=== PATIENT | male | born 1995 | race Caucasian/White ===

== ENCOUNTER 2017-01-10 23:06 | Emergency (ER) | payer OTHER ==
[~2017-01-10] VITALS: Ht 170.2 cm; Wt 64.5 kg
[~2017-01-10 23:06] MED LIST: FLUT9.9S NAS; LEVO500C PO; ONDA4TAB7 PO; PROC10TA PO; PROM12.59 RECTALLY; SCOP1PAT TD; UBID50TA3 PO
[2017-01-10 23:09] VITALS: Ht 170.2 cm; Wt 64.5 kg
--- NOTE | 2017-01-10 23:09 | NUR ---
ROOM PT AMBULATORY TO ROOM 5 FROM LOBBY FATHER WITH PT AND HE DOES ALL THE TALKING FOR THE PT
--- NOTE | 2017-01-10 23:13 | NUR ---
BATHROOM PT REPORTS HE NEEDS TO HAVE A BM UP TO BATHROOM
--- OUTSIDE RECORDS SUMMARY | 2017-01-10 23:13 | XMS REPORT ---
Author Author GENERATED, SYSTEM Organization Unknown Address Unknown Phone Unavailable Care Team Providers Care Repulping Supervisor Name Role Phone MD [facility], [facility] [phone] Reason For Visit Chief Complaint VOMITING Social History Functional Status Vital Signs Results Chemistry from 08/31/2016 1:56 PMSODIUM 139 MMOL/L (136-145 MMOL/L) POTASSIUM 4.0 MMOL/L (3.5-5.1 MMOL/L) CHLORIDE 103 MMOL/L (98-107 MMOL/L) TCO2 23.2 MMOL/L (21.0-32.0 MMOL/L) *ANION GAP 12.8 MMOL/L (8.0-16.0 MMOL/L) BUN 12 MG/DL (7-18 MG/DL) CREATININE 1.12 MG/DL (0.70-1.30 MG/DL) *BUN/CREATININE RATIO 10.7 (9.1-17.0 ) GLUCOSE 117 MG/DL H (65-99 MG/DL) *GFR EST NON AFR ICELANDIC >90 ML/MIN *GFR EST AFR AMER >90 ML/MIN CALCIUM 10.0 MG/DL (8.5-10.1 MG/DL) BILIRUBIN TOTAL 1.20 MG/DL H (0.20-1.00 MG/DL) TOTAL PROTEIN 8.6 GM/DL H (6.4-8.2 GM/DL) ALBUMIN 5.3 GM/DL H (3.4-5.0 GM/DL) *GLOBULIN 3.3 GM/DL (2.3-3.5 GM/DL) *A/G RATIO 1.6 MG/DL (1.5-2.2 MG/DL) ALK PHOS 66 U/L (46-116 U/L) ALT (SGPT) 34 U/L (14-59 U/L) AST (SGOT) 17 U/L (15-37 U/L) LIPASE 84 U/L (73-393 U/L) Hematology from 08/31/2016 1:56 PMWBC 7.2 X10e3/UL (3.6-11.2 X10e3/UL) RBC 5.22 X10e6/UL (4.06-5.63 X10e6/UL) HEMOGLOBIN 16.5 G/DL H (12.5-16.3 G/DL) HEMATOCRIT 47.4 % H (36.7-47.1 %) *MCV 90.8 FL (80.0-100.0 FL) *MCH 31.6 PG (27.0-33.0 PG) *MCHC 34.8 G/DL (32.0-36.0 G/DL) *RDW 14.3 % (12.3-17.0 %) *RDWSD 45.5 (37.1-47.8 ) PLATELET 210 X10e3/UL (159-386 X10e3/UL) *MPV 9.5 FL (7.4-10.4 FL) AUTOMATED DIFF PERFORMED SEGS 77.3 % *LYMPHOCYTES 16.6 % *MONOCYTES 5.3 % *EOSINOPHILS 0.2 % *BASOPHILS 0.6 % *ABSOLUTE NEUTROPHILS 5.60 X10e3/UL (1.80-7.80 X10e3/UL) *ABSOLUTE LYMPHOCYTES 1.20 X10e3/UL (1.00-3.00 X10e3/UL) *ABSOLUTE MONOCYTES 0.40 X10e3/UL (0.30-1.00 X10e3/UL) *ABSOLUTE EOSINOPHILS 0.00 X10e3/UL (0.00-0.50 X10e3/UL) *ABSOLUTE BASOPHILS 0.00 X10e3/UL (0.00-0.20 X10e3/UL) Urinalysis from 08/31/2016 3:00 PM*URINE COLOR YELLOW (STRAW/YELL/DK YELL ) *URINE APPEARANCE CLEAR (CLEAR ) URINE PH >9.0 (5.0-8.0 ) URINE SPECIFIC GRAVITY 1.015 (<=1.005->=1.030 ) *URINE GLUCOSE NEGATIVE MG/DL (NEGATIVE MG/DL) *URINE BILIRUBIN NEGATIVE (NEGATIVE ) *URINE KETONES 40 MG/DL A (NEGATIVE MG/DL) *URINE BLOOD TRACE-INTACT A (NEGATIVE ) *URINE PROTEIN TRACE MG/DL A (NEGATIVE MG/DL) *URINE UROBILINOGEN 0.2 EU/DL (0.2-1.0 EU/DL) *URINE NITRITES NEGATIVE (NEGATIVE ) *URINE LEUKOCYTES NEGATIVE (NEGATIVE ) *MICROSCOPIC EXAM PERFORMED PERFORMED *WBC URINE 0-1 /HPF (0-5 /HPF) *RBC URINE 1-5 /HPF A (0-1 /HPF) *SQUAMOUS EP. CELLS FEW /LPF (NEG-FEW /LPF) *MUCOUS THREADS MANY /LPF A (NEGATIVE /LPF) *AMORP. PHOS KOSTA MODERATE /HPF (NEGATIVE /HPF) Problems Encounter Diagnosis No relevant problems exist. Additional Problems * Fall Risk Comment:Problem resolved by [facility] Workflow upon Discharge, Status: Resolved. * Nausea & Vomiting Comment:Problem resolved by [facility] Workflow upon Discharge , Status:Resolved. Encounters Encounter Diagnosis No relevant problems exist. Plan of Care Procedures No relevant procedures performed. Immunizations * INFLUEN VACC (GLAXO) (FLUARIX (GLAXO), [employer], Lot # [id number]); Administered 08/05/2016 11:22 AM; 1 DOSE=0.5 ML, INTRAMUSCL Hospital Course Hospital Discharge Instructions Allergies, Adverse Reactions, Alerts * Latex Allergy has not been assessed. * IV Contrast Allergy has not been assessed. * No Known Drug Allergies. Medication Medication reconciliation has not been performed.
--- OUTSIDE RECORDS SUMMARY | 2017-01-10 23:13 | XMS REPORT ---
Author Author GENERATED, SYSTEM Organization Unknown Address Unknown Phone Unavailable Care Team Providers Care Underground Mine Superintendent Name Role Phone MD MISTRY VERLIN [phone] Reason For Visit Reason for Visit from 08/03/2016 11:24 PM:* Pt Stated Reason for Adm : Nausea, Intractable Vomiting Chief Complaint INTRACTABLE NAUSEA VOMITING Social History Social History from 08/05/2016 10:52 AM:* Tobacco Use? : Never Smoker Social History from 08/03/2016 11:24 PM:* Tobacco Use? : Never Smoker Functional Status Functional Status from 08/05/2016 7:30 AM:* LOC : Alert * Oriented To : Person,Place,Time * Weight Bearing Status : Full * Assist Level : Independent * # Assists : Independent Functional Status from 08/04/2016 7:15 PM:* LOC : Alert * Oriented To : Person,Place,Time,Event * Weight Bearing Status : Full * Assist Level : Independent * # Assists : Independent Functional Status from 08/04/2016 7:20 AM:* LOC : Alert * Oriented To : Person,Place,Time * Weight Bearing Status : Full * Assist Level : Partial * # Assists : 1 Functional Status from 08/03/2016 11:24 PM:* LOC : Alert * Oriented To : Person,Place,Time,Event * Weight Bearing Status : Full * Assist Level : Independent * # Assists : Independent Vital Signs Hospital Vital Signs from 08/05/2016 11:29 AM:* Heart Rate : 75 Hospital Vital Signs from 08/05/2016 8:08 AM:* Height : 5/6 ft,in * Temperature : 98.7 F * Pulse : 59 * Respirations : 16 * BP : 120/68 Hospital Vital Signs from 08/05/2016 7:30 AM:* Heart Rate : 73 Hospital Vital Signs from 08/05/2016 4:17 AM:* Heart Rate : 57 Hospital Vital Signs from 08/04/2016 11:57 PM:* Heart Rate : 65 Hospital Vital Signs from 08/04/2016 9:39 PM:* Height : 5/6 ft,in * Temperature : 98.0 F * Pulse : 67 * Respirations : 18 * BP : 128/74 Hospital Vital Signs from 08/04/2016 7:15 PM:* Heart Rate : 60 Hospital Vital Signs from 08/04/2016 3:58 PM:* Heart Rate : 55 Hospital Vital Signs from 08/04/2016 2:30 PM:* Height : 5/6 ft,in * Temperature : 97.9 F * Pulse : 55 * Respirations : 18 * BP : 120/70 Hospital Vital Signs from 08/04/2016 12:16 PM:* Heart Rate : 50 Hospital Vital Signs from 08/04/2016 9:09 AM:* Height : 5/6 ft,in Hospital Vital Signs from 08/04/2016 7:35 AM:* Height : 5/6 ft,in * Temperature : 97.9 F * Pulse : 56 * Respirations : 18 * BP : 133/73 Hospital Vital Signs from 08/04/2016 7:20 AM:* Heart Rate : 84 Hospital Vital Signs from 08/04/2016 3:16 AM:* Heart Rate : 63 Hospital Vital Signs from 08/03/2016 11:25 PM:* Height : 5/6 ft,in * Temperature : 98.1 F * Pulse : 58 * BP : 130/62 Hospital Vital Signs from 08/03/2016 11:24 PM:* Weight : 59.2/ kg * Height : 5/6 ft,in Results Chemistry from 08/05/2016 5:41 AMSODIUM 141 MMOL/L (136-145 MMOL/L) POTASSIUM 4.1 MMOL/L (3.5-5.1 MMOL/L) CHLORIDE 107 MMOL/L (98-107 MMOL/L) TCO2 27.9 MMOL/L (21.0-32.0 MMOL/L) *ANION GAP 6.1 MMOL/L L (8.0-16.0 MMOL/L) BUN 4 MG/DL L (7-18 MG/DL) CREATININE 0.85 MG/DL (0.70-1.30 MG/DL) *BUN/CREATININE RATIO 4.7 L (9.1-17.0 ) GLUCOSE 100 MG/DL H (65-99 MG/DL) *GFR EST NON AFR KYRGYZ >90 ML/MIN *GFR EST AFR AMER >90 ML/MIN CALCIUM 8.7 MG/DL (8.5-10.1 MG/DL) BILIRUBIN TOTAL 0.80 MG/DL (0.20-1.00 MG/DL) TOTAL PROTEIN 6.9 GM/DL (6.4-8.2 GM/DL) ALBUMIN 4.0 GM/DL (3.4-5.0 GM/DL) *GLOBULIN 2.9 GM/DL (2.3-3.5 GM/DL) *A/G RATIO 1.4 MG/DL L (1.5-2.2 MG/DL) ALK PHOS 50 U/L (46-116 U/L) ALT (SGPT) 14 U/L (14-59 U/L) AST (SGOT) 11 U/L L (15-37 U/L) Chemistry from 08/04/2016 5:30 AMSODIUM 143 MMOL/L (136-145 MMOL/L) POTASSIUM 3.7 MMOL/L (3.5-5.1 MMOL/L) CHLORIDE 108 MMOL/L H (98-107 MMOL/L) TCO2 24.8 MMOL/L (21.0-32.0 MMOL/L) *ANION GAP 10.2 MMOL/L (8.0-16.0 MMOL/L) BUN 7 MG/DL (7-18 MG/DL) CREATININE 0.87 MG/DL (0.70-1.30 MG/DL) *BUN/CREATININE RATIO 8.0 L (9.1-17.0 ) GLUCOSE 117 MG/DL H (65-99 MG/DL) *GFR EST NON AFR KYRGYZ >90 ML/MIN *GFR EST AFR AMER >90 ML/MIN CALCIUM 8.8 MG/DL (8.5-10.1 MG/DL) ALBUMIN 4.1 GM/DL (3.4-5.0 GM/DL) PHOSPHORUS 2.9 MG/DL (2.6-4.7 MG/DL) Hematology from 08/05/2016 5:41 AMWBC 6.3 X10e3/UL (3.6-11.2 X10e3/UL) RBC 4.55 X10e6/UL (4.06-5.63 X10e6/UL) HEMOGLOBIN 14.0 G/DL (12.5-16.3 G/DL) HEMATOCRIT 41.2 % (36.7-47.1 %) *MCV 90.7 FL (80.0-100.0 FL) *MCH 30.7 PG (27.0-33.0 PG) *MCHC 33.8 G/DL (32.0-36.0 G/DL) *RDW 13.3 % (12.3-17.0 %) *RDWSD 42.4 (37.1-47.8 ) PLATELET 149 X10e3/UL L (159-386 X10e3/UL) *MPV 9.9 FL (7.4-10.4 FL) AUTOMATED DIFF PERFORMED SEGS 43.5 % *LYMPHOCYTES 37.6 % *MONOCYTES 11.2 % *EOSINOPHILS 6.8 % *BASOPHILS 0.9 % *ABSOLUTE NEUTROPHILS 2.70 X10e3/UL (1.80-7.80 X10e3/UL) *ABSOLUTE LYMPHOCYTES 2.40 X10e3/UL (1.00-3.00 X10e3/UL) *ABSOLUTE MONOCYTES 0.70 X10e3/UL (0.30-1.00 X10e3/UL) *ABSOLUTE EOSINOPHILS 0.40 X10e3/UL (0.00-0.50 X10e3/UL) *ABSOLUTE BASOPHILS 0.10 X10e3/UL (0.00-0.20 X10e3/UL) Nuclear Medicine from 08/04/2016 10:02 AMGASTRIC EMPTYING History: Nausea Vomiting Technique: 1.0 millicuries of technetium 99 M sulfur colloid was mixed with 180 and 3 sips of water. Images were obtained out to 2 hours Priors: None. Findings: The stomach is emptied by the 65 minutes keshia. T1 half is calculated at 33 minutes, which is within normal limits. Impression: Normal gastric emptying time. Electronically signed by: Perry Tirado MD Dictated: 08/04/2016 13:27 Problems Encounter Diagnosis * Fall Risk Status:Active. * Nausea & Vomiting Status:Active. Encounters Encounter Diagnosis * Fall Risk Status:Active. * Nausea & Vomiting Status:Active. Plan of Care Follow-up Appointments from 08/05/2016 10:52 AM:* #1 Office appointment: : Dr. Mistry * #1 Date/Time : 08/11/2016 11:00 AM Treatment Plan from 08/05/2016 11:16 AM:* Care Management Note : talked with Cm RODAS - GI is signing off. talked with Dr Velazco - patient is being dismissed today. Treatment Plan from 08/04/2016 10:41 AM:* Care Management Note : Admission status: Outpatient Observation Insurance: [facility] and Veterans Patient presented to ER for complaints of Nausea and vomiting. labs and vital signs noted. K+ 2.9. GI consulted for evaluation. Await Gastric emptying test. Monitor vital signs every 8 hours. Monitor I/o. NPO. IVF at 125. Replace K+ with IV. IV Morphine given for pain management. IV Reglan and Zofran given for nausea. await work up. meets outpatient observation status at this time. Procedures No relevant procedures performed. Immunizations * INFLUEN VACC 2015-(GLAXO) (FLUARIX 2015- (GLAXO), [employer], Lot # [id number]); Administered 08/05/2016 11:22 AM; 1 DOSE=0.5 ML, INTRAMUSCL Hospital Course Hospital Discharge Instructions How to care for yourself at home from 08/05/2016 10:52 AM:* Discharge Activity : Activity as tolerated,May Shower * Do not drive or operate machinery for: : While on narcotics or until cleared by your physician * Discharge Diet : Diet as tolerated * Discharge Diet: : Regular diet * Call your doctor if: : Fever over 101 F or severe chills,Chest pain or other unexplained symptoms,Tingling or numbness develops,A sudden increase or decrease in weight,You have persistent or worsening symptoms,If you have Heart Failure and you gain 3 pounds within 1 week or your symptoms worsen. (Weigh at home tomorrow morning) * Specific Discharge Teaching Instructions provided: : No * Discharge on Warfarin : No Allergies, Adverse Reactions, Alerts * No Latex Allergy. * No IV Contrast Allergy. * No Known Drug Allergies. Medication It is the responsibility of the patient or patient personal financial representative to confirm the list of medications with either the patient's personal care provider or the patient's follow-up care provider to ensure the patient has an appropriate list of medications to take at home. Discharge medications New medications* metoclopramide HCl 10 mg Tablet, Ordered By: LEANDRO VELAZCO , Directions: 1 tablet oral four times daily before meals and at bedtime PRN nausea or vomiting Continued medications* pantoprazole 40 mg tablet,delayed release (DR/EC), Ordered By: LEANDRO VELAZCO, Directions: 1 tablet oral daily * sucralfate 1 gram Tablet, Ordered By: LEANDRO VELAZCO DO Directions: 1 tablet oral three times a day Changed medications* ondansetron (ZOFRAN ODT) 4 mg tablet,disintegrating, Ordered By: LEANDRO VELAZCO DO Directions: 1 tablet oral every four hours PRN nausea or vomiting Stopped medications* None
--- OUTSIDE RECORDS SUMMARY | 2017-01-10 23:13 | XMS REPORT ---
Author Author GENERATED, SYSTEM Organization Unknown Address Unknown Phone Unavailable Care Team Providers Care Courtesy Van Driver Name Role Phone MD LONDONO VERLIN [phone] Reason For Visit Chief Complaint NAUSEA AND VOMITTING Social History Functional Status Vital Signs Results Problems Encounter Diagnosis No relevant problems exist. Additional Problems * Fall Risk Comment:Problem resolved by [facility] Workflow upon Discharge, Status: Resolved. * Fall Risk Comment:Problem resolved by [facility] Workflow upon Discharge, Status: Resolved. * Nausea & Vomiting Comment:Problem resolved by [facility] Workflow upon Discharge , Status:Resolved. Encounters Encounter Diagnosis No relevant problems exist. Plan of Care Procedures * Completed Esophagogastroduodenoscopy, by MD [facility], on 09/17/2016 8:02 AM Immunizations * Influenza, seasonal, injectable ([employer]ARM, Lot # [id number]); Administered 08/2016 11:22 AM; 1 DOSE=0.5 ML, INTRAMUSCL Hospital Course Hospital Discharge Instructions Allergies, Adverse Reactions, Alerts * Latex Allergy has not been assessed. * IV Contrast Allergy has not been assessed. * No Known Drug Allergies. Medication Medication reconciliation has not been performed.
--- OUTSIDE RECORDS SUMMARY | 2017-01-10 23:13 | XMS REPORT ---
Author Author GENERATED, SYSTEM Organization Unknown Address Unknown Phone Unavailable Care Team Providers Care Geography Instructor Name Role Phone UNASSIGNED DOCTOR , DOCTOR PP [phone] Reason For Visit Chief Complaint VOMITING, UPPER ABD PAIN Social History Functional Status Vital Signs Results Chemistry from 10/28/2016 11:40 PMSODIUM 142 MMOL/L (136-145 MMOL/L) POTASSIUM 3.4 MMOL/L L (3.5-5.1 MMOL/L) CHLORIDE 103 MMOL/L (98-107 MMOL/L) TCO2 23.3 MMOL/L (21.0-32.0 MMOL/L) *ANION GAP 15.7 MMOL/L (8.0-16.0 MMOL/L) BUN 11 MG/DL (7-18 MG/DL) CREATININE 1.20 MG/DL (0.70-1.30 MG/DL) *BUN/CREATININE RATIO 9.2 (9.1-17.0 ) GLUCOSE 185 MG/DL H (65-99 MG/DL) CALCIUM 9.8 MG/DL (8.5-10.1 MG/DL) BILIRUBIN TOTAL 0.60 MG/DL (0.20-1.00 MG/DL) TOTAL PROTEIN 8.3 GM/DL H (6.4-8.2 GM/DL) ALBUMIN 4.8 GM/DL (3.4-5.0 GM/DL) *GLOBULIN 3.5 GM/DL (2.3-3.5 GM/DL) *A/G RATIO 1.4 MG/DL L (1.5-2.2 MG/DL) ALK PHOS 63 U/L (46-116 U/L) ALT (SGPT) 54 U/L (14-59 U/L) AST (SGOT) 14 U/L L (15-37 U/L) LIPASE 64 U/L L (73-393 U/L) Hematology from 10/28/2016 11:40 PMWBC 13.8 X10e3/UL H (3.6-11.2 X10e3/UL) RBC 5.16 X10e6/UL (4.06-5.63 X10e6/UL) HEMOGLOBIN 15.7 G/DL (12.5-16.3 G/DL) HEMATOCRIT 46.8 % (36.7-47.1 %) *MCV 90.7 FL (80.0-100.0 FL) *MCH 30.4 PG (27.0-33.0 PG) *MCHC 33.5 G/DL (32.0-36.0 G/DL) *RDW 12.5 % (12.3-17.0 %) PLATELET 235 X10e3/UL (159-386 X10e3/UL) *MPV 10.3 FL (7.4-10.4 FL) Problems Encounter Diagnosis No relevant problems exist. Additional Problems * Fall Risk Comment:Problem resolved by [facility] Workflow upon Discharge, Status: Resolved. * Fall Risk Comment:Problem resolved by [facility] Workflow upon Discharge, Status: Resolved. * Nausea & Vomiting Comment:Problem resolved by [facility] Workflow upon Discharge , Status:Resolved. Encounters Encounter Diagnosis No relevant problems exist. Plan of Care Procedures * Completed Esophagogastroduodenoscopy, by MD ARVIND GUZMANBHAKAR, on 09/17/2016 8:02 AM * Completed Procedure Code: [id number] Procedure Name: not valued, on 09/17/2016 12:00 AM * Completed Procedure Code: 20956 Procedure Name: not valued, on 09/17/2016 12: 00 AM Immunizations * Influenza, seasonal, injectable ([employer], Lot # [id number]); Administered 08/2016 11:22 AM; 1 DOSE=0.5 ML, INTRAMUSCL Hospital Course Hospital Discharge Instructions Allergies, Adverse Reactions, Alerts * Latex Allergy has not been assessed. * IV Contrast Allergy has not been assessed. * No Known Drug Allergies. Medication Medication reconciliation has not been performed.
--- OUTSIDE RECORDS SUMMARY | 2017-01-10 23:14 | XMS REPORT ---
Author Author GENERATED, SYSTEM Organization Unknown Address Unknown Phone Unavailable Care Team Providers Care Chief Contract Officer Name Role Phone MD BRY, BANNERSHIKHA [phone] Reason For Visit Chief Complaint VOMITING, STOMACH PAIN Social History Functional Status Vital Signs Results Chemistry from 08/24/2016 11:15 PMSODIUM 143 MMOL/L (136-145 MMOL/L) POTASSIUM 3.3 MMOL/L L (3.5-5.1 MMOL/L) CHLORIDE 105 MMOL/L (98-107 MMOL/L) TCO2 22.1 MMOL/L (21.0-32.0 MMOL/L) *ANION GAP 15.9 MMOL/L (8.0-16.0 MMOL/L) BUN 13 MG/DL (7-18 MG/DL) CREATININE 0.99 MG/DL (0.70-1.30 MG/DL) *BUN/CREATININE RATIO 13.1 (9.1-17.0 ) GLUCOSE 117 MG/DL H (65-99 MG/DL) CALCIUM 9.5 MG/DL (8.5-10.1 MG/DL) MAGNESIUM 1.7 MG/DL L (1.8-2.4 MG/DL) LIPASE 72 U/L L (73-393 U/L) TSH 0.778 UIU/ML (0.340-4.820 UIU/ML) Hematology from 08/24/2016 11:15 PMWBC 9.6 X10e3/UL (3.6-11.2 X10e3/UL) RBC 4.92 X10e6/UL (4.06-5.63 X10e6/UL) HEMOGLOBIN 14.8 G/DL (12.5-16.3 G/DL) HEMATOCRIT 44.2 % (36.7-47.1 %) *MCV 89.8 FL (80.0-100.0 FL) *MCH 30.1 PG (27.0-33.0 PG) *MCHC 33.5 G/DL (32.0-36.0 G/DL) *RDW 13.3 % (12.3-17.0 %) PLATELET 205 X10e3/UL (159-386 X10e3/UL) *MPV 9.8 FL (7.4-10.4 FL) AUTOMATED DIFF PERFORMED SEGS 73.1 % *LYMPHOCYTES 17.7 % *MONOCYTES 8.5 % *EOSINOPHILS 0.4 % *BASOPHILS 0.3 % *ABSOLUTE NEUTROPHILS 7.10 X10e3/UL (1.80-7.80 X10e3/UL) *ABSOLUTE LYMPHOCYTES 1.70 X10e3/UL (1.00-3.00 X10e3/UL) *ABSOLUTE MONOCYTES 0.80 X10e3/UL (0.30-1.00 X10e3/UL) *ABSOLUTE EOSINOPHILS 0.00 X10e3/UL (0.00-0.50 X10e3/UL) *ABSOLUTE BASOPHILS 0.00 X10e3/UL (0.00-0.20 X10e3/UL) Urinalysis from 08/25/2016 1:14 AM*URINE COLOR YELLOW (STRAW/YELL/DK YELL ) *URINE APPEARANCE SL CLOUDY A (CLEAR ) URINE PH 6.0 (5.0-8.0 ) URINE SPECIFIC GRAVITY >1.030 (<=1.005->=1.030 ) *URINE GLUCOSE NEGATIVE MG/DL (NEGATIVE MG/DL) *URINE BILIRUBIN NEGATIVE (NEGATIVE ) *URINE KETONES >80 MG/DL A (NEGATIVE MG/DL) *URINE BLOOD TRACE-INTACT A (NEGATIVE ) *URINE PROTEIN NEGATIVE MG/DL (NEGATIVE MG/DL) *URINE UROBILINOGEN 2.0 EU/DL A (0.2-1.0 EU/DL) *URINE NITRITES NEGATIVE (NEGATIVE ) *URINE LEUKOCYTES NEGATIVE (NEGATIVE ) *MICROSCOPIC EXAM PERFORMED PERFORMED *WBC URINE 1-5 /HPF (0-5 /HPF) *RBC URINE 1-5 /HPF A (0-1 /HPF) *SQUAMOUS EP. CELLS FEW /LPF (NEG-FEW /LPF) *MUCOUS THREADS MODERATE /LPF A (NEGATIVE /LPF) *AMORPH. URATE KOSTA. MODERATE /HPF (NEGATIVE /HPF) DX Radiology from 08/24/2016 11:32 PMCHEST 1 VIEW History: vomiting Priors: Chest x-ray dated 08/03/2016 Findings: The heart size and pulmonary vasculature within normal limits. No consolidating infiltrates are identified. No significant pleural effusion or pneumothorax is seen. Impression: No acute abnormality. Electronically signed by: Azul Santana MD Dictated: 08/25/2016 10:04 Problems Encounter Diagnosis No relevant problems exist. Additional Problems * Fall Risk Comment:Problem resolved by [facility] Workflow upon Discharge, Status: Resolved. * Nausea & Vomiting Comment:Problem resolved by [facility] Workflow upon Discharge , Status:Resolved. Encounters Encounter Diagnosis No relevant problems exist. Plan of Care Procedures No relevant procedures performed. Immunizations * INFLUEN VACC 2015-(GLAXO) (FLUARIX 2015-17 (GLAXO), [employer], Lot # [id number]); Administered 08/05/2016 11:22 AM; 1 DOSE=0.5 ML, INTRAMUSCL Hospital Course Hospital Discharge Instructions Allergies, Adverse Reactions, Alerts * Latex Allergy has not been assessed. * IV Contrast Allergy has not been assessed. * No Known Drug Allergies. Medication Medication reconciliation has not been performed.
--- OUTSIDE RECORDS SUMMARY | 2017-01-10 23:14 | XMS REPORT | Continuity of Care Document ---
Author Author [facility] Organization [facility] Address Unknown Phone Unavailable Support Name Relationship Address Phone ANTHONY HUGHES MD Caregiver [address] [address] Unavailable CRYSTAL JOSÉ DO Caregiver [address] [place] [address] Unavailable DARSHAN JEFFERSON Next Of Kin [address] [place], [place] [address] Insurance Providers Guarantor Leandro Jefferson Address [address] [place] [address] Email [email or web address] Payer Standard Wps Policy Number [id number] Subscriber's Name Darshan Jefferson Relationship 21 Child Advance Directives Directive Response Recorded Date/Time Advanced Directives Type None 01/04/17 1:55pm Chief Complaint and Reason for Visit Chief Complaint Nausea,Vomiting,Diarrhea Reason for Visit Cyclic vomiting syndrome Problems Active Problems Medical Problem Onset Date Status Cyclic vomiting syndrome Unknown Chronic Drug abuse, marijuana Unknown Gastroenteritis Unknown Acute Lactose intolerance Unknown Seasonal allergies Unknown Chronic Past Problems Medical Problem Onset Date Abdominal pain, epigastric Unknown Cyclic vomiting syndrome Unknown Dehydration Unknown Dehydration with hypernatremia Unknown Epigastric discomfort Unknown Gastritis Unknown Lactase deficiency Unknown Marijuana abuse Unknown Mild dehydration Unknown Nausea & vomiting Unknown Nausea & vomiting Unknown Nausea & vomiting Unknown Nausea and vomiting Unknown Nausea and vomiting Unknown Nausea and vomiting Unknown Panic anxiety syndrome Unknown Patient left without being seen Unknown Medications Current Home Medications Medication Dose Units Route Directions Days Qty Instructions Start Date Fluticasone Propionate (Flonase Allergy Relief 50 Mcg/Actuation Nasal) 9.9 Ml [place].susp 1 [place] Intranasal Daily 01/04/17 Levocarnitine Tartrate (L-Carnitine) Unknown Strength Capsule 1 Cap Oral Daily 11/07/16 Ondansetron (Zofran Odt) 4 Mg Tab.rapdis 4 Mg Oral Every 4 Hours as needed for Nausea 11/07/16 Prochlorperazine Maleate 10 Mg Tablet 10 Mg Oral Four Times Daily as needed for Nausea &/Or Vomiting 12/26/16 Promethazine Hcl (Phenadoz) 12.5 Mg Supp 1 Supp Rectally As Needed 12/20/16 Scopolamine (Transderm-Scop) 1 Each Patch.td72 1 Patch Transderm Every 3 Days 12/26/16 Ubidecarenone (Coq10) 50 Mg Tab.chew 1 Tab Oral Daily 11/06/16 Past Home Medications Medication Directions Ordered Status Acetaminophen/Hydrocodone Bitart ([place] 5-325 Tablet) 5-325 Tablet, 1 Tab Oral Three Times A Day as needed for Pain 09/02/16 Discontinued Esomeprazole Mag Trihydrate (Nexium) 40 Mg Capsule.dr, 40 Mg Oral Daily 02/18 Discontinued Lansoprazole (Prevacid) 15 Mg Capsule.dr, 15 Mg Oral Daily 07/17/11 Discontinued Metoclopramide Hcl (Reglan) 10 Mg Tablet, 10 Mg Oral Q6h/0300,0900,1500,2100 as needed for Nausea &/Or Vomiting 11/02/16 Discontinued Ondansetron (Zofran Odt) 4 Mg Tab.rapdis, 4 Mg Oral Q6h/0300,0900,1500,2100 for Nausea &/Or Vomiting 11/02/16 Discontinued Sucralfate 1 Gm Tablet, 1 Gm Oral Three Times A Day as needed for Prn Orders 09/02/16 Discontinued Zofran , 12/24/09 Discontinued Social History Social History Problem Response Recorded Date/Time Onset Date Status Hx Substance Use Y MARIJUANA-REPORTS LAST USED 1 WEEK 01/04/2017 2:20pm Not Applicable Not Applicable Hx Alcohol Use No 01/04/2017 2:20pm Not Applicable Not Applicable Has the pt used tobacco in the last 12 months No 11/07/2016 8:47pm Not Applicable Not Applicable Tobacco Usage none 08/12/2015 12:03pm Not Applicable Not Applicable Query Response Start Date Stop Date Smoking Status Current every day smoker Hospital Discharge Instructions No hospital discharge instructions. Plan of Care Discharge Date 01/04/17 3:30pm Disposition 01 DISCHARGED HOME, SELF-CARE Condition at Discharge Improved Instructions/Education Provided Acute Nausea and Vomiting (ED) Prescriptions See Medication Section Referrals ANTHONY HUGHES MD Order Date: 2 Days Address: [address] [place] [address] [address] [place] [address] Note: Care Plan and Goals Physician Care Plan Problem: Cyclic Vomiting Syndrome Goal: Follow up with primary care provider Instructions: Take medications and follow care plan as discussed/written Functional Status No functional status results. Allergies, Adverse Reactions, Alerts Allergen Type Severity Reaction Status Last Updated Lactose Adverse Reaction Unknown ON LACTOSE FREE DIET Active 12/27/16 Immunizations Query Response on File Recorded Date/Time Hx Influenza Vaccination Y July 2016 11/07/16 8:47pm Hx Pneumococcal Vaccination No 11/07/16 8:47pm Hx Tetanus, Diptheria, Pertussis Y 04/201002/19/12 9:34am Hx Influenza Vaccination Y July 2016 11/07/16 8:47pm Hx Tetanus, Diptheria, Pertussis Y 04/201002/19/12 9:34am DTaP Vaccine History UP TO DATE 01/04/17 2:20pm Influenza Vaccine Hx 07/201601/04/17 2:20pm Vital Signs Acute Vital Signs Vital Response Date/Time Temperature (Fahrenheit) 97.8 deg F (96.8 - 99.1) 01/04/2017 3:30pm Temperature (Calculated Celsius) 36.92023 degrees C (36.0 - 37.3) 01/04/2017 3:30pm Pulse Rate (adult) 70 bpm (60 - 100) 01/04/2017 3:30pm Respiratory Rate 16 breaths/min (10 - 20) 01/04/2017 3:30pm O2 Sat by Pulse Oximetry 98 % (90 - 100) 01/04/2017 3:30pm Oxygen Delivery Method Room Air 11/08/2016 12:55pm Blood Pressure 137/82 mm Hg 01/04/2017 3:30pm Blood Pressure Source Automatic Cuff 11/08/2016 12:55pm Blood Pressure 137/82 mm Hg 01/04/2017 3:30pm Height (Feet) 5 feet 01/04/2017 1:05pm Height (Inches) 7.00 inches 01/04/2017 1:05pm Weight (Kilograms) 65.000 kg 01/04/2017 1:05pm Body Mass Index (BMI) 22.0 01/04/2017 1:05pm Results Laboratory Results Test Name Result Units Flags Reference Collection Date/Time Result Date/ Time Comments Total Bilirubin 0.60 MG/DL 0.20-1.30 11/02/2016 5:53am 11/02/2016 6: 09am Alkaline Phosphatase 67 U/L 38-126 11/02/2016 5:53am 11/02/2016 6:09am Total Protein 7.9 G/DL 6.3-8.2 11/02/2016 5:53am 11/02/2016 6:09am Globulin 2.8 G/DL 2.4-3.6 11/02/2016 5:53am 11/02/2016 6:09am Albumin/Globulin Ratio 1.8 RATIO 1.1-2.2 11/02/2016 5:53am 11/02/2016 6 :09am Aspartate Amino Transf (AST/SGOT) 25 U/L 17-59 11/02/2016 5:53am 2016 6:09am Alanine Aminotransferase (ALT/SGPT) 43 U/L 21-72 11/02/2016 5:53am 05/2017 6:09am Lipase 34 U/L 23-300 11/02/2016 5:53am 11/02/2016 6:09am Phosphorus Level 2.9 MG/DL 2.5-4.5 11/08/2016 5:09am 11/08/2016 6:04am Albumin 4.4 G/DL 3.5-5.0 11/08/2016 5:09am 11/08/2016 6:04am Acetaminophen Level < 10 UG/ML L 10-30 11/07/2016 6:31pm 11/07/2016 6: 52pm TOXIC <4 HR POST INGESTION: >150 MG/L; TOXIC <12 HR POST INGESTION: >50 MG/L Salicylates Level < 1.0 MG/DL L 2-20 11/07/2016 6:31pm 11/07/2016 6: 52pm Alcohol, Quantitative <10 MG/DL <10 11/07/2016 6:31pm 11/07/2016 6: 52pm White Blood Count 8.8 T/MM3 4.5-11.0 11/09/2016 1:33pm 11/09/2016 1: 39pm Red Blood Count 5.07 M/MM3 4.50-5.90 11/09/2016 1:33pm 11/09/2016 1: 39pm Hemoglobin 15.8 GM/DL 13.5-17.5 11/09/2016 1:33pm 11/09/2016 1:39pm Hematocrit 46.3 % 41-53 11/09/2016 1:33pm 11/09/2016 1:39pm Mean Corpuscular Volume 91.3 UM3 80-100 11/09/2016 1:33pm 11/09/2016 1: 39pm Mean Corpuscular Hemoglobin 31.2 UUG 26-34 11/09/2016 1:33pm 2016 1:39pm Mean Corpuscular Hemoglobin Concent 34.1 GM/DL 31-37 11/09/2016 1:33pm 11/09/2016 1:39pm RDW Standard Deviation 41.6 FL 36.9-50.2 11/09/2016 1:33pm 11/09/2016 1 :39pm Platelet Count 200 T/MM3 130-400 11/09/2016 1:33pm 11/09/2016 1:39pm Mean Platelet Volume 11.3 UM3 9.4-12.4 11/09/2016 1:33pm 11/09/2016 1: 39pm Neutrophils (%) (Auto) 72.4 % H 33-66 11/09/2016 1:33pm 11/09/2016 1: 39pm Lymphocytes (%) (Auto) 17.7 % L 23-45 11/09/2016 1:33pm 11/09/2016 1: 39pm Monocytes (%) (Auto) 9.5 % H 0-9.0 11/09/2016 1:33pm 11/09/2016 1:39pm Eosinophils (%) (Auto) 0.1 % 0-4 11/09/2016 1:pm 11/09/2016 1:39pm Basophils (%) (Auto) 0.2 % 0-2 11/09/2016 1:33pm 11/09/2016 1:39pm Immature Granulocyte % (Auto) 0.1 % 0.0-0.5 11/09/2016 1:33pm 2016 1:39pm Absolute Neutrophils (auto) 6.4 T/MM3 1.8-7.7 11/09/2016 1:33pm 2016 1:39pm Absolute Lymphocytes (auto) 1.6 T/MM3 1-4.8 11/09/2016 1:33pm 2016 1:39pm Absolute Monocytes (auto) 0.8 T/MM3 0-0.8 11/09/2016 1:33pm 11/09/2016 1:39pm Absolute Eosinophils (auto) 0.0 T/MM3 0-0.5 11/09/2016 1:33pm 2016 1:39pm Absolute Basophils (auto) 0.0 T/MM3 0-0.2 11/09/2016 1:33pm 11/09/2016 1:39pm Absolute Immature Granulocyte (auto 0.01 T/MM3 0.00-0.03 11/09/2016 1: 33pm 11/09/2016 1:39pm Magnesium Level 2.2 MG/DL D 1.6-2.3 11/09/2016 1:33pm 11/09/2016 2:16pm Urine Collection Type VOIDED-NOT CC-MIDSTR 11/09/2016 2:06pm 2016 2:14pm Urine Color YELLOW YELLOW 11/09/2016 2:06pm 11/09/2016 2:14pm Urine Turbidity CLEAR CLEAR 11/09/2016 2:06pm 11/09/2016 2:14pm Urine Specific [place] 1.015 1.015-1.025 11/09/2016 2:06pm 2016 2:14pm Urine pH 7.0 5.0-8.0 11/09/2016 2:06pm 11/09/2016 2:14pm Urine Leukocyte Esterase NEGATIVE NEGATIVE 11/09/2016 2:06pm 2016 2:14pm Urine Nitrite NEGATIVE NEGATIVE 11/09/2016 2:06pm 11/09/2016 2:14pm Urine Protein NEGATIVE NEGATIVE 11/09/2016 2:06pm 11/09/2016 2:14pm Urine Glucose (UA) NEGATIVE NEGATIVE 11/09/2016 2:06pm 11/09/2016 2: 14pm Urine Ketones 3+ A NEGATIVE 11/09/2016 2:06pm 11/09/2016 2:14pm Urine Urobilinogen 4.0 EU/DL A NORMAL 11/09/2016 2:06pm 11/09/2016 2: 14pm Urine Bilirubin 1+ A NEGATIVE 11/09/2016 2:06pm 11/09/2016 2:14pm Urine Blood TRACE-INTACT A NEGATIVE 11/09/2016 2:06pm 11/09/2016 2: 14pm Urinalysis Comment MICROSCOPIC NOT IND. 11/09/2016 2:06pm 2016 2:14pm Icterus Index < 2 0-7 01/04/2017 2:17pm 01/04/2017 2:35pm Chemistry Specimen Hemolysis 34 H 0-25 01/04/2017 2:17pm 01/04/2017 2: 35pm 26-70: Specimen Exhibited Slight Hemolysis - can falsely elevate K (Potassium) and Urine Protein. Turbidity < 20 0-20 01/04/2017 2:17pm 01/04/2017 2:35pm Sodium Level 142 MEQ/L 134-144 01/04/2017 2:17pm 01/04/2017 2:35pm Potassium Level 4.1 MEQ/L 3.6-5 01/04/2017 2:17pm 01/04/2017 2:35pm Chloride Level 105 MEQ/L 98-107 01/04/2017 2:17pm 01/04/2017 2:35pm Carbon Dioxide Level 22 MEQ/L 22-30 01/04/2017 2:pm 01/04/2017 2: 35pm Anion Gap 15 MEQ/L 5-15 01/04/2017 2:17pm 01/04/2017 2:35pm Blood Urea Nitrogen 7.0 MG/DL L 9-20 01/04/2017 2:17pm 01/04/2017 2: 35pm Creatinine 0.6 MG/DL L 0.8-1.5 01/04/2017 2:17pm 01/04/2017 2:35pm BUN/Creatinine Ratio 12 RATIO 6-26 01/04/2017 2:01/04/2017 2:35pm Glomerular Filtration Rate Calc 174 01/04/2017 2:17pm 01/04/2017 2: 35pm Glucose Level 122 MG/DL H 75-110 01/04/2017 2:17pm 01/04/2017 2:35pm Calculated Osmolality 272 MOSM/KG 261-280 01/04/2017 2:pm 01/04/2017 2:35pm Calcium Level 9.9 MG/DL 8.4-10.2 01/04/2017 2:17pm 01/04/2017 2:35pm Procedures Procedure Status Date Provider(s) Comprehen metabolic panel Completed 11/02/16 Urinalysis auto w/o scope Completed 11/02/16 Assay of lipase Completed 11/02/16 Complete cbc w/auto diff wbc Completed 11/02/16 Ther/proph/diag inj iv push Completed 11/02/16 Tx/pro/dx inj new drug addon Completed 11/02/16 Tx/pro/dx inj new drug addon Completed 11/02/16 Emergency dept visit Completed 11/02/16 DRUG TESTS, PRESUMPTIVE, ANY NUMBER OF PROCEDURES Completed 11/02/16 [id number]"INJECTION, PROCHLORPERAZINE, UP TO 10 MG" Completed 11/02/16 [id number]"INJECTION, KETOROLAC TROMETHAMINE, PER 15 MG" Completed 11/02/16 685007"INFUSION, NORMAL SALINE SOLUTION , 1000 CC" Completed 11/02/16 [id number]"INFUSION, NORMAL SALINE SOLUTION , 250 CC" Completed 11/02/16 Hydrate iv infusion add-on Completed 11/06/16 Ther/proph/diag inj iv push Completed 11/06/16 Tx/pro/dx inj new drug addon Completed 11/06/16 Emergency dept visit Completed 11/06/16 474162"INJECTION, PROCHLORPERAZINE, UP TO 10 MG" Completed 11/06/16 876111"INJECTION, KETOROLAC TROMETHAMINE, PER 15 MG" Completed 11/06/16 654163"INFUSION, NORMAL SALINE SOLUTION , 1000 CC" Completed 11/06/16 Ther/proph/diag inj iv push Completed 11/07/16 Emergency dept visit Completed 11/07/16 903185"INJECTION, PROCHLORPERAZINE, UP TO 10 MG" Completed 11/07/16 627865"INFUSION, NORMAL SALINE SOLUTION , 1000 CC" Completed 11/07/16 Routine venipuncture Completed 11/07/16 X-ray exam of abdomen Completed 11/07/16 Metabolic panel total ca Completed 11/07/16 Renal function panel Completed 11/07/16 Urinalysis auto w/o scope Completed 11/07/16 Assay of magnesium Completed 11/07/16 Complete cbc w/auto diff wbc Completed 11/07/16 Hydrate iv infusion add-on Completed 11/07/16 Hydrate iv infusion add-on Completed 11/07/16 Hydrate iv infusion add-on Completed 11/07/16 Ther/proph/diag inj iv push Completed 11/07/16 Tx/pro/dx inj new drug addon Completed 11/07/16 Tx/pro/dx inj new drug addon Completed 11/07/16 Tx/pro/dx inj new drug addon Completed 11/07/16 Emergency dept visit Completed 11/07/16"INJECTION, PANTOPRAZOLE SODIUM, PER VIAL" Completed 11/07/16"HOSPITAL OBSERVATION SERVICE, PER HOUR" Completed 11/07/16"HOSPITAL OBSERVATION SERVICE, PER HOUR" Completed 11/07/16"HOSPITAL OBSERVATION SERVICE, PER HOUR" Completed 11/07/16"HOSPITAL OBSERVATION SERVICE, PER HOUR" Completed 11/07/16 DRUG TESTS, PRESUMPTIVE, ANY NUMBER OF PROCEDURES Completed 11/07/16 DRUG TESTS, PRESUMPTIVE, BY INSTRUMENTED CHEMISTRY ANALYZERS Completed DRUG TESTS, PRESUMPTIVE, BY INSTRUMENTED CHEMISTRY ANALYZERS Completed DRUG TESTS, PRESUMPTIVE, BY INSTRUMENTED CHEMISTRY ANALYZERS Completed "INJECTION, PROCHLORPERAZINE, UP TO 10 MG" Completed 11/07/16"INJECTION, KETOROLAC TROMETHAMINE, PER 15 MG" Completed 11/07/16"INJECTION, KETOROLAC TROMETHAMINE, PER 15 MG" Completed 11/07/16"INJECTION, KETOROLAC TROMETHAMINE, PER 15 MG" Completed 11/07/16"INJECTION, ONDANSETRON HYDROCHLORIDE, PER 1 MG" Completed 11/07/16"INJECTION, METOCLOPRAMIDE HCL, UP TO 10 MG" Completed 11/07/16"INFUSION, NORMAL SALINE SOLUTION , 1000 CC" Completed 11/07/16 Metabolic panel total ca Completed 11/09/16 Urinalysis auto w/o scope Completed 11/09/16 Assay of magnesium Completed 11/09/16 Complete cbc w/auto diff wbc Completed 11/09/16 Hydrate iv infusion add-on Completed 11/09/16 Ther/proph/diag inj iv push Completed 11/09/16 Tx/pro/dx inj new drug addon Completed 11/09/16 Tx/pro/dx inj new drug addon Completed 11/09/16 Tx/pro/dx inj new drug addon Completed 11/09/16 Emergency dept visit Completed 11/09/16"INJECTION, PROCHLORPERAZINE, UP TO 10 MG" Completed 11/09/16"INJECTION, KETOROLAC TROMETHAMINE, PER 15 MG" Completed 11/09/16"INJECTION, PROMETHAZINE HCL, UP TO 50 MG" Completed 11/09/16"INJECTION, METOCLOPRAMIDE HCL, UP TO 10 MG" Completed 11/09/16"INFUSION, NORMAL SALINE SOLUTION , 1000 CC" Completed 11/09/16 Hydrate iv infusion add-on Completed 11/20/16 Ther/proph/diag inj iv push Completed 11/20/16 Tx/pro/dx inj new drug addon Completed 11/20/16 Emergency dept visit Completed 11/20/16"INJECTION, PROCHLORPERAZINE, UP TO 10 MG" Completed 11/20/16"INJECTION, ONDANSETRON HYDROCHLORIDE, PER 1 MG" Completed 11/20/16"INFUSION, NORMAL SALINE SOLUTION , 1000 CC" Completed 11/20/16 Metabolic panel total ca Completed 12/07/16 Hydrate iv infusion add-on Completed 12/07/16 Ther/proph/diag inj iv push Completed 12/07/16 Emergency dept visit Completed 12/07/16"INJECTION, ONDANSETRON HYDROCHLORIDE, PER 1 MG" Completed 12/07/16"INFUSION, NORMAL SALINE SOLUTION , 1000 CC" Completed 12/07/16 Ther/proph/diag inj sc/im Completed 12/07/16 Emergency dept visit Completed 12/07/16"INJECTION, PROCHLORPERAZINE, UP TO 10 MG" Completed 12/07/16 Metabolic panel total ca Completed 12/20/16 Hydrate iv infusion add-on Completed 12/20/16 Ther/proph/diag inj sc/im Completed 12/20/16 Ther/proph/diag inj iv push Completed 12/20/16 Emergency dept visit Completed 12/20/16463486"INJECTION, PROCHLORPERAZINE, UP TO 10 MG" Completed 12/20/16"INJECTION, ONDANSETRON HYDROCHLORIDE, PER 1 MG" Completed 12/20/16"INFUSION, NORMAL SALINE SOLUTION , 1000 CC" Completed 12/20/16 Metabolic panel total ca Completed 12/26/16 Hydrate iv infusion add-on Completed 12/26/16 Ther/proph/diag inj sc/im Completed 12/26/16 Ther/proph/diag inj iv push Completed 12/26/16 Emergency dept visit Completed 12/26/16686372"INJECTION, PROCHLORPERAZINE, UP TO 10 MG" Completed 12/26/16778872"INJECTION, ONDANSETRON HYDROCHLORIDE, PER 1 MG" Completed 12/26/16529423"INFUSION, NORMAL SALINE SOLUTION , 1000 CC" Completed 12/26/16 Hydrate iv infusion add-on Completed 12/27/16 Ther/proph/diag inj iv push Completed 12/27/16 Tx/pro/dx inj new drug addon Completed 12/27/16 Emergency dept visit Completed 12/27/16651744"INJECTION, PROCHLORPERAZINE, UP TO 10 MG" Completed 12/27/16595685"INJECTION, PROMETHAZINE HCL, UP TO 50 MG" Completed 12/27/16189380"INFUSION, NORMAL SALINE SOLUTION , 1000 CC" Completed 12/27/16 Hydrate iv infusion add-on Completed 12/28/16 Ther/proph/diag inj iv push Completed 12/28/16 Tx/pro/dx inj new drug addon Completed 12/28/16 Tx/pro/dx inj new drug addon Completed 12/28/16 Tx/pro/dx inj same drug navigation officer Completed 12/28/16 Emergency dept visit Completed 12/28/16 DRUG TESTS, PRESUMPTIVE, ANY NUMBER OF PROCEDURES Completed 12/28/16301808"INJECTION, PROCHLORPERAZINE, UP TO 10 MG" Completed 12/28/16730133"INJECTION, ONDANSETRON HYDROCHLORIDE, PER 1 MG" Completed 12/28/16932006"INJECTION, ONDANSETRON HYDROCHLORIDE, PER 1 MG" Completed 12/28/16853783"INJECTION, PROMETHAZINE HCL, UP TO 50 MG" Completed 12/28/16958030"INFUSION, NORMAL SALINE SOLUTION , 1000 CC" Completed 12/28/16 Encounters Encounter Location Arrival/Admit Date Discharge/Depart Date Attending Provider Departed Emergency Room [facility] 01/04/17 12:58pm 01/04/17 3: 30pm CRYSTAL JOSÉ DO Departed Emergency Room [facility] 12/28/16 8:02pm 12/28/16 11: 17pm BRODY LORENZ MD Departed Emergency Room [facility] 12/27/16 7:06am 12/27/16 10: 47am ISAI LYONS MD Departed Emergency Room [facility] 12/26/16 4:13pm 12/26/16 6: 40pm CRYSTAL JOSÉ DO Departed Emergency Room [facility] 12/20/16 10:17am 12/20/16 12: 46pm CRYSTAL JOSÉ DO Departed Emergency Room [facility] 12/07/16 8:53pm 12/08/16 12: 11am JAVI KAISER DO Departed Emergency Room [facility] 12/07/16 10:37am 12/07/16 12: 52pm CRYSTAL JOSÉ DO Departed Emergency Room [facility] 11/20/16 5:36pm 11/20/16 7: 53pm BRODY LORENZ MD Departed Emergency Room [facility] 11/20/16 10:44am 11/20/16 12: 10pm ISAI LYONS MD Departed Emergency Room [facility] 11/09/16 1:09pm 11/09/16 2: 55pm CARLO TOMPKINS MD Discharged Inpatient (obs) [facility] 11/07/16 7:33pm 11/08/16 3: 43pm RADHA CAMARGO MD Departed Emergency Room [facility] 11/07/16 6:04am 11/07/16 7: 30am ISAI LYONS MD Departed Emergency Room [facility] 11/06/16 5:07am 11/06/16 6: 40am ISAI LYONS MD Departed Emergency Room [facility] 11/02/16 5:26am 11/02/16 7: 20am BRITTA DONIS MD Recent Diagnosis
--- OUTSIDE RECORDS SUMMARY | 2017-01-10 23:14 | XMS REPORT ---
Author Author GENERATED, SYSTEM Organization Unknown Address Unknown Phone Unavailable Care Team Providers Care [employer] Name Role Phone MD [facility], [facility] [phone] Reason For Visit Chief Complaint VOMITING, ABD PAIN Social History Functional Status Vital Signs Results Chemistry from 08/24/2016 9:15 AMSODIUM 143 MMOL/L (136-145 MMOL/L) POTASSIUM 3.2 MMOL/L L (3.5-5.1 MMOL/L) CHLORIDE 106 MMOL/L (98-107 MMOL/L) TCO2 20.2 MMOL/L L (21.0-32.0 MMOL/L) *ANION GAP 16.8 MMOL/L H (8.0-16.0 MMOL/L) BUN 14 MG/DL (7-18 MG/DL) CREATININE 0.87 MG/DL (0.70-1.30 MG/DL) *BUN/CREATININE RATIO 16.1 (9.1-17.0 ) GLUCOSE 128 MG/DL H (65-99 MG/DL) *GFR EST NON AFR [place] >90 ML/MIN *GFR EST AFR AMER >90 ML/MIN CALCIUM 9.4 MG/DL (8.5-10.1 MG/DL) BILIRUBIN TOTAL 0.90 MG/DL (0.20-1.00 MG/DL) TOTAL PROTEIN 7.6 GM/DL (6.4-8.2 GM/DL) ALBUMIN 4.5 GM/DL (3.4-5.0 GM/DL) *GLOBULIN 3.1 GM/DL (2.3-3.5 GM/DL) *A/G RATIO 1.5 MG/DL (1.5-2.2 MG/DL) ALK PHOS 51 U/L (46-116 U/L) ALT (SGPT) 133 U/L H (14-59 U/L) AST (SGOT) 43 U/L H (15-37 U/L) Hematology from 08/24/2016 9:15 AMWBC 10.6 X10e3/UL (3.6-11.2 X10e3/UL) RBC 4.58 X10e6/UL (4.06-5.63 X10e6/UL) HEMOGLOBIN 14.2 G/DL (12.5-16.3 G/DL) HEMATOCRIT 41.0 % (36.7-47.1 %) *MCV 89.6 FL (80.0-100.0 FL) *MCH 31.0 PG (27.0-33.0 PG) *MCHC 34.7 G/DL (32.0-36.0 G/DL) *RDW 14.0 % (12.3-17.0 %) *RDWSD 44.2 (37.1-47.8 ) PLATELET 193 X10e3/UL (159-386 X10e3/UL) *MPV 10.1 FL (7.4-10.4 FL) AUTOMATED DIFF PERFORMED SEGS 73.0 % *LYMPHOCYTES 17.1 % *MONOCYTES 9.1 % *EOSINOPHILS 0.1 % *BASOPHILS 0.7 % *ABSOLUTE NEUTROPHILS 7.70 X10e3/UL (1.80-7.80 X10e3/UL) *ABSOLUTE LYMPHOCYTES 1.80 X10e3/UL (1.00-3.00 X10e3/UL) *ABSOLUTE MONOCYTES 1.00 X10e3/UL (0.30-1.00 X10e3/UL) *ABSOLUTE EOSINOPHILS 0.00 X10e3/UL (0.00-0.50 X10e3/UL) *ABSOLUTE BASOPHILS 0.10 X10e3/UL (0.00-0.20 X10e3/UL) Problems Encounter Diagnosis No relevant problems exist. Additional Problems * Fall Risk Comment:Problem resolved by [facility] Work[facility] upon Discharge, Status: Resolved. * Nausea & Vomiting Comment:Problem resolved by [facility] Work[facility] upon Discharge , Status:Resolved. Encounters Encounter Diagnosis No relevant problems exist. Plan of Care Procedures No relevant procedures performed. Immunizations * INFLUEN VACC (GLAXO) (FLUARIX 2015- (GLAXO), GLAXO [employer], Lot # [id number]); Administered 08/05/2016 11:22 AM; 1 DOSE=0.5 ML, INTRAMUSCL Hospital Course Hospital Discharge Instructions Allergies, Adverse Reactions, Alerts * Latex Allergy has not been assessed. * IV Contrast Allergy has not been assessed. * No Known Drug Allergies. Medication Medication reconciliation has not been performed.
--- OUTSIDE RECORDS SUMMARY | 2017-01-10 23:15 | XMS REPORT ---
Author Author GENERATED, SYSTEM Organization Unknown Address Unknown Phone Unavailable Care Team Providers Care Assembler Adjuster Name Role Phone MD BRY, [facility] [phone] Reason For Visit Chief Complaint VOMITING, ABD PAIN Social History Functional Status Vital Signs Results Chemistry from 08/03/2016 9:40 AMSODIUM 143 MMOL/L (136-145 MMOL/L) POTASSIUM 3.6 MMOL/L (3.5-5.1 MMOL/L) CHLORIDE 105 MMOL/L (98-107 MMOL/L) TCO2 27.0 MMOL/L (21.0-32.0 MMOL/L) *ANION GAP 11.0 MMOL/L (8.0-16.0 MMOL/L) BUN 13 MG/DL (7-18 MG/DL) CREATININE 0.93 MG/DL (0.70-1.30 MG/DL) *BUN/CREATININE RATIO 14.0 (9.1-17.0 ) GLUCOSE 97 MG/DL (65-99 MG/DL) *GFR EST NON AFR DANISH >90 ML/MIN *GFR EST AFR AMER >90 ML/MIN CALCIUM 9.4 MG/DL (8.5-10.1 MG/DL) BILIRUBIN TOTAL 0.90 MG/DL (0.20-1.00 MG/DL) TOTAL PROTEIN 8.2 GM/DL (6.4-8.2 GM/DL) ALBUMIN 4.8 GM/DL (3.4-5.0 GM/DL) *GLOBULIN 3.4 GM/DL (2.3-3.5 GM/DL) *A/G RATIO 1.4 MG/DL L (1.5-2.2 MG/DL) ALK PHOS 66 U/L (46-116 U/L) ALT (SGPT) 22 U/L (14-59 U/L) AST (SGOT) 14 U/L L (15-37 U/L) LIPASE 99 U/L (73-393 U/L) Hematology from 08/03/2016 9:40 AMWBC 10.7 X10e3/UL (3.6-11.2 X10e3/UL) RBC 5.24 X10e6/UL (4.06-5.63 X10e6/UL) HEMOGLOBIN 16.2 G/DL (12.5-16.3 G/DL) HEMATOCRIT 47.6 % H (36.7-47.1 %) *MCV 90.7 FL (80.0-100.0 FL) *MCH 30.8 PG (27.0-33.0 PG) *MCHC 34.0 G/DL (32.0-36.0 G/DL) *RDW 13.2 % (12.3-17.0 %) *RDWSD 42.0 (37.1-47.8 ) PLATELET 164 X10e3/UL (159-386 X10e3/UL) *MPV 9.7 FL (7.4-10.4 FL) AUTOMATED DIFF PERFORMED SEGS 76.2 % *LYMPHOCYTES 15.3 % *MONOCYTES 6.4 % *EOSINOPHILS 1.5 % *BASOPHILS 0.6 % *ABSOLUTE NEUTROPHILS 8.10 X10e3/UL H (1.80-7.80 X10e3/UL) *ABSOLUTE LYMPHOCYTES 1.60 X10e3/UL (1.00-3.00 X10e3/UL) *ABSOLUTE MONOCYTES 0.70 X10e3/UL (0.30-1.00 X10e3/UL) *ABSOLUTE EOSINOPHILS 0.20 X10e3/UL (0.00-0.50 X10e3/UL) *ABSOLUTE BASOPHILS 0.10 X10e3/UL (0.00-0.20 X10e3/UL) Coagulation from 08/03/2016 9:40 AM*PROTHROMBIN TIME 10.8 SECONDS (9.4-11.5 SECONDS) *INR 1.1 (0.9-1.1 ) PARTIAL THROMBOPLASTIN TIME 27.9 SECONDS (23.0-31.0 SECONDS) CT Scan from 08/03/2016 10:23 AMCT ABDOMEN (CTA ABDOMEN) History: Onset was Thursday, Pt reports he woke up Thursday with epigastric pain and n/v, was seen in [facility] Thursday and and at [facility] on Thursday. Had CT scan and sonogram at clinic on Thursday. Pt continues to abd pain and n/v today. Technique: Post contrast images were performed after the administration of 95 milliliters of Isovue intravenous contrast. 3 dimensional reconstructions were performed by the technologist. Priors: None. Findings: Vascular Structures: Abdomen: [place]/SMA/GRETTA: No evidence of stenosis. There are no significant findings to suggest SMA syndrome. Renal Arteries: No evidence of stenosis. There appear to be dual right renal arteries with a small accessory artery arising adjacent to the main renal artery origin. The main renal artery bifurcates very proximally as well. Aorta: No aneurysm. No dissection. Soft Tissues: Liver: Normal density. No measurable mass. Gallbladder and biliary tract: No radiodense calculus or dilation. Pancreas: Normal density, no abnormal calcifications or inflammatory process. Spleen: Normal. Kidneys: Normal size, contour and axis. No radiodense stones or obstructive uropathy. No masses seen. Adrenal glands: Normal. Bladder: Symmetric distention, no gross wall thickening. Bowel: No obstruction or bowel wall thickening. Peritoneal cavity: No ascites, collection or mesenteric inflammatory response. Impression: Unremarkable CTA of the abdomen. Electronically signed by: Azul Santana MD Dictated: 08/03/2016 10:50 Problems Encounter Diagnosis No relevant problems exist. Encounters Encounter Diagnosis No relevant problems exist. Plan of Care Procedures No relevant procedures performed. Immunizations No immunizations administered or ordered. Hospital Course Hospital Discharge Instructions Allergies, Adverse Reactions, Alerts * Latex Allergy has not been assessed. * IV Contrast Allergy has not been assessed. Medication Medication reconciliation has not been performed.
--- OUTSIDE RECORDS SUMMARY | 2017-01-10 23:15 | XMS REPORT ---
Author Author GENERATED, SYSTEM Organization Unknown Address Unknown Phone Unavailable Care Team Providers Care Dairy Equipment Mechanic Name Role Phone MD BRY, SHANEL [phone] Reason For Visit Chief Complaint VOMITING ABD PAIN Social History Functional Status Vital Signs Results Chemistry from 08/25/2016 8:38 PMSODIUM 141 MMOL/L (136-145 MMOL/L) POTASSIUM 3.0 MMOL/L L (3.5-5.1 MMOL/L) CHLORIDE 103 MMOL/L (98-107 MMOL/L) TCO2 21.4 MMOL/L (21.0-32.0 MMOL/L) *ANION GAP 16.6 MMOL/L H (8.0-16.0 MMOL/L) BUN 11 MG/DL (7-18 MG/DL) CREATININE 0.93 MG/DL (0.70-1.30 MG/DL) *BUN/CREATININE RATIO 11.8 (9.1-17.0 ) GLUCOSE 95 MG/DL (65-99 MG/DL) *GFR EST NON AFR [facility] >90 ML/MIN *GFR EST AFR AMER >90 ML/MIN CALCIUM 9.7 MG/DL (8.5-10.1 MG/DL) BILIRUBIN TOTAL 1.20 MG/DL H (0.20-1.00 MG/DL) TOTAL PROTEIN 8.2 GM/DL (6.4-8.2 GM/DL) ALBUMIN 5.0 GM/DL (3.4-5.0 GM/DL) *GLOBULIN 3.2 GM/DL (2.3-3.5 GM/DL) *A/G RATIO 1.6 MG/DL (1.5-2.2 MG/DL) ALK PHOS 57 U/L (46-116 U/L) ALT (SGPT) 95 U/L H (14-59 U/L) AST (SGOT) 30 U/L (15-37 U/L) MAGNESIUM 1.9 MG/DL (1.8-2.4 MG/DL) LIPASE 73 U/L (73-393 U/L) Hematology from 08/25/2016 8:38 PMWBC 11.0 X10e3/UL (3.6-11.2 X10e3/UL) RBC 4.79 X10e6/UL (4.06-5.63 X10e6/UL) HEMOGLOBIN 14.6 G/DL (12.5-16.3 G/DL) HEMATOCRIT 43.1 % (36.7-47.1 %) *MCV 90.0 FL (80.0-100.0 FL) *MCH 30.4 PG (27.0-33.0 PG) *MCHC 33.8 G/DL (32.0-36.0 G/DL) *RDW 13.9 % (12.3-17.0 %) *RDWSD 44.2 (37.1-47.8 ) PLATELET 174 X10e3/UL (159-386 X10e3/UL) *MPV 9.9 FL (7.4-10.4 FL) AUTOMATED DIFF PERFORMED SEGS 71.1 % *LYMPHOCYTES 18.1 % *MONOCYTES 10.1 % *EOSINOPHILS 0.1 % *BASOPHILS 0.6 % *ABSOLUTE NEUTROPHILS 7.80 X10e3/UL (1.80-7.80 X10e3/UL) *ABSOLUTE LYMPHOCYTES 2.00 X10e3/UL (1.00-3.00 X10e3/UL) *ABSOLUTE MONOCYTES 1.10 X10e3/UL H (0.30-1.00 X10e3/UL) *ABSOLUTE EOSINOPHILS 0.00 X10e3/UL (0.00-0.50 [...] Immunizations * INFLUEN VACC (GLAXO) (FLUARIX (GLAXO), [employer] PHARM, Lot # [id number]); Administered 08/05/2016 11:22 AM; 1 DOSE=0.5 ML, INTRAMUSCL Hospital Course Hospital Discharge Instructions Allergies, Adverse Reactions, Alerts * Latex Allergy has not been assessed. * IV Contrast Allergy has not been assessed. * No Known Drug Allergies. Medication Medication reconciliation has not been performed.
--- OUTSIDE RECORDS SUMMARY | 2017-01-10 23:15 | XMS REPORT ---
Author Author GENERATED, SYSTEM Organization Unknown Address Unknown Phone Unavailable Care Team Providers Care Head Men'S Golf Coach Name Role Phone MD BRY, [facility] [phone] Reason For Visit Chief Complaint CYCLIC VOMITING Social History Functional Status Vital Signs Results Chemistry from 08/27/2016 1:29 PM*COCAINE NEGATIVE (NEG <150 ) *PCP NEGATIVE (NEG <25 ) *CANNABINOIDS POSITIVE A (NEG <50 ) *BENZODIAZEINE NEGATIVE (NEG <200 ) *AMPHETAMINE NEGATIVE (NEG <500 ) *BARBITURATES NEGATIVE (NEG <200 ) *OPIATES POSITIVE A (NEG <300 ) Chemistry from 08/27/2016 11:57 AMSODIUM 142 MMOL/L (136-145 MMOL/L) POTASSIUM 3.0 MMOL/L L (3.5-5.1 MMOL/L) CHLORIDE 104 MMOL/L (98-107 MMOL/L) TCO2 24.6 MMOL/L (21.0-32.0 MMOL/L) *ANION GAP 13.4 MMOL/L (8.0-16.0 MMOL/L) BUN 12 MG/DL (7-18 MG/DL) CREATININE 0.86 MG/DL (0.70-1.30 MG/DL) *BUN/CREATININE RATIO 14.0 (9.1-17.0 ) GLUCOSE 120 MG/DL H (65-99 MG/DL) *GFR EST NON AFR TAJIK >90 ML/MIN *GFR EST AFR AMER >90 ML/MIN CALCIUM 9.0 MG/DL (8.5-10.1 MG/DL) BILIRUBIN TOTAL 0.80 MG/DL (0.20-1.00 MG/DL) TOTAL PROTEIN 7.3 GM/DL (6.4-8.2 GM/DL) ALBUMIN 4.4 GM/DL (3.4-5.0 GM/DL) *GLOBULIN 2.9 GM/DL (2.3-3.5 GM/DL) *A/G RATIO 1.5 MG/DL (1.5-2.2 MG/DL) ALK PHOS 51 U/L (46-116 U/L) ALT (SGPT) 71 U/L H (14-59 U/L) AST (SGOT) 22 U/L (15-37 U/L) MAGNESIUM 2.0 MG/DL (1.8-2.4 MG/DL) LIPASE 75 U/L (73-393 U/L) Hematology from 08/27/2016 11:57 AMWBC 6.7 X10e3/UL (3.6-11.2 X10e3/UL) RBC 4.77 X10e6/UL (4.06-5.63 X10e6/UL) HEMOGLOBIN 14.8 G/DL (12.5-16.3 G/DL) HEMATOCRIT 43.0 % (36.7-47.1 %) *MCV 90.2 FL (80.0-100.0 FL) *MCH 31.0 PG (27.0-33.0 PG) *MCHC 34.4 G/DL (32.0-36.0 G/DL) *RDW 13.9 % (12.3-17.0 %) *RDWSD 43.8 (37.1-47.8 ) PLATELET 145 X10e3/UL L (159-386 X10e3/UL) *MPV 9.6 FL (7.4-10.4 FL) *MANUAL DIFF PERFORMED SEGS 75.0 % *BANDS 1.0 % *LYMPHOCYTES 14.0 % *MONOCYTES 9.0 % *EOSINOPHILS 1.0 % *BASOPHILS 0.0 % *ABSOLUTE NEUTROPHILS 5.09 X10e3/UL (1.80-7.80 X10e3/UL) *ABSOLUTE LYMPHOCYTES 0.94 X10e3/UL L (1.00-3.00 X10e3/UL) *ABSOLUTE MONOCYTES 0.60 X10e3/UL (0.30-1.00 X10e3/UL) *ABSOLUTE EOSINOPHILS 0.07 X10e3/UL (0.00-0.50 X10e3/UL) *ABSOLUTE BASOPHILS 0.00 X10e3/UL (0.00-0.20 X10e3/UL) Urinalysis from 08/27/2016 1:29 PM*URINE COLOR YELLOW (STRAW/YELL/DK YELL ) *URINE APPEARANCE CLOUDY A (CLEAR ) URINE PH 7.0 (5.0-8.0 ) URINE SPECIFIC GRAVITY 1.015 (<=1.005->=1.030 ) *URINE GLUCOSE NEGATIVE MG/DL (NEGATIVE MG/DL) *URINE BILIRUBIN NEGATIVE (NEGATIVE ) *URINE KETONES 40 MG/DL A (NEGATIVE MG/DL) *URINE BLOOD TRACE-LYSED A (NEGATIVE ) *URINE PROTEIN NEGATIVE MG/DL (NEGATIVE MG/DL) *URINE UROBILINOGEN 0.2 EU/DL (0.2-1.0 EU/DL) *URINE NITRITES NEGATIVE (NEGATIVE ) *URINE LEUKOCYTES NEGATIVE (NEGATIVE ) *MICROSCOPIC EXAM PERFORMED PERFORMED *WBC URINE 0-1 /HPF (0-5 /HPF) *RBC URINE 0-1 /HPF (0-1 /HPF) *MUCOUS THREADS FEW /LPF A (NEGATIVE /LPF) *AMORP. PHOS KOSTA MANY /HPF (NEGATIVE /HPF) Problems Encounter Diagnosis No relevant problems exist. Additional Problems * Fall Risk Comment:Problem resolved by [facility] upon Discharge, Status: Resolved. * Nausea & Vomiting Comment:Problem resolved by [facility] upon Discharge , Status:Resolved. Encounters Encounter Diagnosis No relevant problems exist. Plan of Care Procedures No relevant procedures performed. Immunizations * INFLUEN VACC 2015-(GLAXO) (FLUARIX 2015- (GLAXO), [employer] PHARM, Lot # [id number]); Administered 08/05/2016 11:22 AM; 1 DOSE=0.5 ML, INTRAMUSCL Hospital Course Hospital Discharge Instructions Allergies, Adverse Reactions, Alerts * Latex Allergy has not been assessed. * IV Contrast Allergy has not been assessed. * No Known Drug Allergies. Medication Medication reconciliation has not been performed.
--- OUTSIDE RECORDS SUMMARY | 2017-01-10 23:16 | XMS REPORT | Continuity of Care Document ---
Author Author [facility] Organization [facility] Address Unknown Phone Unavailable Allergies Medications Problems Date Dx Coded Attending Type Code Diagnosis Diagnosed By 08/12/2016 MARIELOS JEAN [id number] Benign neoplasm of unspecified adrenal gland 08/12/2016 MARIELOS JEAN E039 Hypothyroidism, unspecified 08/12/2016 MARIELOS JEAN E870 Hyperosmolality and hypernatremia 08/12/2016 MARIELOS JEAN I129 Hypertensive chronic kidney disease w stg 1-4/ unsp chr kdny 08/12/2016 MARIELOS JEAN I340 Nonrheumatic mitral (valve) insufficiency 08/12/2016 MARIELOS JEAN I440 Atrioventricular block, first degree 08/12/2016 MARIELOS JEAN [id number] Occlusion and stenosis of bilateral carotid arteries 08/12/2016 MARIELOS JEAN N189 Chronic kidney disease, unspecified 08/12/2016 MARIELOS JEAN R001 Bradycardia, unspecified 08/12/2016 MARIELOS JEAN R55 Syncope and collapse 08/12/2016 MARIELOS JEAN [id number] Personal history of other benign neoplasm 08/26/2016 PJ GREEN E876 Hypokalemia 08/26/2016 PJ GREEN R112 Nausea with vomiting, unspecified 09/03/2016 MIKI SCHWARTZ H6123 Impacted cerumen, bilateral 09/03/2016 MIKI SCHWARTZ R1013 Epigastric pain 09/03/2016 MIKI SCHWARTZ R112 Nausea with vomiting, unspecified 09/03/2016 MIKI SCHWARTZ 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 10/31/2016 NIKOLAY BAKER F1210 Cannabis abuse, uncomplicated 10/31/2016 NIKOLAY BAKER R1084 Generalized abdominal pain 10/31/2016 BAKER, EKWENSI A D R1110 Vomiting, unspecified Procedures Results Test Result Range CBC WITH PLATELET AND DIFFERENTIAL - 08/23/16 17:50 SEGS 87.9 % NRG *BASOPHILS 0.8 % NRG *EOSINOPHILS 0.0 % NRG AUTOMATED DIFF PERFORMED NRG *LYMPHOCYTES 5.4 % NRG *MONOCYTES 5.9 % NRG *ABSOLUTE BASOPHILS 0.20 10*3/uL 0.00- 0.20 *ABSOLUTE EOSINOPHILS 0.00 10*3/uL 0.00- 0.50 *ABSOLUTE LYMPHOCYTES 1.00 10*3/uL 1.00- 3.00 *ABSOLUTE MONOCYTES 1.10 10*3/uL 0.30- 1.00 *ABSOLUTE NEUTROPHILS 16.30 10*3/uL 1.80- 7.80 MPV 9.6 fL 7.4-10.4 PLATELETS 225 10*3/uL 159-386 WBC 18.6 10*3/uL 3.6-11.2 RBC 5.24 4.06-5.63 HEMOGLOBIN 15.9 12.5-16.3 HEMATOCRIT 47.3 % 36.7-47.1 MCV 90.3 fL 80.0-100.0 MCH 30.4 pg 27.0-33.0 MCHC 33.7 32.0-36.0 RDW 13.7 % 12.3-17.0 RDWSD 43.8 37.1-47.8 COMPREHENSIVE METABOLIC PANEL - 08/23/16 17:50 BILIFUBIN TOTAL 1.00 0.20-1.00 TOTAL PROTEIN 8.6 6.4-8.2 ALBUMIN 5.1 3.4-5.0 *GLOBULIN 3.5 2.3-3.5 *A/G RATIO 1.5 1.5-2.2 ALK PHOS 62 U/L 46-116 ALT (SGPT) 177 U/L 14-59 AST (SGOT) 67 U/L 15-37 GFR ESTIMATION - 08/23/16 17:50 *GFR EST NON AFR MONTENEGRIN 81 mL/min NRG *GRFA EST AFR AMER >90 mL/min NRG LIPASE - 08/23/16 17:50 LIPASE 73 U/L 73-393 CBC WITH PLATELET AND DIFFERENTIAL - 08/24/16 09:15 SEGS 73.0 % NRG *BASOPHILS 0.7 % NRG *EOSINOPHILS 0.1 % NRG AUTOMATED DIFF PERFORMED NRG *LYMPHOCYTES 17.1 % NRG *MONOCYTES 9.1 % NRG *ABSOLUTE BASOPHILS 0.10 10*3/uL 0.00- 0.20 *ABSOLUTE EOSINOPHILS 0.00 10*3/uL 0.00- 0.50 *ABSOLUTE LYMPHOCYTES 1.80 10*3/uL 1.00- 3.00 *ABSOLUTE MONOCYTES 1.00 10*3/uL 0.30- 1.00 *ABSOLUTE NEUTROPHILS 7.70 10*3/uL 1.80- 7.80 MPV 10.1 fL 7.4-10.4 PLATELETS 193 10*3/uL 159-386 WBC 10.6 10*3/uL 3.6-11.2 RBC 4.58 4.06-5.63 HEMOGLOBIN 14.2 12.5-16.3 HEMATOCRIT 41.0 % 36.7-47.1 MCV 89.6 fL 80.0-100.0 MCH 31.0 pg 27.0-33.0 MCHC 34.7 32.0-36.0 RDW 14.0 % 12.3-17.0 RDWSD 44.2 37.1-47.8 COMPREHENSIVE METABOLIC PANEL - 08/24/16 09:15 BILIFUBIN TOTAL 0.90 0.20-1.00 TOTAL PROTEIN 7.6 6.4-8.2 ALBUMIN 4.5 3.4-5.0 *GLOBULIN 3.1 2.3-3.5 *A/G RATIO 1.5 1.5-2.2 ALK PHOS 51 U/L 46-116 ALT (SGPT) 133 U/L 14-59 AST (SGOT) 43 U/L 15-37 GFR ESTIMATION - 08/24/16 09:15 *GFR EST NON AFR MONTENEGRIN >90 mL/min NRG *GRFA EST AFR AMER >90 mL/min NRG CBC WITH PLATELET AND DIFFERENTIAL - 08/24/16 23:15 SEGS 73.1 % NRG *BASOPHILS 0.3 % NRG *EOSINOPHILS 0.4 % NRG AUTOMATED DIFF PERFORMED NRG *LYMPHOCYTES 17.7 % NRG *MONOCYTES 8.5 % NRG *ABSOLUTE BASOPHILS 0.00 10*3/uL 0.00- 0.20 *ABSOLUTE EOSINOPHILS 0.00 10*3/uL 0.00- 0.50 *ABSOLUTE LYMPHOCYTES 1.70 10*3/uL 1.00- 3.00 *ABSOLUTE MONOCYTES 0.80 10*3/uL 0.30- 1.00 *ABSOLUTE NEUTROPHILS 7.10 10*3/uL 1.80- 7.80 MPV 9.8 fL 7.4-10.4 PLATELETS 205 10*3/uL 159-386 WBC 9.6 10*3/uL 3.6-11.2 RBC 4.92 4.06-5.63 HEMOGLOBIN 14.8 12.5-16.3 HEMATOCRIT 44.2 % 36.7-47.1 MCV 89.8 fL 80.0-100.0 MCH 30.1 pg 27.0-33.0 MCHC 33.5 32.0-36.0 RDW 13.3 % 12.3-17.0 BASIC METABOLIC PANEL - 08/24/16 23:15 SODIUM 143 mmol/L 136-145 POTASSIUM 3.3 mmol/L 3.5-5.1 CHLORIDE 105 mmol/L 98-107 TCO2 22.1 mmol/L 21.0-32.0 *ANION GAP 15.9 mmol/L 8.0-16.0 BUN 13 7-18 CREATININE 0.99 0.70-1.30 *BUN/CREATININE RATIO 13.1 9.1-17.0 GLUCOSE 117 65-99 CALCIUM 9.5 8.5-10.1 TSH - 08/24/16 23:15 TSH 0.778 u[IU]/L 0.340-4.820 MAGNESIUM - 08/24/16 23:15 MAGNESIUM 1.7 1.8-2.4 LIPASE - 08/24/16 23:15 LIPASE 72 U/L 73-393 URINALYSIS (CULTURE PRN) - 08/25/16 01:14 *URINE APPEARANCE SL CLOUDY CLEAR *URINE BILIRUBIN NEGATIVE NEGATIVE *URINE BLOOD TRACE-INTACT NEGATIVE *URINE GLUCOSE NEGATIVE NEGATIVE *URINE KETONES >80 NEGATIVE *URINE LEUKOCYTES NEGATIVE NEGATIVE *URINE NITRITES NEGATIVE NEGATIVE URINE PH 6.0 5.0-8.0 *URINE PROTEIN NEGATIVE NEGATIVE URINE SPECIFIC GRAVITY >1.030 <=1.005->= 1.030 *URINE UROBILINOGEN 2.0 0.2-1.0 *URINE COLOR YELLOW STRAW/YELL/DK YELL URINE MICROSCOPIC - 08/25/16 01:14 WBC 1-5 /[HPF] 0-5 RBC 1-5 /[HPF] 0-1 MUCOUS THREADS MODERATE /[LPF] NEGATIVE MICROSCOPIC EXAM PERFORMED PERFORMED NRG SQUAMOUS EP. CELLS FEW /[LPF] NEG-FEW AMORPH. URATE KOSTA. MODERATE /[HPF] NEGATIVE CBC WITH PLATELET AND DIFFERENTIAL - 08/25/16 20:38 SEGS 71.1 % NRG *BASOPHILS 0.6 % NRG *EOSINOPHILS 0.1 % NRG AUTOMATED DIFF PERFORMED NRG *LYMPHOCYTES 18.1 % NRG *MONOCYTES 10.1 % NRG *ABSOLUTE BASOPHILS 0.10 10*3/uL 0.00- 0.20 *ABSOLUTE EOSINOPHILS 0.00 10*3/uL 0.00- 0.50 *ABSOLUTE LYMPHOCYTES 2.00 10*3/uL 1.00- 3.00 *ABSOLUTE MONOCYTES 1.10 10*3/uL 0.30- 1.00 *ABSOLUTE NEUTROPHILS 7.80 10*3/uL 1.80- 7.80 MPV 9.9 fL 7.4-10.4 PLATELETS 174 10*3/uL 159-386 WBC 11.0 10*3/uL 3.6-11.2 RBC 4.79 4.06-5.63 HEMOGLOBIN 14.6 12.5-16.3 HEMATOCRIT 43.1 % 36.7-47.1 MCV 90.0 fL 80.0-100.0 MCH 30.4 pg 27.0-33.0 MCHC 33.8 32.0-36.0 RDW 13.9 % 12.3-17.0 RDWSD 44.2 37.1-47.8 COMPREHENSIVE METABOLIC PANEL - 08/25/16 20:38 BILIFUBIN TOTAL 1.20 0.20-1.00 TOTAL PROTEIN 8.2 6.4-8.2 ALBUMIN 5.0 3.4-5.0 *GLOBULIN 3.2 2.3-3.5 *A/G RATIO 1.6 1.5-2.2 ALK PHOS 57 U/L 46-116 ALT (SGPT) 95 U/L 14-59 AST (SGOT) 30 U/L 15-37 MAGNESIUM - 08/25/16 20:38 MAGNESIUM 1.9 1.8-2.4 LIPASE - 08/25/16 20:38 LIPASE 73 U/L 73-393 GFR ESTIMATION - 08/25/16 20:38 *GFR EST NON AFR MONTENEGRIN >90 mL/min NRG *GRFA EST AFR AMER >90 mL/min NRG URINE MICROSCOPIC - 08/27/16 13:29 WBC 0-1 /[HPF] 0-5 RBC 0-1 /[HPF] 0-1 MUCOUS THREADS FEW /[LPF] NEGATIVE MICROSCOPIC EXAM PERFORMED PERFORMED NRG AMORP. PHOS. KOSTA. MANY /[HPF] NEGATIVE URINALYSIS (CULTURE PRN) - 08/27/16 13:29 *URINE APPEARANCE CLOUDY CLEAR *URINE BILIRUBIN NEGATIVE NEGATIVE *URINE BLOOD TRACE-LYSED NEGATIVE *URINE GLUCOSE NEGATIVE NEGATIVE *URINE KETONES 40 NEGATIVE *URINE LEUKOCYTES NEGATIVE NEGATIVE *URINE NITRITES NEGATIVE NEGATIVE URINE PH 7.0 5.0-8.0 *URINE PROTEIN NEGATIVE NEGATIVE URINE SPECIFIC GRAVITY 1.015 <=1.005->= 1.030 *URINE UROBILINOGEN 0.2 0.2-1.0 *URINE COLOR YELLOW STRAW/YELL/DK YELL UR DRUGS OF ABUSE SCREEN - 08/27/16 13:29 *COCAINE NEGATIVE NEG <150 *BARBITURATES NEGATIVE NEG <200 *BENZODIAZEINE NEGATIVE NEG <200 *AMPHETAMINE NEGATIVE NEG <500 *CANNABINOIDS POSITIVE NEG <50 *OPIATES POSITIVE NEG <300 *PCP NEGATIVE NEG <25 CBC WITH PLATELET AND DIFFERENTIAL - 08/31/16 13:56 SEGS 77.3 % NRG *BASOPHILS 0.6 % NRG *EOSINOPHILS 0.2 % NRG AUTOMATED DIFF PERFORMED NRG *LYMPHOCYTES 16.6 % NRG *MONOCYTES 5.3 % NRG *ABSOLUTE BASOPHILS 0.00 10*3/uL 0.00- 0.20 *ABSOLUTE EOSINOPHILS 0.00 10*3/uL 0.00- 0.50 *ABSOLUTE LYMPHOCYTES 1.20 10*3/uL 1.00- 3.00 *ABSOLUTE MONOCYTES 0.40 10*3/uL 0.30- 1.00 *ABSOLUTE NEUTROPHILS 5.60 10*3/uL 1.80- 7.80 MPV 9.5 fL 7.4-10.4 PLATELETS 210 10*3/uL 159-386 WBC 7.2 10*3/uL 3.6-11.2 RBC 5.22 4.06-5.63 HEMOGLOBIN 16.5 12.5-16.3 HEMATOCRIT 47.4 % 36.7-47.1 MCV 90.8 fL 80.0-100.0 MCH 31.6 pg 27.0-33.0 MCHC 34.8 32.0-36.0 RDW 14.3 % 12.3-17.0 RDWSD 45.5 37.1-47.8 COMPREHENSIVE METABOLIC PANEL - 08/31/16 13:56 BILIFUBIN TOTAL 1.20 0.20-1.00 TOTAL PROTEIN 8.6 6.4-8.2 ALBUMIN 5.3 3.4-5.0 *GLOBULIN 3.3 2.3-3.5 *A/G RATIO 1.6 1.5-2.2 ALK PHOS 66 U/L 46-116 ALT (SGPT) 34 U/L 14-59 AST (SGOT) 17 U/L 15-37 GFR ESTIMATION - 08/31/16 13:56 *GFR EST NON AFR MONTENEGRIN >90 mL/min NRG *GRFA EST AFR AMER >90 mL/min NRG LIPASE - 08/31/16 13:56 LIPASE 84 U/L 73-393 URINALYSIS (CULTURE PRN) - 08/31/16 15:00 *URINE APPEARANCE CLEAR CLEAR *URINE BILIRUBIN NEGATIVE NEGATIVE *URINE BLOOD TRACE-INTACT NEGATIVE *URINE GLUCOSE NEGATIVE NEGATIVE *URINE KETONES 40 NEGATIVE *URINE LEUKOCYTES NEGATIVE NEGATIVE *URINE NITRITES NEGATIVE NEGATIVE URINE PH >9.0 5.0-8.0 *URINE PROTEIN TRACE NEGATIVE URINE SPECIFIC GRAVITY 1.015 <=1.005->= 1.030 *URINE UROBILINOGEN 0.2 0.2-1.0 *URINE COLOR YELLOW STRAW/YELL/DK YELL URINE MICROSCOPIC - 08/31/16 15:00 WBC 0-1 /[HPF] 0-5 RBC 1-5 /[HPF] 0-1 MUCOUS THREADS MANY /[LPF] NEGATIVE MICROSCOPIC EXAM PERFORMED PERFORMED NRG SQUAMOUS EP. CELLS FEW /[LPF] NEG-FEW AMORP. PHOS. KOSTA. MODERATE /[HPF] NEGATIVE CBC WITH PLATELET AND DIFFERENTIAL - 10/28/16 12:20 SEGS 85.5 % NRG *BASOPHILS 0.5 % NRG *EOSINOPHILS 0.5 % NRG AUTOMATED DIFF PERFORMED NRG *LYMPHOCYTES 9.5 % NRG *MONOCYTES 4.0 % NRG *ABSOLUTE BASOPHILS 0.10 10*3/uL 0.00- 0.20 *ABSOLUTE EOSINOPHILS 0.10 10*3/uL 0.00- 0.50 *ABSOLUTE LYMPHOCYTES 1.50 10*3/uL 1.00- 3.00 *ABSOLUTE MONOCYTES 0.60 10*3/uL 0.30- 1.00 *ABSOLUTE NEUTROPHILS 13.10 10*3/uL 1.80- 7.80 MPV 9.4 fL 7.4-10.4 PLATELETS 223 10*3/uL 159-386 WBC 15.3 10*3/uL 3.6-11.2 RBC 5.19 4.06-5.63 HEMOGLOBIN 16.2 12.5-16.3 HEMATOCRIT 48.7 % 36.7-47.1 MCV 93.7 fL 80.0-100.0 MCH 31.2 pg 27.0-33.0 MCHC 33.3 32.0-36.0 RDW 13.4 % 12.3-17.0 RDWSD 44.2 37.1-47.8 COMPREHENSIVE METABOLIC PANEL - 10/28/16 12:20 BILIFUBIN TOTAL 0.50 0.20-1.00 TOTAL PROTEIN 8.7 6.4-8.2 ALBUMIN 5.1 3.4-5.0 *GLOBULIN 3.6 2.3-3.5 *A/G RATIO 1.4 1.5-2.2 ALK PHOS 68 U/L 46-116 ALT (SGPT) 65 U/L 14-59 AST (SGOT) 15 U/L 15-37 GFR ESTIMATION - 10/28/16 12:20 *GFR EST NON AFR MONTENEGRIN >90 mL/min NRG *GRFA EST AFR AMER >90 mL/min NRG TSH - 10/28/16 12:20 TSH 0.483 u[IU]/L 0.340-4.820 MAGNESIUM - 10/28/16 12:20 MAGNESIUM 2.0 1.8-2.4 LIPASE - 10/28/16 12:20 LIPASE 73 U/L 73-393 URINALYSIS (CULTURE PRN) - 10/28/16 12:47 *URINE APPEARANCE SL CLOUDY CLEAR *URINE BILIRUBIN NEGATIVE NEGATIVE *URINE BLOOD NEGATIVE NEGATIVE *URINE GLUCOSE NEGATIVE NEGATIVE *URINE KETONES NEGATIVE NEGATIVE *URINE LEUKOCYTES NEGATIVE NEGATIVE *URINE NITRITES NEGATIVE NEGATIVE URINE PH 8.5 5.0-8.0 *URINE PROTEIN 30 NEGATIVE URINE SPECIFIC GRAVITY 1.015 <=1.005->= 1.030 *URINE UROBILINOGEN 0.2 0.2-1.0 *URINE COLOR YELLOW STRAW/YELL/DK YELL URINE MICROSCOPIC - 10/28/16 12:47 WBC 1-5 /[HPF] 0-5 RBC 0-1 /[HPF] 0-1 MUCOUS THREADS MANY /[LPF] NEGATIVE MICROSCOPIC EXAM PERFORMED PERFORMED NRG SQUAMOUS EP. CELLS FEW /[LPF] NEG-FEW BACTERIA FEW /[HPF] NEGATIVE AMORP. PHOS. KOSTA. MANY /[HPF] NEGATIVE CBC WITH PLATELET NO DIFFERENTIAL - 10/28/16 23:40 MPV 10.3 fL 7.4-10.4 PLATELETS 235 10*3/uL 159-386 WBC 13.8 10*3/uL 3.6-11.2 RBC 5.16 4.06-5.63 HEMOGLOBIN 15.7 12.5-16.3 HEMATOCRIT 46.8 % 36.7-47.1 MCV 90.7 fL 80.0-100.0 MCH 30.4 pg 27.0-33.0 MCHC 33.5 32.0-36.0 RDW 12.5 % 12.3-17.0 COMPREHENSIVE METABOLIC PANEL - 10/28/16 23:40 BILIFUBIN TOTAL 0.60 0.20-1.00 TOTAL PROTEIN 8.3 6.4-8.2 ALBUMIN 4.8 3.4-5.0 *GLOBULIN 3.5 2.3-3.5 *A/G RATIO 1.4 1.5-2.2 ALK PHOS 63 U/L 46-116 ALT (SGPT) 54 U/L 14-59 AST (SGOT) 14 U/L 15-37 LIPASE - 10/28/16 23:40 LIPASE 64 U/L 73-393 Encounters ACCT No. Visit Date/Time Discharge Status Pt. Type Provider Facility Loc./Unit Complaint [id number] 10/28/2016 21:34:00 2016 04:06:56 DIS Emergency NIKOLAY BAKER A <PV2.3.2>Vomiting, unspecified</PV2.3.2><PV2.3.2>VOMITING, UPPER ABD PAIN</PV2.3.2><PV2.3.2>Vomiting, unspecified</PV2.3.2><PV2.3.2>Cannabis abuse, uncomplicated</PV2.3.2><PV2.3.2>Generalized abdominal pain</PV2.3.2> [id number] 10/28/2016 11:46:00 2016 22:44:18 DIS Emergency PJ GREEN VOMITING [id number] 09/21/2016 12:22:00 2015 02:03:39 DIS Emergency TITI DEL REAL NAUSEA AND VOMITTING [id number] 09/17/2016 05:27:00 2015 09:13:47 DIS Inpatient RASHAAD GUZMAN <PV2.3.2>ABD PAIN-EPIGASTRIC, N/V</PV2.3.2><PV2.3.2>EGD</PV2.3.2> [id number] 08/25/2016 18:59:00 2015 08:45:07 DIS Emergency MIKI SCHWARTZ VOMITING ABD PAIN [id number] 08/24/2016 21:47:00 2015 05:41:56 DIS Emergency MIKI SCHWARTZ <PV2.3.2>Epigastric pain</PV2.3.2><PV2.3.2>VOMITING, STOMACH PAIN</PV2.3.2>< PV2.3.2>Nausea with vomiting, unspecified</PV2.3.2><PV2.3.2>Epigastric pain</ PV2.3.2><PV2.3.2>Impacted cerumen, bilateral</PV2.3.2><PV2.3.2>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3.2><PV2.3.2>Bradycardia, unspecified</ PV2.3.2><PV2.3.2>Benign neoplasm of unspecified adrenal gland</PV2.3.2><PV2.3.2> Hypertensive chronic kidney disease w stg 1-4/unsp chr kdny</PV2.3.2><PV2.3.2> Chronic kidney disease, unspecified</PV2.3.2><PV2.3.2>Hypothyroidism, unspecified</PV2.3.2><PV2.3.2>Nonrheumatic mitral (valve) insufficiency</PV2.3.2 ><PV2.3.2>Atrioventricular block, first degree</PV2.3.2><PV2.3.2>Occlusion and stenosis of bilateral carotid arteries</PV2.3.2><PV2.3.2>Personal history of other benign neoplasm</PV2.3.2> [id number] 08/03/2016 09:26:00 2015 14:34:20 DIS Emergency TITI DEL REAL VOMITING, ABD PAIN [id number] 08/31/2016 13:07:00 Document Registration [id number] 08/27/2016 11:00:00 Document Registration
--- OUTSIDE RECORDS SUMMARY | 2017-01-10 23:16 | XMS REPORT ---
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 Name Role Phone UNASSIGNED DOCTOR , DOCTOR PP [phone] Reason For Visit Chief Complaint VOMITING Social History Functional Status Vital Signs Results Chemistry from 10/28/2016 12:20 PMSODIUM 143 MMOL/L (136-145 MMOL/L) POTASSIUM 3.7 MMOL/L (3.5-5.1 MMOL/L) CHLORIDE 103 MMOL/L (98-107 MMOL/L) TCO2 27.4 MMOL/L (21.0-32.0 MMOL/L) *ANION GAP 12.6 MMOL/L (8.0-16.0 MMOL/L) BUN 10 MG/DL (7-18 MG/DL) CREATININE 1.00 MG/DL (0.70-1.30 MG/DL) *BUN/CREATININE RATIO 10.0 (9.1-17.0 ) GLUCOSE 122 MG/DL H (65-99 MG/DL) *GFR EST NON AFR BOTSWANAN >90 ML/MIN *GFR EST AFR AMER >90 ML/MIN CALCIUM 9.9 MG/DL (8.5-10.1 MG/DL) BILIRUBIN TOTAL 0.50 MG/DL (0.20-1.00 MG/DL) TOTAL PROTEIN 8.7 GM/DL H (6.4-8.2 GM/DL) ALBUMIN 5.1 GM/DL H (3.4-5.0 GM/DL) *GLOBULIN 3.6 GM/DL H (2.3-3.5 GM/DL) *A/G RATIO 1.4 MG/DL L (1.5-2.2 MG/DL) ALK PHOS 68 U/L (46-116 U/L) ALT (SGPT) 65 U/L H (14-59 U/L) AST (SGOT) 15 U/L (15-37 U/L) MAGNESIUM 2.0 MG/DL (1.8-2.4 MG/DL) LIPASE 73 U/L (73-393 U/L) TSH 0.483 UIU/ML (0.340-4.820 UIU/ML) Hematology from 10/28/2016 12:20 PMWBC 15.3 X10e3/UL H (3.6-11.2 X10e3/UL) RBC 5.19 X10e6/UL (4.06-5.63 X10e6/UL) HEMOGLOBIN 16.2 G/DL (12.5-16.3 G/DL) HEMATOCRIT 48.7 % H (36.7-47.1 %) *MCV 93.7 FL (80.0-100.0 FL) *MCH 31.2 PG (27.0-33.0 PG) *MCHC 33.3 G/DL (32.0-36.0 G/DL) *RDW 13.4 % (12.3-17.0 %) *RDWSD 44.2 (37.1-47.8 ) PLATELET 223 X10e3/UL (159-386 X10e3/UL) *MPV 9.4 FL (7.4-10.4 FL) AUTOMATED DIFF PERFORMED SEGS 85.5 % *LYMPHOCYTES 9.5 % *MONOCYTES 4.0 % *EOSINOPHILS 0.5 % *BASOPHILS 0.5 % *ABSOLUTE NEUTROPHILS 13.10 X10e3/UL H (1.80-7.80 X10e3/UL) *ABSOLUTE LYMPHOCYTES 1.50 X10e3/UL (1.00-3.00 X10e3/UL) *ABSOLUTE MONOCYTES 0.60 X10e3/UL (0.30-1.00 X10e3/UL) *ABSOLUTE EOSINOPHILS 0.10 X10e3/UL (0.00-0.50 X10e3/UL) *ABSOLUTE BASOPHILS 0.10 X10e3/UL (0.00-0.20 X10e3/UL) Urinalysis from 10/28/2016 12:47 PM*URINE COLOR YELLOW (STRAW/YELL/DK YELL ) *URINE APPEARANCE SL CLOUDY A (CLEAR ) URINE PH 8.5 A (5.0-8.0 ) URINE SPECIFIC GRAVITY 1.015 (<=1.005->=1.030 ) *URINE GLUCOSE NEGATIVE MG/DL (NEGATIVE MG/DL) *URINE BILIRUBIN NEGATIVE (NEGATIVE ) *URINE KETONES NEGATIVE MG/DL (NEGATIVE MG/DL) *URINE BLOOD NEGATIVE (NEGATIVE ) *URINE PROTEIN 30 MG/DL A (NEGATIVE MG/DL) *URINE UROBILINOGEN 0.2 EU/DL (0.2-1.0 EU/DL) *URINE NITRITES NEGATIVE (NEGATIVE ) *URINE LEUKOCYTES NEGATIVE (NEGATIVE ) *MICROSCOPIC EXAM PERFORMED PERFORMED *WBC URINE 1-5 /HPF (0-5 /HPF) *RBC URINE 0-1 /HPF (0-1 /HPF) *SQUAMOUS EP. CELLS FEW /LPF (NEG-FEW /LPF) *MUCOUS THREADS MANY /LPF A (NEGATIVE /LPF) *BACTERIA FEW /HPF A (NEGATIVE /HPF) *AMORP. PHOS KOSTA MANY /HPF (NEGATIVE /HPF) [...] 09/17/2016 8:02 AM * Completed Procedure Code: [id number] Procedure Name: not valued, on 09/17/2016 12:00 AM * Completed Procedure Code: 94457 Procedure Name: not valued, on 09/17/2016 12: 00 AM Immunizations * Influenza, seasonal, injectable ([employer] PHARM, Lot # [id number]); Administered 08/2016 11:22 AM; 1 DOSE=0.5 ML, INTRAMUSCL Hospital Course Hospital Discharge Instructions Allergies, Adverse Reactions, Alerts * Latex Allergy has not been assessed. * IV Contrast Allergy has not been assessed. * No Known Drug Allergies. Medication Medication reconciliation has not been performed.
--- OUTSIDE RECORDS SUMMARY | 2017-01-10 23:16 | XMS REPORT ---
Author Author GENERATED, SYSTEM Organization Unknown Address Unknown Phone Unavailable Care Team Providers Care [email or web address] Architect Name Role Phone MD LONDONO VERLIN [phone] Reason For Visit Reason for Visit from 09/17/2016 5:45 AM:* Pt Stated Reason for Adm : "EGD" Chief Complaint ABD PAIN-EPIGASTRIC, N/V,EGD Social History Social History from 09/17/2016 8:52 AM:* Tobacco Use? : Never Smoker Social History from 09/17/2016 5:45 AM:* Tobacco Use? : Never Smoker Functional Status Functional Status from 09/17/2016 8:39 AM:* LOC : Drowsy Functional Status from 09/17/2016 8:35 AM:* LOC : Drowsy Functional Status from 09/17/2016 8:11 AM:* LOC : Sedated Functional Status from 09/17/2016 5:45 AM:* LOC : Alert * Oriented To : Person,Place,Time,Event * Weight Bearing Status : Full * Assist Level : Independent * # Assists : Independent Vital Signs Hospital Vital Signs from 09/17/2016 9:05 AM:* Temp : 97.7 * Heart Rate : 65 * Resp Rate : 19 * O2 Saturation (%) : 99 Hospital Vital Signs from 09/17/2016 9:00 AM:* Heart Rate : 67 * Resp Rate : 19 * Systolic BP (mmHg) : 120 * Diastolic BP (mmHg) : 74 * Mean BP (mmHg) : 90 * O2 Saturation (%) : 98 Hospital Vital Signs from 09/17/2016 8:55 AM:* Heart Rate : 63 * Resp Rate : 18 * O2 Saturation (%) : 98 Hospital Vital Signs from 09/17/2016 8:50 AM:* Heart Rate : 82 * Resp Rate : 15 * O2 Saturation (%) : 98 Hospital Vital Signs from 09/17/2016 8:45 AM:* Heart Rate : 75 * Resp Rate : 10 * Systolic BP (mmHg) : 99 * Diastolic BP (mmHg) : 74 * Mean BP (mmHg) : 88 * O2 Saturation (%) : 99 Hospital Vital Signs from 09/17/2016 8:40 AM:* Temp : 97.5 * Heart Rate : 62 * Resp Rate : 10 * Systolic BP (mmHg) : 100 * Diastolic BP (mmHg) : 69 * Mean BP (mmHg) : 78 * O2 Saturation (%) : 99 Hospital Vital Signs from 09/17/2016 8:30 AM:* Temp : 97.6 * Heart Rate : 58 * Resp Rate : 13 * Systolic BP (mmHg) : 94 * Diastolic BP (mmHg) : 62 * Mean BP (mmHg) : 71 * O2 Saturation (%) : 99 Hospital Vital Signs from 09/17/2016 8:25 AM:* Heart Rate : 60 * Resp Rate : 15 * Systolic BP (mmHg) : 90 * Diastolic BP (mmHg) : 55 * Mean BP (mmHg) : 64 * O2 Saturation (%) : 100 Hospital Vital Signs from 09/17/2016 8:20 AM:* Heart Rate : 69 * Resp Rate : 12 * Systolic BP (mmHg) : 79 * Diastolic BP (mmHg) : 34 * Mean BP (mmHg) : 42 * O2 Saturation (%) : 100 Hospital Vital Signs from 09/17/2016 8:15 AM:* Heart Rate : 60 * Resp Rate : 11 * Systolic BP (mmHg) : 82 * Diastolic BP (mmHg) : 53 * Mean BP (mmHg) : 59 * O2 Saturation (%) : 100 Hospital Vital Signs from 09/17/2016 8:10 AM:* Temp : 97.1 * Heart Rate : 76 * Resp Rate : 13 * Systolic BP (mmHg) : 72 * Diastolic BP (mmHg) : 42 * Mean BP (mmHg) : 60 * O2 Saturation (%) : 100 Hospital Vital Signs from 09/17/2016 5:59 AM:* Weight : 63/ kg * Height : 5/5 ft,in * Temperature : 97.6 F * Pulse : 61 * Respirations : 16 * BP : 109/68 Hospital Vital Signs from 09/17/2016 5:45 AM:* Weight : 63/ kg * Height : 5/5 ft,in Results Problems Encounter Diagnosis * Fall Risk Status:Active. Additional Problems * Nausea & Vomiting Comment:Problem resolved by [employer] upon Discharge , Status:Resolved. Encounters Encounter Diagnosis * Fall Risk Status:Active. Plan of Care Follow-up Appointments from 09/17/2016 8:52 AM:* #1 Office appointment: : Dr. Guzman * #1 Date/Time : 09/29/2016 10:30 AM * Address # 1 : [facility]: [address], [place]- [phone] or Procedures * Completed Esophagogastroduodenoscopy, by MD RASHAAD GUZMAN, on 09/17/2016 8:02 AM Immunizations * Influenza, seasonal, injectable ([employer] PHARM, Lot # [id number]); Administered 08/2016 11:22 AM; 1 DOSE=0.5 ML, INTRAMUSCL Hospital Course Hospital Discharge Instructions How to care for yourself at home from 09/17/2016 8:52 AM:* Discharge Activity : Activity as tolerated,May Shower * Do not drive or operate machinery for: : 24 hours after discharge * Discharge Diet : Diet as tolerated * Discharge Diet: : avoid spicy and/or greasy foods the first post operative day * Call your doctor if: : Fever over 101 F or severe chills,Chest pain or other unexplained symptoms,Tingling or numbness develops,A sudden increase or decrease in weight,You have persistent or worsening symptoms * Specific Discharge Teaching Instructions provided: : Yes * Specific Discharge Teaching Instructions Reviewed: : Other * Discharge on Warfarin : No Allergies, Adverse Reactions, Alerts * No Latex Allergy. * No IV Contrast Allergy. * No Known Drug Allergies. Medication Medication reconciliation has not been performed.
--- OUTSIDE RECORDS SUMMARY | 2017-01-10 23:16 | XMS REPORT ---
Author Author GENERATED, SYSTEM Organization Unknown Address Unknown Phone Unavailable Care Team Providers Care Pick Up Operator Name Role Phone MD BRY, SHANEL [phone] Reason For Visit Chief Complaint VOMITING Social History Functional Status Vital Signs Results Chemistry from 08/23/2016 5:50 PMSODIUM 143 MMOL/L (136-145 MMOL/L) POTASSIUM 3.3 MMOL/L L (3.5-5.1 MMOL/L) CHLORIDE 102 MMOL/L (98-107 MMOL/L) TCO2 20.6 MMOL/L L (21.0-32.0 MMOL/L) *ANION GAP 20.4 MMOL/L H (8.0-16.0 MMOL/L) BUN 18 MG/DL (7-18 MG/DL) CREATININE 1.28 MG/DL (0.70-1.30 MG/DL) *BUN/CREATININE RATIO 14.1 (9.1-17.0 ) GLUCOSE 172 MG/DL H (65-99 MG/DL) *GFR EST NON AFR MONGOLIAN 81 ML/MIN *GFR EST AFR AMER >90 ML/MIN CALCIUM 10.2 MG/DL H (8.5-10.1 MG/DL) BILIRUBIN TOTAL 1.00 MG/DL (0.20-1.00 MG/DL) TOTAL PROTEIN 8.6 GM/DL H (6.4-8.2 GM/DL) ALBUMIN 5.1 GM/DL H (3.4-5.0 GM/DL) *GLOBULIN 3.5 GM/DL (2.3-3.5 GM/DL) *A/G RATIO 1.5 MG/DL (1.5-2.2 MG/DL) ALK PHOS 62 U/L (46-116 U/L) ALT (SGPT) 177 U/L H (14-59 U/L) AST (SGOT) 67 U/L H (15-37 U/L) LIPASE 73 U/L (73-393 U/L) Hematology from 08/23/2016 5:50 PMWBC 18.6 X10e3/UL H (3.6-11.2 X10e3/UL) RBC 5.24 X10e6/UL (4.06-5.63 X10e6/UL) HEMOGLOBIN 15.9 G/DL (12.5-16.3 G/DL) HEMATOCRIT 47.3 % H (36.7-47.1 %) *MCV 90.3 FL (80.0-100.0 FL) *MCH 30.4 PG (27.0-33.0 PG) *MCHC 33.7 G/DL (32.0-36.0 G/DL) *RDW 13.7 % (12.3-17.0 %) *RDWSD 43.8 (37.1-47.8 ) PLATELET 225 X10e3/UL (159-386 X10e3/UL) *MPV 9.6 FL (7.4-10.4 FL) AUTOMATED DIFF PERFORMED SEGS 87.9 % *LYMPHOCYTES 5.4 % *MONOCYTES 5.9 % *EOSINOPHILS 0.0 % *BASOPHILS 0.8 % *ABSOLUTE NEUTROPHILS 16.30 X10e3/UL H (1.80-7.80 X10e3/UL) *ABSOLUTE LYMPHOCYTES 1.00 X10e3/UL (1.00-3.00 X10e3/UL) *ABSOLUTE MONOCYTES 1.10 X10e3/UL H (0.30-1.00 X10e3/UL) *ABSOLUTE EOSINOPHILS 0.00 X10e3/UL (0.00-0.50 X10e3/UL) *ABSOLUTE BASOPHILS 0.20 X10e3/UL (0.00-0.20 X10e3/UL) Problems Encounter Diagnosis No relevant problems exist. Additional Problems * Fall Risk Comment:Problem resolved by [facility] [employer] upon Discharge, Status: Resolved. * Nausea & Vomiting Comment:Problem resolved by [facility] [employer] upon Discharge , Status:Resolved. Encounters Encounter Diagnosis No relevant problems exist. Plan of Care Procedures No relevant procedures performed. Immunizations * INFLUEN VACC (GLAXO) (FLUARIX 2015- (GLAXO), [employer] PHARM, Lot # [id number]); Administered 08/05/2016 11:22 AM; 1 DOSE=0.5 ML, INTRAMUSCL Hospital Course Hospital Discharge Instructions Allergies, Adverse Reactions, Alerts * Latex Allergy has not been assessed. * IV Contrast Allergy has not been assessed. * No Known Drug Allergies. Medication Medication reconciliation has not been performed.
--- NOTE | 2017-01-10 23:19 | NUR ---
EMESIS PT VOMITING VERY PALE YELLOW EMESIS
--- NOTE | 2017-01-10 23:23 | ERPDOC ---
Departure Disposition Decision Date: Jan 11, 2017 Disposition Decision Time: 00:40 (BRODY LORENZ MD) Disposition: 01 DISCHARGED HOME, SELF-CARE Impression Impression (DOUGLAS KNAPP APRN) Impression: Primary Impression: Cyclic vomiting syndrome Vomiting Intractability: intractable Nausea presence: with nausea Qualified Codes: G43.A1 - Cyclical vomiting, intractable Severity: Severe (BRODY LORENZ MD) Condition: Improved Seen By: Physician only (BRODY LORENZ MD) Referrals: ANTHONY HUGHES MD (Family) Patient Instructions: Acute Nausea and Vomiting (ED) Problems/Meds/Labs Reviewed?: Yes Medications reviewed and manag: Yes (BRODY LORENZ MD) Additional Instructions: Use your routine medications at home Drink 2 quarts of fluid daily Follow up care ordered?: Yes Mental Status: Alert (BRODY LORENZ MD) HPI - Abdominal Pain General Chief Complaint: Nausea,Vomiting,Diarrhea Stated Complaint: VOMITING Time Seen by Provider: 23:11 Source: patient History/Exam Limitations: no limitations (DOUGLAS KNAPP APRN) Time Seen by Provider: 23:11 (BRODY LORENZ MD) HPI - Abdominal Pain Initial Comments He has a history of cyclic vomiting syndrome most likely related to marijuana use. He has been seen in [facility] multiple time for this. Has had extensive work up by GI. This episodes started at 7am this morning. Has taken his Zofran, Compazine, and a promethazine suppository at home without relief of the vomiting. Emesis is not bloody. Denies any fever/chills or diarrhea. Has had some abdominal pain but this is typical for his cyclic vomiting episodes. Usually come in for IVF and IV nausea medication when cycle occurs. Occurred At: home Onset: Gradual Duration: other (Since 7am this morning) Quality: cramping Radiation: no radiation Associated Symptoms: nausea/vomiting, DENIES: back pain, chest pain, diaphoresis, fatigue, fever/chills, headache, heartburn, rash, shortness of breath, swelling/mass in abdomen, syncope, weakness Hx of Similar Symptoms: Yes (DOUGLAS KNAPP APRN) Allergies: Coded Allergies: lactose (Verified Adverse Reaction, Unknown, ON LACTOSE FREE DIET, 01/11/17 ) PER HISTORY AND PHYSICAL DATED 12-13-15 Past History Patient Surgical History Tonsillectomy (ARIA,DOUGLAS N RIVER RAFTING GUIDE) Past Medical History ENMT: allergies GI: GERD, constipation, other (NOLD,DOUGLAS N RIVER RAFTING GUIDE) Surgical History General: EGD, colonoscopy, tonsils (NOLD,DOUGLAS N RIVER RAFTING GUIDE) Family History Family PMH: FOUND: [place], diabetes, hypertension (NOLD,DOUGLAS N RIVER RAFTING GUIDE) Vaccines Hx Influenza Vaccination: Yes (July 2016) Hx Pneumococcal Vaccination: No Hx Tetanus, Diptheria, Pertuss: Yes (04/2010) (NOKODY,DOUGLAS N RIVER RAFTING GUIDE) Social History Does patient use chewing tobac: No Second Hand Exposure: Yes Substance Use Type: marijuana Substance last used: days (ago) Alcohol Intake: none Marital Status: Single Current Occupational Status: student (NOKODY,DOUGLAS N RIVER RAFTING GUIDE) Review of Systems Constitutional Constitutional: DENIES: chills, dizziness, fatigue, fever, weakness (NOLD, DOUGLAS N RIVER RAFTING GUIDE) Cardiovascular Cardiac: DENIES: chest pain, orthopnea Rhythm/Rate: DENIES: irregular beat, palpitations (NOLD,DOUGLAS N RIVER RAFTING GUIDE) Pulmonary Respiratory: DENIES: cough, dyspnea, sputum, tachypnea (NOLD,DOUGLAS N RIVER RAFTING GUIDE) GI Upper Abdomen: nausea, pain, vomiting Lower Abdomen: DENIES: blood in stool, constipation, diarrhea, pain (NOLD, DOUGLAS N RIVER RAFTING GUIDE) Integumentary Skin: DENIES: rash (NOLD,DOUGLAS N RIVER RAFTING GUIDE) Neurological General: DENIES: headache, numbness, tingling, weakness (NOLD,DOUGLAS N RIVER RAFTING GUIDE) Physical Exam General General Nourishment: well nourished, well developed, appears stated age, no acute distress, adult General Body Habitus: well groomed (NOKODY,DOUGLAS N RIVER RAFTING GUIDE) Vitals and Pain First Documented Vital Signs Date Time Temp Pulse Resp B/P Pulse Ox O2 Delivery O2 Flow Rate FiO2 01/10/17 23:09 97.6 71 16 148/87 100 Room Air (BRODY LORENZ MD) Vitals and Pain Weight: Kilograms: Height (feet): 5 Height (inches): 7.00 Triage Pain Scale: (ALONZOESA N RIVER RAFTING GUIDE) RN VS reviewed by Provider: Yes (DOUGLAS KNAPP APRN) Normal Exams: Neck: Full range of motion, without adenopathy, JVD, bruits or thyromegaly Chest/Resp: Clear all greenberg, with good airflow, and symmetry bilaterally CV: Regular rate and rhythm, without murmur or gallop, Pulses 2+ all extremities, capillary refill, <2 seconds all ext., no pedal edema noted Abdomen: Bowel sounds positive, soft, non-tender, non-distended, no hepatosplenomegaly, masses or bruits noted Lymphatic: No lymphadenopathy, or lymphedema noted Integumentary: No rashes, hives, or bruising noted Neurologic: Patient is alert, and oriented Psychiatric: Patient exhibits, appropriate attention, emotion and affect (DOUGLAS KNAPP APRN) Differential Diagnoses Considering: Dehydration, Food Poisoning, Gastroenteritis, Hyponatremia, Hypokalemia, Hypoglycemia, Metabolic Alkalosis, Metabolic Acidosis (DOUGLAS KNAPP APRN) Progress Results/Orders Orders Procedure Category Date Status Time Iv Lock (Ed Only) EDM 01/10/17 Transmitted 23:18 Bmp - Basic Metabolic LAB 01/10/17 Complete Panel Normal Saline (Normal PHA 01/10/17 Complete Saline Iv) 23:30 Prochlorperazine PHA 01/10/17 Complete (Compazine) 23:30 (BRODY LORENZ MD) Lab Results Laboratory Tests Test 01/10/17 23:34 Turbidity < 20 Sodium Level 144MEQ/L Potassium Level 4.0MEQ/L Chloride Level 105MEQ/L Carbon Dioxide Level 23MEQ/L Anion Gap 16MEQ/L Blood Urea Nitrogen 10.0MG/DL Creatinine 0.8MG/DL Glomerular Filtration Rate Calc 125 BUN/Creatinine Ratio 13RATIO Glucose Level 127MG/DL Calculated Osmolality 278MOSM/KG Calcium Level 10.4MG/DL Icterus Index < 2 Chemistry Specimen Hemolysis < 15 (BRODY LORENZ MD) Lab Results Laboratory Tests Test 01/10/17 23:34 Turbidity < 20 Sodium Level 144MEQ/L Potassium Level 4.0MEQ/L Chloride Level 105MEQ/L Carbon Dioxide Level 23MEQ/L Anion Gap 16MEQ/L Blood Urea Nitrogen 10.0MG/DL Creatinine 0.8MG/DL Glomerular Filtration Rate Calc 125 BUN/Creatinine Ratio 13RATIO Glucose Level 127MG/DL Calculated Osmolality 278MOSM/KG Calcium Level 10.4MG/DL Icterus Index < 2 Chemistry Specimen Hemolysis < 15 (DOUGLAS KNAPP APRN) Medications Current ED Medications Sodium Chloride (Normal Saline IV) 1,000 ml @ 1,000 mls/hr Q1H ONCE IV Last administered on 01/10/17 23:44; Start 01/10/17 at 23:30; Stop 01/11/17 at 00:29 ; Status DC Prochlorperazine Edisylate (Compazine) 10 mg O ONCE IV Last administered on 23:45; Start 01/10/17 at 23:30; Stop 01/10/17 at 23:31; Status DC (BRODY LORENZ MD) Progress Progress BMP normal After Compazine and IV fluids, patient feeling much better and vomiting has resolved (BRODY LORENZ MD) DOUGLAS KNAPP APRN Jan 10, 2017 23:23 BRODY LORENZ MD Jan 11, 2017 00:41
[2017-01-10] MEDS ORDERED: NORMAL SALINE 1,000 ML IV ONE (23:30)
[2017-01-10] MEDS ORDERED: PROCHLORPERAZINE 10mg/2ml INJECTION IV ONE (23:30)
--- NOTE | 2017-01-10 23:35 | NUR ---
BATHROOM PT AMBULATORY TO BATHROOM TO VOID
--- NOTE | 2017-01-10 23:37 | NUR ---
EMESIS PT VOMITING CLEAR FLUID
--- OUTSIDE RECORDS SUMMARY | 2017-01-10 23:39 | XMS REPORT ---
Author Author GENERATED, SYSTEM Organization Unknown Address Unknown Phone Unavailable Care Team Providers Care Parimutuel Clerk Name Role Phone MD LONDONO VERLIN [phone] Reason For Visit Chief Complaint NAUSEA AND [...] Procedures * Completed Esophagogastroduodenoscopy, by MD [facility], on 09/17/2016 8:02 AM Immunizations * Influenza, seasonal, injectable ([employer] PHARM, Lot # [id number]); Administered 08/2016 11:22 AM; 1 DOSE=0.5 ML, INTRAMUSCL Hospital Course Hospital Discharge Instructions Allergies, Adverse Reactions, Alerts * Latex Allergy has not been assessed. * IV Contrast Allergy has not been assessed. * No Known Drug Allergies. Medication Medication reconciliation has not been performed.
--- OUTSIDE RECORDS SUMMARY | 2017-01-10 23:39 | XMS REPORT ---
Author Author GENERATED, SYSTEM Organization Unknown Address Unknown Phone Unavailable Care Team Providers Care Pumper Helper Name Role Phone MD BRY, [facility] [phone] Reason For Visit Chief Complaint VOMITING Social [...] H (65-99 MG/DL) *GFR EST NON AFR CANADIAN >90 ML/MIN *GFR EST AFR AMER >90 [...] Immunizations * INFLUEN VACC (GLAXO) (FLUARIX (GLAXO), [employer] PHARM, Lot # [id number]); Administered 08/05/2016 11:22 AM; 1 DOSE=0.5 ML, INTRAMUSCL Hospital Course Hospital Discharge Instructions Allergies, Adverse Reactions, Alerts * Latex Allergy has not been assessed. * IV Contrast Allergy has not been assessed. * No Known Drug Allergies. Medication Medication reconciliation has not been performed.
--- OUTSIDE RECORDS SUMMARY | 2017-01-10 23:39 | XMS REPORT ---
Author Author GENERATED, SYSTEM Organization Unknown Address Unknown Phone Unavailable Care Team Providers Care Cork Compounder Name Role Phone MD MISTRY VERLIN [phone] Reason For Visit Reason for Visit from [...] H (65-99 MG/DL) *GFR EST NON AFR PUERTO RICAN >90 ML/MIN *GFR EST AFR AMER >90 [...] H (65-99 MG/DL) *GFR EST NON AFR PUERTO RICAN >90 ML/MIN *GFR EST AFR AMER >90 [...] Note : Admission status: Outpatient Observation Insurance: [facility] and Veterans Patient presented to ER for [...] * INFLUEN VACC 2015-(GLAXO) (FLUARIX 2015- (GLAXO), [employer] PHARM, Lot # [id number]); Administered 08/05/2016 11:22 [...] the responsibility of the patient or patient sales representative printing to confirm the list of medications with [...]
--- NOTE | 2017-01-10 23:40 | NUR ---
IVL IVL STARTED IN THE RIGHT AC WITH #22 GA, SECOND ATTEMPT BLOOD OBTAINED FOR LAB PT HAI WELL MULTIPLE BRUISING TO THE AC AND FOREARM FROM PREVIOUS IV STARTS ON THE RIGHT ARM. PT DID NOT WANT STAFF TO START THE IV IN THE LEFT SIDE THIS TIME. FATHER AT BEDSIDE
--- OUTSIDE RECORDS SUMMARY | 2017-01-10 23:40 | XMS REPORT ---
Author Author GENERATED, SYSTEM Organization Unknown Address Unknown Phone Unavailable Care Team Providers Care Assistant Kitchen Manager Name Role Phone UNASSIGNED DOCTOR , DOCTOR PP [phone] Reason For Visit Chief Complaint VOMITING, UPPER [...] 09/17/2016 8:02 AM * Completed Procedure Code: [id number] Procedure Name: not valued, on 09/17/2016 12:00 AM * Completed Procedure Code: [id number] Procedure Name: not valued, on 09/17/2016 12: 00 AM Immunizations * Influenza, seasonal, injectable ([employer] PHARM, Lot # [id number]); Administered 08/2016 11:22 AM; 1 DOSE=0.5 ML, INTRAMUSCL Hospital Course Hospital Discharge Instructions Allergies, Adverse Reactions, Alerts * Latex Allergy has not been assessed. * IV Contrast Allergy has not been assessed. * No Known Drug Allergies. Medication Medication reconciliation has not been performed.
--- OUTSIDE RECORDS SUMMARY | 2017-01-10 23:40 | XMS REPORT ---
Author Author GENERATED, SYSTEM Organization Unknown Address Unknown Phone Unavailable Care Team Providers Care Sales Team Manager Name Role Phone MD BRY, [facility] [phone] Reason For Visit Chief Complaint VOMITING, ABD [...] H (65-99 MG/DL) *GFR EST NON AFR GIBRALTARIAN >90 ML/MIN *GFR EST AFR AMER >90 [...]
--- OUTSIDE RECORDS SUMMARY | 2017-01-10 23:41 | XMS REPORT ---
Author Author GENERATED, SYSTEM Organization Unknown Address Unknown Phone Unavailable Care Team Providers Care Poultry Vaccinator Name Role Phone MD [facility] [phone] Reason For Visit Chief Complaint VOMITING, STOMACH [...] * INFLUEN VACC 2015-(GLAXO) (FLUARIX 2015-17 (GLAXO), [employer] PHARM, Lot # [id number]); Administered 08/05/2016 11:22 AM; 1 DOSE=0.5 ML, INTRAMUSCL Hospital Course Hospital Discharge Instructions Allergies, Adverse Reactions, Alerts * Latex Allergy has not been assessed. * IV Contrast Allergy has not been assessed. * No Known Drug Allergies. Medication Medication reconciliation has not been performed.
--- OUTSIDE RECORDS SUMMARY | 2017-01-10 23:41 | XMS REPORT ---
Author Author GENERATED, SYSTEM Organization Unknown Address Unknown Phone Unavailable Care Team Providers Care Soil Conservation Teacher Name Role Phone MD BRY, SHANEL [phone] Reason For Visit Chief Complaint VOMITING ABD [...] MG/DL (65-99 MG/DL) *GFR EST NON AFR PANAMANIAN >90 ML/MIN *GFR EST AFR AMER >90 [...] Immunizations * INFLUEN VACC (GLAXO) (FLUARIX (GLAXO), [employer] PHARM, Lot # [id number]); Administered 08/05/2016 11:22 AM; 1 DOSE=0.5 ML, INTRAMUSCL Hospital Course Hospital Discharge Instructions Allergies, Adverse Reactions, Alerts * Latex Allergy has not been assessed. * IV Contrast Allergy has not been assessed. * No Known Drug Allergies. Medication Medication reconciliation has not been performed.
--- OUTSIDE RECORDS SUMMARY | 2017-01-10 23:41 | XMS REPORT ---
Author Author GENERATED, SYSTEM Organization Unknown Address Unknown Phone Unavailable Care Team Providers Care Neuro Intensivist Physician Name Role Phone MD BRY, [facility] [phone] Reason For Visit Chief Complaint VOMITING, ABD [...] MG/DL (65-99 MG/DL) *GFR EST NON AFR JAMAICAN >90 ML/MIN *GFR EST AFR AMER >90 [...] epigastric pain and n/v, was seen in [facility] Thursday and and at [facility] on Thursday. Had CT scan and sonogram at clinic on Thursday. Pt continues to abd pain and n/v today. Technique: Post contrast images were performed after the administration of 95 milliliters of Isovue intravenous contrast. 3 dimensional reconstructions were performed by the technologist. Priors: None. Findings: Vascular Structures: Abdomen: Celiac Vaughn/SMA/GRETTA: No evidence of stenosis. There are no [...]
--- OUTSIDE RECORDS SUMMARY | 2017-01-10 23:41 | XMS REPORT | Continuity of Care Document ---
Author Author [facility] Organization [facility] Address Unknown Phone Unavailable Allergies Medications Problems [...] R55 Syncope and collapse 08/12/2016 MARIELOS JEAN [id number] Personal history of other benign neoplasm 08/26/2016 PJ GREEN E876 Hypokalemia 08/26/2016 PJ GREEN R112 Nausea with vomiting, unspecified 09/03/2016 MIKI SCHWARTZ H6123 Impacted cerumen, bilateral 09/03/2016 MIKI SCHWARTZ R1013 Epigastric pain 09/03/2016 MIKI SCHWARTZ R112 Nausea with vomiting, unspecified 09/03/2016 MIKI SCHWARTZ [id number] Other terminal system operator (current) drug therapy 10/31/2016 NIKOLAY BAKER [id number] [...] - 08/23/16 17:50 *GFR EST NON AFR VIETNAMESE 81 mL/min NRG *GRFA EST AFR AMER [...] - 08/24/16 09:15 *GFR EST NON AFR VIETNAMESE >90 mL/min NRG *GRFA EST AFR AMER [...] EP. CELLS FEW /[LPF] NEG-FEW AMORPH. URATE KOTSA. MODERATE /[HPF] NEGATIVE CBC WITH PLATELET AND [...] - 08/25/16 20:38 *GFR EST NON AFR VIETNAMESE >90 mL/min NRG *GRFA EST AFR AMER [...] - 08/31/16 13:56 *GFR EST NON AFR VIETNAMESE >90 mL/min NRG *GRFA EST AFR AMER [...] - 10/28/16 12:20 *GFR EST NON AFR VIETNAMESE >90 mL/min NRG *GRFA EST AFR AMER [...] Status Pt. Type Provider Facility Loc./Unit Complaint [id number] 10/28/2016 21:34:00 2016 04:06:56 DIS Emergency NIKOLAY BAKER A <PV2.3.2>Vomiting, unspecified</PV2.3.2><PV2.3.2>VOMITING, UPPER ABD PAIN</PV2.3.2><PV2.3.2>Vomiting, unspecified</PV2.3.2><PV2.3.2>Cannabis abuse, uncomplicated</PV2.3.2><PV2.3.2>Generalized abdominal pain</PV2.3.2> [id number] 10/28/2016 11:46:00 2016 22:44:18 DIS Emergency PJ GREEN VOMITING [id number] 09/21/2016 12:22:00 2015 02:03:39 DIS Emergency TITI DEL REAL NAUSEA AND VOMITTING [id number] 09/17/2016 05:27:00 2015 09:13:47 DIS Inpatient RASHAAD GUZMAN <PV2.3.2>ABD PAIN-EPIGASTRIC, N/V</PV2.3.2><PV2.3.2>EGD</PV2.3.2> [id number] 08/25/2016 18:59:00 2015 08:45:07 DIS Emergency MIKI SCHWARTZ VOMITING ABD PAIN [id number] 08/24/2016 21:47:00 2015 05:41:56 DIS Emergency MIKI SCHWARTZ <PV2.3.2>Epigastric pain</PV2.3.2><PV2.3.2>VOMITING, STOMACH PAIN</PV2.3.2>< PV2.3.2>Nausea with vomiting, unspecified</PV2.3.2><PV2.3.2>Epigastric pain</ PV2.3.2><PV2.3.2>Impacted cerumen, bilateral</PV2.3.2><PV2.3.2>Other terminal system operator ( current) drug therapy</PV2.3.2> [id number] 08/24/2016 08:57:00 2015 19:13:32 DIS Emergency PJ GREEN <PV2.3.2>Nausea with vomiting, unspecified</PV2.3.2><PV2.3.2>VOMITING, ABD PAIN</PV2.3.2><PV2.3.2>Nausea with vomiting, unspecified</PV2.3.2><PV2.3.2> Hypokalemia</PV2.3.2> [id number] 08/23/2016 17:16:00 2015 23:34:28 DIS Emergency MIKI SCHWARTZ VOMITING [id number] 08/03/2016 23:18:00 2015 12:05:34 DIS Outpatient MIRANDA MARIELOS <PV2.3.2>Hyperosmolality and hypernatremia</PV2.3.2><PV2.3.2>INTRACTABLE NAUSEA VOMITING</PV2.3.2><PV2.3.2>Hyperosmolality and hypernatremia</PV2.3.2>< PV2.3.2>Syncope and collapse</PV2.3.2><PV2.3.2>Bradycardia, unspecified</ PV2.3.2><PV2.3.2>Benign neoplasm of unspecified adrenal gland</PV2.3.2><PV2.3.2> Hypertensive chronic kidney disease w stg 1-4/unsp chr kdny</PV2.3.2><PV2.3.2> Chronic kidney disease, unspecified</PV2.3.2><PV2.3.2>Hypothyroidism, unspecified</PV2.3.2><PV2.3.2>Nonrheumatic mitral (valve) insufficiency</PV2.3.2 ><PV2.3.2>Atrioventricular block, first degree</PV2.3.2><PV2.3.2>Occlusion and stenosis of bilateral carotid arteries</PV2.3.2><PV2.3.2>Personal history of other benign neoplasm</PV2.3.2> [id number] 08/03/2016 09:26:00 2015 14:34:20 DIS Emergency TITI DEL REAL VOMITING, ABD PAIN [id number] 08/31/2016 13:07:00 Document Registration [id number] 08/27/2016 11:00:00 Document Registration
--- OUTSIDE RECORDS SUMMARY | 2017-01-10 23:41 | XMS REPORT ---
Author Author GENERATED, SYSTEM Organization Unknown Address Unknown Phone Unavailable Care Team Providers Care Industrial Production Manager Name Role Phone MD BRY, [facility] [phone] Reason For Visit Chief Complaint CYCLIC VOMITING [...] H (65-99 MG/DL) *GFR EST NON AFR LUXEMBOURGER >90 ML/MIN *GFR EST AFR AMER >90 [...] * INFLUEN VACC 2015-(GLAXO) (FLUARIX 2015- (GLAXO), [employer] PHARM, Lot # [id number]); Administered 08/05/2016 11:22 AM; 1 DOSE=0.5 ML, INTRAMUSCL Hospital Course Hospital Discharge Instructions Allergies, Adverse Reactions, Alerts * Latex Allergy has not been assessed. * IV Contrast Allergy has not been assessed. * No Known Drug Allergies. Medication Medication reconciliation has not been performed.
--- OUTSIDE RECORDS SUMMARY | 2017-01-10 23:42 | XMS REPORT ---
Author Author GENERATED, SYSTEM Organization Unknown Address Unknown Phone Unavailable Care Team Providers Care Business English Instructor Name Role Phone MD LONDONO VERLIN [phone] Reason For Visit Reason for Visit from [...] 10:30 AM * Address # 1 : [facility]: [address], [place]- or Procedures * Completed Esophagogastroduodenoscopy, by MD RASHAAD GUZMAN, on 09/17/2016 8:02 AM Immunizations * Influenza, seasonal, injectable ([employer] PHARM, Lot # [id number]); Administered 08/2016 11:22 [...]
--- OUTSIDE RECORDS SUMMARY | 2017-01-10 23:42 | XMS REPORT ---
Author Author GENERATED, SYSTEM Organization Unknown Address Unknown Phone Unavailable Care Team Providers Care Soda Tester Name Role Phone UNASSIGNED DOCTOR , DOCTOR PP [phone] Reason For Visit Chief Complaint VOMITING Social [...] H (65-99 MG/DL) *GFR EST NON AFR [place] ISLANDER >90 ML/MIN *GFR EST AFR AMER >90 [...] 09/17/2016 8:02 AM * Completed Procedure Code: [id number] Procedure Name: not valued, on 09/17/2016 12:00 AM * Completed Procedure Code: [id number] Procedure Name: not valued, on 09/17/2016 12: 00 AM Immunizations * Influenza, seasonal, injectable ([employer] PHARM, Lot # [id number]); Administered 08/2016 11:22 AM; 1 DOSE=0.5 ML, INTRAMUSCL Hospital Course Hospital Discharge Instructions Allergies, Adverse Reactions, Alerts * Latex Allergy has not been assessed. * IV Contrast Allergy has not been assessed. * No Known Drug Allergies. Medication Medication reconciliation has not been performed.
--- OUTSIDE RECORDS SUMMARY | 2017-01-10 23:42 | XMS REPORT ---
Author Author GENERATED, SYSTEM Organization Unknown Address Unknown Phone Unavailable Care Team Providers Care Museum Or Zoo Director Name Role Phone MD BRY, SHANEL [phone] Reason For Visit Chief Complaint VOMITING Social [...] H (65-99 MG/DL) *GFR EST NON AFR MALAYSIAN 81 ML/MIN *GFR EST AFR AMER >90 [...] * INFLUEN VACC (GLAXO) (FLUARIX 2015- (GLAXO), [employer] PHARM, Lot # [id number]); Administered 08/05/2016 11:22 AM; 1 DOSE=0.5 ML, INTRAMUSCL Hospital Course Hospital Discharge Instructions Allergies, Adverse Reactions, Alerts * Latex Allergy has not been assessed. * IV Contrast Allergy has not been assessed. * No Known Drug Allergies. Medication Medication reconciliation has not been performed.
--- NOTE | 2017-01-10 23:44 | NUR ---
IV FLUID #1 IV 1000CC NS STARTED AT 999CC/HR IV SITE WITHOUT REDNESS OR SWELLING
--- NOTE | 2017-01-10 23:45 | NUR ---
COMPAZINE IV COMPAZINE GIVEN FOR NAUSEA/VOMITING
--- NOTE | 2017-01-10 23:56 | NUR ---
EMESIS PT VOMITING SMALL AMTS OF CLEAR, PALE YELLOW BILE
--- NOTE | 2017-01-11 00:02 | NUR ---
COMFORT LIGHTS DIMMED WARM BLANKET PROVIDED
[2017-01-11 00:04] LABS: ANION GAP 16 MEQ/L (5-15); BUN/CREATININE RATIO 13 RATIO (6-26); CALCIUM 10.4 MG/DL (8.4-10.2); CHLORIDE 105 MEQ/L (98-107); CO2 - CARBON DIOXIDE 23 MEQ/L (22-30); CREATININE 0.8 MG/DL (0.8-1.5); GLOMERULAR FILTRATION RATE 125; GLUCOSE 127 MG/DL (75-110); SODIUM 144 MEQ/L (134-144)
--- NOTE | 2017-01-11 00:15 | NUR ---
BATHROOM PT AMBULATORY TO BATHROOM
--- NOTE | 2017-01-11 00:39 | NUR ---
DR DR LORENZ IN ROOM TO TALK WITH PT
--- NOTE | 2017-01-11 00:56 | NUR ---
IV FLUID IV NS INFUSED IV SITE WITHOUT REDNESS OR SWELLING PT DRINKING WATER FROM HIS WATER BOTTLE WHEN STAFF ENTERS ROOM PT REPORTS HE IS FEELING ALOT BETTER FATHER AT BEDSIDE
--- NOTE | 2017-01-11 00:58 | NUR ---
BATHROOM PT AMBULATORY TO BATHROOM TO VOID
--- NOTE | 2017-01-11 01:01 | NUR ---
STATUS PT COUGHING HARD LIKE HE DOES BEFORE HE VOMITS, BUT NO EMESIS STATES HE FEELS FINE AND IS READY TO GO HOME
--- NOTE | 2017-01-11 01:03 | NUR ---
IVL IVL DC'D WITH CATH INTACT DRSG APPLIED TO IV SITE PT HAI WELL
--- NOTE | 2017-01-11 01:05 | NUR ---
INSTRUCTIONS DISMISSAL INSTRUCTIONS GIVEN TO PT AND FATHER BOTH VERBALIZED UNDERSTANDING
[2017-01-11 01:06] VITALS: BP 144/93; PULSE 79; RESP 14; TEMP 97.6; O2SAT 97
--- NOTE | 2017-01-11 01:06 | NUR ---
DISMISS PT DISMISSED AMBULATORY WITH FATHER
== END 2017-01-11 01:06 | disposition home or self-care (01) ==
LOC: ED 23:06
DX: G43.A1 Cyclical vomiting, in migraine, intractable (principal); F12.90 Cannabis use, unspecified, uncomplicated
CPT/HCPCS: 80048; 96361; 96374; 99284; J0780; J7030

== ENCOUNTER 2017-01-11 11:52 | Emergency (ER) | payer OTHER ==
[~2017-01-11] VITALS: Ht 165.1 cm; Wt 59.0 kg
[2017-01-11 11:55] VITALS: Ht 165.1 cm; Wt 59.0 kg
--- OUTSIDE RECORDS SUMMARY | 2017-01-11 11:56 | XMS REPORT ---
Author Author GENERATED, SYSTEM Organization Unknown Address Unknown Phone Unavailable Care Team Providers Care Cover Stripper Name Role Phone UNASSIGNED DOCTOR , DOCTOR PP [phone] Reason For Visit Chief Complaint VOMITING, UPPER [...] 09/17/2016 8:02 AM * Completed Procedure Code: [id number] Procedure Name: not valued, on 09/17/2016 12:00 AM * Completed Procedure Code: [id number] Procedure Name: not valued, on 09/17/2016 12: 00 AM Immunizations * Influenza, seasonal, injectable (LYSOGENEO PHARM, Lot # [id number]); Administered 08/2016 11:22 AM; 1 DOSE=0.5 ML, INTRAMUSCL Hospital Course Hospital Discharge Instructions Allergies, Adverse Reactions, Alerts * Latex Allergy has not been assessed. * IV Contrast Allergy has not been assessed. * No Known Drug Allergies. Medication Medication reconciliation has not been performed.
--- OUTSIDE RECORDS SUMMARY | 2017-01-11 11:56 | XMS REPORT ---
Author Author GENERATED, SYSTEM Organization Unknown Address Unknown Phone Unavailable Care Team Providers Care Executive Vice President Of Sales Name Role Phone MD LONDONO VERLIN [phone] Reason For Visit Chief Complaint NAUSEA AND [...] Procedures * Completed Esophagogastroduodenoscopy, by MD [facility], on 09/17/2016 8:02 AM Immunizations * Influenza, seasonal, injectable (evolsoO PHARM, Lot # [id number]); Administered 08/2016 11:22 AM; 1 DOSE=0.5 ML, INTRAMUSCL Hospital Course Hospital Discharge Instructions Allergies, Adverse Reactions, Alerts * Latex Allergy has not been assessed. * IV Contrast Allergy has not been assessed. * No Known Drug Allergies. Medication Medication reconciliation has not been performed.
--- OUTSIDE RECORDS SUMMARY | 2017-01-11 11:56 | XMS REPORT ---
Author Author GENERATED, SYSTEM Organization Unknown Address Unknown Phone Unavailable Care Team Providers Care Warp Hand Name Role Phone MD MISTRY VERLIN [phone] Reason For Visit Reason for Visit from [...] H (65-99 MG/DL) *GFR EST NON AFR LITHUANIAN >90 ML/MIN *GFR EST AFR AMER >90 [...] H (65-99 MG/DL) *GFR EST NON AFR LITHUANIAN >90 ML/MIN *GFR EST AFR AMER >90 [...] Note : Admission status: Outpatient Observation Insurance: [facility] and Veterans Patient presented to ER [...] * INFLUEN VACC 2015-(GLAXO) (FLUARIX 2015- (GLAXO), [employer] PHARM, Lot # [id number]); Administered 08/05/2016 11:22 [...] the responsibility of the patient or patient hospital sales representative to confirm the list of medications [...]
--- OUTSIDE RECORDS SUMMARY | 2017-01-11 11:56 | XMS REPORT ---
Author Author GENERATED, SYSTEM Organization Unknown Address Unknown Phone Unavailable Care Team Providers Care Traffic Sign Erection Supervisor Name Role Phone MD [facility] [phone] Reason For Visit Chief Complaint VOMITING Social [...] H (65-99 MG/DL) *GFR EST NON AFR MOROCCAN >90 ML/MIN *GFR EST AFR AMER >90 [...] Immunizations * INFLUEN VACC (GLAXO) (FLUARIX (GLAXO), [employer] PHARM, Lot # [id number]); Administered 08/05/2016 11:22 AM; 1 DOSE=0.5 ML, INTRAMUSCL Hospital Course Hospital Discharge Instructions Allergies, Adverse Reactions, Alerts * Latex Allergy has not been assessed. * IV Contrast Allergy has not been assessed. * No Known Drug Allergies. Medication Medication reconciliation has not been performed.
--- OUTSIDE RECORDS SUMMARY | 2017-01-11 11:57 | XMS REPORT ---
Author Author GENERATED, SYSTEM Organization Unknown Address Unknown Phone Unavailable Care Team Providers Care Nitrator Operator Name Role Phone MD [facility] [phone] Reason For Visit Chief Complaint VOMITING, STOMACH [...] * INFLUEN VACC 2015-(GLAXO) (FLUARIX 2015-17 (GLAXO), [employer] PHARM, Lot # [id number]); Administered 08/05/2016 11:22 AM; 1 DOSE=0.5 ML, INTRAMUSCL Hospital Course Hospital Discharge Instructions Allergies, Adverse Reactions, Alerts * Latex Allergy has not been assessed. * IV Contrast Allergy has not been assessed. * No Known Drug Allergies. Medication Medication reconciliation has not been performed.
--- OUTSIDE RECORDS SUMMARY | 2017-01-11 11:57 | XMS REPORT ---
Author Author GENERATED, SYSTEM Organization Unknown Address Unknown Phone Unavailable Care Team Providers Care Aboriginal Liaison Officer Name Role Phone MD BRY, [facility] [phone] Reason For Visit Chief Complaint VOMITING, ABD [...] MG/DL (65-99 MG/DL) *GFR EST NON AFR JAPANESE >90 ML/MIN *GFR EST AFR AMER >90 [...] epigastric pain and n/v, was seen in [facility] Thursday and and at [facility] on Thursday. Had CT scan and sonogram at clinic on Thursday. Pt continues to abd pain and n/v today. Technique: Post contrast images were performed after the administration of 95 milliliters of Isovue intravenous contrast. 3 dimensional reconstructions were performed by the technologist. Priors: None. Findings: Vascular Structures: Abdomen: Celiac Ashley/SMA/GRETTA: No evidence of stenosis. There are no [...]
--- OUTSIDE RECORDS SUMMARY | 2017-01-11 11:57 | XMS REPORT ---
Author Author GENERATED, SYSTEM Organization Unknown Address Unknown Phone Unavailable Care Team Providers Care Child Welfare Manager Name Role Phone MD BRY, [facility] [phone] Reason For Visit Chief Complaint VOMITING, ABD [...] H (65-99 MG/DL) *GFR EST NON AFR BULGARIAN >90 ML/MIN *GFR EST AFR AMER >90 [...]
--- OUTSIDE RECORDS SUMMARY | 2017-01-11 11:57 | XMS REPORT ---
Author Author GENERATED, SYSTEM Organization Unknown Address Unknown Phone Unavailable Care Team Providers Care Crossing Flagman Name Role Phone MD BRY, [facility] [phone] Reason For Visit Chief Complaint CYCLIC VOMITING [...] H (65-99 MG/DL) *GFR EST NON AFR NIGERIAN >90 ML/MIN *GFR EST AFR AMER >90 [...] * INFLUEN VACC 2015-(GLAXO) (FLUARIX 2015- (GLAXO), [employer] PHARM, Lot # [id number]); Administered 08/05/2016 11:22 AM; 1 DOSE=0.5 ML, INTRAMUSCL Hospital Course Hospital Discharge Instructions Allergies, Adverse Reactions, Alerts * Latex Allergy has not been assessed. * IV Contrast Allergy has not been assessed. * No Known Drug Allergies. Medication Medication reconciliation has not been performed.
--- OUTSIDE RECORDS SUMMARY | 2017-01-11 11:58 | XMS REPORT | Continuity of Care Document ---
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 Type Provider Facility Loc./Unit Complaint [id number] 10/28/2016 21:34:00 2016 04:06:56 DIS Emergency NIKOLAY BAKER A <PV2.3.2>Vomiting, unspecified</PV2.3.2><PV2.3.2>VOMITING, UPPER ABD PAIN</PV2.3.2><PV2.3.2>Vomiting, unspecified</PV2.3.2><PV2.3.2>Cannabis abuse, uncomplicated</PV2.3.2><PV2.3.2>Generalized abdominal pain</PV2.3.2> [id number] 10/28/2016 11:46:00 2016 22:44:18 DIS Emergency PJ GREEN VOMITING [id number] 09/21/2016 12:22:00 2015 02:03:39 DIS Emergency TITI DEL REAL NAUSEA AND VOMITTING [id number] 09/17/2016 05:27:00 2015 09:13:47 DIS Inpatient RASHAAD GUZMAN <PV2.3.2>ABD PAIN-EPIGASTRIC, N/V</PV2.3.2><PV2.3.2>EGD</PV2.3.2> [id number] 08/25/2016 18:59:00 2015 08:45:07 DIS Emergency MIKI SCHWARTZ VOMITING ABD PAIN [id number] 08/24/2016 21:47:00 2015 05:41:56 DIS Emergency MIKI SCHWARTZ <PV2.3.2>Epigastric pain</PV2.3.2><PV2.3.2>VOMITING, STOMACH PAIN</PV2.3.2>< PV2.3.2>Nausea with vomiting, unspecified</PV2.3.2><PV2.3.2>Epigastric pain</ PV2.3.2><PV2.3.2>Impacted cerumen, bilateral</PV2.3.2><PV2.3.2>Other terminal computer operator ( current) drug therapy</PV2.3.2> [id number] 08/24/2016 08:57:00 2015 19:13:32 DIS Emergency PJ GREEN <PV2.3.2>Nausea with vomiting, unspecified</PV2.3.2><PV2.3.2>VOMITING, ABD PAIN</PV2.3.2><PV2.3.2>Nausea with vomiting, unspecified</PV2.3.2><PV2.3.2> Hypokalemia</PV2.3.2> [id number] 08/23/2016 17:16:00 2015 23:34:28 DIS Emergency MIKI SCHWARTZ VOMITING [id number] 08/03/2016 23:18:00 2015 12:05:34 DIS Outpatient MIRANDA MARIELOS <PV2.3.2>Hyperosmolality and hypernatremia</PV2.3.2><PV2.3.2>INTRACTABLE NAUSEA VOMITING</PV2.3.2><PV2.3.2>Hyperosmolality and hypernatremia</PV2.3.2>< PV2.3.2>Syncope and collapse</PV2.3.2><PV2.3.2>Bradycardia, unspecified</ PV2.3.2><PV2.3.2>Benign neoplasm of unspecified adrenal gland</PV2.3.2><PV2.3.2> Hypertensive chronic kidney disease w stg 1-4/unsp chr kdny</PV2.3.2><PV2.3.2> Chronic kidney disease, unspecified</PV2.3.2><PV2.3.2>Hypothyroidism, unspecified</PV2.3.2><PV2.3.2>Nonrheumatic mitral (valve) insufficiency</PV2.3.2 ><PV2.3.2>Atrioventricular block, first degree</PV2.3.2><PV2.3.2>Occlusion and stenosis of bilateral carotid arteries</PV2.3.2><PV2.3.2>Personal history of other benign neoplasm</PV2.3.2> [id number] 08/03/2016 09:26:00 2015 14:34:20 DIS Emergency TITI DEL REAL VOMITING, ABD PAIN [id number] 08/31/2016 13:07:00 Document Registration [id number] 08/27/2016 11:00:00 Document Registration
--- OUTSIDE RECORDS SUMMARY | 2017-01-11 11:58 | XMS REPORT ---
Author Author GENERATED, SYSTEM Organization Unknown Address Unknown Phone Unavailable Care Team Providers Care Business Analysis Consultant Name Role Phone MD LONDONO VERLIN [phone] Reason For Visit Reason for Visit from [...] 10:30 AM * Address # 1 : [facility]: [address], [place]- or Procedures * Completed Esophagogastroduodenoscopy, by MD RASHAAD GUZMAN, on 09/17/2016 8:02 AM Immunizations * Influenza, seasonal, injectable (Trabajo[employer]O PHARM, Lot # [id number]); Administered 08/2016 11:22 [...]
--- OUTSIDE RECORDS SUMMARY | 2017-01-11 11:58 | XMS REPORT ---
Author Author GENERATED, SYSTEM Organization Unknown Address Unknown Phone Unavailable Care Team Providers Care Interventional Pain Physician Name Role Phone MD BRY, SHANEL [phone] Reason For Visit Chief Complaint VOMITING Social [...] (65-99 MG/DL) *GFR EST NON AFR BOTSWANAN 81 ML/MIN *GFR EST AFR AMER >90 [...] * INFLUEN VACC (GLAXO) (FLUARIX 2015- (GLAXO), [employer] PHARM, Lot # [id number]); Administered 08/05/2016 11:22 AM; 1 DOSE=0.5 ML, INTRAMUSCL Hospital Course Hospital Discharge Instructions Allergies, Adverse Reactions, Alerts * Latex Allergy has not been assessed. * IV Contrast Allergy has not been assessed. * No Known Drug Allergies. Medication Medication reconciliation has not been performed.
--- OUTSIDE RECORDS SUMMARY | 2017-01-11 11:58 | XMS REPORT | Continuity of Care Document ---
Author Author [facility] Organization [facility] Address Unknown Phone Unavailable Support Name Relationship Address Phone BRODY LORENZ MD Caregiver [address] [place] [address] Unavailable ANTHONY HUGHES MD Caregiver [address] [place] [address] Unavailable DARSHAN CANSECO Next Of Kin [address] [facility] [facility] [address] [place] [address] Insurance Providers Guarantor Leandro Canseco Address [address] [place] [address] Email [email or web address] Payer Standard Wps Policy Number [id number] Subscriber's Name Darshan Canseco Relationship 19 Child Chief Complaint and Reason for Visit Chief [...] Allergy Relief 50 Mcg/Actuation Nasal) 9.9 Ml [place].susp 1 [place] Intranasal Daily 01/04/17 Levocarnitine Tartrate (L-Carnitine) Unknown [...] Medications Medication Directions Ordered Status Acetaminophen/Hydrocodone Bitart ([place] 5-325 Tablet) 5-325 Tablet, 1 Tab Oral [...] Onset Date Status Hx Substance Use Y MARIJUANA 01/11/2017 12:11am Not Applicable Not Applicable Hx Alcohol Use No 01/11/2017 12:11am Not Applicable Not Applicable Has the pt used tobacco in the last 12 months No 11/07/2016 8:47pm Not Applicable Not Applicable Tobacco Usage none 08/12/2015 12:03pm Not Applicable Not Applicable Query Response Start Date Stop Date Smoking Status Never smoker Hospital Discharge Instructions No hospital discharge instructions. Plan of Care Discharge Date 01/11/17 1:06am Disposition 01 DISCHARGED HOME, SELF-CARE Condition at Discharge Improved Instructions/Education Provided Acute Nausea and Vomiting (ED) Prescriptions See Medication Section Referrals ANTHONY HUGHES MD Address: [address] [place] [address] [place] [address] Additional Instructions/Education Use your routine medications at home Drink 2 quarts of fluid daily Care Plan and Goals Physician Care Plan Problem: Cyclic vomiting syndrome, recurrent Goal: Follow up with primary care provider Instructions: Take medications and follow care plan as discussed/written Use your routine medications at home Drink 2 quarts of fluid daily Functional Status No functional status results. Allergies, Adverse Reactions, Alerts Allergen Type Severity Reaction Status Last Updated Lactose Adverse Reaction Unknown ON LACTOSE FREE DIET Active 01/10/17 Immunizations Query Response on File Recorded Date/Time Hx Influenza Vaccination Y July 2016 11/07/16 8:47pm Hx Pneumococcal Vaccination No 11/07/16 8:47pm Hx Tetanus, Diptheria, Pertussis Y 04/201002/19/12 9:34am Hx Influenza Vaccination Y July 2016 11/07/16 8:47pm Hx Tetanus, Diptheria, Pertussis Y 04/201002/19/12 9:34am DTaP Vaccine History UP TO DATE 01/11/17 12:11am Influenza Vaccine Hx 07/201601/11/17 12:11am Vital Signs Acute Vital Signs Vital Response Date/Time Temperature (Fahrenheit) 97.6 deg F (96.8 - 99.1) 01/11/2017 1:06am Temperature (Calculated Celsius) 36.51315 degrees C (36.0 - 37.3) 01/11/2017 1:06am Pulse Rate (adult) 79 bpm (60 - 100) 01/11/2017 1:06am Respiratory Rate 14 breaths/min (10 - 20) 01/11/2017 1:06am O2 Sat by Pulse Oximetry 97 % (90 - 100) 01/11/2017 1:06am Oxygen Delivery Method Room Air 11/08/2016 12:55pm Blood Pressure 144/93 mm Hg 01/11/2017 1:06am Blood Pressure Source Automatic Cuff 11/08/2016 12:55pm Height (Feet) 5 feet 01/10/2017 11:09pm Height (Inches) 7.00 inches 01/10/2017 11:09pm Weight (Kilograms) 64.500 kg 01/10/2017 11:09pm Body Mass Index (BMI) 22.0 01/10/2017 11:09pm Results Laboratory Results Test Name Result Units [...] Eosinophils (%) (Auto) 0.1 % 0-4 11/09/2016 1:33pm 11/09/2016 1:39pm Basophils (%) (Auto) 0.2 % [...] CLEAR 11/09/2016 2:06pm 11/09/2016 2:14pm Urine Specific [place] 1.015 1.015-1.025 11/09/2016 2:06pm 2016 2:14pm Urine [...] 2016 2:14pm Icterus Index < 2 0-7 01/10/2017 11:34pm 01/11/2017 12:04am Chemistry Specimen Hemolysis < 15 0-25 01/10/2017 11:34pm 01/11/2017 12:04am 0-25: Specimen Exhibited No Hemolysis. Turbidity < 20 0-20 01/10/2017 11:34pm 01/11/2017 12:04am Sodium Level 144 MEQ/L 134-144 01/10/2017 11:34pm 01/11/2017 12:04am Potassium Level 4.0 MEQ/L 3.6-5 01/10/2017 11:34pm 01/11/2017 12:04am Chloride Level 105 MEQ/L 98-107 01/10/2017 11:34pm 01/11/2017 12:04am Carbon Dioxide Level 23 MEQ/L 22-30 01/10/2017 11:34pm 01/11/2017 12: 04am Anion Gap 16 MEQ/L H 5-15 01/10/2017 11:34pm 01/11/2017 12:04am Blood Urea Nitrogen 10.0 MG/DL 9-20 01/10/2017 11:34pm 01/11/2017 12: 04am Creatinine 0.8 MG/DL 0.8-1.5 01/10/2017 11:34pm 01/11/2017 12:04am BUN/Creatinine Ratio 13 RATIO 6-26 01/10/2017 11:34pm 01/11/2017 12: 04am Glomerular Filtration Rate Calc 125 01/10/2017 11:34pm 01/11/2017 12:04am Glucose Level 127 MG/DL H 75-110 01/10/2017 11:34pm 01/11/2017 12:04am Calculated Osmolality 278 MOSM/KG 261-280 01/10/2017 11:34pm 2016 12:04am Calcium Level 10.4 MG/DL H 8.4-10.2 01/10/2017 11:34pm 01/11/2017 12: 04am Procedures Procedure Status Date Provider(s) Comprehen metabolic panel Completed 11/02/16 Urinalysis auto w/o scope Completed 11/02/16 Assay of lipase Completed 11/02/16 Complete cbc w/auto diff wbc Completed 11/02/16 Ther/proph/diag inj iv push Completed 11/02/16 Tx/pro/dx inj new drug addon Completed 11/02/16 Tx/pro/dx inj new drug addon Completed 11/02/16 Emergency dept visit Completed 11/02/16 DRUG TESTS, PRESUMPTIVE, ANY NUMBER OF PROCEDURES Completed 11/02/16 278329"INJECTION, PROCHLORPERAZINE, UP TO 10 MG" Completed 11/02/16829783"INJECTION, KETOROLAC TROMETHAMINE, PER 15 MG" Completed 11/02/16 846509"INFUSION, NORMAL SALINE SOLUTION , 1000 CC" Completed 11/02/16 631842"INFUSION, NORMAL SALINE SOLUTION , 250 CC" Completed 11/02/16 Hydrate iv infusion add-on Completed 11/06/16 Ther/proph/diag inj iv push Completed 11/06/16 Tx/pro/dx inj new drug addon Completed 11/06/16 Emergency dept visit Completed 11/06/16421288"INJECTION, PROCHLORPERAZINE, UP TO 10 MG" Completed 11/06/16511402"INJECTION, KETOROLAC TROMETHAMINE, PER 15 MG" Completed 11/06/16 365132"INFUSION, NORMAL SALINE SOLUTION , 1000 CC" Completed 11/06/16 Ther/proph/diag inj iv push Completed 11/07/16 Emergency dept visit Completed 11/07/16532013"INJECTION, PROCHLORPERAZINE, UP TO 10 MG" Completed 11/07/16719554"INFUSION, NORMAL SALINE SOLUTION , 1000 CC" Completed [...] METOCLOPRAMIDE HCL, UP TO 10 MG" Completed 11/09/16639128"INFUSION, NORMAL SALINE SOLUTION , 1000 CC" Completed 11/09/16 Hydrate iv infusion add-on Completed 11/20/16 Ther/proph/diag inj iv push Completed 11/20/16 Tx/pro/dx inj new drug addon Completed 11/20/16 Emergency dept visit Completed 11/20/16514844"INJECTION, PROCHLORPERAZINE, UP TO 10 MG" Completed 11/20/16212016"INJECTION, ONDANSETRON HYDROCHLORIDE, PER 1 MG" Completed 11/20/16519597"INFUSION, NORMAL SALINE SOLUTION , 1000 CC" Completed 11/20/16 Metabolic panel total ca Completed 12/07/16 Hydrate iv infusion add-on Completed 12/07/16 Ther/proph/diag inj iv push Completed 12/07/16 Emergency dept visit Completed 12/07/16389089"INJECTION, ONDANSETRON HYDROCHLORIDE, PER 1 MG" Completed 12/07/16142958"INFUSION, NORMAL SALINE SOLUTION , 1000 CC" Completed 12/07/16 Ther/proph/diag inj sc/im Completed 12/07/16 Emergency dept visit Completed 12/07/16180200"INJECTION, PROCHLORPERAZINE, UP TO 10 MG" Completed 12/07/16 Metabolic panel total ca Completed 12/20/16 Hydrate iv infusion add-on Completed 12/20/16 Ther/proph/diag inj sc/im Completed 12/20/16 Ther/proph/diag inj iv push Completed 12/20/16 Emergency dept visit Completed 12/20/16057923"INJECTION, PROCHLORPERAZINE, UP TO 10 MG" Completed 12/20/16677520"INJECTION, ONDANSETRON HYDROCHLORIDE, PER 1 MG" Completed 12/20/16433850"INFUSION, NORMAL SALINE SOLUTION , 1000 CC" Completed 12/20/16 Metabolic panel total ca Completed 12/26/16 Hydrate iv infusion add-on Completed 12/26/16 Ther/proph/diag inj sc/im Completed 12/26/16 Ther/proph/diag inj iv push Completed 12/26/16 Emergency dept visit Completed 12/26/16663989"INJECTION, PROCHLORPERAZINE, UP TO 10 MG" Completed 12/26/16"INJECTION, ONDANSETRON HYDROCHLORIDE, PER 1 MG" Completed 12/26/16"INFUSION, NORMAL SALINE SOLUTION , 1000 CC" Completed 12/26/16 Hydrate iv infusion add-on Completed 12/27/16 Ther/proph/diag inj iv push Completed 12/27/16 Tx/pro/dx inj new drug addon Completed 12/27/16 Emergency dept visit Completed 12/27/16"INJECTION, PROCHLORPERAZINE, UP TO 10 MG" Completed 12/27/16"INJECTION, PROMETHAZINE HCL, UP TO 50 MG" Completed 12/27/16"INFUSION, NORMAL SALINE SOLUTION , 1000 CC" Completed 12/27/16 Hydrate iv infusion add-on Completed 12/28/16 Ther/proph/diag inj iv push Completed 12/28/16 Tx/pro/dx inj new drug addon Completed 12/28/16 Tx/pro/dx inj new drug addon Completed 12/28/16 Tx/pro/dx inj same drug aircraft maintenance instructor Completed 12/28/16 Emergency dept visit Completed 12/28/16 DRUG TESTS, PRESUMPTIVE, ANY NUMBER OF PROCEDURES Completed 12/28/16"INJECTION, PROCHLORPERAZINE, UP TO 10 MG" Completed 12/28/16"INJECTION, ONDANSETRON HYDROCHLORIDE, PER 1 MG" Completed 12/28/16"INJECTION, ONDANSETRON HYDROCHLORIDE, PER 1 MG" Completed 12/28/16"INJECTION, PROMETHAZINE HCL, UP TO 50 MG" Completed 12/28/16"INFUSION, NORMAL SALINE SOLUTION , 1000 CC" Completed 12/28/16 Routine venipuncture Completed 01/04/17 Metabolic panel total ca Completed 01/04/17 Ther/proph/diag inj sc/im Completed 01/04/17 Ther/proph/diag inj iv push Completed 01/04/17 Emergency dept visit Completed 01/04/17860785JWO-HKQILTP ITEM OR SERVICE Completed 01/04/17"INJECTION, PROCHLORPERAZINE, UP TO 10 MG" Completed 01/04/17"INJECTION, ONDANSETRON HYDROCHLORIDE, PER 1 MG" Completed 01/04/17"INFUSION, NORMAL SALINE SOLUTION , 1000 CC" Completed 01/04/17 Encounters Encounter Location Arrival/Admit Date Discharge/Depart Date Attending Provider Departed Emergency Room [facility] 01/10/17 11:06pm 01/11/17 1: 06am BRODY LORENZ MD Departed Emergency Room [facility] 01/04/17 [facility] 12/07/16 8:53pm 12/08/16 12: 11am FEBRUARYJAVI DO Departed Emergency Room [facility] [...]
--- OUTSIDE RECORDS SUMMARY | 2017-01-11 11:58 | XMS REPORT ---
Author Author GENERATED, SYSTEM Organization Unknown Address Unknown Phone Unavailable Care Team Providers Care Supply Chain Logistics Manager Name Role Phone MD BRY, SHANEL [phone] Reason For Visit Chief Complaint VOMITING ABD [...] MG/DL (65-99 MG/DL) *GFR EST NON AFR [place]GOL[place] >90 ML/MIN *GFR EST AFR AMER >90 [...] Immunizations * INFLUEN VACC (GLAXO) (FLUARIX (GLAXO), [employer] PHARM, Lot # [id number]); Administered 08/05/2016 11:22 AM; 1 DOSE=0.5 ML, INTRAMUSCL Hospital Course Hospital Discharge Instructions Allergies, Adverse Reactions, Alerts * Latex Allergy has not been assessed. * IV Contrast Allergy has not been assessed. * No Known Drug Allergies. Medication Medication reconciliation has not been performed.
--- OUTSIDE RECORDS SUMMARY | 2017-01-11 11:59 | XMS REPORT ---
Author Author [employer], SYSTEM Organization Unknown Address Unknown Phone Unavailable Care Team Providers Care Microelectronics Engineer Name Role Phone UNASSIGNED DOCTOR , DOCTOR PP [phone] Reason For Visit Chief Complaint VOMITING Social [...] H (65-99 MG/DL) *GFR EST NON AFR NORTH KOREAN >90 ML/MIN *GFR EST AFR AMER >90 [...] 09/17/2016 8:02 AM * Completed Procedure Code: [id number] Procedure Name: not valued, on 09/17/2016 12:00 AM * Completed Procedure Code: [id number] Procedure Name: not valued, on 09/17/2016 12: 00 AM Immunizations * Influenza, seasonal, injectable ([employer] PHARM, Lot # [id number]); Administered 08/2016 11:22 AM; 1 DOSE=0.5 ML, INTRAMUSCL Hospital Course Hospital Discharge Instructions Allergies, Adverse Reactions, Alerts * Latex Allergy has not been assessed. * IV Contrast Allergy has not been assessed. * No Known Drug Allergies. Medication Medication reconciliation has not been performed.
--- NOTE | 2017-01-11 13:20 | NUR ---
PROVIDER Liliya KNAPP WELDER FITTER ARC IN TO SEE PATIENT.
[2017-01-11] MEDS ORDERED: PROCHLORPERAZINE 10mg/2ml INJECTION IV ONE (13:45)
[2017-01-11] MEDS ORDERED: NORMAL SALINE 1,000 ML IV ONE (13:45)
--- NOTE | 2017-01-11 13:50 | ERPDOC ---
Departure Disposition Decision Date: Jan 11, 2017 Disposition Decision Time: 14:54 (DOUGLAS KNAPP APRN) Disposition: 01 DISCHARGED HOME, SELF-CARE Impression Impression (DOUGLAS KNAPP APRN) Impression: Primary Impression: Cyclic vomiting syndrome Vomiting Intractability: non-intractable Nausea presence: with nausea Qualified Codes: G43.A0 - Cyclical vomiting, not intractable Severity: Moderate (DOUGLAS KNAPP APRN) Condition: Stable Seen By: Mid-level only (DOUGLAS KNAPP APRN) Referrals: ANTHONY HUGHES MD (Family) Patient Instructions: Acute Nausea and Vomiting (ED) Problems/Meds/Labs Reviewed?: Yes Medications reviewed and manag: Yes (DOUGLAS KNAPP APRN) Additional Instructions: Continue with your nausea medications at home as needed. Follow up with your primary care provider if any further issues/concerns. Follow up care ordered?: Yes Mental Status: Alert (DOUGLAS KNAPP APRN) HPI - Abdominal Pain General Chief Complaint: Nausea,Vomiting,Diarrhea Stated Complaint: VOMITING,NAUSEA Time Seen by Provider: 13:28 Source: patient History/Exam Limitations: no limitations (DOUGLAS KNAPP APRN) Time Seen by Provider: 13:28 (ISAI LYONS MD) HPI - Abdominal Pain Initial Comments He has a history of cyclic vomiting syndrome. Was evaluated in Er last night around 11pm and was sent home. Had improvement of his symptoms upon dismissal. This morning his vomiting started again around 0600. Has taken his Zofran, Compazine, and a promethazine suppository at home without relief of his symptoms. Presents to ER for evaluation. Denies any fever or chills. Is having abdominal pain. This is like his typical symptoms that he gets with his cyclic vomiting. Occurred At: home Onset: Rapid Duration: other (0600 this morning) Quality: cramping Location: generalized abdomen Radiation: no radiation Activities at Onset: none Associated Symptoms: nausea/vomiting, DENIES: back pain, chest pain, diaphoresis, fatigue, fever/chills, headache, heartburn, rash, shortness of breath, swelling/mass in abdomen, syncope, weakness Hx of Similar Symptoms: No (DOUGLAS KNAPP APRN) Allergies: Coded Allergies: lactose (Verified Adverse Reaction, Unknown, ON LACTOSE FREE DIET, 01/11/17 ) PER HISTORY AND PHYSICAL DATED 12-13-15 Past History Patient Surgical History Tonsillectomy (NOLD,DOUGLAS N DIRECTOR OF EARLY CHILDHOOD) Past Medical History ENMT: allergies GI: GERD, constipation, other (NOLD,DOUGLAS N DIRECTOR OF EARLY CHILDHOOD) Surgical History General: EGD, colonoscopy, tonsils (NOLD,DOUGLAS N DIRECTOR OF EARLY CHILDHOOD) Family History Family PMH: FOUND: [place], diabetes, hypertension (NOLD,DOUGLAS N DIRECTOR OF EARLY CHILDHOOD) Vaccines Hx Influenza Vaccination: Yes (July 2016) Hx Pneumococcal Vaccination: No Hx Tetanus, Diptheria, Pertuss: Yes (04/2010) (NOLD,DOUGLAS N DIRECTOR OF EARLY CHILDHOOD) Social History Does patient use chewing tobac: No Second Hand Exposure: Yes Substance Use Type: marijuana Substance last used: days (ago) Alcohol Intake: none Marital Status: Single Current Occupational Status: student (NOLD,DOUGLAS N DIRECTOR OF EARLY CHILDHOOD) Review of Systems Constitutional Constitutional: DENIES: chills, dizziness, fatigue, fever, weakness (NOLD, DOUGLAS N DIRECTOR OF EARLY CHILDHOOD) Cardiovascular Cardiac: DENIES: chest pain, orthopnea Rhythm/Rate: DENIES: irregular beat, palpitations (NOLD,DOUGLAS N DIRECTOR OF EARLY CHILDHOOD) Pulmonary Respiratory: DENIES: cough, dyspnea, sputum, tachypnea (NOLD,DOUGLAS N DIRECTOR OF EARLY CHILDHOOD) GI Upper Abdomen: nausea, vomiting, DENIES: pain Lower Abdomen: DENIES: constipation, diarrhea, pain (NOLD,DOUGLAS N DIRECTOR OF EARLY CHILDHOOD) Integumentary Skin: DENIES: rash (NOLD,DOUGLAS N DIRECTOR OF EARLY CHILDHOOD) Neurological General: DENIES: headache, numbness, tingling, weakness (NOLD,DOUGLAS N DIRECTOR OF EARLY CHILDHOOD) Physical Exam General General Nourishment: well nourished, well developed, appears stated age, no acute distress, adult General Body Habitus: well groomed (NOLD,DOUGLAS N DIRECTOR OF EARLY CHILDHOOD) Vitals and Pain First Documented Vital Signs Date Time Temp Pulse Resp B/P Pulse Ox O2 Delivery O2 Flow Rate FiO2 01/11/17 11:55 98.1 105 17 134/79 98 Room Air (ISAI LYONS MD) Vitals and Pain Weight: Kilograms: 59.000 Height (feet): 5 Height (inches): 5.00 Triage Pain Scale: (DOUGLAS KNAPP APRN) RN VS reviewed by Provider: Yes (DOUGLAS KNAPP APRN) Normal Exams: ENMT: No facial trauma, nasal exudates, pharyngeal erythema, or exudates are noted Neck: Full range of motion, without adenopathy, JVD, bruits or thyromegaly Chest/Resp: Clear all greenberg, with good airflow, and symmetry bilaterally CV: Regular rate and rhythm, without murmur or gallop, Pulses 2+ all extremities, capillary refill, <2 seconds all ext., no pedal edema noted Abdomen: Bowel sounds positive, soft, non-tender, non-distended, no hepatosplenomegaly, masses or bruits noted Lymphatic: No lymphadenopathy, or lymphedema noted Integumentary: No rashes, hives, or bruising noted Neurologic: Patient is alert, and oriented Psychiatric: Patient exhibits, appropriate attention, emotion and affect (DOUGLAS KNAPP APRN) ENMT (brief) ENMT Brief: FOUND: mucosa moist (DOUGLAS KNAPP APRN) Differential Diagnoses Considering: Dehydration, Food Poisoning, Gastroenteritis, Hyponatremia, Hypokalemia, Hypoglycemia, Metabolic Alkalosis, Metabolic Acidosis (DOUGLAS KNAPP APRN) Progress Results/Orders Orders Procedure Category Date Status Time Iv Lock (Ed Only) EDM 01/11/17 Transmitted 13:34 Bmp - Basic Metabolic LAB 01/11/17 Complete Panel Normal Saline (Normal PHA 01/11/17 Complete Saline Iv) 13:45 Prochlorperazine PHA 01/11/17 Complete (Compazine) 13:45 Metoclopramide PHA 01/11/17 Complete (Reglan Inj) 14:30 Ondansetron Inj PHA 01/11/17 Complete (Zofran) 14:30 (ISAI LYONS MD) Lab Results Laboratory Tests Test 01/11/17 13:43 Turbidity < 20 Sodium Level 142MEQ/L Potassium Level 4.0MEQ/L Chloride Level 106MEQ/L Carbon Dioxide Level 21MEQ/L Anion Gap 15MEQ/L Blood Urea Nitrogen 10.0MG/DL Creatinine 0.7MG/DL Glomerular Filtration Rate Calc 145 BUN/Creatinine Ratio 14RATIO Glucose Level 117MG/DL Calculated Osmolality 273MOSM/KG Calcium Level 10.4MG/DL Icterus Index < 2 Chemistry Specimen Hemolysis < 15 (ISAI LYONS MD) Medications Current ED Medications Sodium Chloride (Normal Saline IV) 1,000 ml @ 1,000 mls/hr Q1H ONCE IV Last administered on 01/11/17 13:44; Start 01/11/17 at 13:45; Stop 01/11/17 at 14:44 ; Status DC Prochlorperazine Edisylate (Compazine) 10 mg O ONCE IV Last administered on 13:44; Start 01/11/17 at 13:45; Stop 01/11/17 at 13:46; Status DC Metoclopramide HCl (REGLAN Inj) 10 mg O ONCE IV ; Start 01/11/17 at 14:30; Stop 01/11/17 at 14:30; Status DC Ondansetron HCl (Zofran) 4 mg O ONCE IV Last administered on 01/11/17 14:24; Start 01/11/17 at 14:30; Stop 01/11/17 at 14:31; Status DC (ISAI LYONS MD) Progress Progress BMP is normal. He does feel improved after the IVF infused and compazine and zofran given. Is ready to go home. (DOUGLAS KNAPP APRN) DOUGLAS KNAPP APRN Jan 11, 2017 13:50 ISAI LYONS MD Jan 12, 2017 10:23
[2017-01-11 13:59] LABS: ANION GAP 15 MEQ/L (5-15); BUN/CREATININE RATIO 14 RATIO (6-26); CALCIUM 10.4 MG/DL (8.4-10.2); CHLORIDE 106 MEQ/L (98-107); CO2 - CARBON DIOXIDE 21 MEQ/L (22-30); CREATININE 0.7 MG/DL (0.8-1.5); GLOMERULAR FILTRATION RATE 145; GLUCOSE 117 MG/DL (75-110); SODIUM 142 MEQ/L (134-144)
--- NOTE | 2017-01-11 14:12 | NUR ---
STATUS PATIENT STATES, "THAT MEDICINE HELPED." PATIENT IS RESTING IN BED WITH NO COMPLAINTS AT THIS TIME. IVF INFUSING.
[2017-01-11] MEDS ORDERED: METOCLOPRAMIDE 10mg/2ml INJECTION IV ONE (14:30)
[2017-01-11] MEDS ORDERED: ONDANSETRON 4mg/2ml INJECTION IV ONE (14:30)
--- OUTSIDE RECORDS SUMMARY | 2017-01-11 14:42 | XMS REPORT ---
Author Author GENERATED, SYSTEM Organization Unknown Address Unknown Phone Unavailable Care Team Providers Care Web Site Designer Name Role Phone MD LONDONO VERLIN [phone] Reason For Visit Chief Complaint NAUSEA AND [...] Procedures * Completed Esophagogastroduodenoscopy, by MD THOMAS [facility], on 09/17/2016 8:02 AM Immunizations * Influenza, seasonal, injectable ([employer] PHARM, Lot # [id number]); Administered 08/2016 11:22 AM; 1 DOSE=0.5 ML, INTRAMUSCL Hospital Course Hospital Discharge Instructions Allergies, Adverse Reactions, Alerts * Latex Allergy has not been assessed. * IV Contrast Allergy has not been assessed. * No Known Drug Allergies. Medication Medication reconciliation has not been performed.
--- OUTSIDE RECORDS SUMMARY | 2017-01-11 14:43 | XMS REPORT ---
Author Author GENERATED, SYSTEM Organization Unknown Address Unknown Phone Unavailable Care Team Providers Care Veterans Adviser Name Role Phone MD [facility] [phone] Reason For Visit Chief Complaint VOMITING Social [...] H (65-99 MG/DL) *GFR EST NON AFR VIETNAMESE >90 ML/MIN *GFR EST AFR AMER >90 [...] Immunizations * INFLUEN VACC (GLAXO) (FLUARIX (GLAXO), [employer] PHARM, Lot # [id number]); Administered 08/05/2016 11:22 AM; 1 DOSE=0.5 ML, INTRAMUSCL Hospital Course Hospital Discharge Instructions Allergies, Adverse Reactions, Alerts * Latex Allergy has not been assessed. * IV Contrast Allergy has not been assessed. * No Known Drug Allergies. Medication Medication reconciliation has not been performed.
--- OUTSIDE RECORDS SUMMARY | 2017-01-11 14:43 | XMS REPORT ---
Author Author GENERATED, SYSTEM Organization Unknown Address Unknown Phone Unavailable Care Team Providers Care Environmental Sustainability Manager Name Role Phone MD MISTRY VERLIN [phone] Reason For Visit Reason for Visit from [...] H (65-99 MG/DL) *GFR EST NON AFR MALAWIAN >90 ML/MIN *GFR EST AFR AMER >90 [...] H (65-99 MG/DL) *GFR EST NON AFR MALAWIAN >90 ML/MIN *GFR EST AFR AMER >90 [...] Note : Admission status: Outpatient Observation Insurance: [facility] and Veterans Patient presented to ER for [...] * INFLUEN VACC 2015-(GLAXO) (FLUARIX 2015- (GLAXO), [employer] PHARM, Lot # [id number]); Administered 08/05/2016 11:22 [...] the responsibility of the patient or patient business development representative to confirm the list of medications [...]
--- OUTSIDE RECORDS SUMMARY | 2017-01-11 14:43 | XMS REPORT ---
Author Author GENERATED, SYSTEM Organization Unknown Address Unknown Phone Unavailable Care Team Providers Care Turning Sander Operator Name Role Phone UNASSIGNED DOCTOR , DOCTOR PP [phone] Reason For Visit Chief Complaint VOMITING, UPPER [...] 09/17/2016 8:02 AM * Completed Procedure Code: [id number] Procedure Name: not valued, on 09/17/2016 12:00 AM * Completed Procedure Code: 02123 Procedure Name: not valued, on 09/17/2016 12: 00 AM Immunizations * Influenza, seasonal, injectable ([employer] PHARM, Lot # [id number]); Administered 08/2016 11:22 AM; 1 DOSE=0.5 ML, INTRAMUSCL Hospital Course Hospital Discharge Instructions Allergies, Adverse Reactions, Alerts * Latex Allergy has not been assessed. * IV Contrast Allergy has not been assessed. * No Known Drug Allergies. Medication Medication reconciliation has not been performed.
--- OUTSIDE RECORDS SUMMARY | 2017-01-11 14:44 | XMS REPORT ---
Author Author GENERATED, SYSTEM Organization Unknown Address Unknown Phone Unavailable Care Team Providers Care Cardiac/Vascular Sonographer Name Role Phone MD BRY, [facility] [phone] Reason For Visit Chief Complaint CYCLIC VOMITING [...] H (65-99 MG/DL) *GFR EST NON AFR MALDIVIAN >90 ML/MIN *GFR EST AFR AMER >90 [...] * INFLUEN VACC 2015-(GLAXO) (FLUARIX 2015- (GLAXO), [employer] PHARM, Lot # [id number]); Administered 08/05/2016 11:22 AM; 1 DOSE=0.5 ML, INTRAMUSCL Hospital Course Hospital Discharge Instructions Allergies, Adverse Reactions, Alerts * Latex Allergy has not been assessed. * IV Contrast Allergy has not been assessed. * No Known Drug Allergies. Medication Medication reconciliation has not been performed.
--- OUTSIDE RECORDS SUMMARY | 2017-01-11 14:44 | XMS REPORT ---
Author Author GENERATED, SYSTEM Organization Unknown Address Unknown Phone Unavailable Care Team Providers Care Environmental Protection Officer Name Role Phone MD BRY, [facility] [phone] Reason For Visit Chief Complaint VOMITING, ABD [...] epigastric pain and n/v, was seen in [facility] Thursday and and at [facility] on Thursday. Had CT scan and sonogram at clinic on Thursday. Pt continues to abd pain and n/v today. Technique: Post contrast images were performed after the administration of 95 milliliters of Isovue intravenous contrast. 3 dimensional reconstructions were performed by the technologist. Priors: None. Findings: Vascular Structures: Abdomen: Celiac [place]/SMA/GRETTA: No evidence of stenosis. There are no [...]
--- OUTSIDE RECORDS SUMMARY | 2017-01-11 14:44 | XMS REPORT ---
Author Author GENERATED, SYSTEM Organization Unknown Address Unknown Phone Unavailable Care Team Providers Care Mate Relief Name Role Phone MD BRY, [facility] [phone] Reason For Visit Chief Complaint VOMITING, ABD [...] H (65-99 MG/DL) *GFR EST NON AFR DOMINICAN >90 ML/MIN *GFR EST AFR AMER >90 [...]
--- OUTSIDE RECORDS SUMMARY | 2017-01-11 14:44 | XMS REPORT ---
Author Author GENERATED, SYSTEM Organization Unknown Address Unknown Phone Unavailable Care Team Providers Care Control Specialist Name Role Phone MD [facility] [phone] Reason For Visit Chief Complaint VOMITING, STOMACH [...] * INFLUEN VACC 2015-(GLAXO) (FLUARIX 2015-17 (GLAXO), [employer] PHARM, Lot # [id number]); Administered 08/05/2016 11:22 AM; 1 DOSE=0.5 ML, INTRAMUSCL Hospital Course Hospital Discharge Instructions Allergies, Adverse Reactions, Alerts * Latex Allergy has not been assessed. * IV Contrast Allergy has not been assessed. * No Known Drug Allergies. Medication Medication reconciliation has not been performed.
--- OUTSIDE RECORDS SUMMARY | 2017-01-11 14:45 | XMS REPORT ---
Author Author GENERATED, SYSTEM Organization Unknown Address Unknown Phone Unavailable Care Team Providers Care Manager Account Management Name Role Phone MD BRY, SHANEL [phone] Reason For Visit Chief Complaint VOMITING ABD [...] MG/DL (65-99 MG/DL) *GFR EST NON AFR PRYDEINIG >90 ML/MIN *GFR EST AFR AMER >90 [...] Immunizations * INFLUEN VACC (GLAXO) (FLUARIX (GLAXO), [employer] PHARM, Lot # [id number]); Administered 08/05/2016 11:22 AM; 1 DOSE=0.5 ML, INTRAMUSCL Hospital Course Hospital Discharge Instructions Allergies, Adverse Reactions, Alerts * Latex Allergy has not been assessed. * IV Contrast Allergy has not been assessed. * No Known Drug Allergies. Medication Medication reconciliation has not been performed.
--- OUTSIDE RECORDS SUMMARY | 2017-01-11 14:45 | XMS REPORT | Continuity of Care Document ---
Author Author [facility] Organization [facility] Address Unknown Phone Unavailable Allergies Medications [...] R55 Syncope and collapse 08/12/2016 MARIELOS JEAN [id number] Personal history of other benign neoplasm 08/26/2016 PJ GREEN E876 Hypokalemia 08/26/2016 PJ GREEN R112 Nausea with vomiting, unspecified 09/03/2016 MIKI SCHWARTZ H6123 Impacted cerumen, bilateral 09/03/2016 MIKI SCHWARTZ R1013 Epigastric pain 09/03/2016 MIKI SCHWARTZ R112 Nausea with vomiting, unspecified 09/03/2016 MIKI SCHWARTZ [id number] Other moth exterminator (current) drug therapy 10/31/2016 NIKOLAY BAKER [id number] [...] - 08/23/16 17:50 *GFR EST NON AFR KOSOVAN 81 mL/min NRG *GRFA EST AFR AMER [...] - 08/24/16 09:15 *GFR EST NON AFR KOSOVAN >90 mL/min NRG *GRFA EST AFR AMER [...] - 08/25/16 20:38 *GFR EST NON AFR KOSOVAN >90 mL/min NRG *GRFA EST AFR AMER [...] - 08/31/16 13:56 *GFR EST NON AFR KOSOVAN >90 mL/min NRG *GRFA EST AFR AMER [...] - 10/28/16 12:20 *GFR EST NON AFR KOSOVAN >90 mL/min NRG *GRFA EST AFR AMER [...] Status Pt. Type Provider Facility Loc./Unit Complaint [id number] 10/28/2016 21:34:00 2016 04:06:56 DIS Emergency NIKOLAY BAKER A <PV2.3.2>Vomiting, unspecified</PV2.3.2><PV2.3.2>VOMITING, UPPER ABD PAIN</PV2.3.2><PV2.3.2>Vomiting, unspecified</PV2.3.2><PV2.3.2>Cannabis abuse, uncomplicated</PV2.3.2><PV2.3.2>Generalized abdominal pain</PV2.3.2> [id number] 10/28/2016 11:46:00 2016 22:44:18 DIS Emergency PJ GREEN VOMITING [id number] 09/21/2016 12:22:00 2015 02:03:39 DIS Emergency TITI DEL REAL NAUSEA AND VOMITTING [id number] 09/17/2016 05:27:00 2015 09:13:47 DIS Inpatient RASHAAD GUZMAN <PV2.3.2>ABD PAIN-EPIGASTRIC, N/V</PV2.3.2><PV2.3.2>EGD</PV2.3.2> [id number] 08/25/2016 18:59:00 2015 08:45:07 DIS Emergency MIKI SCHWARTZ VOMITING ABD PAIN [id number] 08/24/2016 21:47:00 2015 05:41:56 DIS Emergency MIKI SCHWARTZ <PV2.3.2>Epigastric pain</PV2.3.2><PV2.3.2>VOMITING, STOMACH PAIN</PV2.3.2>< PV2.3.2>Nausea with vomiting, unspecified</PV2.3.2><PV2.3.2>Epigastric pain</ PV2.3.2><PV2.3.2>Impacted cerumen, bilateral</PV2.3.2><PV2.3.2>Other moth exterminator ( current) drug therapy</PV2.3.2> [id number] 08/24/2016 08:57:00 2015 19:13:32 DIS Emergency PJ GREEN <PV2.3.2>Nausea with vomiting, unspecified</PV2.3.2><PV2.3.2>VOMITING, ABD PAIN</PV2.3.2><PV2.3.2>Nausea with vomiting, unspecified</PV2.3.2><PV2.3.2> Hypokalemia</PV2.3.2> [id number] 08/23/2016 17:16:00 2015 23:34:28 DIS Emergency MIKI SCHWARTZ VOMITING [id number] 08/03/2016 23:18:00 2015 12:05:34 DIS Outpatient MIRANDA MARIELOS <PV2.3.2>Hyperosmolality and hypernatremia</PV2.3.2><PV2.3.2>INTRACTABLE NAUSEA VOMITING</PV2.3.2><PV2.3.2>Hyperosmolality and hypernatremia</PV2.3.2>< PV2.3.2>Syncope and collapse</PV2.3.2><PV2.3.2>Bradycardia, unspecified</ PV2.3.2><PV2.3.2>Benign neoplasm of unspecified adrenal gland</PV2.3.2><PV2.3.2> Hypertensive chronic kidney disease w stg 1-4/unsp chr kdny</PV2.3.2><PV2.3.2> Chronic kidney disease, unspecified</PV2.3.2><PV2.3.2>Hypothyroidism, unspecified</PV2.3.2><PV2.3.2>Nonrheumatic mitral (valve) insufficiency</PV2.3.2 ><PV2.3.2>Atrioventricular block, first degree</PV2.3.2><PV2.3.2>Occlusion and stenosis of bilateral carotid arteries</PV2.3.2><PV2.3.2>Personal history of other benign neoplasm</PV2.3.2> [id number] 08/03/2016 09:26:00 2015 14:34:20 DIS Emergency TITI DEL REAL VOMITING, ABD PAIN [id number] 08/31/2016 13:07:00 Document Registration [id number] 08/27/2016 11:00:00 Document Registration
--- OUTSIDE RECORDS SUMMARY | 2017-01-11 14:46 | XMS REPORT ---
Author Author GENERATED, SYSTEM Organization Unknown Address Unknown Phone Unavailable Care Team Providers Care Acquisition Professional Name Role Phone MD LONDONO VERLIN [phone] Reason For Visit Reason for Visit from [...] 10:30 AM * Address # 1 : [facility]: [address], [place]- or Procedures * Completed Esophagogastroduodenoscopy, by MD RASHAAD GUZMAN, on 09/17/2016 8:02 AM Immunizations * Influenza, seasonal, injectable ([employer] PHARM, Lot # [id number]); Administered 08/2016 11:22 [...]
--- OUTSIDE RECORDS SUMMARY | 2017-01-11 14:46 | XMS REPORT ---
Author Author GENERATED, SYSTEM Organization Unknown Address Unknown Phone Unavailable Care Team Providers Care Dairy Scientist Name Role Phone UNASSIGNED DOCTOR , DOCTOR PP [phone] Reason For Visit Chief Complaint VOMITING Social [...] H (65-99 MG/DL) *GFR EST NON AFR CROATIAN >90 ML/MIN *GFR EST AFR AMER >90 [...] 09/17/2016 8:02 AM * Completed Procedure Code: [id number] Procedure Name: not valued, on 09/17/2016 12:00 AM * Completed Procedure Code: [id number] Procedure Name: not valued, on 09/17/2016 12: 00 AM Immunizations * Influenza, seasonal, injectable ([employer] PHARM, Lot # [id number]); Administered 08/2016 11:22 AM; 1 DOSE=0.5 ML, INTRAMUSCL Hospital Course Hospital Discharge Instructions Allergies, Adverse Reactions, Alerts * Latex Allergy has not been assessed. * IV Contrast Allergy has not been assessed. * No Known Drug Allergies. Medication Medication reconciliation has not been performed.
--- OUTSIDE RECORDS SUMMARY | 2017-01-11 14:46 | XMS REPORT ---
Author Author GENERATED, SYSTEM Organization Unknown Address Unknown Phone Unavailable Care Team Providers Care Roller Billet Mill Name Role Phone MD BRY, SHANEL [phone] Reason For Visit Chief Complaint VOMITING Social [...] (65-99 MG/DL) *GFR EST NON AFR TAJIK 81 ML/MIN *GFR EST AFR AMER >90 [...] * INFLUEN VACC (GLAXO) (FLUARIX 2015- (GLAXO), [employer] PHARM, Lot # [id number]); Administered 08/05/2016 11:22 AM; 1 DOSE=0.5 ML, INTRAMUSCL Hospital Course Hospital Discharge Instructions Allergies, Adverse Reactions, Alerts * Latex Allergy has not been assessed. * IV Contrast Allergy has not been assessed. * No Known Drug Allergies. Medication Medication reconciliation has not been performed.
[2017-01-11 15:07] VITALS: BP 125/70; PULSE 80; RESP 17; TEMP 98.1; O2SAT 98
== END 2017-01-11 15:07 | disposition home or self-care (01) ==
LOC: ED 11:52
DX: G43.A0 Cyclical vomiting, in migraine, not intractable (principal); F12.90 Cannabis use, unspecified, uncomplicated
CPT/HCPCS: 36415; 80048; 96361; 96374; 96375; 99284; J0780; J2405; J7030

== ENCOUNTER 2017-02-07 08:12 | Emergency (ER) | payer OTHER ==
[~2017-02-07] VITALS: Ht 165.1 cm; Wt 66.0 kg
[2017-02-07 08:15] VITALS: Ht 165.1 cm; Wt 66.0 kg
--- OUTSIDE RECORDS SUMMARY | 2017-02-07 08:16 | XMS REPORT ---
Author Author GENERATED, SYSTEM Organization Unknown Address Unknown Phone Unavailable Care Team Providers Care Instrument Repair Supervisor Name Role Phone MD LONDONO VERLIN [phone] Reason For Visit Chief Complaint NAUSEA AND [...] Procedures * Completed Esophagogastroduodenoscopy, by MD THOMAS [facility], on 09/17/2016 8:02 AM Immunizations * Influenza, seasonal, injectable ([employer] PHARM, Lot # [id number]); Administered 08/2016 11:22 AM; 1 DOSE=0.5 ML, INTRAMUSCL Hospital Course Hospital Discharge Instructions Allergies, Adverse Reactions, Alerts * Latex Allergy has not been assessed. * IV Contrast Allergy has not been assessed. * No Known Drug Allergies. Medication Medication reconciliation has not been performed.
--- OUTSIDE RECORDS SUMMARY | 2017-02-07 08:16 | XMS REPORT | Continuity of Care Document ---
Author Author [facility] Organization [facility] Address Unknown Phone Unavailable Support Name Relationship Address Phone ANTHONY HUGHES MD Caregiver [address] [place] [address] Unavailable ISAI LYONS MD Caregiver [address] [place] [address] Unavailable DARSHAN CANSECO Next Of Kin [address] [place], [place] [id number] Insurance Providers Guarantor Leandro Canseco Address [address] [place] [address] Email [email or web address] Payer Standard Wps Policy Number [id number] Subscriber's Name Darshan Canseco Relationship 19 Child Advance Directives Directive Response Recorded Date/Time Advanced Directives Type None 01/11/17 11:55am Chief Complaint and Reason for Visit Chief [...] Allergy Relief 50 Mcg/Actuation Nasal) 9.9 Ml Fletcher.susp 1 Fletcher Intranasal Daily 01/04/17 Levocarnitine Tartrate (L-Carnitine) Unknown [...] Medications Medication Directions Ordered Status Acetaminophen/Hydrocodone Bitart ([place] 5-325 Tablet) 5-325 Tablet, 1 Tab Oral Three Times A Day as needed for Pain 09/02/16 Discontinued Esomeprazole Mag Trihydrate (Nexium) 40 Mg Capsule., 40 Mg Oral Daily 02/18 Discontinued Lansoprazole [...] Status Hx Substance Use Y MARIJUANA 01/11/2017 1:13pm Not Applicable Not Applicable Hx Alcohol Use No 01/11/2017 1:13pm Not Applicable Not Applicable Has the pt used tobacco in the last 12 months No 11/07/2016 8:47pm Not Applicable Not Applicable Tobacco Usage none 08/12/2015 12:03pm Not Applicable Not Applicable Query Response Start Date Stop Date Smoking Status Current every day smoker Hospital Discharge Instructions No hospital discharge instructions. Plan of Care Discharge Date 01/11/17 3:07pm Disposition 01 DISCHARGED HOME, SELF-CARE Condition at Discharge Stable Instructions/Education Provided Acute Nausea and Vomiting (ED) Prescriptions See Medication Section Referrals ANTHONY HUGHES MD Address: [address] [place] [address] [place] [address] Additional Instructions/Education Continue with your nausea medications at home as needed. Follow up with your primary care provider if any further issues/concerns. Care Plan and Goals Physician Care Plan Problem:Cyclic Vomiting Goal: Follow up with primary care provider Instructions: Take medications and follow care plan as discussed/written Functional Status No functional status results. Allergies, Adverse Reactions, Alerts Allergen Type Severity Reaction Status Last Updated Lactose Adverse Reaction Unknown ON LACTOSE FREE DIET Active 01/11/17 Immunizations Query Response on File Recorded Date/Time Hx Influenza Vaccination Y July 2016 11/07/16 8:47pm Hx Pneumococcal Vaccination No 11/07/16 8:47pm Hx Tetanus, Diptheria, Pertussis Y 04/201002/19/12 9:34am Hx Influenza Vaccination Y July 2016 11/07/16 8:47pm Hx Tetanus, Diptheria, Pertussis Y 04/201002/19/12 9:34am DTaP Vaccine History UP TO DATE 01/11/17 1:13pm Influenza Vaccine Hx 07/201601/11/17 1:13pm Vital Signs Acute Vital Signs Vital Response Date/Time Temperature (Fahrenheit) 98.1 deg F (96.8 - 99.1) 01/11/2017 11:55am Temperature (Calculated Celsius) 36.50820 degrees C (36.0 - 37.3) 01/11/2017 11:55am Pulse Rate (adult) 105 bpm (60 - 100) 01/11/2017 11:55am Respiratory Rate 17 breaths/min (10 - 20) 01/11/2017 11:55am O2 Sat by Pulse Oximetry 98 % (90 - 100) 01/11/2017 11:55am Oxygen Delivery Method Room Air 11/08/2016 12:55pm Blood Pressure 134/79 mm Hg 01/11/2017 11:55am Blood Pressure Source Automatic Cuff 11/08/2016 12:55pm Height (Feet) 5 feet 01/11/2017 11:55am Height (Inches) 5.00 inches 01/11/2017 11:55am Weight (Kilograms) 59.000 kg 01/11/2017 11:55am Body Mass Index (BMI) 21.0 01/11/2017 11:55am Results Laboratory Results Test Name Result Units [...] Eosinophils (%) (Auto) 0.1 % 0-4 11/09/2016 1:11/09/2016 1:39pm Basophils (%) (Auto) 0.2 % 0-2 [...] CLEAR 11/09/2016 2:06pm 11/09/2016 2:14pm Urine Specific [place] 1.015 1.015-1.025 11/09/2016 2:06pm 2016 2:14pm Urine [...] 2016 2:14pm Icterus Index < 2 0-7 01/11/2017 1:43pm 01/11/2017 1:59pm Chemistry Specimen Hemolysis < 15 0-25 01/11/2017 1:43pm 01/11/2017 1 :59pm 0-25: Specimen Exhibited No Hemolysis. Turbidity < 20 0-20 01/11/2017 1:43pm 01/11/2017 1:59pm Sodium Level 142 MEQ/L 134-144 01/11/2017 1:43pm 01/11/2017 1:59pm Potassium Level 4.0 MEQ/L 3.6-5 01/11/2017 1:43pm 01/11/2017 1:59pm Chloride Level 106 MEQ/L 98-107 01/11/2017 1:43pm 01/11/2017 1:59pm Carbon Dioxide Level 21 MEQ/L L 22-30 01/11/2017 1:43pm 01/11/2017 1: 59pm Anion Gap 15 MEQ/L 5-15 01/11/2017 1:43pm 01/11/2017 1:59pm Blood Urea Nitrogen 10.0 MG/DL 9-20 01/11/2017 1:43pm 01/11/2017 1: 59pm Creatinine 0.7 MG/DL L 0.8-1.5 01/11/2017 1:43pm 01/11/2017 1:59pm BUN/Creatinine Ratio 14 RATIO 6-26 01/11/2017 1:43pm 01/11/2017 1:59pm Glomerular Filtration Rate Calc 145 01/11/2017 1:43pm 01/11/2017 1: 59pm Glucose Level 117 MG/DL H 75-110 01/11/2017 1:43pm 01/11/2017 1:59pm Calculated Osmolality 273 MOSM/KG 261-280 01/11/2017 1:43pm 01/11/2017 1:59pm Calcium Level 10.4 MG/DL H 8.4-10.2 01/11/2017 1:43pm 01/11/2017 1:59pm Procedures Procedure Status Date Provider(s) Comprehen metabolic panel Completed 11/02/16 Urinalysis auto w/o scope Completed 11/02/16 Assay of lipase Completed 11/02/16 Complete cbc w/auto diff wbc Completed 11/02/16 Ther/proph/diag inj iv push Completed 11/02/16 Tx/pro/dx inj new drug addon Completed 11/02/16 Tx/pro/dx inj new drug addon Completed 11/02/16 Emergency dept visit Completed 11/02/16 DRUG TESTS, PRESUMPTIVE, ANY NUMBER OF PROCEDURES Completed 11/02/16 409414"INJECTION, PROCHLORPERAZINE, UP TO 10 MG" Completed 11/02/16 175141"INJECTION, KETOROLAC TROMETHAMINE, PER 15 MG" Completed 11/02/16 972704"INFUSION, NORMAL SALINE SOLUTION , 1000 CC" Completed 11/02/16 117292"INFUSION, NORMAL SALINE SOLUTION , 250 CC" Completed 11/02/16 Hydrate iv infusion add-on Completed 11/06/16 Ther/proph/diag inj iv push Completed 11/06/16 Tx/pro/dx inj new drug addon Completed 11/06/16 Emergency dept visit Completed 11/06/16 593424"INJECTION, PROCHLORPERAZINE, UP TO 10 MG" Completed 11/06/16 711091"INJECTION, KETOROLAC TROMETHAMINE, PER 15 MG" Completed 11/06/16 297268"INFUSION, NORMAL SALINE SOLUTION , 1000 CC" Completed 11/06/16 Ther/proph/diag inj iv push Completed 11/07/16 Emergency dept visit Completed 11/07/16 503288"INJECTION, PROCHLORPERAZINE, UP TO 10 MG" Completed 11/07/16 922260"INFUSION, NORMAL SALINE SOLUTION , 1000 CC" Completed [...] addon Completed 11/20/16 Emergency dept visit Completed 11/20/16165517"INJECTION, PROCHLORPERAZINE, UP TO 10 MG" Completed 11/20/16"INJECTION, ONDANSETRON HYDROCHLORIDE, PER 1 MG" Completed 11/20/16"INFUSION, NORMAL SALINE SOLUTION , 1000 CC" Completed 11/20/16 Metabolic panel total ca Completed 12/07/16 Hydrate iv infusion add-on Completed 12/07/16 Ther/proph/diag inj iv push Completed 12/07/16 Emergency dept visit Completed 12/07/16375947"INJECTION, ONDANSETRON HYDROCHLORIDE, PER 1 MG" Completed 12/07/16"INFUSION, NORMAL SALINE SOLUTION , 1000 CC" Completed 12/07/16 Ther/proph/diag inj sc/im Completed 12/07/16 Emergency dept visit Completed 12/07/16405089"INJECTION, PROCHLORPERAZINE, UP TO 10 MG" Completed 12/07/16 Metabolic panel total ca Completed 12/20/16 Hydrate iv infusion add-on Completed 12/20/16 Ther/proph/diag inj sc/im Completed 12/20/16 Ther/proph/diag inj iv push Completed 12/20/16 Emergency dept visit Completed 12/20/16502059"INJECTION, PROCHLORPERAZINE, UP TO 10 MG" Completed 12/20/16"INJECTION, ONDANSETRON HYDROCHLORIDE, PER 1 MG" Completed 12/20/16"INFUSION, NORMAL SALINE SOLUTION , 1000 CC" Completed 12/20/16 Metabolic panel total ca Completed 12/26/16 Hydrate iv infusion add-on Completed 12/26/16 Ther/proph/diag inj sc/im Completed 12/26/16 Ther/proph/diag inj iv push Completed 12/26/16 Emergency dept visit Completed 12/26/16"INJECTION, PROCHLORPERAZINE, UP TO 10 MG" Completed 12/26/16"INJECTION, [...] addon Completed 12/28/16 Tx/pro/dx inj same drug fish packer Completed 12/28/16 Emergency dept visit Completed 12/28/16 [...] push Completed 01/04/17 Emergency dept visit Completed 01/04/17142265LHQ-TYIYMLS ITEM OR SERVICE Completed 01/04/17"INJECTION, PROCHLORPERAZINE, UP TO 10 MG" Completed 01/04/17"INJECTION, ONDANSETRON HYDROCHLORIDE, PER 1 MG" Completed 01/04/17 455232"INFUSION, NORMAL SALINE SOLUTION , 1000 CC" Completed 01/04/17 Encounters Encounter Location Arrival/Admit Date Discharge/Depart Date Attending Provider Departed Emergency Room [facility] 01/11/17 11:52am 01/11/17 3: 07pm ISAI LYONS MD Departed Emergency Room [facility] 01/10/17 11:06pm 01/11/17 1: 06am BRODY LORENZ MD Departed Emergency Room [facility] 01/04/17 12:58pm 01/04/17 3: 30pm CRYSTAL JOSÉ DO Departed Emergency Room [facility] 12/28/16 8:02pm 12/28/16 11: 17pm BRODY LORENZ MD Departed Emergency Room [facility] 12/27/16 7:06am 12/27/16 10: 47am ISAI LYONS MD Departed Emergency Room [facility] 12/26/16 4:13pm 12/26/16 6: 40pm CRYSTAL JOSÉ DO Departed Emergency Room [facility] 12/20/16 10:17am 12/20/16 12: 46pm CRYSTAL JOSÉ DO Departed Emergency Room [facility] 12/07/16 8:53pm 12/08/16 12: 11am JAVI KAISER DO Departed Emergency Room [facility] 12/07/16 10:37am 12/07/16 12: 52pm CRYSTAL JOSÉ DO Departed Emergency Room [facility] 11/20/16 5:36pm 11/20/16 7: 53pm BRODY LORENZ MD Departed Emergency Room [facility] 11/20/16 10:44am 11/20/16 12: 10pm ISAI LYONS MD Departed Emergency Room [facility] 11/09/16 1:09pm 11/09/16 2: 55pm CARLO TOMPKINS MD Discharged Inpatient (obs) [facility] 11/07/16 7:33pm 11/08/16 3: 43pm RADHA CAMARGO MD Departed Emergency Room [facility] 11/07/16 6:04am 11/07/16 7: 30am ISAI LYONS MD Departed Emergency Room [facility] 11/06/16 5:07am 11/06/16 6: 40am ISAI LYONS MD Departed Emergency Room [facility] 11/02/16 5:26am 11/02/16 7: 20am BRITTA DONIS MD Recent Diagnosis
--- OUTSIDE RECORDS SUMMARY | 2017-02-07 08:17 | XMS REPORT ---
Author Author [facility], SYSTEM Organization Unknown Address Unknown Phone Unavailable Care Team Providers Care Sweep Molder Name Role Phone MD [facility] [phone] Reason For Visit Chief Complaint VOMITING Social [...] H (65-99 MG/DL) *GFR EST NON AFR ANDORRAN >90 ML/MIN *GFR EST AFR AMER >90 [...] Immunizations * INFLUEN VACC (GLAXO) (FLUARIX (GLAXO), [employer] PHARM, Lot # [id number]); Administered 08/05/2016 11:22 AM; 1 DOSE=0.5 ML, INTRAMUSCL Hospital Course Hospital Discharge Instructions Allergies, Adverse Reactions, Alerts * Latex Allergy has not been assessed. * IV Contrast Allergy has not been assessed. * No Known Drug Allergies. Medication Medication reconciliation has not been performed.
--- OUTSIDE RECORDS SUMMARY | 2017-02-07 08:17 | XMS REPORT ---
Author Author [facility], SYSTEM Organization Unknown Address Unknown Phone Unavailable Care Team Providers Care Dialer Name Role Phone UNASSIGNED DOCTOR , DOCTOR PP [phone] Reason For Visit Chief Complaint VOMITING, UPPER [...] 09/17/2016 8:02 AM * Completed Procedure Code: [id number] Procedure Name: not valued, on 09/17/2016 12:00 AM * Completed Procedure Code: 45074 Procedure Name: not valued, on 09/17/2016 12: 00 AM Immunizations * Influenza, seasonal, injectable ([employer] PHARM, Lot # [id number]); Administered 08/2016 11:22 AM; 1 DOSE=0.5 ML, INTRAMUSCL Hospital Course Hospital Discharge Instructions Allergies, Adverse Reactions, Alerts * Latex Allergy has not been assessed. * IV Contrast Allergy has not been assessed. * No Known Drug Allergies. Medication Medication reconciliation has not been performed.
--- OUTSIDE RECORDS SUMMARY | 2017-02-07 08:17 | XMS REPORT ---
Author Author [facility], [facility] Organization Unknown Address Unknown Phone Unavailable Care Team Providers Care Health Type Technician Name Role Phone MD MISTRY VERLIN [phone] Reason For Visit Reason for Visit from [...] H (65-99 MG/DL) *GFR EST NON AFR ALBANIAN >90 ML/MIN *GFR EST AFR AMER >90 [...] H (65-99 MG/DL) *GFR EST NON AFR ALBANIAN >90 ML/MIN *GFR EST AFR AMER >90 [...] Note : Admission status: Outpatient Observation Insurance: [facility] and Veterans Patient presented to ER for [...] * INFLUEN VACC 2015-(GLAXO) (FLUARIX 2015- (GLAXO), [employer] PHARM, Lot # [id number]); Administered 08/05/2016 11:22 [...] the responsibility of the patient or patient employment program representative to confirm the list of medications [...]
--- OUTSIDE RECORDS SUMMARY | 2017-02-07 08:17 | XMS REPORT ---
Author Author GENERATED, SYSTEM Organization Unknown Address Unknown Phone Unavailable Care Team Providers Care Data Entry Clerk Name Role Phone MD BRY, [facility] [phone] Reason For Visit Chief Complaint VOMITING, ABD [...] H (65-99 MG/DL) *GFR EST NON AFR HONDURAN >90 ML/MIN *GFR EST AFR AMER >90 [...]
--- OUTSIDE RECORDS SUMMARY | 2017-02-07 08:18 | XMS REPORT ---
Author Author [facility], SYSTEM Organization Unknown Address Unknown Phone Unavailable Care Team Providers Care Beehive Kiln Charcoal Burner Name Role Phone MD BRY, [facility] [phone] Reason For Visit Chief Complaint CYCLIC VOMITING [...] H (65-99 MG/DL) *GFR EST NON AFR [place]AST [place] >90 ML/MIN *GFR EST AFR AMER >90 [...] * INFLUEN VACC 2015-(GLAXO) (FLUARIX 2015- (GLAXO), [employer] PHARM, Lot # [id number]); Administered 08/05/2016 11:22 AM; 1 DOSE=0.5 ML, INTRAMUSCL Hospital Course Hospital Discharge Instructions Allergies, Adverse Reactions, Alerts * Latex Allergy has not been assessed. * IV Contrast Allergy has not been assessed. * No Known Drug Allergies. Medication Medication reconciliation has not been performed.
--- OUTSIDE RECORDS SUMMARY | 2017-02-07 08:18 | XMS REPORT ---
Author Author [facility], SYSTEM Organization Unknown Address Unknown Phone Unavailable Care Team Providers Care Steeler Name Role Phone MD BRY, [facility] [phone] Reason For Visit Chief Complaint VOMITING, ABD [...] MG/DL (65-99 MG/DL) *GFR EST NON AFR TUNISIAN >90 ML/MIN *GFR EST AFR AMER >90 [...] epigastric pain and n/v, was seen in [facility] Thursday and and at [facility] on Thursday. Had CT scan and sonogram at clinic on Thursday. Pt continues to abd pain and n/v today. Technique: Post contrast images were performed after the administration of 95 milliliters of Isovue intravenous contrast. 3 dimensional reconstructions were performed by the technologist. Priors: None. Findings: Vascular Structures: Abdomen: Celiac Alicia/SMA/GRETTA: No evidence of stenosis. There are no [...]
--- OUTSIDE RECORDS SUMMARY | 2017-02-07 08:18 | XMS REPORT ---
Author Author GENERATED, SYSTEM Organization Unknown Address Unknown Phone Unavailable Care Team Providers Care Deicer Repairer Pneumatic Name Role Phone MD BRY, SHANEL [phone] Reason For Visit Chief Complaint VOMITING ABD [...] MG/DL (65-99 MG/DL) *GFR EST NON AFR LATVIAN >90 ML/MIN *GFR EST AFR AMER >90 [...] Immunizations * INFLUEN VACC (GLAXO) (FLUARIX (GLAXO), [employer] PHARM, Lot # [id number]); Administered 08/05/2016 11:22 AM; 1 DOSE=0.5 ML, INTRAMUSCL Hospital Course Hospital Discharge Instructions Allergies, Adverse Reactions, Alerts * Latex Allergy has not been assessed. * IV Contrast Allergy has not been assessed. * No Known Drug Allergies. Medication Medication reconciliation has not been performed.
--- OUTSIDE RECORDS SUMMARY | 2017-02-07 08:18 | XMS REPORT ---
Author Author GENERATED, SYSTEM Organization Unknown Address Unknown Phone Unavailable Care Team Providers Care Compliance Nurse Name Role Phone MD [facility], [facility] [phone] Reason For Visit Chief Complaint VOMITING, STOMACH [...] * INFLUEN VACC 2015-(GLAXO) (FLUARIX 2015-17 (GLAXO), [employer] PHARM, Lot # [id number]); Administered 08/05/2016 11:22 AM; 1 DOSE=0.5 ML, INTRAMUSCL Hospital Course Hospital Discharge Instructions Allergies, Adverse Reactions, Alerts * Latex Allergy has not been assessed. * IV Contrast Allergy has not been assessed. * No Known Drug Allergies. Medication Medication reconciliation has not been performed.
--- OUTSIDE RECORDS SUMMARY | 2017-02-07 08:19 | XMS REPORT | Continuity of Care Document ---
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 Type Provider Facility Loc./Unit Complaint [id number] 10/28/2016 21:34:00 2016 04:06:56 DIS Emergency NIKOLAY BAKER A <PV2.3.2>Vomiting, unspecified</PV2.3.2><PV2.3.2>VOMITING, UPPER ABD PAIN</PV2.3.2><PV2.3.2>Vomiting, unspecified</PV2.3.2><PV2.3.2>Cannabis abuse, uncomplicated</PV2.3.2><PV2.3.2>Generalized abdominal pain</PV2.3.2> [id number] 10/28/2016 11:46:00 2016 22:44:18 DIS Emergency PJ GREEN VOMITING [id number] 09/21/2016 12:22:00 2015 02:03:39 DIS Emergency TITI DEL REAL NAUSEA AND VOMITTING [id number] 09/17/2016 05:27:00 2015 09:13:47 DIS Inpatient RASHAAD GUZMAN <PV2.3.2>ABD PAIN-EPIGASTRIC, N/V</PV2.3.2><PV2.3.2>EGD</PV2.3.2> [id number] 08/25/2016 18:59:00 2015 08:45:07 DIS Emergency MIKI SCHWARTZ VOMITING ABD PAIN [id number] 08/24/2016 21:47:00 2015 05:41:56 DIS Emergency MIKI SCHWARTZ <PV2.3.2>Epigastric pain</PV2.3.2><PV2.3.2>VOMITING, STOMACH PAIN</PV2.3.2>< PV2.3.2>Nausea with vomiting, unspecified</PV2.3.2><PV2.3.2>Epigastric pain</ PV2.3.2><PV2.3.2>Impacted cerumen, bilateral</PV2.3.2><PV2.3.2>Other truck terminal manager ( current) drug therapy</PV2.3.2> [id number] 08/24/2016 08:57:00 2015 19:13:32 DIS Emergency PJ GREEN <PV2.3.2>Nausea with vomiting, unspecified</PV2.3.2><PV2.3.2>VOMITING, ABD PAIN</PV2.3.2><PV2.3.2>Nausea with vomiting, unspecified</PV2.3.2><PV2.3.2> Hypokalemia</PV2.3.2> [id number] 08/23/2016 17:16:00 2015 23:34:28 DIS Emergency MIKI SCHWARTZ VOMITING [id number] 08/03/2016 23:18:00 2015 12:05:34 DIS Outpatient MIRANDA MARIELOS <PV2.3.2>Hyperosmolality and hypernatremia</PV2.3.2><PV2.3.2>INTRACTABLE NAUSEA VOMITING</PV2.3.2><PV2.3.2>Hyperosmolality and hypernatremia</PV2.3.2>< PV2.3.2>Syncope and collapse</PV2.3.2><PV2.3.2>Bradycardia, unspecified</ PV2.3.2><PV2.3.2>Benign neoplasm of unspecified adrenal gland</PV2.3.2><PV2.3.2> Hypertensive chronic kidney disease w stg 1-4/unsp chr kdny</PV2.3.2><PV2.3.2> Chronic kidney disease, unspecified</PV2.3.2><PV2.3.2>Hypothyroidism, unspecified</PV2.3.2><PV2.3.2>Nonrheumatic mitral (valve) insufficiency</PV2.3.2 ><PV2.3.2>Atrioventricular block, first degree</PV2.3.2><PV2.3.2>Occlusion and stenosis of bilateral carotid arteries</PV2.3.2><PV2.3.2>Personal history of other benign neoplasm</PV2.3.2> [id number] 08/03/2016 09:26:00 2015 14:34:20 DIS Emergency TITI DEL REAL VOMITING, ABD PAIN [id number] 08/31/2016 13:07:00 Document Registration [id number] 08/27/2016 11:00:00 Document Registration
--- OUTSIDE RECORDS SUMMARY | 2017-02-07 08:19 | XMS REPORT ---
Author Author GENERATED, SYSTEM Organization Unknown Address Unknown Phone Unavailable Care Team Providers Care Database Modeler Name Role Phone UNASSIGNED DOCTOR , DOCTOR PP [phone] Reason For Visit Chief Complaint VOMITING Social [...] H (65-99 MG/DL) *GFR EST NON AFR BOLIVIAN >90 ML/MIN *GFR EST AFR AMER >90 [...] 09/17/2016 8:02 AM * Completed Procedure Code: [id number] Procedure Name: not valued, on 09/17/2016 12:00 AM * Completed Procedure Code: 22941 Procedure Name: not valued, on 09/17/2016 12: 00 AM Immunizations * Influenza, seasonal, injectable ([employer] PHARM, Lot # [id number]); Administered 08/2016 11:22 AM; 1 DOSE=0.5 ML, INTRAMUSCL Hospital Course Hospital Discharge Instructions Allergies, Adverse Reactions, Alerts * Latex Allergy has not been assessed. * IV Contrast Allergy has not been assessed. * No Known Drug Allergies. Medication Medication reconciliation has not been performed.
--- OUTSIDE RECORDS SUMMARY | 2017-02-07 08:19 | XMS REPORT ---
Author Author GENERATED, SYSTEM Organization Unknown Address Unknown Phone Unavailable Care Team Providers Care Grocery Specialist Name Role Phone MD BRY, SHANEL [phone] Reason For Visit Chief Complaint VOMITING Social [...] H (65-99 MG/DL) *GFR EST NON AFR MALAGASY 81 ML/MIN *GFR EST AFR AMER >90 [...] * INFLUEN VACC (GLAXO) (FLUARIX 2015- (GLAXO), [employer] PHARM, Lot # [id number]); Administered 08/05/2016 11:22 AM; 1 DOSE=0.5 ML, INTRAMUSCL Hospital Course Hospital Discharge Instructions Allergies, Adverse Reactions, Alerts * Latex Allergy has not been assessed. * IV Contrast Allergy has not been assessed. * No Known Drug Allergies. Medication Medication reconciliation has not been performed.
--- OUTSIDE RECORDS SUMMARY | 2017-02-07 08:19 | XMS REPORT ---
Author Author GENERATED, SYSTEM Organization Unknown Address Unknown Phone Unavailable Care Team Providers Care Bead Wrapper Name Role Phone MD LONDONO VERLIN [phone] Reason For Visit Reason for Visit from [...] 10:30 AM * Address # 1 : [facility]: [address], [place]- [phone] or Procedures * Completed Esophagogastroduodenoscopy, by MD RASHAAD GUZMAN, on 09/17/2016 8:02 AM Immunizations * Influenza, seasonal, injectable ([employer] PHARM, Lot # [id number]); Administered 08/2016 11:22 [...]
[2017-02-07] MEDS ORDERED: ONDANSETRON 4mg/2ml INJECTION IV ONE (08:30)
[2017-02-07] MEDS ORDERED: NORMAL SALINE 1,000 ML IV ONE (08:30)
[2017-02-07 08:53] LABS: BASOPHILS % (AUTO) 0.2 % (0-2); EOSINOPHILS % (AUTO) 0.1 % (0-4); HCT - HEMATOCRIT 44.5 % (41-53); HGB - HEMOGLOBIN 15.7 GM/DL (13.5-17.5); IMMATURE GRANULOCYTE # (AUTO) 0.02 T/MM3 (0.00-0.03); IMMATURE GRANULOCYTE % (AUTO) 0.2 % (0.0-0.5); LYMPHOCYTES # (AUTO) 1.5 T/MM3 (1-4.8); LYMPHOCYTES % (AUTO) 16.8 % (23-45); MEAN CORPUSCULAR HGB 31.5 UUG (26-34); MEAN CORPUSCULAR HGB CONC(MCHC 35.3 GM/DL (31-37); MEAN CORPUSCULAR VOLUME 89.4 UM3 (80-100); MEAN PLATELET VOLUME 10.5 UM3 (9.4-12.4); MONOCYTES # (AUTO) 0.9 T/MM3 (0-0.8); MONOCYTES % (AUTO) 9.9 % (0-9.0); NEUTROPHILS #(AUTO)-ABSOLUTE 6.4 T/MM3 (1.8-7.7); NEUTROPHILS % (AUTO) 72.8 % (33-66); RED BLOOD COUNT 4.98 M/MM3 (4.50-5.90); WBC - WHITE BLOOD COUNT 8.8 T/MM3 (4.5-11.0)
[2017-02-07 09:03] LABS: BLOOD, URINE NEGATIVE (NEGATIVE); COLOR,URINE YELLOW (YELLOW); LEUKOCYTE ESTERASE ,URINE NEGATIVE (NEGATIVE); NITRITE,URINE NEGATIVE (NEGATIVE)
--- NOTE | 2017-02-07 09:07 | NUR ---
REPORT REPORT TO LYNN GRIFFITHS.
[2017-02-07 09:09] LABS: AMPHETAMINE SCREEN,URINE NEGATIVE; BARBITURATE SCREEN,URINE NEGATIVE; BENZODIAZEPINES SCREEN,URINE NEGATIVE; CANNABINOID SCREEN,URINE POSITIVE; COCAINE SCREEN,URINE NEGATIVE; METHADONE SCREEN, URINE NEGATIVE; METHAMPHETAMINE SCREEN, URINE NEGATIVE; OPIATE SCREEN,URINE NEGATIVE; PHENCYCLIDINE SCREEN,URINE NEGATIVE; TRICYCLIC ANTIDEPRESSANT,URINE NEGATIVE
--- OUTSIDE RECORDS SUMMARY | 2017-02-07 09:10 | XMS REPORT ---
Author Author GENERATED, SYSTEM Organization Unknown Address Unknown Phone Unavailable Care Team Providers Care Kaiwhakahaere Name Role Phone UNASSIGNED DOCTOR , DOCTOR PP [phone] Reason For Visit Chief Complaint VOMITING, UPPER [...] 09/17/2016 8:02 AM * Completed Procedure Code: [id number] Procedure Name: not valued, on 09/17/2016 12:00 AM * Completed Procedure Code: 77743 Procedure Name: not valued, on 09/17/2016 12: 00 AM Immunizations * Influenza, seasonal, injectable ([employer] PHARM, Lot # [id number]); Administered 08/2016 11:22 AM; 1 DOSE=0.5 ML, INTRAMUSCL Hospital Course Hospital Discharge Instructions Allergies, Adverse Reactions, Alerts * Latex Allergy has not been assessed. * IV Contrast Allergy has not been assessed. * No Known Drug Allergies. Medication Medication reconciliation has not been performed.
--- OUTSIDE RECORDS SUMMARY | 2017-02-07 09:10 | XMS REPORT ---
Author Author GENERATED, SYSTEM Organization Unknown Address Unknown Phone Unavailable Care Team Providers Care Regulatory Affairs Internship Name Role Phone MD MISTRY VERLIN [phone] Reason For Visit Reason for Visit from [...] H (65-99 MG/DL) *GFR EST NON AFR DANISH [...] H (65-99 MG/DL) *GFR EST NON AFR DANISH [...] Note : Admission status: Outpatient Observation Insurance: [facility] and Veterans Patient presented to ER [...] * INFLUEN VACC 2015-(GLAXO) (FLUARIX 2015- (GLAXO), [employer] PHARM, Lot # [id number]); Administered 08/05/2016 11:22 [...] the responsibility of the patient or patient branch sales and service representative to confirm the list of medications [...]
--- OUTSIDE RECORDS SUMMARY | 2017-02-07 09:10 | XMS REPORT ---
Author Author GENERATED, SYSTEM Organization Unknown Address Unknown Phone Unavailable Care Team Providers Care Dietitian Chief Name Role Phone MD LONDONO VERLIN [phone] Reason For Visit Chief Complaint NAUSEA AND [...] Procedures * Completed Esophagogastroduodenoscopy, by MD [facility], on 09/17/2016 8:02 AM Immunizations * Influenza, seasonal, injectable ([employer] PHARM, Lot # [id number]); Administered 08/2016 11:22 AM; 1 DOSE=0.5 ML, INTRAMUSCL Hospital Course Hospital Discharge Instructions Allergies, Adverse Reactions, Alerts * Latex Allergy has not been assessed. * IV Contrast Allergy has not been assessed. * No Known Drug Allergies. Medication Medication reconciliation has not been performed.
--- OUTSIDE RECORDS SUMMARY | 2017-02-07 09:10 | XMS REPORT ---
Author Author GENERATED, SYSTEM Organization Unknown Address Unknown Phone Unavailable Care Team Providers Care Outside Sales Account Executive Name Role Phone MD [facility] [phone] Reason For Visit Chief Complaint VOMITING Social [...] H (65-99 MG/DL) *GFR EST NON AFR CYMRO >90 ML/MIN *GFR EST AFR AMER >90 [...] Immunizations * INFLUEN VACC (GLAXO) (FLUARIX (GLAXO), [employer] PHARM, Lot # [id number]); Administered 08/05/2016 11:22 AM; 1 DOSE=0.5 ML, INTRAMUSCL Hospital Course Hospital Discharge Instructions Allergies, Adverse Reactions, Alerts * Latex Allergy has not been assessed. * IV Contrast Allergy has not been assessed. * No Known Drug Allergies. Medication Medication reconciliation has not been performed.
--- OUTSIDE RECORDS SUMMARY | 2017-02-07 09:11 | XMS REPORT ---
Author Author GENERATED, SYSTEM Organization Unknown Address Unknown Phone Unavailable Care Team Providers Care Senior Hydrogeologist Name Role Phone MD [facility] [phone] Reason For Visit Chief Complaint VOMITING, STOMACH [...] * INFLUEN VACC 2015-(GLAXO) (FLUARIX 2015-17 (GLAXO), [employer] PHARM, Lot # [id number]); Administered 08/05/2016 11:22 AM; 1 DOSE=0.5 ML, INTRAMUSCL Hospital Course Hospital Discharge Instructions Allergies, Adverse Reactions, Alerts * Latex Allergy has not been assessed. * IV Contrast Allergy has not been assessed. * No Known Drug Allergies. Medication Medication reconciliation has not been performed.
--- OUTSIDE RECORDS SUMMARY | 2017-02-07 09:11 | XMS REPORT ---
Author Author GENERATED, SYSTEM Organization Unknown Address Unknown Phone Unavailable Care Team Providers Care Account Manager B2B Name Role Phone MD BRY, [facility] [phone] Reason For Visit Chief Complaint CYCLIC VOMITING [...] H (65-99 MG/DL) *GFR EST NON AFR CHADIAN >90 ML/MIN *GFR EST AFR AMER >90 [...] * INFLUEN VACC 2015-(GLAXO) (FLUARIX 2015- (GLAXO), [employer] PHARM, Lot # [id number]); Administered 08/05/2016 11:22 AM; 1 DOSE=0.5 ML, INTRAMUSCL Hospital Course Hospital Discharge Instructions Allergies, Adverse Reactions, Alerts * Latex Allergy has not been assessed. * IV Contrast Allergy has not been assessed. * No Known Drug Allergies. Medication Medication reconciliation has not been performed.
--- OUTSIDE RECORDS SUMMARY | 2017-02-07 09:11 | XMS REPORT ---
Author Author GENERATED, SYSTEM Organization Unknown Address Unknown Phone Unavailable Care Team Providers Care Slaughterer Religious Ritual Name Role Phone MD BRY, [facility] [phone] Reason For Visit Chief Complaint VOMITING, ABD [...] H (65-99 MG/DL) *GFR EST NON AFR GUAMANIAN >90 ML/MIN *GFR EST AFR AMER >90 [...]
--- OUTSIDE RECORDS SUMMARY | 2017-02-07 09:12 | XMS REPORT ---
Author Author GENERATED, SYSTEM Organization Unknown Address Unknown Phone Unavailable Care Team Providers Care Cemetery Laborer Name Role Phone MD BRY, [facility] [phone] Reason For Visit Chief Complaint VOMITING, ABD [...] MG/DL (65-99 MG/DL) *GFR EST NON AFR PALESTINIAN >90 ML/MIN *GFR EST AFR AMER >90 [...] epigastric pain and n/v, was seen in [facility] Thursday and and at [facility] on Thursday. Had CT scan and sonogram at clinic on Thursday. Pt continues to abd pain and n/v today. Technique: Post contrast images were performed after the administration of 95 milliliters of Isovue intravenous contrast. 3 dimensional reconstructions were performed by the technologist. Priors: None. Findings: Vascular Structures: Abdomen: Celiac [place]/SMA/GRETTA: No evidence of stenosis. There are no [...]
--- OUTSIDE RECORDS SUMMARY | 2017-02-07 09:12 | XMS REPORT ---
Author Author GENERATED, SYSTEM Organization Unknown Address Unknown Phone Unavailable Care Team Providers Care Documentation Specialist Name Role Phone MD BRY, SHANEL [phone] Reason For Visit Chief Complaint VOMITING ABD [...] MG/DL (65-99 MG/DL) *GFR EST NON AFR [place] >90 ML/MIN *GFR EST AFR AMER >90 [...] Immunizations * INFLUEN VACC (GLAXO) (FLUARIX (GLAXO), [employer] PHARM, Lot # [id number]); Administered 08/05/2016 11:22 AM; 1 DOSE=0.5 ML, INTRAMUSCL Hospital Course Hospital Discharge Instructions Allergies, Adverse Reactions, Alerts * Latex Allergy has not been assessed. * IV Contrast Allergy has not been assessed. * No Known Drug Allergies. Medication Medication reconciliation has not been performed.
--- OUTSIDE RECORDS SUMMARY | 2017-02-07 09:13 | XMS REPORT | Continuity of Care Document ---
Author Author [facility] Organization [facility] Address Unknown Phone Unavailable Allergies [...] R55 Syncope and collapse 08/12/2016 MARIELOS JEAN [id number] Personal history of other benign neoplasm 08/26/2016 PJ GREEN E876 Hypokalemia 08/26/2016 PJ GREEN R112 Nausea with vomiting, unspecified 09/03/2016 MIKI SCHWARTZ H6123 Impacted cerumen, bilateral 09/03/2016 MIKI SCHWARTZ R1013 Epigastric pain 09/03/2016 MIKI SCHWARTZ R112 Nausea with vomiting, unspecified 09/03/2016 MIKI SCHWARTZ [id number] Other superintendent terminal (current) drug therapy 10/31/2016 NIKOLAY BAKER [...] - 08/23/16 17:50 *GFR EST NON AFR SCOTTISH 81 mL/min NRG *GRFA EST AFR AMER [...] - 08/24/16 09:15 *GFR EST NON AFR SCOTTISH >90 mL/min NRG *GRFA EST AFR AMER [...] - 08/25/16 20:38 *GFR EST NON AFR SCOTTISH >90 mL/min NRG *GRFA EST AFR AMER [...] - 08/31/16 13:56 *GFR EST NON AFR SCOTTISH >90 mL/min NRG *GRFA EST AFR AMER [...] - 10/28/16 12:20 *GFR EST NON AFR SCOTTISH >90 mL/min NRG *GRFA EST AFR AMER [...] Status Pt. Type Provider Facility Loc./Unit Complaint [id number] 10/28/2016 21:34:00 2016 04:06:56 DIS Emergency NIKOLAY BAKER A <PV2.3.2>Vomiting, unspecified</PV2.3.2><PV2.3.2>VOMITING, UPPER ABD PAIN</PV2.3.2><PV2.3.2>Vomiting, unspecified</PV2.3.2><PV2.3.2>Cannabis abuse, uncomplicated</PV2.3.2><PV2.3.2>Generalized abdominal pain</PV2.3.2> [id number] 10/28/2016 11:46:00 2016 22:44:18 DIS Emergency PJ GREEN VOMITING [id number] 09/21/2016 12:22:00 2015 02:03:39 DIS Emergency TITI DE LREAL NAUSEA AND VOMITTING [id number] 09/17/2016 05:27:00 2015 09:13:47 DIS Inpatient RASHAAD GUZMAN <PV2.3.2>ABD PAIN-EPIGASTRIC, N/V</PV2.3.2><PV2.3.2>EGD</PV2.3.2> [id number] 08/25/2016 18:59:00 2015 08:45:07 DIS Emergency MIKI SCHWARTZ VOMITING ABD PAIN [id number] 08/24/2016 21:47:00 2015 05:41:56 DIS Emergency MIKI SCHWARTZ <PV2.3.2>Epigastric pain</PV2.3.2><PV2.3.2>VOMITING, STOMACH PAIN</PV2.3.2>< PV2.3.2>Nausea with vomiting, unspecified</PV2.3.2><PV2.3.2>Epigastric pain</ PV2.3.2><PV2.3.2>Impacted cerumen, bilateral</PV2.3.2><PV2.3.2>Other superintendent terminal ( current) drug therapy</PV2.3.2> [id number] 08/24/2016 08:57:00 2015 19:13:32 DIS Emergency PJ GREEN <PV2.3.2>Nausea with vomiting, unspecified</PV2.3.2><PV2.3.2>VOMITING, ABD PAIN</PV2.3.2><PV2.3.2>Nausea with vomiting, unspecified</PV2.3.2><PV2.3.2> Hypokalemia</PV2.3.2> [id number] 08/23/2016 17:16:00 2015 23:34:28 DIS Emergency MIKI SCHWARTZ VOMITING [id number] 08/03/2016 23:18:00 2015 12:05:34 DIS Outpatient MIRANDA MARIELOS <PV2.3.2>Hyperosmolality and hypernatremia</PV2.3.2><PV2.3.2>INTRACTABLE NAUSEA VOMITING</PV2.3.2><PV2.3.2>Hyperosmolality and hypernatremia</PV2.3.2>< PV2.3.2>Syncope and collapse</PV2.3.2><PV2.3.2>Bradycardia, unspecified</ PV2.3.2><PV2.3.2>Benign neoplasm of unspecified adrenal gland</PV2.3.2><PV2.3.2> Hypertensive chronic kidney disease w stg 1-4/unsp chr kdny</PV2.3.2><PV2.3.2> Chronic kidney disease, unspecified</PV2.3.2><PV2.3.2>Hypothyroidism, unspecified</PV2.3.2><PV2.3.2>Nonrheumatic mitral (valve) insufficiency</PV2.3.2 ><PV2.3.2>Atrioventricular block, first degree</PV2.3.2><PV2.3.2>Occlusion and stenosis of bilateral carotid arteries</PV2.3.2><PV2.3.2>Personal history of other benign neoplasm</PV2.3.2> [id number] 08/03/2016 09:26:00 2015 14:34:20 DIS Emergency TITI DEL REAL VOMITING, ABD PAIN [id number] 08/31/2016 13:07:00 Document Registration [id number] 08/27/2016 11:00:00 Document Registration
--- OUTSIDE RECORDS SUMMARY | 2017-02-07 09:13 | XMS REPORT ---
Author Author GENERATED, SYSTEM Organization Unknown Address Unknown Phone Unavailable Care Team Providers Care Corporate Account Executive Name Role Phone MD BRY, SHANEL [phone] Reason For Visit Chief Complaint VOMITING Social [...] H (65-99 MG/DL) *GFR EST NON AFR [place] 81 ML/MIN *GFR EST AFR AMER >90 [...] * INFLUEN VACC (GLAXO) (FLUARIX 2015- (GLAXO), [employer] PHARM, Lot # [id number]); Administered 08/05/2016 11:22 AM; 1 DOSE=0.5 ML, INTRAMUSCL Hospital Course Hospital Discharge Instructions Allergies, Adverse Reactions, Alerts * Latex Allergy has not been assessed. * IV Contrast Allergy has not been assessed. * No Known Drug Allergies. Medication Medication reconciliation has not been performed.
--- OUTSIDE RECORDS SUMMARY | 2017-02-07 09:13 | XMS REPORT ---
Author Author GENERATED, SYSTEM Organization Unknown Address Unknown Phone Unavailable Care Team Providers Care Classroom Teacher Name Role Phone MD LONDONO VERLIN [phone] Reason For Visit Reason for Visit from [...] 10:30 AM * Address # 1 : [facility]: [address], [place]- [phone] or Procedures * Completed Esophagogastroduodenoscopy, by MD RASHAAD GUZMAN, on 09/17/2016 8:02 AM Immunizations * Influenza, seasonal, injectable ([employer] PHARM, Lot # [id number]); Administered 08/2016 11:22 [...]
--- OUTSIDE RECORDS SUMMARY | 2017-02-07 09:13 | XMS REPORT ---
Author Author GENERATED, SYSTEM Organization Unknown Address Unknown Phone Unavailable Care Team Providers Care Machinist Linotype Name Role Phone UNASSIGNED DOCTOR , DOCTOR PP [phone] Reason For Visit Chief Complaint VOMITING Social [...] H (65-99 MG/DL) *GFR EST NON AFR POLISH >90 ML/MIN *GFR EST AFR AMER >90 [...] 09/17/2016 8:02 AM * Completed Procedure Code: [id number] Procedure Name: not valued, on 09/17/2016 12:00 AM * Completed Procedure Code: 28717 Procedure Name: not valued, on 09/17/2016 12: 00 AM Immunizations * Influenza, seasonal, injectable ([employer] PHARM, Lot # [id number]); Administered 08/2016 11:22 AM; 1 DOSE=0.5 ML, INTRAMUSCL Hospital Course Hospital Discharge Instructions Allergies, Adverse Reactions, Alerts * Latex Allergy has not been assessed. * IV Contrast Allergy has not been assessed. * No Known Drug Allergies. Medication Medication reconciliation has not been performed.
[2017-02-07 09:14] LABS: ALBUMIN 4.9 G/DL (3.5-5.0); ALBUMIN/GLOBULIN RATIO 1.6 RATIO (1.1-2.2); ALKALINE PHOSPHATASE 61 U/L (38-126); ALT (SGPT) 27 U/L (21-72); ANION GAP 22 MEQ/L (5-15); AST (SGOT) 22 U/L (17-59); BUN/CREATININE RATIO 13 RATIO (6-26); CALCIUM 9.8 MG/DL (8.4-10.2); CHLORIDE 102 MEQ/L (98-107); CO2 - CARBON DIOXIDE 21 MEQ/L (22-30); CREATININE 0.8 MG/DL (0.8-1.5); GLOMERULAR FILTRATION RATE 125; GLUCOSE 119 MG/DL (75-110); SODIUM 145 MEQ/L (134-144); TOTAL PROTEIN 7.9 G/DL (6.3-8.2)
--- NOTE | 2017-02-07 09:21 | NUR ---
UPDATE PATIENT LYING IN BED RESTING. PATIENT REPORTS HE CONTINUES TO HAVE NAUSEA, BUT DENIES NEEDS AT THIS TIME.
[2017-02-07] MEDS ORDERED: PROCHLORPERAZINE 10mg/2ml INJECTION IV ONE (09:30)
[2017-02-07] MEDS ORDERED: METOCLOPRAMIDE 10mg/2ml INJECTION IV ONE (09:30)
[2017-02-07] MEDS ORDERED: HYDR25TA85 PO (09:55)
[2017-02-07] MEDS ORDERED: ESCI10TA47 PO (09:55)
--- NOTE | 2017-02-07 09:55 | NUR ---
UPDATE PATIENT REPORTS HE IS FEELING BETTER AND WOULD LIKE TO GO HOME. PATIENT INFORMED THAT RN WILL SPEAK WITH PROVIDER.
--- NOTE | 2017-02-07 10:17 | ERPDOC ---
Departure Disposition Decision Date: Feb 07, 2017 Disposition Decision Time: 10:17 Disposition: 01 DISCHARGED HOME, SELF-CARE Impression Impression Impression: Primary Impression: Cyclic vomiting syndrome Severity: Moderate Condition: Improved Seen By: Physician only Referrals: ANTHONY HUGHES MD (Family) Patient Instructions: Acute Nausea and Vomiting (ED) Problems/Meds/Labs Reviewed?: Yes Medications reviewed and manag: Yes Additional Instructions: Avoid marijuana. Use anti-emetic prescriptions as needed. Follow up care ordered?: Yes Mental Status: Alert, Oriented HPI - Abdominal Pain General Chief Complaint: Nausea,Vomiting,Diarrhea Stated Complaint: N/V Time Seen by Provider: 08:18 HPI - Abdominal Pain Initial Comments 21-year-old male with history of hyperemesis due to marijuana use. Patient has been going to infusion therapy, getting 1 L NS daily. His father states he "got back into "some marijuana over the last couple of days and has had worsening nausea and vomiting. Patient is aggressively vomiting, quite ill at this moment. Allergies: Coded Allergies: lactose (Verified Adverse Reaction, Unknown, ON LACTOSE FREE DIET, 02/07/17 ) PER HISTORY AND PHYSICAL DATED 12-13-15 Past History Patient Surgical History Tonsillectomy Past Medical History ENMT: allergies GI: GERD, constipation, other Surgical History General: EGD, colonoscopy, tonsils Family History Family PMH: FOUND: [place], diabetes, hypertension Vaccines Hx Influenza Vaccination: Yes (July 2016) Hx Pneumococcal Vaccination: No Hx Tetanus, Diptheria, Pertuss: Yes (04/2010) Social History Does patient use chewing tobac: No Second Hand Exposure: Yes Substance Use Type: marijuana Substance last used: days (ago) Alcohol Intake: none Marital Status: Single Current Occupational Status: student Review of Systems GI Upper Abdomen: see HPI Lower Abdomen: see HPI Neurological General: see HPI All other Systems All Other Systems: Reviewed and Negative Physical Exam General General Nourishment: well nourished, well developed Distress Description Vomiting aggressively, diaphoretic Vitals and Pain First Documented Vital Signs Date Time Temp Pulse Resp B/P Pulse Ox O2 Delivery O2 Flow Rate FiO2 02/07/17 08:15 98.5 66 14 122/66 98 Room Air Weight: Kilograms: 66.000 Height (feet): 5 Height (inches): 5.00 Triage Pain Scale: Normal Exams: Head: Normocephalic w/o trauma Chest/Resp: Clear all greenberg, with good airflow, and symmetry bilaterally CV: Regular rate and rhythm, without murmur or gallop, Pulses 2+ all extremities, capillary refill, <2 seconds all ext., no pedal edema noted Neurologic: Patient is alert, and oriented, cranial nerves, motor/sensory/ cerebellar, exams w/o gross deficits, to observation Psychiatric: Patient exhibits, appropriate attention, emotion and affect Abdomen (brief) Abdominal Brief: FOUND: bowel normo active x4, soft, tender Comments Generally benign exam, although patient does continue to vomit. Differential Diagnoses Considering: Other (gastroenteritis, chronic vomiting syndrome, dehydration) Progress Results/Orders Orders Procedure Category Date Status Time Ondansetron Inj PHA 02/07/17 Complete (Zofran) 08:30 Normal Saline (Normal PHA 02/07/17 Complete Saline Iv) 08:30 Cbc W/Auto LAB 02/07/17 Complete Diff-Reflex Manual Cmp - Comprehensive LAB 02/07/17 Complete Metabolic Kub W/Upright RAD 02/07/17 Taken Ua, Dip Wreflex LAB 02/07/17 Complete Microsc & Pitch Flaker 08:21 Drug Screen LAB 02/07/17 Complete Urine-Test At [facility] 08:21 Prochlorperazine PHA 02/07/17 Complete (Compazine) 09:30 Metoclopramide PHA 02/07/17 Complete (Reglan Inj) 09:30 Lab Results Laboratory Tests Test 02/07/17 08:42 02/07/17 08:48 Urine Collection Type Voided-not cc-midstr Urine Color Yellow Urine Turbidity Clear Urine pH 8.5 Urine Specific Marshall 1.015 Urine Protein Negative Urine Glucose (UA) Negative Urine Ketones 3+ Urine Blood Negative Urine Nitrite Negative Urine Bilirubin Negative Urine Urobilinogen 1.0EU/DL Urine Leukocyte Esterase Negative Urinalysis Comment Microscopic not ind. Urine Opiates Screen NegativeNG/ML Urine Oxycodone Screen NegativeNG/ML Urine Methadone Screen NegativeNG/ML Urine Propoxyphene Screen NegativeNG/ML Urine Barbiturates Screen NegativeNG/ML Urine Tricyclic Antidepressants NegativeNG/ML Urine Phencyclidine Screen NegativeNG/ML Urine Amphetamines Screen NegativeNG/ML Urine Methamphetamines Screen NegativeNG/ML Urine Benzodiazepines Screen NegativeNG/ML Urine Cocaine Screen NegativeNG/ML Urine Cannabinoids Screen PositiveNG/ML Urine Drug Screen Confirmation Sent out Urine Drug Screen Information Pending White Blood Count 8.8T/MM3 Red Blood Count 4.98M/MM3 Hemoglobin 15.7GM/DL Hematocrit 44.5% Mean Corpuscular Volume 89.4UM3 Mean Corpuscular Hemoglobin 31.5UUG Mean Corpuscular Hemoglobin Concent 35.3GM/DL RDW Standard Deviation 41.1FL Platelet Count 265T/MM3 Mean Platelet Volume 10.5UM3 Immature Granulocyte % (Auto) 0.2% Neutrophils (%) (Auto) 72.8% Lymphocytes (%) (Auto) 16.8% Monocytes (%) (Auto) 9.9% Eosinophils (%) (Auto) 0.1% Basophils (%) (Auto) 0.2% Absolute Immature Granulocyte (auto 0.02T/MM3 Absolute Neutrophils (auto) 6.4T/MM3 Absolute Lymphocytes (auto) 1.5T/MM3 Absolute Monocytes (auto) 0.9T/MM3 Absolute Eosinophils (auto) 0.0T/MM3 Absolute Basophils (auto) 0.0T/MM3 Turbidity < 20 Sodium Level 145MEQ/L Potassium Level 3.0MEQ/L Chloride Level 102MEQ/L Carbon Dioxide Level 21MEQ/L Anion Gap 22MEQ/L Blood Urea Nitrogen 10.0MG/DL Creatinine 0.8MG/DL Glomerular Filtration Rate Calc 125 BUN/Creatinine Ratio 13RATIO Glucose Level 119MG/DL Calculated Osmolality 279MOSM/KG Calcium Level 9.8MG/DL Total Bilirubin 1.70MG/DL Icterus Index < 2 Aspartate Amino Transf (AST/SGOT) 22U/L Alanine Aminotransferase (ALT/SGPT) 27U/L Alkaline Phosphatase 61U/L Total Protein 7.9G/DL Albumin 4.9G/DL Globulin 3.0G/DL Albumin/Globulin Ratio 1.6RATIO Chemistry Specimen Hemolysis < 15 Medications Current ED Medications Ondansetron HCl 4 mg 4 mg O ONCE IV Last administered on 02/07/17 10:12; Start 02/07/17 at 08:30; Stop 02/07/17 at 08:31; Status DC Sodium Chloride (Normal Saline IV) 1,000 ml @ 1,000 mls/hr Q1H ONCE IV Last administered on 02/07/17 10:11; Start 02/07/17 at 08:30; Stop 02/07/17 at 09:29 ; Status DC Prochlorperazine Edisylate (Compazine) 10 mg O ONCE IV Last administered on 09:41; Start 02/07/17 at 09:30; Stop 02/07/17 at 09:31; Status DC Metoclopramide HCl (REGLAN Inj) 10 mg O ONCE IV Last administered on 09:39; Start 02/07/17 at 09:30; Stop 02/07/17 at 09:31; Status DC Progress Progress Patient given 1 L of normal saline in confusion, then another 500 ML's in the ED. Zofran 4 mg, Compazine 10 mg, Reglan 10 mg given IV and patient's symptoms improved. I spoke with his father who is well aware of the situation and has been trying to keep his son away from the marijuana. We discussed options. Patient will follow up with primary care provider welcome back any time here. ISAI LYONS MD Feb 07, 2017 10:17
[2017-02-07 10:24] VITALS: BP 127/71; PULSE 55; RESP 14; TEMP 98.5; O2SAT 98
--- NOTE | 2017-02-07 20:48 | DI ---
Indication: ITS.REASON: nausea vomiting PROCEDURE: KUB W/UPRIGHT: Encounter: Initial Comparison: KUB dated November 07, 2016 Findings: The visualized lung bases are clear. There is no free air on the upright view. The bowel gas pattern is nonobstructive and nonspecific. Gas is seen in nondilated small and large bowel to the level of the rectum. Moderate stool is seen throughout the colon. The bony structures are grossly unremarkable. Impression: Nonobstructive nonspecific bowel gas pattern. .
== END 2017-02-07 10:24 | disposition home or self-care (01) ==
LOC: ED 08:12
DX: G43.A0 Cyclical vomiting, in migraine, not intractable (principal); T40.7X5A Adverse effect of cannabis (derivatives), initial encounter; Y92.009 Unspecified place in unspecified non-institutional (private) residence as the place of occurrence of the external cause; Z79.899 Other long term (current) drug therapy
CPT/HCPCS: 36415; 74020; 80053; 80306; 81003; 85025; 96361; 96374; 96375; 99284; J0780; J2405; J2765; J7030

== ENCOUNTER 2017-02-07 17:55 | Inpatient (IN) | payer OTHER ==
[~2017-02-07] VITALS: Ht 170.2 cm; Wt 62.5 kg
[~2017-02-07 17:55] MED LIST changes: +ESCI10TA47 PO; +HYDR25TA85 PO
--- OUTSIDE RECORDS SUMMARY | 2017-02-07 17:59 | XMS REPORT ---
Author Author GENERATED, SYSTEM Organization Unknown Address Unknown Phone Unavailable Care Team Providers Care Client Support Professional Name Role Phone MD LONDONO VERLIN [phone] Reason For Visit Chief Complaint NAUSEA AND [...] Procedures * Completed Esophagogastroduodenoscopy, by MD [facility], on 09/17/2016 8:02 AM Immunizations * Influenza, seasonal, injectable ([employer] PHARM, Lot # [id number]); Administered 08/2016 11:22 AM; 1 DOSE=0.5 ML, INTRAMUSCL Hospital Course Hospital Discharge Instructions Allergies, Adverse Reactions, Alerts * Latex Allergy has not been assessed. * IV Contrast Allergy has not been assessed. * No Known Drug Allergies. Medication Medication reconciliation has not been performed.
--- OUTSIDE RECORDS SUMMARY | 2017-02-07 18:00 | XMS REPORT ---
Author Author GENERATED, SYSTEM Organization Unknown Address Unknown Phone Unavailable Care Team Providers Care Safety Instructor Name Role Phone MD [facility] [phone] Reason For Visit Chief Complaint VOMITING Social [...] H (65-99 MG/DL) *GFR EST NON AFR JORDANIAN >90 ML/MIN *GFR EST AFR AMER >90 [...] Immunizations * INFLUEN VACC (GLAXO) (FLUARIX (GLAXO), [employer] PHARM, Lot # [id number]); Administered 08/05/2016 11:22 AM; 1 DOSE=0.5 ML, INTRAMUSCL Hospital Course Hospital Discharge Instructions Allergies, Adverse Reactions, Alerts * Latex Allergy has not been assessed. * IV Contrast Allergy has not been assessed. * No Known Drug Allergies. Medication Medication reconciliation has not been performed.
--- OUTSIDE RECORDS SUMMARY | 2017-02-07 18:00 | XMS REPORT ---
Author Author GENERATED, SYSTEM Organization Unknown Address Unknown Phone Unavailable Care Team Providers Care Ventilation Equipment Tender Name Role Phone MD MISTRY VERLIN [phone] Reason For Visit Reason for Visit from [...] H (65-99 MG/DL) *GFR EST NON AFR ESTONIAN >90 ML/MIN *GFR EST AFR AMER >90 [...] H (65-99 MG/DL) *GFR EST NON AFR ESTONIAN >90 ML/MIN *GFR EST AFR AMER >90 [...] Note : Admission status: Outpatient Observation Insurance: [facility] and Veterans Patient presented to ER for [...] * INFLUEN VACC 2015-(GLAXO) (FLUARIX 2015- (GLAXO), [employer] PHARM, Lot # [id number]); Administered 08/05/2016 [...] the responsibility of the patient or patient charter representative to confirm the list of medications [...]
--- OUTSIDE RECORDS SUMMARY | 2017-02-07 18:00 | XMS REPORT ---
Author Author GENERATED, SYSTEM Organization Unknown Address Unknown Phone Unavailable Care Team Providers Care Food Order Expediter Name Role Phone UNASSIGNED DOCTOR , DOCTOR PP [phone] Reason For Visit Chief Complaint VOMITING, UPPER [...] 09/17/2016 8:02 AM * Completed Procedure Code: [id number] Procedure Name: not valued, on 09/17/2016 12:00 AM * Completed Procedure Code: [id number] Procedure Name: not valued, on 09/17/2016 12: 00 AM Immunizations * Influenza, seasonal, injectable ([employer] PHARM, Lot # [id number]); Administered 08/2016 11:22 AM; 1 DOSE=0.5 ML, INTRAMUSCL Hospital Course Hospital Discharge Instructions Allergies, Adverse Reactions, Alerts * Latex Allergy has not been assessed. * IV Contrast Allergy has not been assessed. * No Known Drug Allergies. Medication Medication reconciliation has not been performed.
--- OUTSIDE RECORDS SUMMARY | 2017-02-07 18:01 | XMS REPORT ---
Author Author GENERATED, SYSTEM Organization Unknown Address Unknown Phone Unavailable Care Team Providers Care Operating Room Scheduler Name Role Phone MD BRY, [facility] [phone] Reason For Visit Chief Complaint VOMITING, ABD [...] MG/DL (65-99 MG/DL) *GFR EST NON AFR [place] >90 ML/MIN *GFR EST AFR AMER >90 [...] epigastric pain and n/v, was seen in [facility] Thursday and and at [facility] on Thursday. Had CT scan and sonogram at clinic on Thursday. Pt continues to abd pain and n/v today. Technique: Post contrast images were performed after the administration of 95 milliliters of Isovue intravenous contrast. 3 dimensional reconstructions were performed by the technologist. Priors: None. Findings: Vascular Structures: Abdomen: Celiac [place]/SMA/GRETTA: No evidence of stenosis. There are no [...]
--- OUTSIDE RECORDS SUMMARY | 2017-02-07 18:01 | XMS REPORT ---
Author Author GENERATED, SYSTEM Organization Unknown Address Unknown Phone Unavailable Care Team Providers Care Buffing Machine Operator Name Role Phone MD BRY, [facility] [phone] Reason For Visit Chief Complaint VOMITING, ABD [...]
--- OUTSIDE RECORDS SUMMARY | 2017-02-07 18:01 | XMS REPORT | Continuity of Care Document ---
Author Author [facility] Organization [facility] Address Unknown Phone Unavailable Support Name Relationship Address Phone ANTHONY HUGHES MD Caregiver [address] [address] Unavailable ISAI LYONS MD Caregiver [address] [place] [address] Unavailable DARSHAN CANSECO Next Of Kin [address] [place], [place] [phone] Insurance Providers Guarantor Leandro Canseco Address [address] [place] [address] Email [email or web address] Payer Standard Wps Policy Number [id number] Subscriber's Name Darshan Canseco Relationship 19 Child Advance Directives Directive Response Recorded Date/Time Advanced Directives Type None 02/07/17 8:15am Chief Complaint and Reason for Visit Chief [...] Route Directions Days Qty Instructions Start Date Escitalopram Oxalate 10 Mg Tablet 10 Mg Oral Bedtime 02/07/17 Fluticasone Propionate (Flonase Allergy Relief 50 Mcg/Actuation Nasal) 9.9 Ml [place].susp 1 [place] Intranasal Daily 01/04/17 Hydroxyzine Hcl 25 Mg Tablet 25 Mg Oral Three Times A Day Levocarnitine Tartrate (L-Carnitine) Unknown Strength Capsule 1 [...] Medications Medication Directions Ordered Status Acetaminophen/Hydrocodone Bitart (Furlong 5-325 Tablet) 5-325 Tablet, 1 Tab Oral [...] Problem Response Recorded Date/Time Onset Date Status Chewing Tobacco Status No 02/07/2017 8:15am Not Applicable Not Applicable Hx Substance Use Y MARIJUANA 02/07/2017 8:15am Not Applicable Not Applicable Hx Alcohol Use No 02/07/2017 8:15am Not Applicable Not Applicable Has the pt used tobacco in the last 12 months No 01/13/2017 9:53am Not Applicable Not Applicable Tobacco Usage none 08/12/2015 12:03pm Not Applicable Not Applicable Query Response Start Date Stop Date Smoking Status Current every day smoker Hospital Discharge Instructions No hospital discharge instructions. Plan of Care Discharge Date 02/07/17 10:24am Disposition 01 DISCHARGED HOME, SELF-CARE Condition at Discharge Improved Instructions/Education Provided Acute Nausea and Vomiting (ED) Prescriptions See Medication Section Referrals ANTHONY HUGHES MD Address: [address] [place] [address] [address] [place], [place] [id number] Additional Instructions/Education Avoid marijuana. Use anti-emetic prescriptions as needed. Functional Status No functional status results. Allergies, Adverse Reactions, Alerts Allergen Type Severity Reaction Status Last Updated Lactose Adverse Reaction Unknown ON LACTOSE FREE DIET Active 02/07/17 Immunizations Query Response on File Recorded Date/Time Hx Influenza Vaccination Y July 2016 01/13/17 9:53am Hx Pneumococcal Vaccination No 01/13/17 9:53am Hx Tetanus, Diptheria, Pertussis Y 04/201002/19/12 9:34am Hx Influenza Vaccination Y July 2016 01/13/17 9:53am Hx Tetanus, Diptheria, Pertussis Y 04/201002/19/12 9:34am DTaP Vaccine History UP TO DATE 02/07/17 8:15am Influenza Vaccine Hx 07/201602/07/17 8:15am Vital Signs Acute Vital Signs Vital Response Date/Time Temperature (Fahrenheit) 98.5 deg F (96.8 - 99.1) 02/07/2017 10:24am Temperature (Calculated Celsius) 36.51118 degrees C (36.0 - 37.3) 02/07/2017 10:24am Pulse Rate (adult) 55 bpm (60 - 100) 02/07/2017 10:24am Respiratory Rate 14 breaths/min (10 - 20) 02/07/2017 10:24am O2 Sat by Pulse Oximetry 98 % (90 - 100) 02/07/2017 10:24am Oxygen Delivery Method Room Air 02/07/2017 7:16am Blood Pressure 127/71 mm Hg 02/07/2017 10:24am Blood Pressure Source Automatic Cuff 02/07/2017 7:16am Height (Feet) 5 feet 02/07/2017 8:15am Height (Inches) 5.00 inches 02/07/2017 8:15am Weight (Kilograms) 66.000 kg 02/07/2017 8:15am Body Mass Index (BMI) 24.0 02/07/2017 8:15am Results Laboratory Results Test Name Result Units Flags Reference Collection Date/Time Result Date/ Time Comments Magnesium Level 2.2 MG/DL D 1.6-2.3 11/09/2016 1:33pm 11/09/2016 2:16pm White Blood Count 8.8 T/MM3 4.5-11.0 02/07/2017 8:48am 02/07/2017 9: 02am Red Blood Count 4.98 M/MM3 4.50-5.90 02/07/2017 8:48am 02/07/2017 9: 02am Hemoglobin 15.7 GM/DL 13.5-17.5 02/07/2017 8:48am 02/07/2017 9:02am Hematocrit 44.5 % 41-53 02/07/2017 8:48am 02/07/2017 9:02am Mean Corpuscular Volume 89.4 UM3 80-100 02/07/2017 8:48am 02/07/2017 9: 02am Mean Corpuscular Hemoglobin 31.5 UUG 26-34 02/07/2017 8:48am 2016 9:02am Mean Corpuscular Hemoglobin Concent 35.3 GM/DL 31-37 02/07/2017 8:48am 02/07/2017 9:02am RDW Standard Deviation 41.1 FL 36.9-50.2 02/07/2017 8:48am 02/07/2017 9 :02am Platelet Count 265 T/MM3 130-400 02/07/2017 8:48am 02/07/2017 9:02am Mean Platelet Volume 10.5 UM3 9.4-12.4 02/07/2017 8:48am 02/07/2017 9: 02am Neutrophils (%) (Auto) 72.8 % H 33-66 02/07/2017 8:48am 02/07/2017 9: 02am Lymphocytes (%) (Auto) 16.8 % L 23-45 02/07/2017 8:48am 02/07/2017 9: 02am Monocytes (%) (Auto) 9.9 % H 0-9.0 02/07/2017 8:48am 02/07/2017 9:02am Eosinophils (%) (Auto) 0.1 % 0-4 02/07/2017 8:48am 02/07/2017 9:02am Basophils (%) (Auto) 0.2 % 0-2 02/07/2017 8:48am 02/07/2017 9:02am Immature Granulocyte % (Auto) 0.2 % 0.0-0.5 02/07/2017 8:48am 2016 9:02am Absolute Neutrophils (auto) 6.4 T/MM3 1.8-7.7 02/07/2017 8:48am 2016 9:02am Absolute Lymphocytes (auto) 1.5 T/MM3 1-4.8 02/07/2017 8:48am 2016 9:02am Absolute Monocytes (auto) 0.9 T/MM3 H 0-0.8 02/07/2017 8:48am 2016 9:02am Absolute Eosinophils (auto) 0.0 T/MM3 0-0.5 02/07/2017 8:48am 2016 9:02am Absolute Basophils (auto) 0.0 T/MM3 0-0.2 02/07/2017 8:48am 02/07/2017 9:02am Absolute Immature Granulocyte (auto 0.02 T/MM3 0.00-0.03 02/07/2017 8: 48am 02/07/2017 9:02am Icterus Index < 2 0-7 02/07/2017 8:48am 02/07/2017 9:14am Chemistry Specimen Hemolysis < 15 0-25 02/07/2017 8:48am 02/07/2017 9 :14am 0-25: Specimen Exhibited No Hemolysis. Turbidity < 20 0-20 02/07/2017 8:48am 02/07/2017 9:14am Sodium Level 145 MEQ/L H 134-144 02/07/2017 8:48am 02/07/2017 9:14am Potassium Level 3.0 MEQ/L L 3.6-5 02/07/2017 8:48am 02/07/2017 9:14am Chloride Level 102 MEQ/L 98-107 02/07/2017 8:48am 02/07/2017 9:14am Carbon Dioxide Level 21 MEQ/L L 22-30 02/07/2017 8:48am 02/07/2017 9: 14am Anion Gap 22 MEQ/L H 5-15 02/07/2017 8:48am 02/07/2017 9:14am Blood Urea Nitrogen 10.0 MG/DL 9-02/07/2017 8:48am 02/07/2017 9: 14am Creatinine 0.8 MG/DL 0.8-1.5 02/07/2017 8:48am 02/07/2017 9:14am BUN/Creatinine Ratio 13 RATIO 6-26 02/07/2017 8:48am 02/07/2017 9:14am Glomerular Filtration Rate Calc 125 02/07/2017 8:48am 02/07/2017 9: 14am Glucose Level 119 MG/DL H 75-110 02/07/2017 8:48am 02/07/2017 9:14am Calculated Osmolality 279 MOSM/KG 261-280 02/07/2017 8:48am 02/07/2017 9:14am Calcium Level 9.8 MG/DL 8.4-10.2 02/07/2017 8:48am 02/07/2017 9:14am Total Bilirubin 1.70 MG/DL H 0.20-1.30 02/07/2017 8:48am 02/07/2017 9: 14am Alkaline Phosphatase 61 U/L 38-126 02/07/2017 8:48am 02/07/2017 9:14am Total Protein 7.9 G/DL 6.3-8.2 02/07/2017 8:48am 02/07/2017 9:14am Albumin 4.9 G/DL 3.5-5.0 02/07/2017 8:48am 02/07/2017 9:14am Globulin 3.0 G/DL 2.4-3.6 02/07/2017 8:48am 02/07/2017 9:14am Albumin/Globulin Ratio 1.6 RATIO 1.1-2.2 02/07/2017 8:48am 02/07/2017 9 :14am Aspartate Amino Transf (AST/SGOT) 22 U/L 17-59 02/07/2017 8:48am 2016 9:14am Alanine Aminotransferase (ALT/SGPT) 27 U/L 21-72 02/07/2017 8:48am 9:14am Urine Collection Type VOIDED-NOT CC-MIDSTR 02/07/2017 8:42am 2016 9:03am Urine Color YELLOW YELLOW 02/07/2017 8:42am 02/07/2017 9:03am Urine Turbidity CLEAR CLEAR 02/07/2017 8:42am 02/07/2017 9:03am Urine Specific [place] 1.015 1.015-1.025 02/07/2017 8:42am 2016 9:03am Urine pH 8.5 H 5.0-8.0 02/07/2017 8:42am 02/07/2017 9:03am Urine Leukocyte Esterase NEGATIVE NEGATIVE 02/07/2017 8:42am 2016 9:03am Urine Nitrite NEGATIVE NEGATIVE 02/07/2017 8:42am 02/07/2017 9:03am Urine Protein NEGATIVE NEGATIVE 02/07/2017 8:42am 02/07/2017 9:03am Urine Glucose (UA) NEGATIVE NEGATIVE 02/07/2017 8:42am 02/07/2017 9: 03am Urine Ketones 3+ A NEGATIVE 02/07/2017 8:42am 02/07/2017 9:03am Urine Urobilinogen 1.0 EU/DL NORMAL 02/07/2017 8:42am 02/07/2017 9: 03am Urine Bilirubin NEGATIVE NEGATIVE 02/07/2017 8:42am 02/07/2017 9: 03am Urine Blood NEGATIVE NEGATIVE 02/07/2017 8:42am 02/07/2017 9:03am Urinalysis Comment MICROSCOPIC NOT IND. 02/07/2017 8:42am 2016 9:03am Procedures Procedure Status Date Provider(s) Metabolic panel total ca Completed 11/09/16 Urinalysis [...] PROMETHAZINE HCL, UP TO 50 MG" Completed 01/15/17 [id number]"INJECTION, METOCLOPRAMIDE HCL, UP TO 10 MG" Completed 11/09/16737637"INFUSION, NORMAL SALINE SOLUTION , 1000 CC" Completed 11/09/16 Hydrate iv infusion add-on Completed 11/20/16 Ther/proph/diag inj iv push Completed 11/20/16 Tx/pro/dx inj new drug addon Completed 11/20/16 Emergency dept visit Completed 11/20/16449096"INJECTION, PROCHLORPERAZINE, UP TO 10 MG" Completed 11/20/16220374"INJECTION, ONDANSETRON HYDROCHLORIDE, PER 1 MG" Completed 11/20/16069433"INFUSION, NORMAL SALINE SOLUTION , 1000 CC" Completed 11/20/16 Metabolic panel total ca Completed 12/07/16 Hydrate iv infusion add-on Completed 12/07/16 Ther/proph/diag inj iv push Completed 12/07/16 Emergency dept visit Completed 12/07/16445105"INJECTION, ONDANSETRON HYDROCHLORIDE, PER 1 MG" Completed 12/07/16509386"INFUSION, NORMAL SALINE SOLUTION , 1000 CC" Completed 12/07/16 Ther/proph/diag inj sc/im Completed 12/07/16 Emergency dept visit Completed 12/07/16758696"INJECTION, PROCHLORPERAZINE, UP TO 10 MG" Completed 12/07/16 Metabolic panel total ca Completed 12/20/16 Hydrate iv infusion add-on Completed 12/20/16 Ther/proph/diag inj sc/im Completed 12/20/16 Ther/proph/diag inj iv push Completed 12/20/16 Emergency dept visit Completed 12/20/16969718"INJECTION, PROCHLORPERAZINE, UP TO 10 MG" Completed 12/20/16626483"INJECTION, ONDANSETRON HYDROCHLORIDE, PER 1 MG" Completed 12/20/16325089"INFUSION, NORMAL SALINE SOLUTION , 1000 CC" Completed 12/20/16 Metabolic panel total ca Completed 12/26/16 Hydrate iv infusion add-on Completed 12/26/16 Ther/proph/diag inj sc/im Completed 12/26/16 Ther/proph/diag inj iv push Completed 12/26/16 Emergency dept visit Completed 12/26/16459410"INJECTION, PROCHLORPERAZINE, UP TO 10 MG" Completed 03/03/17 779792"INJECTION, ONDANSETRON HYDROCHLORIDE, PER 1 MG" Completed 12/26/16"INFUSION, [...] addon Completed 12/28/16 Tx/pro/dx inj same drug home visit field care manager Completed 12/28/16 Emergency dept visit Completed 12/28/16 [...] push Completed 01/04/17 Emergency dept visit Completed 01/04/17648127[facility]-IBZFSYL ITEM OR SERVICE Completed 01/04/17"INJECTION, PROCHLORPERAZINE, UP TO 10 MG" Completed 01/04/17"INJECTION, ONDANSETRON HYDROCHLORIDE, PER 1 MG" Completed 01/04/17"INFUSION, NORMAL SALINE SOLUTION , 1000 CC" Completed 01/04/17 Metabolic panel total ca Completed 01/10/17 Hydrate iv infusion add-on Completed 01/10/17 Ther/proph/diag inj iv push Completed 01/10/17 Emergency dept visit Completed 01/10/17 999690"INJECTION, PROCHLORPERAZINE, UP TO 10 MG" Completed 01/10/17 009977"INFUSION, NORMAL SALINE SOLUTION , 1000 CC" Completed 01/10/17 Routine venipuncture Completed 01/11/17 Metabolic panel total ca Completed 01/11/17 Hydrate iv infusion add-on Completed 01/11/17 Ther/proph/diag inj iv push Completed 01/11/17 Tx/pro/dx inj new drug addon Completed 01/11/17 Emergency dept visit Completed 01/11/17845474"INJECTION, PROCHLORPERAZINE, UP TO 10 MG" Completed 01/11/17253775"INJECTION, ONDANSETRON HYDROCHLORIDE, PER 1 MG" Completed 01/11/17997471"INFUSION, NORMAL SALINE SOLUTION , 1000 CC" Completed 01/11/17 Encounters Encounter Location Arrival/Admit Date Discharge/Depart Date Attending Provider Departed Emergency Room [facility] 02/07/17 8:12am 02/07/17 10: 24am ISAI LYONS MD Registered Recurring [facility] 02/06/17 10:00am ANTHONY HUGHES MD Departed Emergency Room [facility] 01/11/17 11:52am 01/11/17 3: 07pm ISAI LYONS MD Departed Emergency Room [facility] 01/10/17 11:06pm 01/11/17 1: 06am BRODY LORENZ MD Departed Emergency Room [facility] 01/04/17 12:58pm 01/04/17 3: 30pm CRYSTAL JOSÉ DO Departed Emergency Room [facility] 12/28/16 8:02pm 12/28/16 11: 17pm BRODY LORENZ MD Departed Emergency Room [facility] 12/27/16 7:06am 12/27/16 10: 47am ISAI LYONS MD Departed Emergency Room [facility] 12/26/16 4:13pm 12/26/16 6: 40pm CRYSTAL JOSÉ DO Departed Emergency Room [facility] 12/20/16 10:17am 12/20/16 12: 46pm CRYSTAL JOSÉ DO Departed Emergency Room [facility] 12/07/16 8:53pm 12/08/16 12: 11am JAVI KAISER DO Departed Emergency Room [facility] 12/07/16 10:37am 12/07/16 12: 52pm CRYSTAL JOSÉ DO Departed Emergency Room [facility] 11/20/16 5:36pm 11/20/16 7: 53pm BRODY LORENZ MD Departed Emergency Room [facility] 11/20/16 10:44am 11/20/16 12: 10pm ISAI LYONS MD Departed Emergency Room [facility] 11/09/16 1:09pm 11/09/16 2: 55pm CARLO TOMPKINS MD Recent Diagnosis
--- OUTSIDE RECORDS SUMMARY | 2017-02-07 18:01 | XMS REPORT ---
Author Author [facility] Organization Unknown Address Unknown Phone Unavailable Care Team Providers Care Leadership Program Internship Name Role Phone MD [facility] [phone] Reason For Visit Chief Complaint VOMITING, STOMACH [...] * INFLUEN VACC 2015-(GLAXO) (FLUARIX 2015-17 (GLAXO), [employer] PHARM, Lot # [id number]); Administered 08/05/2016 11:22 AM; 1 DOSE=0.5 ML, INTRAMUSCL Hospital Course Hospital Discharge Instructions Allergies, Adverse Reactions, Alerts * Latex Allergy has not been assessed. * IV Contrast Allergy has not been assessed. * No Known Drug Allergies. Medication Medication reconciliation has not been performed.
--- OUTSIDE RECORDS SUMMARY | 2017-02-07 18:01 | XMS REPORT ---
Author Author [facility] Organization Unknown Address Unknown Phone Unavailable Care Team Providers Care Tableman Name Role Phone MD BRY, [facility] [phone] Reason For Visit Chief Complaint CYCLIC VOMITING [...] * INFLUEN VACC 2015-(GLAXO) (FLUARIX 2015- (GLAXO), [employer] PHARM, Lot # [id number]); Administered 08/05/2016 11:22 AM; 1 DOSE=0.5 ML, INTRAMUSCL Hospital Course Hospital Discharge Instructions Allergies, Adverse Reactions, Alerts * Latex Allergy has not been assessed. * IV Contrast Allergy has not been assessed. * No Known Drug Allergies. Medication Medication reconciliation has not been performed.
--- OUTSIDE RECORDS SUMMARY | 2017-02-07 18:02 | XMS REPORT ---
Author Author [facility] Organization Unknown Address Unknown Phone Unavailable Care Team Providers Care Word Processor Operator Name Role Phone MD BRY, SHANEL [phone] Reason For Visit Chief Complaint VOMITING ABD [...] MG/DL (65-99 MG/DL) *GFR EST NON AFR [place] >90 ML/MIN *GFR EST AFR AMER >90 [...] Immunizations * INFLUEN VACC (GLAXO) (FLUARIX (GLAXO), [employer] PHARM, Lot # [id number]); Administered 08/05/2016 11:22 AM; 1 DOSE=0.5 ML, INTRAMUSCL Hospital Course Hospital Discharge Instructions Allergies, Adverse Reactions, Alerts * Latex Allergy has not been assessed. * IV Contrast Allergy has not been assessed. * No Known Drug Allergies. Medication Medication reconciliation has not been performed.
--- OUTSIDE RECORDS SUMMARY | 2017-02-07 18:02 | XMS REPORT | Continuity of Care Document ---
Author Author [facility] Organization [facility] Address Unknown Phone Unavailable Allergies Medications [...] R55 Syncope and collapse 08/12/2016 MARIELOS JEAN [id number] Personal history of other benign neoplasm 08/26/2016 PJ GREEN E876 Hypokalemia 08/26/2016 PJ GREEN R112 Nausea with vomiting, unspecified 09/03/2016 MIKI SCHWARTZ H6123 Impacted cerumen, bilateral 09/03/2016 MIKI SCHWARTZ R1013 Epigastric pain 09/03/2016 MIKI SCHWARTZ R112 Nausea with vomiting, unspecified 09/03/2016 MIKI SCHWARTZ [id number] Other terminal manager (current) drug therapy 10/31/2016 NIKOLAY [...] - 08/23/16 17:50 *GFR EST NON AFR MALAWIAN 81 mL/min NRG *GRFA EST AFR AMER [...] - 08/24/16 09:15 *GFR EST NON AFR MALAWIAN >90 mL/min NRG *GRFA EST AFR AMER [...] - 08/25/16 20:38 *GFR EST NON AFR MALAWIAN >90 mL/min NRG *GRFA EST AFR AMER [...] - 08/31/16 13:56 *GFR EST NON AFR MALAWIAN >90 mL/min NRG *GRFA EST AFR AMER [...] - 10/28/16 12:20 *GFR EST NON AFR MALAWIAN >90 mL/min NRG *GRFA EST AFR AMER [...] Status Pt. Type Provider Facility Loc./Unit Complaint [id number] 10/28/2016 21:34:00 2016 04:06:56 DIS Emergency NIKOLAY BAKER A <PV2.3.2>Vomiting, unspecified</PV2.3.2><PV2.3.2>VOMITING, UPPER ABD PAIN</PV2.3.2><PV2.3.2>Vomiting, unspecified</PV2.3.2><PV2.3.2>Cannabis abuse, uncomplicated</PV2.3.2><PV2.3.2>Generalized abdominal pain</PV2.3.2> [id number] 10/28/2016 11:46:00 2016 22:44:18 DIS Emergency PJ GREEN VOMITING [id number] 09/21/2016 12:22:00 2015 02:03:39 DIS Emergency TITI DEL REAL NAUSEA AND VOMITTING [id number] 09/17/2016 05:27:00 2015 09:13:47 DIS Inpatient RASHAAD GUZMAN <PV2.3.2>ABD PAIN-EPIGASTRIC, N/V</PV2.3.2><PV2.3.2>EGD</PV2.3.2> [id number] 08/25/2016 18:59:00 2015 08:45:07 DIS Emergency MIKI SCHWARTZ VOMITING ABD PAIN [id number] 08/24/2016 21:47:00 2015 05:41:56 DIS Emergency MIKI SCHWARTZ <PV2.3.2>Epigastric pain</PV2.3.2><PV2.3.2>VOMITING, STOMACH PAIN</PV2.3.2>< PV2.3.2>Nausea with vomiting, unspecified</PV2.3.2><PV2.3.2>Epigastric pain</ PV2.3.2><PV2.3.2>Impacted cerumen, bilateral</PV2.3.2><PV2.3.2>Other terminal manager ( current) drug therapy</PV2.3.2> [id number] 08/24/2016 08:57:00 2015 19:13:32 DIS Emergency PJ GREEN <PV2.3.2>Nausea with vomiting, unspecified</PV2.3.2><PV2.3.2>VOMITING, ABD PAIN</PV2.3.2><PV2.3.2>Nausea with vomiting, unspecified</PV2.3.2><PV2.3.2> Hypokalemia</PV2.3.2> [id number] 08/23/2016 17:16:00 2015 23:34:28 DIS Emergency MIKI SCHWARTZ VOMITING [id number] 08/03/2016 23:18:00 2015 12:05:34 DIS Outpatient MIRANDA MARIELOS <PV2.3.2>Hyperosmolality and hypernatremia</PV2.3.2><PV2.3.2>INTRACTABLE NAUSEA VOMITING</PV2.3.2><PV2.3.2>Hyperosmolality and hypernatremia</PV2.3.2>< PV2.3.2>Syncope and collapse</PV2.3.2><PV2.3.2>Bradycardia, unspecified</ PV2.3.2><PV2.3.2>Benign neoplasm of unspecified adrenal gland</PV2.3.2><PV2.3.2> Hypertensive chronic kidney disease w stg 1-4/unsp chr kdny</PV2.3.2><PV2.3.2> Chronic kidney disease, unspecified</PV2.3.2><PV2.3.2>Hypothyroidism, unspecified</PV2.3.2><PV2.3.2>Nonrheumatic mitral (valve) insufficiency</PV2.3.2 ><PV2.3.2>Atrioventricular block, first degree</PV2.3.2><PV2.3.2>Occlusion and stenosis of bilateral carotid arteries</PV2.3.2><PV2.3.2>Personal history of other benign neoplasm</PV2.3.2> [id number] 08/03/2016 09:26:00 2015 14:34:20 DIS Emergency TITI DEL REAL VOMITING, ABD PAIN [id number] 08/31/2016 13:07:00 Document Registration [id number] 08/27/2016 11:00:00 Document Registration
--- OUTSIDE RECORDS SUMMARY | 2017-02-07 18:02 | XMS REPORT ---
Author Author [facility] Organization Unknown Address Unknown Phone Unavailable Care Team Providers Care Associate Loan Officer Name Role Phone MD LONDONO VERLIN [phone] Reason For Visit Reason for Visit from [...] 10:30 AM * Address # 1 : [facility]: [address], [place]- or Procedures * Completed Esophagogastroduodenoscopy, by MD RASHAAD GUZMAN, on 09/17/2016 8:02 AM Immunizations * Influenza, seasonal, injectable ([employer] PHARM, Lot # [id number]); Administered 08/2016 11:22 [...]
--- OUTSIDE RECORDS SUMMARY | 2017-02-07 18:02 | XMS REPORT ---
Author Author [facility] Organization Unknown Address Unknown Phone Unavailable Care Team Providers Care Biomedical Engineer Name Role Phone MD BRY, SHANEL [phone] Reason For Visit Chief Complaint VOMITING Social [...] H (65-99 MG/DL) *GFR EST NON AFR [place] 81 ML/MIN *GFR EST AFR AMER >90 [...] * INFLUEN VACC (GLAXO) (FLUARIX 2015- (GLAXO), [employer] PHARM, Lot # [id number]); Administered 08/05/2016 11:22 AM; 1 DOSE=0.5 ML, INTRAMUSCL Hospital Course Hospital Discharge Instructions Allergies, Adverse Reactions, Alerts * Latex Allergy has not been assessed. * IV Contrast Allergy has not been assessed. * No Known Drug Allergies. Medication Medication reconciliation has not been performed.
--- OUTSIDE RECORDS SUMMARY | 2017-02-07 18:03 | XMS REPORT ---
Author Author [employer] Organization Unknown Address Unknown Phone Unavailable Care Team Providers Care Exhaust Worker Name Role Phone UNASSIGNED DOCTOR , DOCTOR PP [phone] Reason For Visit Chief Complaint VOMITING Social [...] H (65-99 MG/DL) *GFR EST NON AFR [place] >90 ML/MIN *GFR EST AFR AMER >90 [...] 09/17/2016 8:02 AM * Completed Procedure Code: 7034007 Procedure Name: not valued, on 09/17/2016 12:00 AM * Completed Procedure Code: 55595 Procedure Name: not valued, on 09/17/2016 12: 00 AM Immunizations * Influenza, seasonal, injectable ([employer] PHARM, Lot # [id number]); Administered 08/2016 11:22 AM; 1 DOSE=0.5 ML, INTRAMUSCL Hospital Course Hospital Discharge Instructions Allergies, Adverse Reactions, Alerts * Latex Allergy has not been assessed. * IV Contrast Allergy has not been assessed. * No Known Drug Allergies. Medication Medication reconciliation has not been performed.
--- OUTSIDE RECORDS SUMMARY | 2017-02-07 20:47 | XMS REPORT ---
Author Author [employer] Organization Unknown Address Unknown Phone Unavailable Care Team Providers Care Tank Worker Name Role Phone MD LONDONO VERLIN [phone] Reason For Visit Chief Complaint NAUSEA AND [...] Procedures * Completed Esophagogastroduodenoscopy, by MD [facility], on 09/17/2016 8:02 AM Immunizations * Influenza, seasonal, injectable ([employer] PHARM, Lot # [id number]); Administered 08/2016 11:22 AM; 1 DOSE=0.5 ML, INTRAMUSCL Hospital Course Hospital Discharge Instructions Allergies, Adverse Reactions, Alerts * Latex Allergy has not been assessed. * IV Contrast Allergy has not been assessed. * No Known Drug Allergies. Medication Medication reconciliation has not been performed.
--- OUTSIDE RECORDS SUMMARY | 2017-02-07 20:48 | XMS REPORT ---
Author Author [employer] Organization Unknown Address Unknown Phone Unavailable Care Team Providers Care Network Lead Name Role Phone UNASSIGNED DOCTOR , DOCTOR PP [phone] Reason For Visit Chief Complaint VOMITING, UPPER [...] 09/17/2016 8:02 AM * Completed Procedure Code: [id number] Procedure Name: not valued, on 09/17/2016 12:00 AM * Completed Procedure Code: 64577 Procedure Name: not valued, on 09/17/2016 12: 00 AM Immunizations * Influenza, seasonal, injectable ([employer] PHARM, Lot # [id number]); Administered 08/2016 11:22 AM; 1 DOSE=0.5 ML, INTRAMUSCL Hospital Course Hospital Discharge Instructions Allergies, Adverse Reactions, Alerts * Latex Allergy has not been assessed. * IV Contrast Allergy has not been assessed. * No Known Drug Allergies. Medication Medication reconciliation has not been performed.
--- OUTSIDE RECORDS SUMMARY | 2017-02-07 20:48 | XMS REPORT ---
Author Author GENERATED, SYSTEM Organization Unknown Address Unknown Phone Unavailable Care Team Providers Care Principal Process Engineer Name Role Phone MD [facility] [phone] Reason For Visit Chief Complaint VOMITING Social [...] H (65-99 MG/DL) *GFR EST NON AFR PALAUAN >90 ML/MIN *GFR EST AFR AMER >90 [...] Immunizations * INFLUEN VACC (GLAXO) (FLUARIX (GLAXO), [employer] PHARM, Lot # [id number]); Administered 08/05/2016 11:22 AM; 1 DOSE=0.5 ML, INTRAMUSCL Hospital Course Hospital Discharge Instructions Allergies, Adverse Reactions, Alerts * Latex Allergy has not been assessed. * IV Contrast Allergy has not been assessed. * No Known Drug Allergies. Medication Medication reconciliation has not been performed.
--- OUTSIDE RECORDS SUMMARY | 2017-02-07 20:48 | XMS REPORT ---
Author Author GENERATED, SYSTEM Organization Unknown Address Unknown Phone Unavailable Care Team Providers Care Nutrition Teacher Name Role Phone MD MISTRY VERLIN [phone] Reason For Visit Reason for Visit from [...] H (65-99 MG/DL) *GFR EST NON AFR RUSSIAN >90 ML/MIN *GFR EST AFR AMER >90 [...] H (65-99 MG/DL) *GFR EST NON AFR RUSSIAN >90 ML/MIN *GFR EST AFR AMER >90 [...] Note : Admission status: Outpatient Observation Insurance: [facility] and Veterans Patient presented to ER [...] * INFLUEN VACC 2015-(GLAXO) (FLUARIX 2015- (GLAXO), [employer] PHARM, Lot # [id number]); Administered 08/05/2016 11:22 [...] the responsibility of the patient or patient service representative to confirm the list of [...]
--- OUTSIDE RECORDS SUMMARY | 2017-02-07 20:49 | XMS REPORT ---
Author Author GENERATED, SYSTEM Organization Unknown Address Unknown Phone Unavailable Care Team Providers Care Skid Worker Name Role Phone MD BRY, [facility] [phone] Reason For Visit Chief Complaint VOMITING, ABD [...] H (65-99 MG/DL) *GFR EST NON AFR CHINESE >90 ML/MIN *GFR EST AFR AMER >90 [...]
--- OUTSIDE RECORDS SUMMARY | 2017-02-07 20:50 | XMS REPORT ---
Author Author GENERATED, SYSTEM Organization Unknown Address Unknown Phone Unavailable Care Team Providers Care Rubber Heel And Sole Press Tender Name Role Phone MD BRY, SHANEL [phone] Reason For Visit Chief Complaint VOMITING ABD [...] MG/DL (65-99 MG/DL) *GFR EST NON AFR PERUVIAN >90 ML/MIN *GFR EST AFR AMER >90 [...] Immunizations * INFLUEN VACC (GLAXO) (FLUARIX (GLAXO), [employer] PHARM, Lot # [id number]); Administered 08/05/2016 11:22 AM; 1 DOSE=0.5 ML, INTRAMUSCL Hospital Course Hospital Discharge Instructions Allergies, Adverse Reactions, Alerts * Latex Allergy has not been assessed. * IV Contrast Allergy has not been assessed. * No Known Drug Allergies. Medication Medication reconciliation has not been performed.
--- OUTSIDE RECORDS SUMMARY | 2017-02-07 20:50 | XMS REPORT ---
Author Author GENERATED, SYSTEM Organization Unknown Address Unknown Phone Unavailable Care Team Providers Care Social Work Professor Name Role Phone MD BRY, [facility] [phone] Reason For Visit Chief Complaint VOMITING, ABD [...] MG/DL (65-99 MG/DL) *GFR EST NON AFR TAIWANESE >90 ML/MIN *GFR EST AFR AMER >90 [...] [facility] Thursday and and at [facility] on Thursday. Had CT scan and sonogram at clinic on Thursday. Pt continues to abd pain and n/v today. Technique: Post contrast images were performed after the administration of 95 milliliters of Isovue intravenous contrast. 3 dimensional reconstructions were performed by the technologist. Priors: None. Findings: Vascular Structures: Abdomen: Celiac Frakes/SMA/GRETTA: No evidence of stenosis. There are no [...]
--- OUTSIDE RECORDS SUMMARY | 2017-02-07 20:50 | XMS REPORT ---
Author Author GENERATED, SYSTEM Organization Unknown Address Unknown Phone Unavailable Care Team Providers Care Burn Out Scarfing Operator Name Role Phone MD BRY, [facility] [phone] Reason For Visit Chief Complaint CYCLIC VOMITING [...] H (65-99 MG/DL) *GFR EST NON AFR INDONESIAN >90 ML/MIN *GFR EST AFR AMER >90 [...] * INFLUEN VACC 2015-(GLAXO) (FLUARIX 2015- (GLAXO), [employer] PHARM, Lot # [id number]); Administered 08/05/2016 11:22 AM; 1 DOSE=0.5 ML, INTRAMUSCL Hospital Course Hospital Discharge Instructions Allergies, Adverse Reactions, Alerts * Latex Allergy has not been assessed. * IV Contrast Allergy has not been assessed. * No Known Drug Allergies. Medication Medication reconciliation has not been performed.
--- OUTSIDE RECORDS SUMMARY | 2017-02-07 20:50 | XMS REPORT ---
Author Author GENERATED, SYSTEM Organization Unknown Address Unknown Phone Unavailable Care Team Providers Care Forest Supervisor Name Role Phone MD [facility] [phone] Reason For Visit Chief Complaint VOMITING, STOMACH [...] * INFLUEN VACC 2015-(GLAXO) (FLUARIX 2015-17 (GLAXO), [employer] PHARM, Lot # [id number]); Administered 08/05/2016 11:22 AM; 1 DOSE=0.5 ML, INTRAMUSCL Hospital Course Hospital Discharge Instructions Allergies, Adverse Reactions, Alerts * Latex Allergy has not been assessed. * IV Contrast Allergy has not been assessed. * No Known Drug Allergies. Medication Medication reconciliation has not been performed.
--- OUTSIDE RECORDS SUMMARY | 2017-02-07 20:51 | XMS REPORT ---
Author Author GENERATED, SYSTEM Organization Unknown Address Unknown Phone Unavailable Care Team Providers Care Casing Crew Name Role Phone UNASSIGNED DOCTOR , DOCTOR PP [phone] Reason For Visit Chief Complaint VOMITING Social [...] H (65-99 MG/DL) *GFR EST NON AFR NORWEGIAN >90 ML/MIN *GFR EST AFR AMER >90 [...] 09/17/2016 8:02 AM * Completed Procedure Code: [id number] Procedure Name: not valued, on 09/17/2016 12:00 AM * Completed Procedure Code: 07138 Procedure Name: not valued, on 09/17/2016 12: 00 AM Immunizations * Influenza, seasonal, injectable ([employer] PHARM, Lot # [id number]); Administered 08/2016 11:22 AM; 1 DOSE=0.5 ML, INTRAMUSCL Hospital Course Hospital Discharge Instructions Allergies, Adverse Reactions, Alerts * Latex Allergy has not been assessed. * IV Contrast Allergy has not been assessed. * No Known Drug Allergies. Medication Medication reconciliation has not been performed.
--- OUTSIDE RECORDS SUMMARY | 2017-02-07 20:51 | XMS REPORT ---
Author Author GENERATED, SYSTEM Organization Unknown Address Unknown Phone Unavailable Care Team Providers Care Supervisor Water Treatment Plant Name Role Phone MD BRY, SHANEL [phone] Reason For Visit Chief Complaint VOMITING Social [...] H (65-99 MG/DL) *GFR EST NON AFR NORTHERN IRISH 81 ML/MIN *GFR EST AFR AMER >90 [...] * INFLUEN VACC (GLAXO) (FLUARIX 2015- (GLAXO), [employer] PHARM, Lot # [id number]); Administered 08/05/2016 11:22 AM; 1 DOSE=0.5 ML, INTRAMUSCL Hospital Course Hospital Discharge Instructions Allergies, Adverse Reactions, Alerts * Latex Allergy has not been assessed. * IV Contrast Allergy has not been assessed. * No Known Drug Allergies. Medication Medication reconciliation has not been performed.
--- OUTSIDE RECORDS SUMMARY | 2017-02-07 20:51 | XMS REPORT | Continuity of Care Document ---
Author Author [facility] Organization [facility] Address Unknown Phone Unavailable Allergies Medications [...] R55 Syncope and collapse 08/12/2016 MARIELOS JEAN [id number] Personal history of other benign neoplasm 08/26/2016 PJ GREEN E876 Hypokalemia 08/26/2016 PJ GREEN R112 Nausea with vomiting, unspecified 09/03/2016 MIKI SCHWARTZ H6123 Impacted cerumen, bilateral 09/03/2016 MIKI SCHWARTZ R1013 Epigastric pain 09/03/2016 MIKI SCHWARTZ R112 Nausea with vomiting, unspecified 09/03/2016 MIKI SCHWARTZ [id number] Other ferry terminal agent (current) drug therapy 10/31/2016 NIKOLAY BAKER [id number] [...] - 08/23/16 17:50 *GFR EST NON AFR ZAMBIAN 81 mL/min NRG *GRFA EST AFR AMER [...] - 08/24/16 09:15 *GFR EST NON AFR ZAMBIAN >90 mL/min NRG *GRFA EST AFR AMER [...] - 08/25/16 20:38 *GFR EST NON AFR ZAMBIAN >90 mL/min NRG *GRFA EST AFR AMER [...] - 08/31/16 13:56 *GFR EST NON AFR ZAMBIAN >90 mL/min NRG *GRFA EST AFR AMER [...] - 10/28/16 12:20 *GFR EST NON AFR ZAMBIAN >90 mL/min NRG *GRFA EST AFR AMER [...] Status Pt. Type Provider Facility Loc./Unit Complaint [id number] 10/28/2016 21:34:00 2016 04:06:56 DIS Emergency NIKOLAY BAKER A <PV2.3.2>Vomiting, unspecified</PV2.3.2><PV2.3.2>VOMITING, UPPER ABD PAIN</PV2.3.2><PV2.3.2>Vomiting, unspecified</PV2.3.2><PV2.3.2>Cannabis abuse, uncomplicated</PV2.3.2><PV2.3.2>Generalized abdominal pain</PV2.3.2> [id number] 10/28/2016 11:46:00 2016 22:44:18 DIS Emergency PJ GREEN VOMITING [id number] 09/21/2016 12:22:00 2015 02:03:39 DIS Emergency TITI DEL REAL NAUSEA AND VOMITTING [id number] 09/17/2016 05:27:00 2015 09:13:47 DIS Inpatient RASHAAD GUZMAN <PV2.3.2>ABD PAIN-EPIGASTRIC, N/V</PV2.3.2><PV2.3.2>EGD</PV2.3.2> [id number] 08/25/2016 18:59:00 2015 08:45:07 DIS Emergency MIKI SCHWARTZ VOMITING ABD PAIN [id number] 08/24/2016 21:47:00 2015 05:41:56 DIS Emergency MIKI SCHWARTZ <PV2.3.2>Epigastric pain</PV2.3.2><PV2.3.2>VOMITING, STOMACH PAIN</PV2.3.2>< PV2.3.2>Nausea with vomiting, unspecified</PV2.3.2><PV2.3.2>Epigastric pain</ PV2.3.2><PV2.3.2>Impacted cerumen, bilateral</PV2.3.2><PV2.3.2>Other ferry terminal agent ( current) drug therapy</PV2.3.2> [id number] 08/24/2016 08:57:00 2015 19:13:32 DIS Emergency PJ GREEN <PV2.3.2>Nausea with vomiting, unspecified</PV2.3.2><PV2.3.2>VOMITING, ABD PAIN</PV2.3.2><PV2.3.2>Nausea with vomiting, unspecified</PV2.3.2><PV2.3.2> Hypokalemia</PV2.3.2> [id number] 08/23/2016 17:16:00 2015 23:34:28 DIS Emergency MIKI SCHWARTZ VOMITING [id number] 08/03/2016 23:18:00 2015 12:05:34 DIS Outpatient MIRANDA MARIELOS <PV2.3.2>Hyperosmolality and hypernatremia</PV2.3.2><PV2.3.2>INTRACTABLE NAUSEA VOMITING</PV2.3.2><PV2.3.2>Hyperosmolality and hypernatremia</PV2.3.2>< PV2.3.2>Syncope and collapse</PV2.3.2><PV2.3.2>Bradycardia, unspecified</ PV2.3.2><PV2.3.2>Benign neoplasm of unspecified adrenal gland</PV2.3.2><PV2.3.2> Hypertensive chronic kidney disease w stg 1-4/unsp chr kdny</PV2.3.2><PV2.3.2> Chronic kidney disease, unspecified</PV2.3.2><PV2.3.2>Hypothyroidism, unspecified</PV2.3.2><PV2.3.2>Nonrheumatic mitral (valve) insufficiency</PV2.3.2 ><PV2.3.2>Atrioventricular block, first degree</PV2.3.2><PV2.3.2>Occlusion and stenosis of bilateral carotid arteries</PV2.3.2><PV2.3.2>Personal history of other benign neoplasm</PV2.3.2> [id number] 08/03/2016 09:26:00 2015 14:34:20 DIS Emergency TITI DEL REAL VOMITING, ABD PAIN [id number] 08/31/2016 13:07:00 Document Registration [id number] 08/27/2016 11:00:00 Document Registration
--- OUTSIDE RECORDS SUMMARY | 2017-02-07 20:51 | XMS REPORT ---
Author Author GENERATED, SYSTEM Organization Unknown Address Unknown Phone Unavailable Care Team Providers Care Import Customs Clearing Agent Name Role Phone MD LONDONO VERLIN [phone] Reason For Visit Reason for Visit from [...] 10:30 AM * Address # 1 : [facility]: [address], [place]- [phone] or Procedures * Completed Esophagogastroduodenoscopy, by MD RAHSAAD GUZMAN, on 09/17/2016 8:02 AM Immunizations * Influenza, seasonal, injectable ([employer] PHARM, Lot # [id number]); Administered 08/2016 11:22 [...]
[2017-02-07] MEDS ORDERED: NORMAL SALINE 1,000 ML IV ONE (21:00)
[2017-02-07] MEDS ORDERED: ONDANSETRON 4mg/2ml INJECTION IV ONE (21:00)
[2017-02-07] MEDS ORDERED: PANTOPRAZOLE 40mg INJECTION IV ONE (21:00)
--- NOTE | 2017-02-07 21:04 | ERPDOC ---
Departure Disposition Decision Date: Feb 07, 2017 Disposition Decision Time: 22:08 Disposition: 02 TO OBS [facility] Impression Impression Impression: Primary Impression: Hypokalemia Additional Impression: Cyclic vomiting syndrome Vomiting Intractability: intractable Nausea presence: with nausea Qualified Codes: G43.A1 - Cyclical vomiting, intractable Condition: Stable Seen By: Physician only Referrals: ANTHONY HUGHES MD (Family) Problems/Meds/Labs Reviewed?: Yes Medications reviewed and manag: Yes Follow up care ordered?: No (ADMISSION/OBS) Mental Status: Alert, Oriented HPI - Abdominal Pain General Chief Complaint: Nausea,Vomiting,Diarrhea Stated Complaint: VOMITING BLOOD Time Seen by Provider: 20:42 Source: patient, family (father) HPI - Abdominal Pain Initial Comments 21 YO WM who returns to ER for second visit today for nausea and vomiting. Patient was evaluated and treated in ER this morning for his cyclic vomiting syndrome, given IV fluids and IV anti-emetics. Patient reportedly refused to allow IV fluids to be completely infused. Patient reportedly has episodes following marijuana use. Patient has used marijuana in last few days. Father reports that patient had "blood" in his vomit. Occurred At: home Location: epigastric 1 - midepigastric abdominal pain Associated Symptoms: fatigue, nausea/vomiting, DENIES: back pain, fever/chills , shortness of breath, syncope Hx of Similar Symptoms: Yes Allergies: Coded Allergies: lactose (Verified Adverse Reaction, Unknown, ON LACTOSE FREE DIET, 02/07/17 ) PER HISTORY AND PHYSICAL DATED 12-13-15 Past History Patient Surgical History Tonsillectomy Past Medical History ENMT: allergies GI: GERD, constipation, other (cyclic vomiting syndrome) Surgical History General: EGD, colonoscopy, tonsils Family History Family PMH: FOUND: [place], diabetes, hypertension Vaccines Hx Influenza Vaccination: Yes (July 2016) Hx Pneumococcal Vaccination: No Hx Tetanus, Diptheria, Pertuss: Yes (04/2010) Social History Does patient use chewing tobac: No Second Hand Exposure: Yes Substance Use Type: marijuana Substance last used: days (ago) Alcohol Intake: none Marital Status: Single Current Occupational Status: student Review of Systems Constitutional Constitutional: DENIES: chills, fever Eyes General: DENIES: erythema, exudate, photophobia Vision: DENIES: blurring ENMT Ears: DENIES: drainage Sinuses: DENIES: congestion Nose: DENIES: nosebleeds Mouth/Throat: DENIES: painful swallowing Cardiovascular Cardiac: DENIES: chest pain, dyspnea on exertion Rhythm/Rate: DENIES: irregular beat, palpitations Pulmonary Respiratory: DENIES: cough, dyspnea GI Upper Abdomen: nausea, pain (epigastric), see HPI, vomiting Lower Abdomen: DENIES: blood in stool, constipation, diarrhea General: DENIES: dysuria, hematuria Integumentary Skin: DENIES: rash Neurological General: DENIES: dysarthria, headache, seizures, syncope Hematologic/Lymphatic Hematologic/Lymphatic: DENIES: anemia, easy bruising Physical Exam General General Nourishment: well nourished, well developed, appears stated age, no acute distress Vitals and Pain First Documented Vital Signs Date Time Temp Pulse Resp B/P Pulse Ox O2 Delivery O2 Flow Rate FiO2 02/07/17 18:23 98.6 71 16 150/80 Room Air 02/07/17 21:22 96 Weight: Kilograms: 62.200 Height (feet): 5 Height (inches): 7.00 Triage Pain Scale: Normal Exams: Head: Normocephalic w/o trauma Eyes: Pupils are PERRLA w/ EOMI, No scleral icterus ENMT: No facial trauma, nasal exudates, pharyngeal erythema Chest/Resp: Clear all greenberg, with good airflow, and symmetry bilaterally CV: Regular rate and rhythm, without murmur or gallop, Pulses 2+ all extremities, capillary refill, <2 seconds all ext., no pedal edema noted Lymphatic: No lymphadenopathy, or lymphedema noted Musculoskeletal: No tenderness, or deformity noted Integumentary: No rashes, hives, or bruising noted Neurologic: Patient is alert, and oriented, cranial nerves, motor/sensory/ cerebellar, exams w/o gross deficits Psychiatric: Patient exhibits, appropriate attention, emotion and affect Abdomen (brief) Abdominal Brief: FOUND: bowel normo active x4, soft, tender (tender to palpation epigastric area), NOT FOUND: distended, hepatosplenomegaly, pulsatile mass Differential Diagnoses Considering: Biliary Colic, Bowel Obstruction, Food Poisoning, Gastroenteritis , Gastroparesis, Pancreatitis, UTI, Viral Syndrome, Other (cyclic vomiting syndrome; abdominal migraine with vomiting; recreational drug adverse effect) Progress Results/Orders Orders Procedure Category Date Status Time Cbc W/Auto LAB 02/07/17 Complete Diff-Reflex Manual Cmp - Comprehensive LAB 02/07/17 Complete Metabolic Occult Blood, Gastric LAB 02/07/17 Complete 20:57 Abdomen Acute (Inc. RAD 02/07/17 Taken Chest) 20:58 Ondansetron Inj PHA 02/07/17 Complete (Zofran) 21:00 Pantoprazole PHA 02/07/17 Complete (Protonix Iv) 21:00 Normal Saline (Normal PHA 02/07/17 Complete Saline Iv) 21:00 Water For PHA 02/07/17 In Process Injection... 21:45 EKG EKG 02/07/17 Taken Magnesium LAB 02/07/17 Complete 22:19 Lab Results Laboratory Tests Test 02/07/17 21:12 02/07/17 21:13 02/07/17 21:50 White Blood Count 10.9T/MM3 Red Blood Count 4.53M/MM3 Hemoglobin 14.5GM/DL Hematocrit 40.7% Mean Corpuscular Volume 89.8UM3 Mean Corpuscular Hemoglobin 32.0UUG Mean Corpuscular Hemoglobin Concent 35.6GM/DL RDW Standard Deviation 41.4FL Platelet Count 213T/MM3 Mean Platelet Volume 10.7UM3 Immature Granulocyte % (Auto) 0.2% Neutrophils (%) (Auto) 72.0% Lymphocytes (%) (Auto) 19.2% Monocytes (%) (Auto) 8.3% Eosinophils (%) (Auto) 0.1% Basophils (%) (Auto) 0.2% Absolute Immature Granulocyte (auto 0.02T/MM3 Absolute Neutrophils (auto) 7.8T/MM3 Absolute Lymphocytes (auto) 2.1T/MM3 Absolute Monocytes (auto) 0.9T/MM3 Absolute Eosinophils (auto) 0.0T/MM3 Absolute Basophils (auto) 0.0T/MM3 Turbidity < 20 Sodium Level 141MEQ/L Potassium Level 2.7MEQ/L Chloride Level 100MEQ/L Carbon Dioxide Level 23MEQ/L Anion Gap 18MEQ/L Blood Urea Nitrogen 8.0MG/DL Creatinine 0.9MG/DL Glomerular Filtration Rate Calc 109 BUN/Creatinine Ratio 9RATIO Glucose Level 114MG/DL Calculated Osmolality 270MOSM/KG Calcium Level 9.9MG/DL Total Bilirubin 1.50MG/DL Icterus Index < 2 Aspartate Amino Transf (AST/SGOT) 21U/L Alanine Aminotransferase (ALT/SGPT) 27U/L Alkaline Phosphatase 58U/L Total Protein 7.4G/DL Albumin 4.9G/DL Globulin 2.5G/DL Albumin/Globulin Ratio 2.0RATIO Chemistry Specimen Hemolysis < 15 Gastric Fluid Occult Blood Pos Magnesium Level 2.0MG/DL Medications Current ED Medications Ondansetron HCl (Zofran) 4 mg O ONCE IV Last administered on 02/07/17 21:16; Start 02/07/17 at 21:00; Stop 02/07/17 at 21:01; Status DC Pantoprazole Sodium 40 mg 40 mg O ONCE IV Last administered on 02/07/17 21:18 ; Start 02/07/17 at 21:00; Stop 02/07/17 at 21:01; Status DC Sodium Chloride 1,000 ml @ 0 mls/hr Q0M ONCE IV Last administered on 21:15; Start 02/07/17 at 21:00; Stop 02/07/17 at 21:01; Status DC Potassium Chloride/Sterile Water (KCl/Water) 105 ml @ 100 mls/hr Q1H3M IV Last administered on 02/07/17 22:10; Start 02/07/17 at 21:45; Stop 02/08/17 at 01:56 Progress Progress LIQUID EMESIS NOTED IN EMESIS BAG WITH TINY FLECKS OF REDDISH COLORED MATERIAL. GIVEN FATHER'S REPORT OF BLOOD IN EMESIS EARLIER TODAY, WILL SEND FOR GASTROCCULT. GIVEN POTASSIUM OF 2.7 WILL ORDER IV POTASSIUM SUPPLEMENTATION, EKG AND MAGNESIUM LEVEL. MAGNESIUM 2.0. EKG EKG : Rate: <60 Rhythm: sinus Amlin: normal QRS: normal ST/T: non-specific changes Interpreted by: signing physician Consult/PCP Consult/PCP : Physician Contacted: Dr. De La Garza (hospitalist) Time Called: 22:08 Type of discussion: Admit Discussion/PCP Discussion Details 2207: Text message sent 2211: Discussed case with Dr. De La Garza who agrees to place patient in OBS status for hydration and potassium supplementation. Xray Xray : Xray: Abdominal Series (No pulmonary consolidation. Heart and mediastinum WNL. No free air under diaphram. Gas and stool throughout. No evidence of perforation or obstruction.) Interpretation: Interpreted by BRITTA Ding MD Feb 07, 2017 21:04
[2017-02-07 21:24] LABS: BASOPHILS % (AUTO) 0.2 % (0-2); EOSINOPHILS % (AUTO) 0.1 % (0-4); HCT - HEMATOCRIT 40.7 % (41-53); HGB - HEMOGLOBIN 14.5 GM/DL (13.5-17.5); IMMATURE GRANULOCYTE # (AUTO) 0.02 T/MM3 (0.00-0.03); IMMATURE GRANULOCYTE % (AUTO) 0.2 % (0.0-0.5); LYMPHOCYTES # (AUTO) 2.1 T/MM3 (1-4.8); LYMPHOCYTES % (AUTO) 19.2 % (23-45); MEAN CORPUSCULAR HGB CONC(MCHC 35.6 GM/DL (31-37); MEAN CORPUSCULAR VOLUME 89.8 UM3 (80-100); MEAN PLATELET VOLUME 10.7 UM3 (9.4-12.4); MONOCYTES # (AUTO) 0.9 T/MM3 (0-0.8); MONOCYTES % (AUTO) 8.3 % (0-9.0); NEUTROPHILS #(AUTO)-ABSOLUTE 7.8 T/MM3 (1.8-7.7); RED BLOOD COUNT 4.53 M/MM3 (4.50-5.90); WBC - WHITE BLOOD COUNT 10.9 T/MM3 (4.5-11.0)
[2017-02-07 21:25] LABS: OCCULT BLOOD,GASTRIC FLUID POS
[2017-02-07 21:29] LABS: ALBUMIN 4.9 G/DL (3.5-5.0); ALKALINE PHOSPHATASE 58 U/L (38-126); ALT (SGPT) 27 U/L (21-72); ANION GAP 18 MEQ/L (5-15); AST (SGOT) 21 U/L (17-59); BUN/CREATININE RATIO 9 RATIO (6-26); CALCIUM 9.9 MG/DL (8.4-10.2); CHLORIDE 100 MEQ/L (98-107); CO2 - CARBON DIOXIDE 23 MEQ/L (22-30); CREATININE 0.9 MG/DL (0.8-1.5); GLOMERULAR FILTRATION RATE 109; GLUCOSE 114 MG/DL (75-110); SODIUM 141 MEQ/L (134-144); TOTAL PROTEIN 7.4 G/DL (6.3-8.2)
--- NOTE | 2017-02-07 21:29 | NUR ---
XRAY PT TAKEN TO XRAY PER CART
[2017-02-07 21:36] LABS: POTASSIUM 2.7 MEQ/L (3.6-5)
[2017-02-07] MEDS: POTASSIUM CHLORIDE 10 MEQ in WATER FOR INJECTION 100 ML IV SCH ×3 (22:10→23:51)
--- OUTSIDE RECORDS SUMMARY | 2017-02-07 22:38 | XMS REPORT ---
Author Author GENERATED, SYSTEM Organization Unknown Address Unknown Phone Unavailable Care Team Providers Care Power Sewing Machine Operator Name Role Phone MD LONDONO VERLIN [phone] Reason For Visit Chief Complaint NAUSEA AND [...] Procedures * Completed Esophagogastroduodenoscopy, by MD THOMAS [facility], on 09/17/2016 8:02 AM Immunizations * Influenza, seasonal, injectable ([employer] PHARM, Lot # [id number]); Administered 08/2016 11:22 AM; 1 DOSE=0.5 ML, INTRAMUSCL Hospital Course Hospital Discharge Instructions Allergies, Adverse Reactions, Alerts * Latex Allergy has not been assessed. * IV Contrast Allergy has not been assessed. * No Known Drug Allergies. Medication Medication reconciliation has not been performed.
--- OUTSIDE RECORDS SUMMARY | 2017-02-07 22:39 | XMS REPORT ---
Author Author GENERATED, SYSTEM Organization Unknown Address Unknown Phone Unavailable Care Team Providers Care Doubling Machine Operator Name Role Phone MD [facility], [facility] [phone] Reason For Visit Chief Complaint VOMITING Social [...] H (65-99 MG/DL) *GFR EST NON AFR FRENCH >90 ML/MIN *GFR EST AFR AMER >90 [...] Immunizations * INFLUEN VACC (GLAXO) (FLUARIX (GLAXO), [employer] PHARM, Lot # [id number]); Administered 08/05/2016 11:22 AM; 1 DOSE=0.5 ML, INTRAMUSCL Hospital Course Hospital Discharge Instructions Allergies, Adverse Reactions, Alerts * Latex Allergy has not been assessed. * IV Contrast Allergy has not been assessed. * No Known Drug Allergies. Medication Medication reconciliation has not been performed.
--- OUTSIDE RECORDS SUMMARY | 2017-02-07 22:39 | XMS REPORT ---
Author Author GENERATED, SYSTEM Organization Unknown Address Unknown Phone Unavailable Care Team Providers Care Motorcycle Delivery Driver Name Role Phone UNASSIGNED DOCTOR , DOCTOR PP [phone] Reason For Visit Chief Complaint VOMITING, UPPER [...] 09/17/2016 8:02 AM * Completed Procedure Code: [id number] Procedure Name: not valued, on 09/17/2016 12:00 AM * Completed Procedure Code: [id number] Procedure Name: not valued, on 09/17/2016 12: 00 AM Immunizations * Influenza, seasonal, injectable ([employer] PHARM, Lot # [id number]); Administered 08/2016 11:22 AM; 1 DOSE=0.5 ML, INTRAMUSCL Hospital Course Hospital Discharge Instructions Allergies, Adverse Reactions, Alerts * Latex Allergy has not been assessed. * IV Contrast Allergy has not been assessed. * No Known Drug Allergies. Medication Medication reconciliation has not been performed.
--- OUTSIDE RECORDS SUMMARY | 2017-02-07 22:39 | XMS REPORT ---
Author Author GENERATED, SYSTEM Organization Unknown Address Unknown Phone Unavailable Care Team Providers Care Enterprise Application Analyst Name Role Phone MD MISTRY VERLIN [phone] Reason For Visit Reason for Visit from [...] H (65-99 MG/DL) *GFR EST NON AFR [place] >90 ML/MIN *GFR EST AFR AMER [...] H (65-99 MG/DL) *GFR EST NON AFR [place] >90 ML/MIN *GFR EST AFR AMER [...] status: Outpatient Observation Insurance: [facility] and Veterans Patient presented to ER [...] * INFLUEN VACC 2015-(GLAXO) (FLUARIX 2015- (GLAXO), [employer] PHARM, Lot # [id number]); Administered 08/05/2016 11:22 [...] the responsibility of the patient or patient client account representative to confirm the list of medications [...]
--- OUTSIDE RECORDS SUMMARY | 2017-02-07 22:40 | XMS REPORT ---
Author Author GENERATED, SYSTEM Organization Unknown Address Unknown Phone Unavailable Care Team Providers Care Senior Security Analyst Name Role Phone MD BRY, [facility] [phone] Reason For Visit Chief Complaint CYCLIC VOMITING [...] H (65-99 MG/DL) *GFR EST NON AFR MONTENEGRIN >90 ML/MIN *GFR EST AFR AMER >90 [...] * INFLUEN VACC 2015-(GLAXO) (FLUARIX 2015- (GLAXO), [employer] PHARM, Lot # [id number]); Administered 08/05/2016 11:22 AM; 1 DOSE=0.5 ML, INTRAMUSCL Hospital Course Hospital Discharge Instructions Allergies, Adverse Reactions, Alerts * Latex Allergy has not been assessed. * IV Contrast Allergy has not been assessed. * No Known Drug Allergies. Medication Medication reconciliation has not been performed.
--- OUTSIDE RECORDS SUMMARY | 2017-02-07 22:40 | XMS REPORT ---
Author Author GENERATED, SYSTEM Organization Unknown Address Unknown Phone Unavailable Care Team Providers Care Cage Unloader Name Role Phone MD BRY, [facility] [phone] Reason For Visit Chief Complaint VOMITING, ABD [...] MG/DL (65-99 MG/DL) *GFR EST NON AFR NICARAGUAN >90 ML/MIN *GFR EST AFR AMER >90 [...] epigastric pain and n/v, was seen in [facility] Thursday and and at [facility] on Thursday. Had CT scan and sonogram at clinic on Thursday. Pt continues to abd pain and n/v today. Technique: Post contrast images were performed after the administration of 95 milliliters of Isovue intravenous contrast. 3 dimensional reconstructions were performed by the technologist. Priors: None. Findings: Vascular Structures: Abdomen: Celiac [place]/SMA/GRETTA: No evidence of stenosis. There are no [...]
--- OUTSIDE RECORDS SUMMARY | 2017-02-07 22:40 | XMS REPORT ---
Author Author GENERATED, SYSTEM Organization Unknown Address Unknown Phone Unavailable Care Team Providers Care Facilities Custodian Name Role Phone MD BRY, [facility] [phone] Reason For Visit Chief Complaint VOMITING, STOMACH [...] * INFLUEN VACC 2015-(GLAXO) (FLUARIX 2015-17 (GLAXO), [employer]ARM, Lot # [id number]); Administered 08/05/2016 11:22 AM; 1 DOSE=0.5 ML, INTRAMUSCL Hospital Course Hospital Discharge Instructions Allergies, Adverse Reactions, Alerts * Latex Allergy has not been assessed. * IV Contrast Allergy has not been assessed. * No Known Drug Allergies. Medication Medication reconciliation has not been performed.
--- OUTSIDE RECORDS SUMMARY | 2017-02-07 22:40 | XMS REPORT ---
Author Author GENERATED, SYSTEM Organization Unknown Address Unknown Phone Unavailable Care Team Providers Care Perinatal Technician Name Role Phone MD BRY, [facility] [phone] Reason For Visit Chief Complaint VOMITING, ABD [...] H (65-99 MG/DL) *GFR EST NON AFR BENINESE >90 ML/MIN *GFR EST AFR AMER >90 [...]
--- OUTSIDE RECORDS SUMMARY | 2017-02-07 22:41 | XMS REPORT ---
Author Author GENERATED, SYSTEM Organization Unknown Address Unknown Phone Unavailable Care Team Providers Care Ball Warper Tender Name Role Phone MD BRY, SHANEL [phone] Reason For Visit Chief Complaint VOMITING ABD [...] MG/DL (65-99 MG/DL) *GFR EST NON AFR MALAGASY >90 ML/MIN *GFR EST AFR AMER >90 [...] Immunizations * INFLUEN VACC (GLAXO) (FLUARIX (GLAXO), [employer], Lot # [id number]); Administered 08/05/2016 11:22 AM; 1 DOSE=0.5 ML, INTRAMUSCL Hospital Course Hospital Discharge Instructions Allergies, Adverse Reactions, Alerts * Latex Allergy has not been assessed. * IV Contrast Allergy has not been assessed. * No Known Drug Allergies. Medication Medication reconciliation has not been performed.
--- OUTSIDE RECORDS SUMMARY | 2017-02-07 22:41 | XMS REPORT | Continuity of Care Document ---
Author Author [facility] Organization [facility] Address Unknown Phone Unavailable Allergies [...] R55 Syncope and collapse 08/12/2016 MARIELOS JEAN [id number] Personal history of other benign neoplasm 08/26/2016 PJ GREEN E876 Hypokalemia 08/26/2016 PJ GREEN R112 Nausea with vomiting, unspecified 09/03/2016 MIKI SCHWARTZ H6123 Impacted cerumen, bilateral 09/03/2016 MIKI SCHWARTZ R1013 Epigastric pain 09/03/2016 MIKI SCHWARTZ R112 Nausea with vomiting, unspecified 09/03/2016 MIKI SCHWARTZ [id number] Other long term care pharmacist (current) drug therapy 10/31/2016 NIKOLAY BAKER [id number] [...] - 08/23/16 17:50 *GFR EST NON AFR PERUVIAN 81 mL/min NRG *GRFA EST AFR AMER [...] - 08/24/16 09:15 *GFR EST NON AFR PERUVIAN >90 mL/min NRG *GRFA EST AFR AMER [...] - 08/25/16 20:38 *GFR EST NON AFR PERUVIAN >90 mL/min NRG *GRFA EST AFR AMER [...] - 08/31/16 13:56 *GFR EST NON AFR PERUVIAN >90 mL/min NRG *GRFA EST AFR AMER [...] - 10/28/16 12:20 *GFR EST NON AFR PERUVIAN >90 mL/min NRG *GRFA EST AFR AMER [...] Status Pt. Type Provider Facility Loc./Unit Complaint [id number] 10/28/2016 21:34:00 2016 04:06:56 DIS Emergency NIKOLAY BAKER A <PV2.3.2>Vomiting, unspecified</PV2.3.2><PV2.3.2>VOMITING, UPPER ABD PAIN</PV2.3.2><PV2.3.2>Vomiting, unspecified</PV2.3.2><PV2.3.2>Cannabis abuse, uncomplicated</PV2.3.2><PV2.3.2>Generalized abdominal pain</PV2.3.2> [id number] 10/28/2016 11:46:00 2016 22:44:18 DIS Emergency PJ GREEN VOMITING [id number] 09/21/2016 12:22:00 2015 02:03:39 DIS Emergency TITI DEL REAL NAUSEA AND VOMITTING [id number] 09/17/2016 05:27:00 2015 09:13:47 DIS Inpatient RASHAAD GUZMAN <PV2.3.2>ABD PAIN-EPIGASTRIC, N/V</PV2.3.2><PV2.3.2>EGD</PV2.3.2> [id number] 08/25/2016 18:59:00 2015 08:45:07 DIS Emergency MIKI SCHWARTZ VOMITING ABD PAIN [id number] 08/24/2016 21:47:00 2015 05:41:56 DIS Emergency MIKI SCHWARTZ <PV2.3.2>Epigastric pain</PV2.3.2><PV2.3.2>VOMITING, STOMACH PAIN</PV2.3.2>< PV2.3.2>Nausea with vomiting, unspecified</PV2.3.2><PV2.3.2>Epigastric pain</ PV2.3.2><PV2.3.2>Impacted cerumen, bilateral</PV2.3.2><PV2.3.2>Other long term care pharmacist ( current) drug therapy</PV2.3.2> [id number] 08/24/2016 08:57:00 2015 19:13:32 DIS Emergency PJ GREEN <PV2.3.2>Nausea with vomiting, unspecified</PV2.3.2><PV2.3.2>VOMITING, ABD PAIN</PV2.3.2><PV2.3.2>Nausea with vomiting, unspecified</PV2.3.2><PV2.3.2> Hypokalemia</PV2.3.2> [id number] 08/23/2016 17:16:00 2015 23:34:28 DIS Emergency MIKI SCHWARTZ VOMITING [id number] 08/03/2016 23:18:00 2015 12:05:34 DIS Outpatient MIRANDA MARIELOS <PV2.3.2>Hyperosmolality and hypernatremia</PV2.3.2><PV2.3.2>INTRACTABLE NAUSEA VOMITING</PV2.3.2><PV2.3.2>Hyperosmolality and hypernatremia</PV2.3.2>< PV2.3.2>Syncope and collapse</PV2.3.2><PV2.3.2>Bradycardia, unspecified</ PV2.3.2><PV2.3.2>Benign neoplasm of unspecified adrenal gland</PV2.3.2><PV2.3.2> Hypertensive chronic kidney disease w stg 1-4/unsp chr kdny</PV2.3.2><PV2.3.2> Chronic kidney disease, unspecified</PV2.3.2><PV2.3.2>Hypothyroidism, unspecified</PV2.3.2><PV2.3.2>Nonrheumatic mitral (valve) insufficiency</PV2.3.2 ><PV2.3.2>Atrioventricular block, first degree</PV2.3.2><PV2.3.2>Occlusion and stenosis of bilateral carotid arteries</PV2.3.2><PV2.3.2>Personal history of other benign neoplasm</PV2.3.2> [id number] 08/03/2016 09:26:00 2015 14:34:20 DIS Emergency TITI DEL REAL VOMITING, ABD PAIN [id number] 08/31/2016 13:07:00 Document Registration [id number] 08/27/2016 11:00:00 Document Registration
--- OUTSIDE RECORDS SUMMARY | 2017-02-07 22:41 | XMS REPORT ---
Author Author GENERATED, SYSTEM Organization Unknown Address Unknown Phone Unavailable Care Team Providers Care Flow Nurse Name Role Phone MD BRY, SHANEL [phone] Reason For Visit Chief Complaint VOMITING Social [...] (65-99 MG/DL) *GFR EST NON AFR BENINESE 81 ML/MIN *GFR EST AFR AMER >90 [...] * INFLUEN VACC (GLAXO) (FLUARIX 2015- (GLAXO), [employer], Lot # [id number]); Administered 08/05/2016 11:22 AM; 1 DOSE=0.5 ML, INTRAMUSCL Hospital Course Hospital Discharge Instructions Allergies, Adverse Reactions, Alerts * Latex Allergy has not been assessed. * IV Contrast Allergy has not been assessed. * No Known Drug Allergies. Medication Medication reconciliation has not been performed.
--- OUTSIDE RECORDS SUMMARY | 2017-02-07 22:41 | XMS REPORT ---
Author Author GENERATED, SYSTEM Organization Unknown Address Unknown Phone Unavailable Care Team Providers Care Risk Control Manager Name Role Phone MD LONDONO VERLIN [phone] Reason For Visit Reason for Visit from [...] 10:30 AM * Address # 1 : [facility]: [address], [place]- or Procedures * Completed Esophagogastroduodenoscopy, by MD RASHAAD GUZMAN, on 09/17/2016 8:02 AM Immunizations * Influenza, seasonal, injectable ([employer] PHARM, Lot # [id number]); Administered 08/2016 11:22 [...]
--- OUTSIDE RECORDS SUMMARY | 2017-02-07 22:42 | XMS REPORT ---
Author Author GENERATED, SYSTEM Organization Unknown Address Unknown Phone Unavailable Care Team Providers Care Police Or Patrol Park Officer Name Role Phone UNASSIGNED DOCTOR , DOCTOR PP [phone] Reason For Visit Chief Complaint VOMITING Social [...] H (65-99 MG/DL) *GFR EST NON AFR GHANAIAN >90 ML/MIN *GFR EST AFR AMER >90 [...] 09/17/2016 8:02 AM * Completed Procedure Code: [id number] Procedure Name: not valued, on 09/17/2016 12:00 AM * Completed Procedure Code: 20490 Procedure Name: not valued, on 09/17/2016 12: 00 AM Immunizations * Influenza, seasonal, injectable ([employer] PHARM, Lot # [id number]); Administered 08/2016 11:22 AM; 1 DOSE=0.5 ML, INTRAMUSCL Hospital Course Hospital Discharge Instructions Allergies, Adverse Reactions, Alerts * Latex Allergy has not been assessed. * IV Contrast Allergy has not been assessed. * No Known Drug Allergies. Medication Medication reconciliation has not been performed.
--- NOTE | 2017-02-07 22:55 | NUR ---
ADMIT TO PT TO MEDICAL UNIT #139 VIA CART. REPORT GIVEN TO AYE KHAN. PT TRANSFERRED FROM CART TO BED INDEPENDENTLY - NO SIGN OF DISTRESS. IV IN PLACE AND FLUIDS RUNNING. IV SITE APPROPRIATE. FATHER AT BEDSIDE.
--- NOTE | 2017-02-07 22:55 | NUR ---
Admit Pt admitted to Medical unit from ED. pt came pt cart and ambulated from hallway ED cart to 139 bed.
[2017-02-07 23:02] VITALS: Ht 170.2 cm; Wt 62.5 kg
[2017-02-07] MEDS ORDERED: ONDANSETRON 4mg/2ml INJECTION IV PRN (23:45)
[2017-02-07] MEDS ORDERED: ACETAMINOPHEN 325 MG TABLET PO PRN (23:45)
--- NOTE | 2017-02-07 23:51 | HPPDOC ---
ЮЛИЯ DE LA GARZA MD 02/07/17 2351: HPI - Adult Date DATE: 02/07/17 TIME: 23:49 General Chief Complaint: recurrent vomiting, hematemesis History of Present Illness Pleasant 21-year-old who presents to the emergency room with recurrent vomiting. he tells me he's vomited 15 times today. He's been having worsening over the past 2 weeks, he's actually been having problems perhaps since last August or so. He's had some testing by his primary care physician but has recently been referred to a GI doctor. He does tell me that he smokes marijuana frequently, perhaps every 3-4 days. The last time was about 4 days ago, this in response to learning that his mom has some kind of cancer. She has a tumor in her shoulder. He denies suicidality or depression etc. He was seen earlier this morning in the emergency room provide IV fluids and antiemetics and discharged home. He returns tonight with recurrence of his symptoms. He states that he's vomited blood 4-5 times today, he says it was "a lot" and bright red. He denies any black or bloody stools, his last bowel movement was the day prior. Past Medical History Past Medical History Cyclic Vomiting Syndrome Marijuana use Surgical History Patient's Surgical History: Tonsillectomy Current Medications Home Meds Reported Medications Escitalopram Oxalate (Escitalopram Oxalate) 10 Mg Tablet, 10 MG PO HS 02/07/17 Hydroxyzine HCl (Hydroxyzine HCl) 25 Mg Tablet, 25 MG PO TID 02/07/17 Fluticasone Propionate (Flonase Allergy Relief 50 mcg/actuation Nasal) 9.9 Ml [place].susp, 1 SPRAY LIVIA DAILY 01/04/17 Scopolamine (Transderm-Scop) 1 Each Patch.td72, 1 PATCH TD Q3DAY 12/26/16 Prochlorperazine Maleate (Prochlorperazine Maleate) 10 Mg Tablet, 10 MG PO QID Y for NAUSEA &/OR VOMITING 12/26/16 Promethazine HCl (Phenadoz) 12.5 Mg Supp, 1 SUPP RECTALLY PRN 12/20/16 Levocarnitine Tartrate (l-Carnitine) Unknown Strength Capsule, 1 CAP PO DAILY 11/07/16 Ondansetron (Zofran Odt) 4 Mg Tab.rapdis, 4 MG PO Q4HR Y for NAUSEA 11/07/16 Ubidecarenone (Coq10) 50 Mg Tab.chew, 1 TAB PO DAILY 11/06/16 Allergies: Coded Allergies: lactose (Verified Adverse Reaction, Unknown, ON LACTOSE FREE DIET, 02/07/17 ) PER HISTORY AND PHYSICAL DATED 12-13-15 Family History Family History: [place], DM2, HTN Social History Smoking Status: Never smoker Does patient use chewing tobac: No Second Hand Exposure: Yes Substance Use Type: marijuana (says only smokes every few days and a few drags) Substance last used: days (ago) Alcohol Intake: none Marital Status: Single Current Occupational Status: student Advance Directives: Yes Full Code, No DPOA for Healthcare Only Review of Systems All Other Systems All Other Systems: Reviewed (remainder of 10-point ROS Neg.) Physical Exam General Vital Signs Vital Signs Date Time Temp Pulse Resp B/P Pulse Ox O2 Delivery O2 Flow Rate FiO2 02/07/17 22:00 79 138/74 98 Room Air 02/07/17 21:22 18 02/07/17 18:23 98.6 Height (Feet): 5 Height (Inches): 7.00 Comments In general he is pleasant. He appears mildly ill he is in no distress. Facies symmetric Lungs are clear bilaterally Cardiovascular is regular without murmur gallop or rub Abdomen soft and benign with minimal tenderness Extremities no edema Neurologic RN Documented GCS Eye Opening: Verbal: Motor: Total: Laboratory Laboratory Tests Test 02/07/17 21:12 02/07/17 21:13 02/07/17 21:50 White Blood Count 10.9T/MM3 Red Blood Count 4.53M/MM3 Hemoglobin 14.5GM/DL Hematocrit 40.7% Mean Corpuscular Volume 89.8UM3 Mean Corpuscular Hemoglobin 32.0UUG Mean Corpuscular Hemoglobin Concent 35.6GM/DL RDW Standard Deviation 41.4FL Platelet Count 213T/MM3 Mean Platelet Volume 10.7UM3 Immature Granulocyte % (Auto) 0.2% Neutrophils (%) (Auto) 72.0% Lymphocytes (%) (Auto) 19.2% Monocytes (%) (Auto) 8.3% Eosinophils (%) (Auto) 0.1% Basophils (%) (Auto) 0.2% Absolute Immature Granulocyte (auto 0.02T/MM3 Absolute Neutrophils (auto) 7.8T/MM3 Absolute Lymphocytes (auto) 2.1T/MM3 Absolute Monocytes (auto) 0.9T/MM3 Absolute Eosinophils (auto) 0.0T/MM3 Absolute Basophils (auto) 0.0T/MM3 Turbidity < 20 Sodium Level 141MEQ/L Potassium Level 2.7MEQ/L Chloride Level 100MEQ/L Carbon Dioxide Level 23MEQ/L Anion Gap 18MEQ/L Blood Urea Nitrogen 8.0MG/DL Creatinine 0.9MG/DL Glomerular Filtration Rate Calc 109 BUN/Creatinine Ratio 9RATIO Glucose Level 114MG/DL Calculated Osmolality 270MOSM/KG Calcium Level 9.9MG/DL Total Bilirubin 1.50MG/DL Icterus Index < 2 Aspartate Amino Transf (AST/SGOT) 21U/L Alanine Aminotransferase (ALT/SGPT) 27U/L Alkaline Phosphatase 58U/L Total Protein 7.4G/DL Albumin 4.9G/DL Globulin 2.5G/DL Albumin/Globulin Ratio 2.0RATIO Chemistry Specimen Hemolysis < 15 Gastric Fluid Occult Blood Pos Magnesium Level 2.0MG/DL Assessment & Plan Problems: (1) Hypokalemia Status: Acute Assessment & Plan: replacing IV and orally when he is able. (2) Dehydration Status: Acute (3) Cyclic vomiting syndrome Status: Chronic Qualifiers: Vomiting Intractability: intractable Nausea presence: with nausea Qualified Codes: G43.A1 - Cyclical vomiting, intractable Assessment & Plan: he should stop smoking marijuana. We'll provide supportive care antibiotics and GI consultation at some point. It sounds like he's had some workup with imaging at Center previously but if not then we can consider CT abdomen although I'm less suspicious of a mechanical obstruction or inflammatory bowel disease. (4) Drug abuse, marijuana (5) Hematemesis Status: Acute Qualifiers: Nausea presence: with nausea Qualified Codes: K92.0 - Hematemesis; R11.0 - Nausea Assessment & Plan: I'm most suspicious of a Shanelle-Lieberman tear. It could be ulcers as well. IV proton pump inhibitor, will check hemoglobin in the morning. Would expect would drop somewhat with hydration. GI consultation was pending as an outpatient, we may need to do this sooner if his hemoglobin drops or if he continues to vomit blood. Code Status Full Code Hospital Course Summary Disclaimer The hospital course summary below is not to be considered part of the above Progress Note. MARIELOS VELASQUEZ MD 02/08/17 1144: Past Medical History Current Medications Home Meds Reported Medications Escitalopram Oxalate (Escitalopram Oxalate) 10 Mg Tablet, 10 MG PO HS 02/07/17 Hydroxyzine HCl (Hydroxyzine HCl) 25 Mg Tablet, 25 MG PO TID 02/07/17 Fluticasone Propionate (Flonase Allergy Relief 50 mcg/actuation Nasal) 9.9 Ml [place].susp, 1 SPRAY LIVIA DAILY 01/04/17 Scopolamine (Transderm-Scop) 1 Each Patch.td72, 1 PATCH TD Q3DAY 12/26/16 Prochlorperazine Maleate (Prochlorperazine Maleate) 10 Mg Tablet, 10 MG PO QID Y for NAUSEA &/OR VOMITING 12/26/16 Promethazine HCl (Phenadoz) 12.5 Mg Supp, 1 SUPP RECTALLY PRN 12/20/16 Levocarnitine Tartrate (l-Carnitine) Unknown Strength Capsule, 1 CAP PO DAILY 11/07/16 Ondansetron (Zofran Odt) 4 Mg Tab.rapdis, 4 MG PO Q4HR Y for NAUSEA 11/07/16 Ubidecarenone (Coq10) 50 Mg Tab.chew, 1 TAB PO DAILY 11/06/16 Allergies: Coded Allergies: lactose (Verified Adverse Reaction, Unknown, ON LACTOSE FREE DIET, 02/07/17 ) PER HISTORY AND PHYSICAL DATED 12-13-15 Assessment & Plan Assessment 02/08/2017-Dr. Velasquez I have reviewed the H&P above from Dr. De La Garza. I've seen and examined the patient independently. The patient was seen today accompanied by his father. The patient was agreeable to having his father present during the interview and exam. Chief complaint continuous nausea and vomiting History of present illness The patient is a 21-year-old male who states he was diagnosed with cyclic nausea and vomiting by a supervisor production managing in [employer]. 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 He does admit to starting smoking marijuana in eighth grade but the nausea and vomiting episodes predated his marijuana use. His current cycle of nausea and vomiting started about 2 weeks ago and he states he has been in the hospital for infusions of Compazine and/or IV fluids almost daily. He presented to the emergency room yesterday and urine drug screen was positive just for marijuana. He knows of nothing other than Compazine or other anti-emetics that help with his nausea and vomiting. Taking warm baths or showers does not seem to help. He does not have any associated abdominal pain except when he is vomiting. He denies any diarrhea or constipation. Yesterday he had several episodes of bright red blood in his emesis. He has never noticed blood in his emesis before. He has not noticed any black or tarry looking stools. When he presented to the emergency room yesterday his potassium was 2.7. Hemoglobin was 14.5. He was admitted for IV fluids and correction of hypokalemia. The patient also admits to arms with anxiety and was recently started on escitalopram and hydroxyzine. These meds were started after his current cycle of vomiting started. He admits to feeling anxious but denies feeling suicidal or having thoughts of harming himself. He is more anxious because his mother was recently diagnosed with cancer and is undergoing treatments. His father states that one of his son's friends told him that the patient does not feel acceptable unless he is smoking marijuana. Past medical history significant for cyclic nausea and vomiting which began in early childhood education coordinator, otherwise unchanged from H&P above Past surgical history, family history, review of systems, medications reviewed. Physical exam Gen. this is a well-developed depressed appearing male who has multiple episodes of dry heaves and then emesis of bile during my exam. He did not have any bloody vomitus when I was in the room. He is shivering at times and states that sometimes the Compazine will cause shivering HEENT-sclera are anicteric, oropharynx is moist NECK-supple CV-regular rate and rhythm CHEST-to auscultation bilaterally ABD-scaphoid, nontender, nondistended with positive bowel sounds -no Aguilar EXT-no edema NEURO-focal deficits, patient is shivering SKIN-warm and dry and without rashes Impression Hypokalemia Hematemesis likely Shanelle-Lieberman tear-last emesis did not show gross blood Long-standing history of cyclic nausea and vomiting Marijuana addiction, uncertain if this is contributing to his nausea and vomiting, but it certainly is not helping Lactose intolerance Possible depression/anxiety Plan Continue IV fluids. Replace potassium IV. Continue antiemetics except for Compazine as needed. Monitor hemoglobin. Continue Protonix IV. Recheck CBC and basic metabolic profile tomorrow. Recommend cessation of cannabis. Consult social security assessor for help with outpatient addiction services. Consult psychiatry regarding possible depression/anxiety/marijuana addiction/difficulty coping with his mother's cancer diagnosis. The patient is fairly reluctant to discuss his anxiety or difficulties with mood. He requests that if the psychiatrist comes to see him he would like his dad to be present. DVT Prophylaxis: SCD'S ЮЛИЯ DE LA GARZA MD Feb 07, 2017 23:51 MARIELOS VELASQUEZ MD Feb 08, 2017 11:44
[2017-02-08] VITALS (10 sets, daily range): BP systolic 125–160; BP diastolic 63–100; PULSE 54–78; RESP 14–20; TEMP 95.3–98.6; O2SAT 98–100
[2017-02-08] MEDS: METOCLOPRAMIDE 10mg/2ml INJECTION IV PRN ×2 (00:02→07:28)
[2017-02-08] MEDS: POTASSIUM CHLORIDE 40 MEQ in NORMAL SALINE 1,000 ML IV SCH ×4 (00:04→22:26)
[2017-02-08] MEDS: PROMETHAZINE 25 MG INJECTION IV PRN ×2 (00:46→07:29)
[2017-02-08] MEDS: POTASSIUM CHLORIDE 10 MEQ in WATER FOR INJECTION 100 ML IV SCH (00:54)
[2017-02-08] MEDS: LORAZEPAM 2 MG/ML INJECTION IV PRN ×2 (02:29→09:28)
[2017-02-08] MEDS: ONDANSETRON 4mg/2ml INJECTION IV PRN ×3 (04:48→20:04)
[2017-02-08] MEDS ORDERED: DiphenhydrAMINE 12.5mg/5ml UD LIQUID PO ONE (05:00)
[2017-02-08] MEDS ORDERED: PROCHLORPERAZINE 10mg/2ml INJECTION IV ONE (05:00)
[2017-02-08 05:41] LABS: HCT - HEMATOCRIT 40.1 % (41-53); MEAN CORPUSCULAR HGB 31.5 UUG (26-34); MEAN CORPUSCULAR HGB CONC(MCHC 34.9 GM/DL (31-37); MEAN CORPUSCULAR VOLUME 90.3 UM3 (80-100); MEAN PLATELET VOLUME 10.8 UM3 (9.4-12.4); RED BLOOD COUNT 4.44 M/MM3 (4.50-5.90); WBC - WHITE BLOOD COUNT 9.8 T/MM3 (4.5-11.0)
[2017-02-08 05:57] LABS: ANION GAP 17 MEQ/L (5-15); BUN/CREATININE RATIO 8 RATIO (6-26); CALCIUM 9.6 MG/DL (8.4-10.2); CHLORIDE 104 MEQ/L (98-107); CO2 - CARBON DIOXIDE 22 MEQ/L (22-30); CREATININE 0.8 MG/DL (0.8-1.5); GLOMERULAR FILTRATION RATE 125; GLUCOSE 107 MG/DL (75-110); SODIUM 143 MEQ/L (134-144)
[2017-02-08 06:10] LABS: POTASSIUM 2.9 MEQ/L (3.6-5)
[2017-02-08] MEDS: PANTOPRAZOLE 40mg INJECTION IV SCH ×2 (07:28→20:45)
--- NOTE | 2017-02-08 08:27 | NUR ---
shift summary pt had considerably marked emesis throughout shift. Dr. Miller was notified twice during shift for additional emesis medications. 1st notification occured after ED zofran, medical unit reglan and phenergan were not successful in controlling pt's emesis. orders were given for 0.5mg IV ativan prn emesis that was not effective on pt's emesis and nausea. 2nd notification was then made and orders were for 12.5mg IV benadryl and 5mg compazine IV to be given together one time and to call back if medication is not effective. Of all the emesis meds given benadryl and compazine IV together seemed to be the most effective in controlling pt's emesis. Night ROUTE SUPERVISOR also reported to me that pt was consuming x2 pitchers of h2o previously unknown to my knowledge which was probably a contributing factor to pt's emesis. Verbal discussion occured with pt to be NPO except for current cup of ice chips to decrease N/V in addition to reduction of ambulatory activity (pt came to nurse's station once to ask for emesis bag instead of using call light in addition to pacing back and forth in pt's room). pt also requested a shower. shower request was not denied to pt but rather an emphasis placed on controlling emesis and nausea before additional activities were resumed. VSS throughout shift. pt on RA and denied any pain other than association with multiple times of cyclical vomiting. Pt did not tolerate potassium bolus's well. pt received x1 potassium bolus and "extreme burning" occurred despite adjusting infusion rate. Dr. Porter telec was notified of this during admit. request to place lidocaine in x3 bags of potassium was denied. physician opted to place pt on 40meq kcl@150mls/hr. Dr. Miller was updated on K lab this AM. K increased from 2.7 at admit to 2.9 at 0600. no new orders. Addendum: 02/08/17 at 0846 by MELIDA PRIETO RN pt had adequate output and able to ambulate well without assistance and denied any light headedness or syncope. pt did demonstrate some very mild bilateral extremity tremors possibly r/t potassium being low.
--- NOTE | 2017-02-08 10:04 | NUR ---
NAUSEA PRN LORAZEPAM, PHENERGAN, ZOFRAN AND REGLAN GIVEN. PT HAS HAD MULTIPLE BOUTS OF EMESIS.
[2017-02-08 12:11] LABS: PHOSPHORUS 2.8 MG/DL (2.5-4.5)
[2017-02-08] MEDS: POTASSIUM CHLORIDE 10 MEQ, LIDOCAINE 1% 10 MG in NORMAL SALINE 100 ML IV SCH ×4 (12:35→16:35)
[2017-02-08 12:48] LABS: THYROID STIM HORMONE-TSH 0.73 MIU/L (0.47-4.68)
--- NOTE | 2017-02-08 13:30 | NUR ---
NAUSEA MEDS/POTASSIUM PT REPORTS NAUSEA AGAIN, PRN ZOFRAN GIVEN. K+ BOLUS' INFUSING AT THIS TIME.
--- NOTE | 2017-02-08 17:08 | DI ---
Indication: ITS.REASON: VOMITING PROCEDURE: PA view of the chest with supine and upright AP views of the abdomen Encounter: Initial Comparison: Acute abdomen series dated August 27, 2011 and KUB dated February 07, 2017 FINDINGS: The lungs are clear. There is no abnormal airspace opacity, pleural effusion or pneumothorax identified. The heart size, pulmonary vasculature and mediastinum are within normal limits. There is no free air on the upright view. The bowel gas pattern is nonobstructive and nonspecific. Gas is seen in nondilated small and large bowel to the level of the rectum. Moderate stool is seen throughout the colon. The bony structures are grossly unremarkable. IMPRESSION: 1. No acute cardiopulmonary abnormality. 2. No evidence of acute obstruction or free air. .
--- NOTE | 2017-02-08 18:40 | NUR ---
SHIFT PT HAS BEEN PLEASANT AND COOPERATIVE ALL SHIFT. PT IS A&OX3, UP WITH NO ASSIST, LOW FALL. PT DENIES PAIN, N/V AND SOA AT THIS TIME. PT IS ON ROOM AIR. PT HAS BEEN WITH OUT EMESIS FOR 6 HOURS NOW. INCREASED DIET TO CLEAR LIQUIDS WITH OUT PURPLE OR RED DYE. PT HAS AMBULATED IN [place]. NEW IV SITE PLACED. NO OTHER CHANGES.
[2017-02-08 18:48] LABS: POTASSIUM 3.4 MEQ/L (3.6-5)
[2017-02-09 04:17] VITALS: BP 140/74; PULSE 60; RESP 18; TEMP 96.9; O2SAT 99
--- NOTE | 2017-02-09 04:52 | NUR ---
SHIFT SUMMARY: PT IS A&OX3, COOPERATIVE AND PLEASANT. PT THREW UP EARLY IN MY SHIFT - ADMINISTERED ZOFRAN (SEE EMAR). PT IS ON CLEAR LIQUIDS (NO PURPLE OR RED DYE). FLUIDS RUNNING, ON RA, UP AT NANETTE, AMBULATED IN THE DOUGLAS A NUMBER OF TIMES EARLY IN MY SHIFT, ON TELEMETRY, AND Q4 VITALS. CALL LIGHT WITHIN REACH, BED ALARM ON.
[2017-02-09] MEDS: POTASSIUM CHLORIDE 40 MEQ in NORMAL SALINE 1,000 ML IV SCH (05:19)
[2017-02-09 05:49] LABS: BASOPHILS % (AUTO) 0.3 % (0-2); EOSINOPHILS # (AUTO) 0.1 T/MM3 (0-0.5); EOSINOPHILS % (AUTO) 1.3 % (0-4); HCT - HEMATOCRIT 41.8 % (41-53); HGB - HEMOGLOBIN 14.1 GM/DL (13.5-17.5); IMMATURE GRANULOCYTE # (AUTO) 0.01 T/MM3 (0.00-0.03); IMMATURE GRANULOCYTE % (AUTO) 0.1 % (0.0-0.5); LYMPHOCYTES # (AUTO) 2.9 T/MM3 (1-4.8); LYMPHOCYTES % (AUTO) 38.2 % (23-45); MEAN CORPUSCULAR HGB 31.3 UUG (26-34); MEAN CORPUSCULAR HGB CONC(MCHC 33.7 GM/DL (31-37); MEAN CORPUSCULAR VOLUME 92.9 UM3 (80-100); MEAN PLATELET VOLUME 11.5 UM3 (9.4-12.4); MONOCYTES # (AUTO) 0.8 T/MM3 (0-0.8); MONOCYTES % (AUTO) 11.1 % (0-9.0); NEUTROPHILS #(AUTO)-ABSOLUTE 3.7 T/MM3 (1.8-7.7); WBC - WHITE BLOOD COUNT 7.5 T/MM3 (4.5-11.0)
[2017-02-09 05:57] LABS: ALBUMIN 4.4 G/DL (3.5-5.0); ANION GAP 15 MEQ/L (5-15); BUN/CREATININE RATIO 11 RATIO (6-26); CALCIUM 9.1 MG/DL (8.4-10.2); CHLORIDE 105 MEQ/L (98-107); CO2 - CARBON DIOXIDE 20 MEQ/L (22-30); CREATININE 0.7 MG/DL (0.8-1.5); GLOMERULAR FILTRATION RATE 145; GLUCOSE 74 MG/DL (75-110); MAGNESIUM 2.4 MG/DL (1.6-2.3); PHOSPHORUS 3.4 MG/DL (2.5-4.5); POTASSIUM 4.5 MEQ/L (3.6-5); SODIUM 140 MEQ/L (134-144)
[2017-02-09 07:28] VITALS: BP 134/72; PULSE 60; RESP 16; TEMP 98.5; O2SAT 98
[2017-02-09 09:12] VITALS: PULSE 60; RESP 16
[2017-02-09] MEDS: PANTOPRAZOLE 40mg INJECTION IV SCH (09:17)
--- NOTE | 2017-02-09 10:50 | NUR ---
JUANCHO SUMMERS IS 12. MONITOR FOR ROTP. Addendum: 02/09/17 at 1050 by JAIME WRIGHT Amended: Links added.
[2017-02-09] MEDS ORDERED: NS KCL 20 MEQ 1,000 ML IV SCH (11:00)
[2017-02-09 11:40] VITALS: BP 146/88; PULSE 63; RESP 18; TEMP 98.5; O2SAT 100
--- NOTE | 2017-02-09 13:00 | NUR ---
STATUS PT IS ALERT AND ORIENTED X3. PT IS IN ADVANCED DIET WITH NO N/V AND NO PAIN. IV INFUSING ORDER AND IT IS IN HIS RIGHT WRIST. PT UP AD NANETTE. PT IS ON RA. VS HAVE BEEN STABLE.
--- NOTE | 2017-02-09 14:22 | PNPDOC ---
Subjective Date DATE: 02/09/17 TIME: 14:12 Subjective F/U: Hypokalemia, dehydration, Cyclic vomiting syndrome. Doing much better today. Much less nausea. Tolerating liquids well. Appetite increasing. No ab pain. Breathing well. Ambulating well. Objective Vital Signs Vital signs Vital Signs Date Time Temp Pulse Resp B/P Pulse Ox O2 Delivery O2 Flow Rate FiO2 02/09/17 11:40 98.5 63 18 146/88 100 Room Air Height (Feet): 5 Height (Inches): 7.00 Weight (Kilograms): 62.500 General General Appearance: Alert, Orientated x 3, Well Nourished, Well Developed, Cooperative, No Acute Distress, Looks Stated Age Eyes (Brief) Eyes: FOUND: EOMI, PERRL, NOT FOUND: scleral icterus ENMT (Brief) ENMT: FOUND: hearing intact, mucosa moist Neck (Brief) Neck: FOUND: midline, NOT FOUND: nuchal rigidity, spasm Respiratory (Brief) Respiratory: FOUND: clear all greenberg, equal bilaterally, NOT FOUND: rales, wheezes Cardiovascular (Brief) Cardiac: FOUND: regular rate, regular rhythm, NOT FOUND: pedal edema Abdomen (Brief) Abdominal: FOUND: BS normo active x4, soft, NOT FOUND: distended, tender Extremities (Brief) Extremity : Side: Bilateral Extremity: leg Extremity Finding: NOT FOUND: edema Musculoskeletal (Brief) Musculoskeletal: FOUND: extremities move equally, NOT FOUND: deformity, spasm Integumentary (Brief) Integumentary: FOUND: dry, warm Neurologic (Brief) Neurological: FOUND: cranial 2-12 intact, motor (intact ) Psychiatric (Brief) Psychiatric: FOUND: alert, attentive, normal affect, oriented Laboratory Laboratory Laboratory Tests 02/07/17 21:12 02/08/17 05:26 02/08/17 17:59 02/09/17 04:36 Laboratory Tests 02/07/17 21:12 02/08/17 05:26 02/09/17 04:36 Assessment & Plan Problems: (1) Hypokalemia Status: Acute Assessment & Plan: replacing IV and orally when he is able. (2) Dehydration Status: Acute (3) Cyclic vomiting syndrome Status: Chronic Qualifiers: Vomiting Intractability: intractable Nausea presence: with nausea Qualified Codes: G43.A1 - Cyclical vomiting, intractable Assessment & Plan: he should stop smoking marijuana. We'll provide supportive care antibiotics and GI consultation at some point. It sounds like he's had some workup with imaging at Center previously but if not then we can consider CT abdomen although I'm less suspicious of a mechanical obstruction or inflammatory bowel disease. (4) Drug abuse, marijuana (5) Hematemesis Status: Acute Qualifiers: Nausea presence: with nausea Qualified Codes: K92.0 - Hematemesis; R11.0 - Nausea Assessment & Plan: Plan/Intensity of Service Change IVF to NS with 20mEq KCl and decrease rate to 100 cc/hr. Advance diet as tolerated - advised [place] food. Encourage intake of liquids - recommend sport drinks when he has nausea. Anticipate discharge to home today. Has F/U with PCP in 1 week - would recommend recheck BMP at that time due to low potassium. See orders for details. Case discussed with CM and nursing. Time spent with patient care 35 minutes. Code Status Full Code Hospital Course Summary Disclaimer The hospital course summary below is not to be considered part of the above Progress Note. Hospital Course Summary 02/07 Admit for IVF and IV potassium correction. Control nausea. 02/08 Continue IV fluids. Replace potassium IV. Continue antiemetics except for Compazine as needed. Monitor hemoglobin. Continue Protonix IV. Recheck CBC and basic metabolic profile tomorrow. Recommend cessation of cannabis. Consult socially responsible investment adviser for help with outpatient addiction services. Consult psychiatry regarding possible depression/anxiety/marijuana addiction/difficulty coping with his mother's cancer diagnosis. The patient is fairly reluctant to discuss his anxiety or difficulties with mood. He requests that if the psychiatrist comes to see him he would like his dad to be present. 02/09 Doing much better today. Much less nausea. Tolerating liquids well. Appetite increasing. No ab pain. Breathing well. Ambulating well. Potassium increased - hemolysis noted. Change IVF to NS with 20mEq KCl and decrease rate to 100 cc/hr. Advance diet as tolerated - advised [place] food. Encourage intake of liquids - recommend sport drinks when he has nausea. Anticipate discharge to home today. Has F/U with PCP in 1 week - would recommend recheck BMP at that time due to low potassium. See orders for details. YOSELIN GUZMÁN MD Feb 09, 2017 14:16
--- NOTE | 2017-02-09 14:58 | NUR ---
CM/SW CONSULT MARIJUANA ADDICTION TREATMENT OPTIONS SPOKE WITH PT. INTRODUCED SELF, EXPLAINED ROLE, PROVIDED CONTACT INFO. PT STATED HE LIVES WITH HIS PARENTS IN [place], [place], AND HIS DC PLAN IS TO RETURN HOME. HE DENIED HAVING ANY DC NEEDS/CONCERNS. ADDRESSED HIS MARIJUANA USE. HE SAID HE AND HIS PARENTS HAVE DISCUSSED THIS, AND HE MIGHT STOP SMOKING TO SEE IF IT WOULD DECREASE HIS NAUSEA. THIS WORKER OFFERED ASSISTANCE (I.E. TREATMENT PROGRAMS) TO HELP HIM QUIT, BUT HE SAID HE DOES NOT NEED ANY OF THIS. HE SAID HE CAN STOP ON HIS OWN AND THIS WILL NOT BE A PROBLEM FOR HIM. Addendum: 02/09/17 at 1501 by JAIME WRIGHT Amended: Links added.
[2017-02-09 16:03] VITALS: BP 150/85; PULSE 71; RESP 16; TEMP 97.8; O2SAT 100
[2017-02-09] MEDS ORDERED: POTA10CA37 PO (16:30)
--- NOTE | 2017-02-09 17:31 | NUR ---
DISCHARGE PT DISCHARGE TO HOME AT THIS TIME. DISCHARGE INSTRUCTIONS WERE DISCUSSED WITH PT BY AYE DELATORRE. IV AND TELEMETRY WERE D/C.
--- NOTE | 2017-02-10 08:14 | DSF ---
ADMISSION DIAGNOSIS Hypokalemia. DISCHARGE DIAGNOSIS Hypokalemia (present on admission) - improved. ASSOCIATED CONDITIONS AND COMPLICATIONS Dehydration - resolved. Cyclic vomiting syndrome. Marijuana abuse. Hematemesis - resolved, likely Shanelle Lieberman tear. a) No evidence of acute blood loss anemia. PROCEDURES None. CONSULTS None. CLINICAL RESUME Mr. Canseco is a 21-year-old gentleman who presents to [facility] Emergency Room secondary to recurrent vomiting. He has been vomiting at least 15 times on day of presentation. He has been having increasing nausea with vomiting over the last two weeks - has been problematic since likely August 2016. He reports he had some testing done by his primary care provider and recently has been referred to a GI doctor. He does smoke marijuana frequently, perhaps every three to four days. Last time he did use marijuana was approximately four days ago. He did this in response to learning that his mom has some kind of cancer. She has a tumor in her shoulder. He does not have any suicidal or depressive symptoms. He was seen earlier in emergency room and given IV fluids as well as antiemetics. At that time he was discharged to home. He re-presents later on the secondary to recurrence of symptoms. He states that he has vomited blood four to five times a day. He reports it was "a lot" and bright red. He denies any black or bloody stools. He did have bowel movement the day prior. In light of his persistent symptoms coupled with hematemesis, the patient was placed in inpatient admission status at [facility] under the hospitalist service. For complete details of the H&P, refer to that document. LABORATORY White blood count is 10.9 with hemoglobin 14.5, hematocrit 40.7, MCV 89.8 and platelets 213,000. Serum sodium is 141, potassium 2.7, chloride 100, CO2 23, BUN 8 with creatinine 0.9, GFR 109, and blood glucose 114. Total bilirubin slightly elevated at 1.5. Transaminases are unremarkable. TSH is 0.73. Gastric occult blood is positive. HOSPITAL COURSE The patient was placed in inpatient admission status at [facility] under the hospitalist service. He was started on IV fluids for hydration and also to help correct his potassium. Antiemetics were initiated. By hospital day #1 we did continue fluids and work to replace potassium. Hemoglobin was monitored and overall showed stability. IV Protonix was initiated for GI protection. We discussed about cessation of cannabis. Secondary to his anxiety and difficulty with mood, coupled with the fact his mom now is dealing with cancer, we did consult with psychiatry. Unfortunately, due to timing of the patient's hospitalization, he wasn't able to be seen by psychiatry. By the , though, he was doing much, much better. His nausea had defervesced. He was tolerating liquids well. Appetite was starting to increase. He wasn't having abdominal pain or discomfort. He was breathing well on room air and ambulating well. Lab showed improvement. We saw no significant decrease of hemoglobin. He was not passing any blood through his gut. Repeat lab did show hemolysis, likely falsely increasing potassium. We did continue with fluids containing potassium but decreased the potassium down from 40 mEq to 20 mEq and decrease rate to 100 ml an hour. Diet was advanced and he was taking this well. In light of his interval improvement we discussed about discharge to home and the patient felt agreeable to this. Narrative disclaimer: Above narrative is a brief summary of the patient's hospitalization; for complete details of the hospital course, refer to the medical record. DISCHARGE CONDITION Stable/good. DIET [place] diet, increase as tolerated. MEDICATIONS Potassium 10 mEq with breakfast. Lexapro 10 mg q.h.s. Flonase one spray each nostril daily. Hydroxyzine 25 mg t.i.d. L-carnitine daily. Zofran ODT 4 mg q.4h. p.r.n. nausea. Compazine 10 mg q.i.d. p.r.n. nausea. Promethazine 12.5 mg p.r. p.r.n. nausea. Scopolamine patch every third day. CoQ10 50 mg daily. FOLLOWUP The patient will follow up with Dr. Mcnair in one week - recheck [facility] at that time. INSTRUCTION TO PATIENT Patient was instructed on his diagnosis and treatments provided. We encouraged him to advance diet gradually as he can tolerate. Advised plenty of fluids. Discussed about use of sport drink if develops nausea or emesis as this may help keep his electrolytes normalized. We encouraged him to abstain from marijuana use. Encouraged him on healthy well-rounded diet and activities. Should problems or need occur he can be in contact with Dr. Mcnair. If symptoms become quite dire he can present to emergency room for acute evaluation. He voiced understanding of the above. Time spent with discharge greater than [address]
== END 2017-02-09 17:31 | disposition home or self-care (01) | DRG 640 ==
LOC: ED 17:55 → EDHOLD 22:20 → MED 22:55 → OBSVTOIN 23:42
PROVIDERS: ADMIT Pediatrics; ATTEND Hospitalist
DX: E87.6 Hypokalemia (principal); K22.6 Gastro-esophageal laceration-hemorrhage syndrome; G43.A1 Cyclical vomiting, in migraine, intractable; E86.0 Dehydration; F12.10 Cannabis abuse, uncomplicated; Z79.899 Other long term (current) drug therapy
CPT/HCPCS: 36415; 36416; 80048; 80053; 80069; 82271; 82930; 83735; 84100; 84132; 84443; 85025; 85027; 93005; 96361; 96374; 96375

== ENCOUNTER 2017-11-10 16:32 | Inpatient (IN) ==
--- NOTE | 2017-11-10 17:42 | Emergency Department Report ---
Nausea/Vomiting/Diarrhea HPI - General Chief complaint: Nausea/Vomiting/Diarrhea <[facility]der [facility] 11/10/17 22:24> Stated complaint: Vomiting, dehydrated, unstable <KamiSatinder [facility] 11/10/17 22 :24> Time Seen by Provider: 11/10/17 16:35 <KamiSatinder [facility] 11/10/17 22:24> Source: patient, family, RN notes reviewed, old records reviewed <February,[facility] 11/10/17 17:43> Mode of arrival: wheelchair <February,[facility] 11/10/17 17:43> Limitations: no limitations <February,[facility] 11/10/17 17:43> - History of Present Illness HPI Narrative: 22yo man presents to the ER for repeat evaluation of his 'CVS' and 'anxiety sx' (carpopedal spasm, hyperventilation, etc). Pt had temp of 96'F at home; MOP ordered pt and father into the ER for eval of hypothermia and dehydration. <February,[facility] 11/10/17 18:21> MD complaint: nausea, vomiting, diarrhea <February,[facility] 11/10/17 17:43> - Related Data Home Medications Medication Instructions Recorded Confirmed levOCARNitine [l-Carnitine] 500 mg PO DAILY 04/18/17 11/10/17 Fexofenadine [Cici] 180 mg PO DAILY 07/07/17 11/10/17 Ascorbate Calcium [Vitamin C] 500 mg PO DAILY 10/13/17 11/10/17 Ubidecarenone/Vitamin E [Co Q-10 1 cap PO DAILY 10/13/17 11/10/17 50 mg Softgel] Cyanocobalamin (Vitamin B-12) 1 tab PO DAILY 10/14/17 11/10/17 [Vitamin B-12] Multivitamin [One Daily] 1 tab PO DAILY 10/21/17 11/10/17 Amitriptyline [Elavil] 50 mg PO HS 11/07/17 11/10/17 Scopolamine Patch [Transderm-Scop 1 patch TD Q72H 11/08/17 11/10/17 Eq] Previous Rx's Medication Instructions Recorded Prochlorperazine Tab [Compazine] 10 mg PO Q6HR PRN #12 tab 10/14/17 Ondansetron [Zofran Odt] 4 mg PO Q4HR PRN #18 tab.rapdis 11/08/17 <[facility]11/10/17 22:24> Allergies Allergy/AdvReac Type Severity Reaction Status Date / Time lactose AdvReac Unknown ON LACTOSE Verified 11/10/17 16:45 FREE DIET <[facility]11/10/17 22:24> Review of Systems All systems: reviewed and negative except as stated <February,[facility] 11/10/17 18 :21> Constitutional: Reports: as per HPI, other (hypothermia). Denies: fever, chills , weakness, weight change, night sweats <February,[facility] 11/10/17 18:21> Gastrointestinal: Reports: as per HPI, abdominal pain, nausea, vomiting. Denies : diarrhea, constipation, hematemesis, melena, hematochezia <February,[facility] 18:21> [facility], [facility] Patient Stated Medical History Gastroesophageal Reflux Yes Disease Other GI Yes: CYCLIC VOMITING Other Yes: marijuana Substance Use Disorder Yes: MARiJUANA <[facility]11/10/17 22:24> Surgical History: Colonoscopy. EGD. tonsillectomy <February,[facility] 11/10/17 17 :43> - Social History Smoking status: Current every day smoker <February,[facility] 11/10/17 17:43> Physical Exam - Limitations Limitations: no limitations <[facility]11/10/17 22:24> - General General appearance: alert, anxious <[facility]11/10/17 22:24> - Normal Exams: Head:: Normocephalic without trauma <[facility] 11/10/17 22:24> Chest/Respirations:: Clear all greenberg, with good airflow, and symmetry bilaterally <[facility]11/10/17 22:24> Cardiovascular:: without murmur or gallop, Pulses 2+ all extremities, capillary refill, <2 seconds all extremities <[facility] 11/10/17 22:24> Abdomen:: Bowel sounds positive, non-distended, no hepatosplenomegaly, masses or bruits noted <Kami,11/10/17 22:24> Neurological:: Patient is alert, and oriented, cranial nerves, motor/sensory/ cerebellar, exams w/o gross deficits, to observation <[facility], 22:24> Psychiatric:: Patient exhibits, appropriate attention, emotion and affect < [facility]11/10/17 22:24> - Cardiovascular Cardiovascular exam: Present: tachycardia <[facility]11/10/17 22:24> - Abdominal Exam Abdominal exam: Present: soft, tenderness (very mild, diffuse. No specific point tenderness noted), hyperactive bowel sounds. Absent: distention <Kami11/10/17 22:24> Course - Consultations Consultation #1: Mina: Call the [facility] Crisis team in the AM for follow up. <February,[facility] 11/10/17 18:21> Time: 17:45 <February,[facility] 11/10/17 18:21> Vital Signs Temperature 95.5 F L 11/10/17 16:32 Pulse Rate 122 H 11/10/17 16:32 Respiratory Rate 22 11/10/17 16:32 Pulse Oximetry 99 11/10/17 16:32 Temperature 98.2 F 11/10/17 17:48 Pulse Rate 128 H 11/10/17 17:00 Respiratory Rate 20 11/10/17 17:00 Blood Pressure 133/98 H 11/10/17 17:00 Pulse Oximetry 97 11/10/17 17:00 <Kami11/10/17 22:24> Nausea/Vomiting/Diarrhea - [facility] Narrative Medical decision making narrative: Initial plan was to discharge the patient pending control of vomiting and lab. However creatinine came back elevated at 2.7 with a potassium of 2.1 and an elevated BUN. Patient was given 40 mEq potassium and promptly threw it up. IV was started with 1 L normal saline and 10 mEq potassium rider. Kytril 1 g was given IV which controlled the vomiting and nausea. Labs were rechecked after IV fluid and potassium supplement, creatinine worsened from 2.7 to 2.9 and potassium worsened from 2.1-2.0. Magnesium is pending. EKG obtained. Chest x- ray and abdominal x-rays reviewed. Hospitalist was contacted and patient is admitted to supplement fluids and potassium. <KamiSatinder Godfrey 11/10/17 22:24> On initial triage, pt was noted to be variably hyperventilating (as opposed to consistently as on prior visits); his carpopedal spasm today 'turns' on and off at an instant's notice (as opposed to the expected persistence beyond initial tachypnea resolution) and is observed to be unilateral at times. Pts father is overly affectionate, overly attentive, and overly tactile with the pt. By report, pts mother is in the end stages of cancer treatment and likely to soon. Discussed case with Door Clamper; she attempted to explain pts waste of resources, abuse of system, and poor outcomes/care from his continued use of the ER and failure to establish or f/u with PCM and GI. Pt and FOP voiced understanding, but do not appear motivated to follow through. [facility] contacted; they now have pts info and crisis team with follow up. Pt and father instructed to call crisis team hotline tomorrow to establish care and follow up. Pt voiced understanding of dx, prognosis, tx, and f/u need. <February[facility] M - 11/10/17 18:21> - Differential Diagnosis Likely: gastroenteritis, drug-induced nausea and vomiting, dehydration <Satinder Mcclure 11/10/17 22:24> - Medical Records Attestation: I reviewed the patient's medical records. <KamiSatinder Godfrey 11/10 22:24> - Lab Data Attestation: I reviewed the patient's lab results. <Satinder Mcclure 11/10/17 22:24> Result diagrams: 11/10/17 21:32 <Satinder Mcclure 11/10/17 22:24> Lab Results 11/10/17 11/10/17 Range/Units 18:03 21:32 Turbidity < 20 < 20 (0-20) Sodium 134 134 (134-144) MEQ/L Potassium 2.1 L* 2.0 L* (3.6-5) MEQ/L Chloride 62 L 73 L D (98-107) MEQ/L Carbon Dioxide 43 H* 43 H* (22-30) MEQ/L Anion Gap 29 H 18 H (5-15) MEQ/L BUN 49.0 H 51.0 H* (9-20) MG/DL Creatinine 2.7 H 2.9 H D (0.8-1.5) MG/DL GFR Calculation 30 28 BUN/Creatinine Ratio 18 18 (6-26) RATIO Glucose 100 95 (75-110) MG/DL Calculated Osmolality 271 272 (261-280) MOSM/KG Calcium 10.2 8.9 D (8.4-10.2) MG/DL Total Bilirubin 2.70 H (0.20-1.30) MG/DL Icterus Index < 2.0 < 2 (0-7) AST 216 H (17-59) U/L ALT 100 H (21-72) U/L Alkaline Phosphatase 87 (38-126) U/L Total Protein 8.2 (6.3-8.2) G/DL Albumin 4.7 (3.5-5.0) G/DL Globulin 3.5 (2.4-3.6) G/DL Albumin/Globulin Ratio 1.3 (1.1-2.2) RATIO Specimen Hemolysis < 15 < 15 (0-25) <Satinder Mcclure - 11/10/17 22:24> Lab Results 11/10/17 11/10/17 Range/Units 18:03 21:32 Turbidity < 20 < 20 (0-20) Sodium 134 134 (134-144) MEQ/L Potassium 2.1 L* 2.0 L* (3.6-5) MEQ/L Chloride 62 L 73 L D (98-107) MEQ/L Carbon Dioxide 43 H* 43 H* (22-30) MEQ/L Anion Gap 29 H 18 H (5-15) MEQ/L BUN 49.0 H 51.0 H* (9-20) MG/DL Creatinine 2.7 H 2.9 H D (0.8-1.5) MG/DL GFR Calculation 30 28 BUN/Creatinine Ratio 18 18 (6-26) RATIO Glucose 100 95 (75-110) MG/DL Calculated Osmolality 271 272 (261-280) MOSM/KG Calcium 10.2 8.9 D (8.4-10.2) MG/DL Total Bilirubin 2.70 H (0.20-1.30) MG/DL Icterus Index < 2.0 < 2 (0-7) AST 216 H (17-59) U/L ALT 100 H (21-72) U/L Alkaline Phosphatase 87 (38-126) U/L Total Protein 8.2 (6.3-8.2) G/DL Albumin 4.7 (3.5-5.0) G/DL Globulin 3.5 (2.4-3.6) G/DL Albumin/Globulin Ratio 1.3 (1.1-2.2) RATIO Specimen Hemolysis < 15 < 15 (0-25) <[facility] 11/10/17 18:21> - Radiology Data Attestation: I reviewed the patient's radiology results. <Satinder Mcclure 22:24> Disposition Clinical Impression: Drug-induced nausea and vomiting, Dehydration, Hypokalemia <Satinder Mcclure 11/10/17 22:24> Disposition: 02 To [facility] Acute Care <Satinder Mcclure 11/10/17 22:24> Condition: Stable <Satinder Mcclure 11/10/17 22:24> Prescriptions: No Action levOCARNitine [l-Carnitine] 500 mg PO DAILY Ubidecarenone/Vitamin E [Co Q-10 50 mg Softgel] 1 cap PO DAILY Amitriptyline [Elavil] 50 mg PO HS Ondansetron [Zofran Odt] 4 mg PO Q4HR PRN #18 tab.rapdis PRN Reason: NAUSEA Fexofenadine [Cici] 180 mg PO DAILY Ascorbate Calcium [Vitamin C] 500 mg PO DAILY Cyanocobalamin (Vitamin B-12) [Vitamin B-12] 1 tab PO DAILY Prochlorperazine Tab [Compazine] 10 mg PO Q6HR PRN #12 tab PRN Reason: Nausea &/Or Vomiting Multivitamin [One Daily] 1 tab PO DAILY Scopolamine Patch [Transderm-Scop Eq] 1 patch TD Q72H <Satinder Mcclure 22:24> Time of Disposition: 22:24 <Satinder Mcclure 11/10/17 22:24> - Seen By: physician <Satinder Mcclure 11/10/17 22:24>
[2017-11-10] MEDS ORDERED: GRANISETRON 1mg/ml INJECTION IVP ONE (18:48)
[2017-11-10] MEDS ORDERED: DEXAMETHASONE 4 MG/ML INJECTION IVP ONE (18:48)
[2017-11-10] MEDS ORDERED: POTASSIUM CHLORIDE PREMIX 10 MEQ/100 ML BAG IV SCH (18:49)
[2017-11-10] MEDS ORDERED: NS 1,000 ML IV ONE (18:50)
[2017-11-10] MEDS: SALINE FLUSH 10ml SYRINGE IVF PRN (19:25)
--- NOTE | 2017-11-10 23:19 | History & Physical Report ---
History of Present Illness Date: 11/11/17 Chief complaint: nausea/vomiting HPI: This is a 22 y/o male who has multiple episodes of nausea/vomiting/abdomen pain. He is addicted to marijuana and has most likely Cannibis hyperemesis syndrome. The patient has been seen in the ED 4/out of the last 6 d. Tonight he has hypokalemia with acute renal failure. Attempts to manage his sx in the Ed and discharge were not successful. The patient is to be admitted for further assessment and treatment. Review of Systems Review of systems: no headache, no fever, chills or sweats, dry mouth, no neck pain, no chest pain , occasional cough, no heart palpations, diffuse abdomen pain with maybe 30 to 40 emesis today, no blood, no diarrhea, no urine sx, no skin rashes, no focal neuro complaints. 12 point ROS otherwise negative except for outlined above. Past Medical History Patient Stated Medical History Gastroesophageal Reflux Yes Disease Other GI Yes: CYCLIC VOMITING Other Yes: marijuana Substance Use Disorder Yes: MARiJUANA Surgical History: Colonoscopy. EGD. tonsillectomy Family History Updates: father alive and well. - Social History Smoking status: Never smoker Substance use type: marijuana Substance last used: days (ago) Alcohol intake: never Alcohol intake frequency: does not drink Housing: house Household members: family service: No Current occupational status: employed Current occupational exposures/hazards: No Does patient use chewing tobacco?: No Medications Home Medications Medication Instructions Recorded Confirmed Type levOCARNitine [l-Carnitine] 500 mg PO DAILY 04/18/17 11/10/17 History Fexofenadine [Cici] 180 mg PO DAILY 07/07/17 11/10/17 History Ascorbate Calcium [Vitamin C] 500 mg PO DAILY 10/13/17 11/10/17 History Ubidecarenone/Vitamin E [Co Q-10 1 cap PO DAILY 10/13/17 11/10/17 History 50 mg Softgel] Cyanocobalamin (Vitamin B-12) 1 tab PO DAILY 10/14/17 11/10/17 History [Vitamin B-12] Multivitamin [One Daily] 1 tab PO DAILY 10/21/17 11/10/17 History Amitriptyline [Elavil] 50 mg PO HS 11/07/17 11/10/17 History Scopolamine Patch [Transderm-Scop 1 patch TD Q72H 11/08/17 11/10/17 History Eq] Allergies Allergy/AdvReac Type Severity Reaction Status Date / Time lactose AdvReac Unknown ON LACTOSE Verified 11/10/17 16:45 FREE DIET Exam Vital Signs: Temperature 98.2 F 11/10/17 17:48 Pulse Rate 98 11/10/17 22:33 Respiratory Rate 24 11/10/17 22:33 Blood Pressure 116/70 11/10/17 22:33 Pulse Oximetry 100 11/10/17 22:33 Telemetry Rhythm: Sinus Tachycardia - Constitutional Present: moderate distress, well nourished, well developed, thin, disheveled, cooperative - Routine HEENT Exam Head: Present: normocephalic, atraumatic Eye: Present: EOMI, conjunctivae pink ENT: Present: mucous membranes dry - Routine Neck Exam Present: supple, full ROM - Routine Respiratory Exam Present: CTA bilaterally - Routine Cardiovascular Exam Present: RRR, tachycardia - Routine Abdominal Exam Comments: scaphoid, bowel sounds present, mild tender per nursing assited exam - Routine Extremities Exam Present: no edema, non tender, full ROM - Routine Back/Spine/Pelvis Exam Back/Spine: Present: full ROM - Routine Skin Exam Present: intact - Routine Neurological Exam Present: alert, oriented X3, moving all extremities, normal tone. Absent: motor deficit - Routine Psychiatric Exam Comments: somewhat flat affect, poor eye contact Results - Labs CBC & Chem 7: 11/11/17 04:33 11/11/17 04:33 Labs: reviewed Assessment and Plan (1) Drug-induced nausea and vomiting Current visit: Yes Status: Acute (2) Dehydration Current visit: Yes Status: Acute (3) Hypokalemia Current visit: Yes Status: Acute (4) Acute renal failure Current visit: Yes Status: Acute (5) Anxiety Current visit: Yes Status: Acute (6) Transaminitis Current visit: Yes Status: Acute (7) Marijuana abuse Current visit: Yes Status: Acute Assessment and Plan: 1. Cannibis hyperemesis syndrome: patient with classic sx where his abd pain/ nausea improved with hot shower. Patient is very much aware of his need to stop smoking marijuana. It may be that he will need a drug rehab program if he hasn' t already explored this option. For now ivf, iv antiemetics. kytrel apparently is working for him. In the past these pateint's have responded to haldol. Will reassess in the am. 2. hypokalemia acute POA: due to gi loss. has had gi workup in the past. replace iv and reasses labs in the am, tele overnight 3. acute renal failure POA: fluids and repeat BMP in the am. note is most likely pre renal. FENA not needed. If not improve with fluids will need to consider further assessment 4. severe metabolic alkalosis POA: due to volume loss. 5. dvt ppx; SCd, 6. gastric ppx; PPI DVT Prophylaxis: SCD's GI Prophylaxis: Protonix Resuscitation Status: Full Code - Time spent with patient Time with patient PN: 30 minutes - Physician Narrative Physician: Anette Velasquez MD Narrative: 11/11/2017, 8:19 AM-Dr. Velasquez I have seen and examined the patient. I have reviewed the H&P above and agree. Please see my additions below. Chief complaint is nausea and vomiting History of present illness: Patient is a 22-year-old man with history of marijuana addiction and multiple episodes of cyclic nausea, vomiting and abdominal pain. He started having vomiting last , November 05. He was seen in the emergency room on November 07 and November 08 and dismiss to home. Last night he return to the emergency room and was found to be in acute renal failure with hypokalemia. He was given Kytril which did stop his nausea and vomiting. He was given 1 L of normal saline in the emergency room. He was given a total of 50 mEq of potassium IV boluses over 5 hours. He was then started on normal saline with 20 of KCl added 125 ML's per hour. He is taken in 960 ML's of water orally and no longer has emesis. He is only have 300 ML's of urine out overnight and does not feel the need to urinate now. He was apparently confused last night and tried to drink out of the sink and then tried to drink out of his emesis bag. He is no longer confused this morning. He complains of some pain in his chest and states that he's had this for about 5 days since he's been retching. He has had some blood in his emesis and his dad has noticed that his emesis looked dark. He has had no fevers, chills or sweats. He denies any diarrhea. He denies any generalized achiness or fatigue. He has not had any sick contacts that he is aware of. He denies any shortness of breath. He was lightheaded previously but is not now. He admits to marijuana use. He states he is not trying to harm himself. His dad is present during the exam and would like to get him into treatment. Past medical history: GERD, cyclic vomiting from marijuana, chronic marijuana use Surgical history colonoscopy, EGD, tonsillectomy Family history father is alive and well. Mother has cancer. There is also family history of CO, diabetes, hypertension Social history: Marijuana use Comprehensive review of systems is negative other than the above in history of present illness Physical exam afebrile, heart rate 90, respirations 18, blood pressure 111/64, O2 sat 97% on room air Gen. this is a well-developed well-nourished 22-year-old male in no acute distress. He does appear fatigued. HEENT reveals sclerae to be anicteric, pupils are equal round and reactive, oropharynx is moist. Neck is supple. Chest is clear to auscultation. Cardiovascular reveals a regular rate and rhythm. Abdomen is soft and nontender. Extremities are free of edema. Skin is warm and dry and without rashes. Lab this morning reveals sodium down to 131, potassium is up to 2.6, BUN is up to 58, creatinine is up to 3, phosphorus is elevated at 9.3, magnesium is elevated at 2.6, AST is down to 170, ALT is down to 95. Total bilirubin is down to 1.5. Impression Probable cyclic nausea and vomiting from marijuana use Acute kidney injury secondary to dehydration, with BUN and creatinine worsening despite rehydration, I'm concerned about possible ATN. Baseline creatinine is 0.6-1.0 Elevated anion gap which is improving Hypokalemia-improving Hyperphosphatemia Elevated transaminases-improving Leukocytosis is likely secondary to stress from vomiting Encephalopathy-improved Hematemesis-likely Shanelle-Lieberman tear Plan Continue IV fluid rehydration and monitor urine output and renal function closely. I did call and talk with a voip network technician in [place] who recommended if renal function is not improving he may require transfer to [place] in case dialysis as needed. Cautious replacement of potassium Continue telemetry Check lactate and CPK. We'll check a renal sonogram. IV Protonix for hematemesis Recheck CBC regarding hematemesis We'll check urine drug screen I would strongly urge patient to undergo intensive drug rehabilitation Hospital Course Summary Disclaimer: The visit summary below is not to be considered part of the above Progress Note.
[2017-11-10 23:41] VITALS: BMI 20.3
[2017-11-11] MEDS ORDERED: DOCUSATE SODIUM 100 MG CAPSULE PO PRN (00:16)
[2017-11-11] MEDS ORDERED: ACETAMINOPHEN 325 MG TABLET PO PRN (00:16)
[2017-11-11] MEDS ORDERED: GRANISETRON 1mg/ml INJECTION IVP PRN (00:16)
[2017-11-11] MEDS ORDERED: ONDANSETRON 4 MG/2 ML INJECTION IVP PRN (00:16)
[2017-11-11] MEDS: SALINE FLUSH 10ml SYRINGE IVF PRN (00:29)
[2017-11-11] MEDS: NS with KCL 20 mEq 1,000 ML IV SCH ×2 (00:31→11:45)
[2017-11-11] MEDS: POTASSIUM CHLORIDE PREMIX 10 MEQ/100 ML BAG IV SCH ×9 (00:32→22:44)
[2017-11-11] MEDS: PANTOPRAZOLE 40 MG INJECTION IVP SCH ×2 (00:41→12:37)
[2017-11-11] MEDS: MORPHINE SULFATE 4mg INJECTION IVP PRN (02:47)
--- NOTE | 2017-11-11 07:57 | XRay Report ---
Indication: n/v PROCEDURE: XR abdomen 2V: Encounter: Initial Comparison: August 15, 2017 Findings: The visualized lung bases are clear. There is no free air on the upright view. The bowel gas pattern is nonobstructive and nonspecific. Gas is seen in nondilated small and large bowel to the level of the rectum. Moderate stool is seen throughout the colon. The bony structures are grossly unremarkable. Impression: Nonobstructive nonspecific bowel gas pattern. .
--- NOTE | 2017-11-11 07:58 | XRay Report ---
INDICATION: tachycardia PROCEDURE: CHEST 2-VIEWS UPRIGHT (PA & LAT) Encounter: Initial COMPARISON: None FINDINGS: The lungs are clear without evidence of focal abnormal airspace opacity. There is no pleural effusion or pneumothorax. The heart size, mediastinal contours and pulmonary vascularity are within normal limits. There is no significant skeletal abnormality. IMPRESSION: No acute cardiopulmonary disease. .
--- NOTE | 2017-11-11 09:08 | Ultrasound Report ---
Indication: KEILA PROCEDURE: US renal BI: Encounter: Initial Comparison: None Technique: Grayscale and color Doppler sonographic imaging of both kidneys was performed. FINDINGS: Both kidneys are present with normal cortical thickness and echogenicity. No evidence for collecting system dilatation, contour deforming mass, nephrolithiasis, or abnormal perinephric fluid collection. The right kidney measures 10.7 cm in length, and the left kidney measures 10.2 cm in length. IMPRESSION: Normal renal sonogram. .
[2017-11-11] MEDS ORDERED: INFLUENZA VAC. INJ. ADMIN CHARGE INJ ONE (14:00)
[2017-11-11] MEDS: NS 1,000 ML IV SCH (16:04)
[2017-11-11] MEDS ORDERED: INFLUENZA VAC QIV 2017-18 (Fluarix*)(>=3yo) 0.5ml IM ONE (21:00)
[2017-11-12] MEDS: POTASSIUM CHLORIDE PREMIX 10 MEQ/100 ML BAG IV SCH ×5 (00:02→13:42)
[2017-11-12] MEDS: PANTOPRAZOLE 40 MG INJECTION IVP SCH ×3 (03:16→23:46)
[2017-11-12] MEDS: NS 1,000 ML IV SCH ×2 (07:08→20:12)
--- NOTE | 2017-11-12 13:12 | Progress Note ---
Progress Note: I stopped by and attempted to interview the patient, who was lying in bed with his eyes closed. His father was at bedside. I explained my role and stated that sometimes I could help with suggestions in these situations. Patient did not open his eyes and said, "I'm too tired." His father told him, "Daddy can leave" and patient refused, stating he was too tired and didn't feel good enough to talk. In regards to hyperemesis gravidarum and cannabis use, the primary treatment would be cessation of marijuana use. I suspect in this patient it would likely require inpatient substance abuse treatment to truly be successful. While there may be some element of depression as well, SSRIs/SNRIs would likely not be helpful in the context of heavy cannabis use, which is a depressant for the brain. Anecdotally, hot showers are recommended to relieve the symptoms in addition to IV fluids and Zofran. May also consider tracking THC levels in regards to symptomatology. Will attempt to speak with patient tomorrow morning.
--- NOTE | 2017-11-12 22:08 | Progress Note ---
- Date 11/12/17 Subjective: I saw the patient this afternoon accompanied by his dad. The patient had been up in the halls walking with his IV pole. He stated he was feeling a lot better and wanted to go home. He stated he was hungry and wanted to eat a hamburger. He stated his abdominal pain was better. He stated his nausea was better. His urine still looked dark. He told me he was interested in treatment for marijuana addiction, but the case therapist called me after I saw the patient and stated that she went in to talk with him and his father about treatment options and he stated to her that he did not want treatment. Objective Vital signs: Temperature 98.8 F 11/12/17 19:39 Pulse Rate 68 11/12/17 19:39 Respiratory Rate 16 11/12/17 19:39 Blood Pressure 132/70 11/12/17 19:39 Pulse Oximetry 100 11/12/17 19:39 Height/Weight/BMI: Height 1.7 m Weight 61.2 kg Body Mass Index 20.3 Comments: GEN-alert, oriented, no acute distress HEENT-sclera anicteric, oropharynx is moist NECK-supple CV-regular rate and rhythm CHEST-clear to auscultation ABD-soft, nontender, positive bowel sounds -no Aguilar EXT-no edema NEURO-no focal deficits SKIN-warm and dry Results - Labs CBC & Chem 7: 11/12/17 04:25 11/12/17 15:40 Labs: Patient had a drop in platelets from 203-114. We'll need to recheck. White count did drop from 15.0-11.3. Hemoglobin dropped from 15.6-12.6 likely dilutional Potassium this morning was 2.7 and after replacement is 3.8 Creatinine had improved today to 2.3 down from 2.7 yesterday afternoon. BUN was 56 down from 59 yesterday afternoon. CPK improved to 1119 down from 5065 yesterday Urine drug screen was positive for opiates, benzodiazepine and cannabinoids. This was obtained yesterday. The patient did receive morphine and Ativan in the emergency room prior to drug screen. Review of stroke screen on 11/07/2017 was positive for tricyclics and cannabinoids Assessment and Plan (1) Drug-induced nausea and vomiting Current visit: Yes Status: Acute (2) Dehydration Current visit: Yes Status: Acute (3) Hypokalemia Current visit: Yes Status: Acute (4) Acute renal failure Current visit: Yes Status: Acute (5) Anxiety Current visit: Yes Status: Acute (6) Transaminitis Current visit: Yes Status: Acute (7) Marijuana abuse Current visit: Yes Status: Acute Assessment and Plan: Impression Probable cyclic nausea and vomiting from marijuana use-nausea and vomiting is a little better. He did require Kytril this morning. Acute kidney injury secondary to dehydration-he likely developed ATN-fortunately , creatinine is improving today. Baseline creatinine is 0.6-1 Elevated anion gap -resolved Rhabdomyolysis -improving Hypokalemia-resolved Hyperphosphatemia Elevated transaminases-improving Leukocytosis is likely secondary to stress from vomiting-improved Encephalopathy-resolved Hematemesis-likely Shanelle-Lieberman tear Marijuana addiction-the patient initially agreed to consider treatment, and then later told case management he was not interested. Plan We did try to advance diet as tolerated with toast first, he was only able to eat a couple of bites and could not eat any further. We will not advance the diet any further at this time. Continue IV fluids-decrease rate to 100 ML's per hour. Recheck CMP, magnesium and phosphorus tomorrow. Continue to encourage treatment for marijuana addiction. Discussed this morning with Dr. Red. Discussed with the patient's father. Discussed with case management. DVT Prophylaxis: SCD's GI Prophylaxis: Protonix Resuscitation Status: Full Code - Time spent with patient Time with patient PN: 30 minutes - Physician Narrative Physician: Anette Velasquez MD Narrative: Date: 11/12/17 Time: 2203 Hospital Course Summary Disclaimer: The visit summary below is not to be considered part of the above Progress Note.
[2017-11-13] MEDS: NS 1,000 ML IV SCH ×3 (04:33→22:27)
[2017-11-13] MEDS: LIDOCAINE 1% INJ 10 MG, POTASSIUM CHLORIDE INJ 10 MEQ in NS 100 ML IV SCH ×4 (08:35→13:03)
[2017-11-13] MEDS: PANTOPRAZOLE 40 MG INJECTION IVP SCH ×2 (13:03→23:49)
--- NOTE | 2017-11-13 14:21 | Neuropsychiatric Consult ---
[facility] Date: 11/13/17 [facility] Patient Stated Medical History Gastroesophageal Reflux Yes Disease Other GI Yes: CYCLIC VOMITING Other Yes: marijuana Substance Use Disorder Yes: MARiJUANA Surgical History: Colonoscopy. EGD. tonsillectomy - Social History Smoking status: Never smoker Does patient use chewing tobacco?: No Mental Status Exam Vitals: Last Vital Signs Temp 97.6 F 11/13/17 08:49 Pulse 63 11/13/17 08:49 Resp 16 11/13/17 08:49 BP 143/90 H 11/13/17 08:49 Pulse Ox 98 11/13/17 08:49 Height: 1.7 m Weight: 63.5 kg - Laboratory Result Diagrams: 11/13/17 05:21 11/13/17 05:21 Laboratory Results - last 24 hr 11/12/17 11/13/17 11/13/17 15:40 05:21 05:21 WBC 9.9 RBC 4.04 L Hgb 12.7 L Hct 36.6 L MCV 90.6 MCH 31.4 MCHC 34.7 RDW Std Deviation 38.1 Plt Count 124 L MPV 12.7 H Immature Gran % (Auto) 0.3 Neut % (Auto) 69.0 H Lymph % (Auto) 19.8 L [place] % (Auto) 9.3 H Eos % (Auto) 1.5 Baso % (Auto) 0.1 Neut # (Auto) 6.8 Lymph # (Auto) 2.0 [place] # (Auto) 0.9 H Eos # (Auto) 0.2 Baso # (Auto) 0.0 Abs Immat Gran (auto) 0.03 Turbidity < 20 Sodium 135 Potassium 3.8 D 2.8 L* D Chloride 97 L D Carbon Dioxide 31 H Anion Gap 7 BUN 38.0 H Creatinine 2.0 H D GFR Calculation 43 BUN/Creatinine Ratio 19 Glucose 97 Calculated Osmolality 269 Calcium 8.2 L Phosphorus 2.6 Magnesium 2.6 H Total Bilirubin 0.80 Icterus Index < 2 AST 48 D ALT 68 Alkaline Phosphatase 55 D Total Protein 5.8 L Albumin 3.3 L Globulin 2.5 Albumin/Globulin Ratio 1.3 Specimen Hemolysis < 15 < 15
[2017-11-13] MEDS ORDERED: POTASSIUM CHLORIDE PREMIX 10 MEQ/100 ML BAG IV SCH (14:45)
--- NOTE | 2017-11-13 14:58 | Progress Note ---
- Date 11/13/17 Subjective: Reginald has no complaints - no abd pain, n/v. Appetite is improving and he just ate a muffin. He actually is hungry for a hamburger. He denies weakness or dizziness. He would like to go home and is willing to return to the hospital in the am for lab recheck and more potassium if needed. Objective Vital signs: Temperature 97.6 F 11/13/17 08:49 Pulse Rate 63 11/13/17 08:49 Respiratory Rate 16 11/13/17 08:49 Blood Pressure 143/90 H 11/13/17 08:49 Pulse Oximetry 98 11/13/17 08:49 Height/Weight/BMI: Height 1.7 m Weight 63.5 kg Body Mass Index 20.3 - Constitutional Present: no acute distress, well nourished, well developed - Routine HEENT Exam Head: Present: normocephalic Eye: Absent: conjunctival icterus, scleral injection - Routine Respiratory Exam Present: CTA bilaterally - Routine Cardiovascular Exam Present: RRR, S1, S2 - Routine Abdominal Exam Present: soft, normoactive bowel sounds, non distended, non tender - Routine Extremities Exam Present: no edema - Routine Back/Spine/Pelvis Exam Back/Spine: Present: full ROM - Routine Musculoskeletal Exam Musculoskeletal: Present: moving extremities well - Routine Skin Exam Present: intact, dry, warm - Routine Neurological Exam Present: alert, oriented X3 - Routine Psychiatric Exam Present: normal affect, normal thought process, cooperative Results - Labs CBC & Chem 7: 11/13/17 05:21 11/13/17 15:46 Assessment and Plan (1) Drug-induced nausea and vomiting Current visit: Yes Status: Acute (2) Dehydration Current visit: Yes Status: Acute (3) Hypokalemia Current visit: Yes Status: Acute (4) Acute renal failure Current visit: Yes Status: Acute (5) Anxiety Current visit: Yes Status: Acute (6) Transaminitis Current visit: Yes Status: Acute (7) Marijuana abuse Current visit: Yes Status: Acute Assessment and Plan: Impression Probable cyclic nausea and vomiting from marijuana use-nausea and vomiting is a little better. He did require Kytril this morning. Acute kidney injury secondary to dehydration-he likely developed ATN-fortunately , creatinine is improving today. Baseline creatinine is 0.6-1 Elevated anion gap -resolved Rhabdomyolysis -improving Hypokalemia Hyperphosphatemia Elevated transaminases-improving Leukocytosis is likely secondary to stress from vomiting-improved Encephalopathy-resolved Hematemesis-likely Shanelle-Lieberman tear Marijuana addiction-the patient initially agreed to consider treatment, and then later told case management he was not interested. Plan Hypokalemia - 2.8 and IV replacement has just been completed. Repeat BMP pending. Cr improved to 2.0 - may need to f/u with nephrology in outpt setting. Advance diet to regular Discussed briefly with Dr. Velasquez - further treatment/disposition depends on next BMP. 11/13/2017-5:46 PM-I reviewed this chart, the patient history, and the SOLUTIONS OPERATOR's/PA 's documented findings as above. We discussed and formulated the assessment and plan as above with the additions below.-Dr. Velasquez The patient is seen in his room accompanied by his dad. He states he's feeling a lot better. He was able to eat a hamburger from [employer]. He no longer has any nausea, vomiting or abdominal pain. He has had some stools today which looked "brown-black." He denies any lightheadedness. On exam he is alert and in no acute distress. Chest is clear to auscultation. Cardiovascular reveals a regular rate and rhythm. Abdomen is soft and nontender. Extremities are free of edema. Impression and plan Probable acute tubular necrosis from severe dehydration. Renal function is slowly improving. Appetite is improving. Recheck basic metabolic profile tomorrow. Probable discharge tomorrow. Recheck potassium tomorrow regarding recent hypokalemia. Hematemesis, mild melena-likely from Shanelle-Lieberman tear. Patient was notified that if he should notice black stools after several days from now, he should be evaluated for possible continued GI bleed. Will recheck CBC tomorrow. Recommend treatment for marijuana addiction. GI Prophylaxis: Protonix Resuscitation Status: Full Code - Physician Narrative Narrative: Date: 11/13/17 Time: 1454 Hospital Course Summary Disclaimer: The visit summary below is not to be considered part of the above Progress Note.
[2017-11-13] MEDS: DiphenhydrAMINE 25 MG CAPSULE PO PRN (22:27)
[2017-11-14] MEDS: MORPHINE SULFATE 4mg INJECTION IVP PRN (00:08)
[2017-11-14] MEDS: NS 1,000 ML IV SCH ×3 (06:16→22:21)
[2017-11-14] MEDS: PANTOPRAZOLE 40 MG INJECTION IVP SCH (15:06)
[2017-11-14 16:08] VITALS: O2SAT 100
--- NOTE | 2017-11-14 20:57 | Progress Note ---
- Date 11/14/17 Subjective: Ramírez was seen earlier today accompanied by his dad. The patient was strongly wanting to go home. He is eating and drinking well. He is still on IV fluids. His potassium continues to be low and require replacement. His creatinine is slowly improving. He slept well with Benadryl last night. He denies any other complaints. He has had no further nausea or vomiting. He denies any abdominal pain. Objective Vital signs: Temperature 99.1 F 11/14/17 16:00 Pulse Rate 65 11/14/17 16:00 Respiratory Rate 14 11/14/17 16:00 Blood Pressure 137/83 11/14/17 16:00 Pulse Oximetry 100 11/14/17 16:00 Height/Weight/BMI: Height 1.7 m Weight 64.5 kg Body Mass Index 20.3 Comments: GEN-alert, oriented, no acute distress HEENT-sclera anicteric, oropharynx is moist NECK-supple CV-regular rate and rhythm CHEST-clear to auscultation bilaterally ABD-soft with positive bowel sounds -no Aguilar EXT-no edema NEURO-no focal deficits SKIN-warm and dry Results - Labs CBC & Chem 7: 11/14/17 04:46 11/14/17 14:31 Assessment and Plan (1) Drug-induced nausea and vomiting Current visit: Yes Status: Acute (2) Dehydration Current visit: Yes Status: Acute (3) Hypokalemia Current visit: Yes Status: Acute (4) Acute renal failure Current visit: Yes Status: Acute (5) Anxiety Current visit: Yes Status: Acute (6) Transaminitis Current visit: Yes Status: Acute (7) Marijuana abuse Current visit: Yes Status: Acute Assessment and Plan: Impression Probable cyclic nausea and vomiting from marijuana use-nausea and vomiting is a little better. He did require Kytril this morning. Acute kidney injury secondary to dehydration-he likely developed ATN-fortunately , creatinine is improving today. Baseline creatinine is 0.6-1 Elevated anion gap -resolved Rhabdomyolysis -improving Hypokalemia Hyperphosphatemia Elevated transaminases-improving Leukocytosis is likely secondary to stress from vomiting-improved Encephalopathy-resolved Hematemesis-likely Shanelle-Lieberman tear-resolved Mild anemia-drop in hemoglobin is likely dilutional Marijuana addiction-the patient initially agreed to consider treatment, and then later told case management he was not interested. Plan Hypokalemia -potassium this morning was 3.0 improved to 3.4 after 60 mEq of potassium. He was given another 40 mEq of potassium 1. Cr improved 1.7 this afternoon. He is tolerating a regular diet. DC IV fluids Recheck basic metabolic profile tomorrow. Consider dismissal tomorrow if creatinine is stable and potassium improving. He would need to follow-up with the primary care physician. At this time he states he does not have a primary care provider. Discussed with patient's father DVT Prophylaxis: SCD's GI Prophylaxis: Protonix Resuscitation Status: Full Code - Physician Narrative Physician: Anette Velasquez MD Narrative: Date: 11/14/17 Time: 2051 Hospital Course Summary Disclaimer: The visit summary below is not to be considered part of the above Progress Note.
[2017-11-14] MEDS: DiphenhydrAMINE 25 MG CAPSULE PO PRN (23:04)
[2017-11-14 23:06] VITALS: BP 145/84; RESP 16; TEMP 97.7
[2017-11-15] MEDS: SALINE FLUSH 10ml SYRINGE IVF PRN (05:43)
[2017-11-15] MEDS ORDERED: PANTOPRAZOLE 40 MG TABLET PO SCH (06:30)
[2017-11-15 09:19] VITALS: PULSE 63
--- NOTE | 2017-11-15 12:40 | Discharge Summary ---
Discharge Information Date of admission: 11/10/17 22:38 Anticipated date of discharge: 11/15/17 Attending Physician: Anette Velasquez MD Primary care physician: none Consults: 11/12/17 08:32 Physician Consult [CONS] Routine Consulting Provider: Cynthia Red Reason For Exam: marijuana addiction, possible depression/anxiety Ordering Provider has Notified Vascular Technician: Yes Comment: generations nurse notified 11/12/17 08:33 Case Management Consult [CONS] Routine Reason For Exam: social work consult for marijuana tx options - Discharge Diagnosis (1) Drug-induced nausea and vomiting Status: Acute (2) Dehydration Status: Acute (3) Hypokalemia Status: Acute (4) Acute renal failure Status: Acute (5) Anxiety Status: Acute (6) Transaminitis Status: Acute (7) Marijuana abuse Status: Acute Probable cyclic nausea and vomiting from marijuana use- Acute kidney injury secondary to dehydration-he likely developed ATN-creatinine at discharge is 1.8. Baseline creatinine is 0.6-1 Elevated anion gap -resolved Rhabdomyolysis -improving Hypokalemia-improved. Potassium 3.4 on discharge day Hyperphosphatemia Elevated transaminases-improving Leukocytosis is likely secondary to stress from vomiting-improved Encephalopathy-resolved Hematemesis-likely Shanelle-Lieberman tear-resolved Mild anemia-drop in hemoglobin is likely dilutional-hemoglobin 12.2 prior to discharge Mild thrombocytopenia with platelets of 118 Marijuana addiction-recommend rehabilitation to help with addiction - Laboratory Labs: 11/14/17 04:46 11/15/17 05:13 Laboratory Tests 11/10/17 11/10/17 11/11/17 18:03 21:32 04:33 WBC 15.0 H Hgb 15.6 Plt Count 203 Potassium 2.1 L* 2.0 L* Creatinine 2.7 H 2.9 H D Phosphorus Magnesium Total Bilirubin 2.70 H Icterus Index < 2 AST 216 H ALT 100 H Alkaline Phosphatase Creatine Kinase Plasma Lactate 11/11/17 11/11/17 11/11/17 04:33 08:31 13:36 WBC Hgb Plt Count Potassium 2.6 L* D 2.6 L* Creatinine 3.0 H 2.7 H D Phosphorus 9.3 H Magnesium Total Bilirubin 1.50 H Icterus Index AST 170 H ALT 95 H Alkaline Phosphatase Creatine Kinase 5065 H Plasma Lactate 1.0 0111/12/17 11/13/17 04:25 04:25 05:21 WBC 11.3 H 9.9 Hgb 12.6 L D 12.7 L Plt Count 114 L D 124 L Potassium 2.7 L* Creatinine 2.3 H D Phosphorus Magnesium Total Bilirubin Icterus Index AST ALT Alkaline Phosphatase Creatine Kinase 1119 H Plasma Lactate 11/13/17 11/13/17 11/14/17 05:21 15:46 04:46 WBC 10.2 Hgb 12.2 L Plt Count 118 L Potassium 3.8 D Creatinine 2.0 H D 1.9 H Phosphorus 2.6 Magnesium 2.6 H Total Bilirubin 0.80 Icterus Index AST 48 D ALT 68 Alkaline Phosphatase 55 D Creatine Kinase Plasma Lactate 11/14/17 11/14/17 11/15/17 04:46 14:31 05:13 WBC Hgb Plt Count Potassium 3.0 L D 3.4 L 3.4 L Creatinine 1.8 H 1.7 H 1.8 H Phosphorus Magnesium Total Bilirubin Icterus Index AST ALT Alkaline Phosphatase Creatine Kinase Plasma Lactate - Radiology Radiology: Normal renal sonogram. Chest x-ray showed no acute cardiopulmonary disease Abdominal x-ray showed nonobstructive nonspecific bowel gas pattern History of Present Illness HPI: This is a 22 y/o male who has multiple episodes of nausea/vomiting/abdomen pain. He is addicted to marijuana and has most likely Cannibis hyperemesis syndrome. The patient has been seen in the ED 4/out of the last 6 d. Tonight he has hypokalemia with acute renal failure. Attempts to manage his sx in the Ed and discharge were not successful. The patient is to be admitted for further assessment and treatment. History of present illness: Patient is a 22-year-old man with history of marijuana addiction and multiple episodes of cyclic nausea, vomiting and abdominal pain. He started having vomiting last , November 05. He was seen in the emergency room on November 07 and November 08 and dismiss to home. Last night he return to the emergency room and was found to be in acute renal failure with hypokalemia. He was given Kytril which did stop his nausea and vomiting. He was given 1 L of normal saline in the emergency room. He was given a total of 50 mEq of potassium IV boluses over 5 hours. He was then started on normal saline with 20 of KCl added 125 ML's per hour. He is taken in 960 ML's of water orally and no longer has emesis. He is only have 300 ML's of urine out overnight and does not feel the need to urinate now. He was apparently confused last night and tried to drink out of the sink and then tried to drink out of his emesis bag. He is no longer confused this morning. He complains of some pain in his chest and states that he's had this for about 5 days since he's been retching. He has had some blood in his emesis and his dad has noticed that his emesis looked dark. He has had no fevers, chills or sweats. He denies any diarrhea. He denies any generalized achiness or fatigue. He has not had any sick contacts that he is aware of. He denies any shortness of breath. He was lightheaded previously but is not now. He admits to marijuana use. He states he is not trying to harm himself. His dad is present during the exam and would like to get him into treatment. Objective Vital signs: Temperature 97.7 F 11/14/17 23:06 Pulse Rate 63 11/15/17 08:00 Respiratory Rate 16 11/14/17 23:06 Blood Pressure 145/84 H 11/14/17 23:06 Pulse Oximetry 100 11/14/17 23:06 Height/Weight/BMI: Height 1.7 m Weight 64.5 kg Body Mass Index 20.3 Comments: On the day of discharge the patient states he's feeling well. He's eating and drinking without difficulties. He is up walking in the halls without difficulties. He denies any abdominal pain or pain elsewhere. He's had some bowel movements and his stool is brown in color. He is urinating without difficulties. On exam he is alert and oriented 3. Chest is clear to auscultation. Cardiovascular reveals a regular rate and rhythm. Abdomen is soft and nontender. Extremities are free of edema. Hospital Course This is a general summary of the patient's hospital course. For more details refer to the complete medical record. Hospital course: The patient was admitted to the hospital after several days at home of nausea and vomiting. He likely has cyclic nausea and vomiting from marijuana use. Nausea and vomiting seem to improve with fluids and Kytril. He was admitted with acute kidney injury. IV fluids were given and creatinine was slow to improve. Maximum creatinine was 3.0 and on discharge creatinine has stabilized at 1.8 and BUN is 18 down from a high of 59. I did discuss the patient with nephrology, and it was felt that he likely had some acute tubular necrosis. This should improve over time. The patient was given IV fluids until yesterday and then they were discontinued. Today his creatinine is stable. Patient also had rhabdomyolysis with CPK of approximately 5000 that was improving after fluids down to 1000. He also had hypokalemia on admission and required potassium supplementation initially IV and then by mouth. Potassium this morning was 3.4 prior to discharge. He was given 40 mEq of potassium 1 this morning. The patient had noticed dark stools and some black emesis prior to admission. He also noticed some chest discomfort with vomiting. He likely had a Shanelle- Lieberman tear. He was given Protonix IV. Hemoglobin did drop from 15.6 on admission to 12.2 on discharge. I think the majority of his drop in hemoglobin was dilutional. He has had a normal brown stool prior to discharge. He has had no further chest discomfort. Patient had a positive urine drug screen for benzodiazepines, narcotics, and marijuana. Urine sample was taken after he had been given narcotics and benzodiazepines in the emergency room. I did ask the social professionals to see the patient regarding marijuana addiction and she did give him options for treatment at at the time he did not want to go to treatment. On the day of discharge, he and the patient's father states that he is now open to treatment. On 11/15/2017, the patient had maintained a stable creatinine and BUN off of IV fluids. He was eating and drinking well. I think his total body potassium has nearly normalized. I think he is stable for dismissal to home. He is strongly urged to quit smoking marijuana because this is the likely cause of his recurrent severe nausea and vomiting. He does not have a primary care physician , but his father states that he will get him in to see a physician in the next 1 -2 days. I did discuss with them that he does need lab work including a CBC and basic metabolic profile in the next 1-2 days. His father asked about potassium supplementation and I recommended against it at this time. He should get his lab work rechecked and then they can determine whether he needs more potassium. His father states that he will make sure he goes to a primary care provider and the patient is agreeable. They have not yet chosen a physician. Time spent with patient: discharge greater than 30 minutes Resuscitation Status: Full Code Discharge Plan - Discharge Disposition Discharge Date: 11/15/17 Disposition: Discharged Home, Self-Care *Condition: Stable Reason For Visit (Visit label in EMR): Cannibas hyperemesis syndrome, acute kidney injury - Discharge Medications *Discharge Medications: New Omeprazole 20 mg PO DAILY #14 tablet.dr Continue levOCARNitine [l-Carnitine] 500 mg PO DAILY Ubidecarenone/Vitamin E [Co Q-10 50 mg Softgel] 1 cap PO DAILY Amitriptyline [Elavil] 50 mg PO HS Ondansetron [Zofran Odt] 4 mg PO Q4HR PRN #18 tab.rapdis PRN Reason: NAUSEA Fexofenadine [Cici] 180 mg PO DAILY Ascorbate Calcium [Vitamin C] 500 mg PO DAILY Cyanocobalamin (Vitamin B-12) [Vitamin B-12] 1 tab PO DAILY Multivitamin [One Daily] 1 tab PO DAILY Discontinued Prochlorperazine Tab [Compazine] 10 mg PO Q6HR PRN #12 tab PRN Reason: Nausea &/Or Vomiting Scopolamine Patch [Transderm-Scop Eq] 1 patch TD Q72H - Discharge Packet/Instructions *Diet: Diet as tolerated *Activity: Activity as tolerated *Pain Management/Treatment: Tylenol as needed is okay for pain. Do not take aspirin, ibuprofen, Motrin, Aleve, Naprosyn for pain as this can harm your kidneys and can contribute to stomach bleeding. *Wound Care: Not applicable Additional Instructions: Follow-up with her primary care doctor in the next 1-2 days. You will need lab work including a complete blood count and basic metabolic profile to monitor your anemia, kidney function, and potassium. *Expected Signs/Symptoms: Mild fatigue *Notify Physician if: Notify your physician or return to the ER if you have recurrence of vomiting, if you feel weak, lightheaded, short of breath, or notice black stools or black or bloody vomit. *During Business Hours Contact: Call your primary care doctor's office *After Business Hours Contact: Call [facility] at [phone] and have your doctor paged *Pending Lab/Results: No Pending Lab - Referrals/Follow Up - Patient Handouts - Dismissal Complete Discharge Instructions are:: Complete Physician Narrative - Narrative Attestation Narrative: Date: 11/15/17 Time: 4449
== END 2017-11-15 13:45 | disposition home or self-care (01) | DRG 896 ==
LOC: ED 16:32 → MED 22:38
PROVIDERS: ADMIT Emergency Medicine; ATTEND Internal Medicine